=== PATIENT | female | born 1975 | race Caucasian/White ===

== ENCOUNTER 2023-04-03 12:51 | Outpatient (OUT) | payer MEDICAID, SELFPAY ==
--- NOTE | 2023-04-03 | XR_ITS ---
The [address] [address] Patient Name: KAREN SAAVEDRA MRN: [id number] date: 1975 Sex: F Assigned Patient Location: [facility] Current Patient Location: Accession/Order Number: [id number] Exam Date: 04/03/2023 13:08 Report Date: 04/04/2023 15:51 At the request of: BEBO ENRIQUEZ Procedure: XR ankle RT min 3V EXAM: XR ankle RT min 3V HISTORY: RIGHT ANKLE PAIN COMPARISON: 11/18/2019 TECHNIQUE: 3 views of the right ankle were obtained FINDINGS: There is no evidence of an acute fracture or dislocation. There is evidence of prior fractures involving the distal tibia and fibula, fixated with hardware, which remain unchanged. The mortise is intact. No osteochondral injury is identified. The subtalar joints are intact. A small osteophyte arises from the insertion site of the Achilles tendon. Mild diffuse soft tissue swelling is seen at the ankle. XR/XR ankle RT min 3V IMPRESSION: No acute fracture or dislocation. There is evidence of prior trauma and surgical repair without a complicating process. The joint spaces are intact. Mild diffuse soft tissue swelling is present. Electronically authenticated by: BEBO FRANCIS Date: 04/04/2023 15:51
== END 2023-04-03 12:52 | disposition home or self-care (01) ==
LOC: RAD 12:51
PROVIDERS: Visit Provider Podiatrist Foot & Ankle Surgery
DX: M25.571 Pain in right ankle and joints of right foot (principal); M25.471 Effusion, right ankle
CPT/HCPCS: 73610

== ENCOUNTER 2023-04-19 10:05 | Emergency (ER) | payer MEDICAID, SELFPAY ==
[2023-04-19 10:10] VITALS: BP 133/81; PULSE 69; RESP 16; TEMP 36.5; O2SAT 100; BMI 31.1
--- NOTE | 2023-04-19 10:37 | ED.GENADUL1 ---
HPI - General Adult General Chief complaint: Extremity Problem, Nontraumatic Stated complaint: LOWER EXTREMITY PAIN/WEAKNESS Time Seen by Provider: 04/19/23 10:16 Source: patient and family Mode of arrival: Wheelchair Limitations: no limitations History of Present Illness HPI narrative: Patient is a 48-year-old female who is presenting to the Emergency Room with chief complaint of chronic right ankle pain. Patient's been having ankle pain for the last 2 or [address] Gallagher in the office. Patient had x-ray on April 03. Patient does have screws in her right ankle. Patient was given a have a CT of the right ankle done before Dr. Gallagher may possibly do surgery to remove the screws. Insurance has not approved outpatient CT of the right ankle. Patient came to the Emergency Room for reevaluation. Patient's had no new injury, no new pain, no knee swelling. Patient is wearing a Aircast. No other acute concerns or complaints at this time. Patient's brother and is supportive daughter at bedside. 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 . All systems are negative except as noted/marked. All systems reviewed and otherwise negative. . Nurses note and vital signs reviewed and patient is not hypoxic. General: The patient appears well and in no apparent distress. Patient is resting comfortably on cart. Patient is not toxic, lethargic, or listless Skin: Warm, dry, no pallor noted. There is no rash noted. No petechiae, purpura. Head: Normocephalic, atraumatic Eye: Normal conjunctiva, no drainage, EOMI. PERRL Ears, Nose, Mouth, and Throat: oral mucosa is moist. Cardiovascular: Regular Rate and Rhythm, no murmur, gallop, rub Respiratory: Patient is in no distress, no accessory muscle use, lungs are clear to auscultation, no wheezing, rales or rhonchi GI: soft, no tenderness Musculoskeletal: Patient has full range of motion of all of the extremities Besides right ankle. Patient has mild to moderate tenderness to palpation to the right inferior posterior malleolus, no tenderness to palpation to the right Achilles, no pain to right medial malleolus. No pain to the dorsal or plantar aspect of right foot. No pain to proximal fibular head., no motor, sensory, or focal neurological deficits Neurological: A&O x3, normal speech Psychiatric: Cooperative Related Data Previous Rx's Medication Instructions Recorded meloxicam 7.5 mg tablet 7.5 mg PO DAILY #14 tabs 04/19/23 Allergies Allergy/AdvReac Type Severity Reaction Status Date / Time meclizine [From Antivert] AdvReac Mild lethargic Verified 04/19/23 10:13 PFSH PFS Social History Smoking status: Current every day smoker Exam Constitutional Vital Signs, click to edit/add: Last Vital Signs Temp 97.7 F 04/19/23 10:10 Pulse 69 04/19/23 10:10 Resp 16 04/19/23 10:10 BP 133/81 04/19/23 10:10 Pulse Ox 100 04/19/23 10:10 O2 Del Method Room Air 04/19/23 10:10 Course Vital Signs Vital signs: Vital Signs Temperature 97.7 F 04/19/23 10:10 Pulse Rate 69 04/19/23 10:10 Respiratory Rate 16 04/19/23 10:10 Blood Pressure 133/81 04/19/23 10:10 Pulse Oximetry 100 04/19/23 10:10 Oxygen Delivery Method Room Air 04/19/23 10:10 Temperature 97.7 F 04/19/23 10:10 Pulse Rate 69 04/19/23 10:10 Respiratory Rate 16 04/19/23 10:10 Blood Pressure 133/81 04/19/23 10:10 Pulse Oximetry 100 04/19/23 10:10 Oxygen Delivery Method Room Air 04/19/23 10:10 Medical Decision Making MDM Narrative Medical decision making narrative: [address] Gallagher on the phone. He stated that he most likely will be taken patient back to surgery to remove her screws, a CT of the ankle would be beneficial if she continues to have pain to help assess where the pain may be coming from prior to surgery if indicated. Patient is aware of this as well, and agrees to the CT ankle. 1100 CT of the ankle was done. Dr. Gallagher will follow-up with the results of the CT of the ankle and patient was scheduled another office visit prior to potential surgery. Patient will continue wearing her air splint. Patient will follow-up with Dr. Gallagher. No questions at discharge. Discharge Plan Discharge Chief Complaint: Extremity Problem, Nontraumatic Clinical Impression: Ankle pain, right Patient Disposition: Home, Self-Care Time of Disposition Decision: 10:59 Condition: Fair Prescriptions / Home Meds: New meloxicam 7.5 mg tablet 7.5 mg PO DAILY Qty: 14 0RF Instructions: Ankle Sprain (ED), Splint Care (ED), Arthralgia (ED), P.R.I.C.E. Treatment (ED) Stand Alone Forms: Portal Instructions Referrals: Physician,Non-Staff, MD [Primary Care Provider] - 1 week
--- NOTE | 2023-04-19 10:51 | CT_ITS ---
The [address] [address] Patient Name: KAREN SAAVEDRA MRN: [id number] date: 1975 Sex: F Assigned Patient Location: Current Patient Location: Accession/Order Number: [id number] Exam Date: 04/19/2023 10:47 Report Date: 04/19/2023 11:32 At the request of: BRANT MILLAN Procedure: CT ankle RT wo con CT ankle RT wo con: 04/19/2023 10:47 AM EST HISTORY: Chronic right ankle pain. Feelings of instability. Prior open reduction internal fixation of fractures of the right ankle. COMPARISON: Radiographs right ankle 11/18/2019 and 04/03/2023. TECHNIQUE: Multiple contiguous axial CT images of the right ankle were obtained without contrast. Sagittal and coronal reformatted images were made. Dose reduction techniques were achieved by using automated exposure control and/or adjustment of mA and/or kV according to patient size and/or use of iterative reconstruction technique. 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 There are atherosclerotic vascular calcifications seen. There is a stable appearance of remote postsurgical changes from prior open reduction internal fixation of trimalleolar fractures of the ankle. No hardware complication is seen and no lucency is identified adjacent to this hardware. The trimalleolar fractures are completely healed. The tip of one of the screws in the distal fibular metadiaphysis extends into the anterior aspect of the tibiofibular syndesmosis approximately 1 mm. There are moderate degenerative changes of the anterior aspect of the tibiotalar joint. No acute fracture or dislocation is seen. There is mild irregularity of the posterior articular surface of the tibial plafond in the region of the prior fracture of the posterior malleolus. There are mild degenerative changes of the tibiotalar joint with mild joint space narrowing medially and osteophyte formation of the anterior aspect of the tibial plafond. There is a moderate-sized os trigonum, but no significant degenerative change is seen at its synchondrosis. There is a moderate-sized enthesophyte at the insertion of the Achilles tendon on the calcaneus. No significant soft tissue swelling is seen. CT/CT ankle RT wo con IMPRESSION: 1. Remote, healed trimalleolar fractures of the ankle status post prior open reduction internal fixation as described above. 2. There are moderate degenerative changes of the anterior aspect of the tibiofibular joint and mild degenerative changes of the tibiotalar joint. 3. No acute fracture or dislocation is seen. 4. Atherosclerotic vascular disease. Electronically authenticated by: ZOLTAN VAUGHAN Date: 04/19/2023 11:32
== END 2023-04-19 11:12 | disposition home or self-care (01) ==
PROVIDERS: Emergency Provider Emergency Medicine
DX: M25.571 Pain in right ankle and joints of right foot (principal); F17.210 Nicotine dependence, cigarettes, uncomplicated
CPT/HCPCS: 73700; 99284

== ENCOUNTER 2023-05-01 09:24 | Outpatient (OUT) | payer MEDICAID, SELFPAY ==
--- NOTE | 2023-05-01 09:39 | ECG_ITS ---
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
--- NOTE | 2023-05-01 10:43 | PM.PRESUREVA ---
History of Present Illness History of Present Illness Chief complaint: joint disorders right ankle and foot, pain Narrative: Patient presents for preadmission testing. Please see HPI from Dr. Gallagher dated 04/23/2023. Review of Systems ROS Narrative Please see ROS from Dr. Gallagher dated 04/23/2023. [facility] Medical History (Updated 05/01/23 @ 10:25 by Gaby Conley NP) Strain of right peroneal muscle or tendon ?S86.311A - Strain of muscle(s) and tendon(s) of peroneal muscle group at lower leg level, right leg, initial encounter (ICD-10) Ankle instability ?M25.373 - Other instability, unspecified ankle (ICD-10) Displaced trimalleolar fracture ?S82.853A - Displaced trimalleolar fracture of unspecified lower leg, initial encounter for closed fracture (ICD-10) Painful orthopaedic hardware ?T84.84XA - Pain due to internal orthopedic prosthetic devices, implants and grafts, initial encounter (ICD-10) Other specified joint disorders, right ankle and foot ?M25.871 - Other specified joint disorders, right ankle and foot (ICD-10) Pseudotumor cerebri ?G93.2 - Benign intracranial hypertension (ICD-10) Presence of lumboperitoneal shunt ?Z98.2 - Presence of cerebrospinal fluid drainage device (ICD-10) Deep vein thrombosis ?I82.409 - Acute embolism and thrombosis of unspecified deep veins of unspecified lower extremity (ICD-10) Depression ?F32.A - Depression, unspecified (ICD-10) Anxiety ?F41.9 - Anxiety disorder, unspecified (ICD-10) COVID-19 ?U07.1 - COVID-19 (ICD-10) Seasonal allergies ?J30.2 - Other seasonal allergic rhinitis (ICD-10) Reactive airway disease ?J45.909 - Unspecified asthma, uncomplicated (ICD-10) Migraine ?G43.909 - Migraine, unspecified, not intractable, without status migrainosus (ICD-10) Vertigo ?R42 - Dizziness and giddiness (ICD-10) Seizures ?R56.9 - Unspecified convulsions (ICD-10) Kidney stones ?N20.0 - Calculus of kidney (ICD-10) IBS (irritable bowel syndrome) ?K58.9 - Irritable bowel syndrome without diarrhea (ICD-10) Surgical History (Updated 05/01/23 @ 10:25 by Gaby Conley NP) Status post lumboperitoneal shunt placement ?Z98.2 - Presence of cerebrospinal fluid drainage device (ICD-10) History of appendectomy (01/2023) ?Z90.49 - Acquired absence of other specified parts of digestive tract (ICD-10) History of tonsillectomy ?Z90.89 - Acquired absence of other organs (ICD-10) History of ankle surgery ?Z98.890 - Other specified postprocedural states (ICD-10) Family History (Updated 05/01/23 @ 10:10 by Gaby Conley NP) Other Family history of cervical cancer Family history of hypertension Family history of leukemia Social History (Updated 05/01/23 @ 10:02 by Gaby Conley NP) Within the past year, how often did you have a drink containing alcohol: never Score interpretation: A score less than 3 is consistent with normal alcohol consumption. 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 Highest level of school completed/degree received: high school graduate Meds Home Medications and Allergies Home Medications Medication Instructions Recorded Confirmed Type albuterol sulfate 2.5 mg/3 mL 2.5 mg inhalation Q6H PRN 05/01/23 05/01/23 History (0.083 %) solution for nebulization shortness of breath or wheezing albuterol sulfate 90 mcg/actuation 2 puff inhalation Q6H PRN 05/01/23 05/01/23 History aerosol inhaler shortness of breath or wheezing atogepant 60 mg tablet (Qulipta) 60 mg PO DAILY 05/01/23 05/01/23 History biotin 10,000 mcg capsule 10,000 mcg PO DAILY 05/01/23 05/01/23 History budesonide-formoterol HFA 160 2 inh inhalation Q12H 05/01/23 05/01/23 History mcg-4.5 mcg/actuation aerosol inhaler (Symbicort) calcium carbonate 500 mg-vitamin 1 tab PO BID 05/01/23 05/01/23 History D3 5 mcg (200 unit) tablet (Oyster Shell Calcium-Vitamin D3) cholecalciferol (vitamin D3) 50 50 mcg PO BID 05/01/23 05/01/23 History mcg (2,000 unit) capsule famotidine 20 mg tablet 20 mg PO QPM 05/01/23 05/01/23 History ibuprofen 600 mg tablet 600 mg PO TID 05/01/23 05/01/23 History lactulose 10 gram/15 mL oral 10 g PO DAILY 05/01/23 05/01/23 History solution linaclotide 290 mcg capsule 290 mcg PO DAILY 05/01/23 05/01/23 History (Linzess) multivitamin-ferrous 1 tab PO BID 05/01/23 05/01/23 History fumarate-folic acid 18 mg-400 mcg tablet (Tab-A-Tracey Multivitamin w-iron) omeprazole 40 mg capsule,delayed 40 mg PO QAM 05/01/23 05/01/23 History release ondansetron HCl 4 mg tablet 4 mg PO TID PRN nausea and vomiting 05/01/23 05/01/23 History plecanatide 3 mg tablet (Trulance) 3 mg PO DAILY 05/01/23 05/01/23 History rimegepant 75 mg disintegrating 75 mg PO .QOD 05/01/23 05/01/23 History tablet (Nurtec ODT) Allergies Allergy/AdvReac Type Severity Reaction Status Date / Time meclizine [From Antivert] AdvReac Mild lethargic Verified 05/01/23 10:01 Exam Narrative Exam Narrative: Constitutional: Awake, alert, comfortable, well-appearing, nontoxic, interactive, vital signs as charted Head: Normocephalic, atraumatic Neck: Supple, normal appearance, normal range of motion, no meningeal signs, no lymphadenopathy Respiratory: No respiratory distress, breath sounds clear Cardiovascular: Regular rate and rhythm, strong and regular heart tones Psychiatric: Oriented ?3, Bizarre affect, Cooperative Assessment and Plan Assessment and Plan (1) Painful orthopaedic hardware: (2) Other specified joint disorders, right ankle and foot: (3) Ankle instability: (4) Strain of right peroneal muscle or tendon: Plan Right ankle arthroscopy, removal of hardware, stress exam with possible lateral ankle stabilization and peroneal tendon exploration with repairs as needed scheduled with Dr. Gallagher 05/13/2023.
[2023-05-01 10:50] LABS: Anion Gap 13.7; BUN Creatinine Ratio 21.3; Carbon Dioxide 27.3 mmol/L (21.0-32.0); Chloride 107 mmol/L (98-107); Estimated GFR (African America >60 (>=60); Estimated GFR (Non-African Ame >60 (>=60); Glucose 89 mg/dL (74-106); Sodium 144 mmol/L (136-145)
== END 2023-05-01 09:25 | disposition home or self-care (01) ==
LOC: PST 09:24
PROVIDERS: PCP Family Medicine; Visit Provider Podiatrist Foot & Ankle Surgery
DX: Z01.810 Encounter for preprocedural cardiovascular examination (principal); Z01.812 Encounter for preprocedural laboratory examination; M25.871 Other specified joint disorders, right ankle and foot; T84.84XA Pain due to internal orthopedic prosthetic devices, implants and grafts, initial encounter
CPT/HCPCS: 36415; 80048; 93005; G0463

== ENCOUNTER 2023-05-13 06:22 | Day surgery (SDC) | payer MEDICAID, SELFPAY ==
[2023-05-01 10:20] VITALS: BP 130/85; PULSE 70; RESP 14; TEMP 36.3; O2SAT 96; BMI 33.6
[2023-05-13] VITALS (13 sets, daily range): BP systolic 107–146; BP diastolic 72–83; PULSE 78–85; RESP 12–18; TEMP 35.9–37.3; O2SAT 90–98
--- NOTE | 2023-05-13 | FL_ITS ---
[address] [address] Patient Name: KAREN SAAVEDRA MRN: [id number] date: 1975 Sex: F Assigned Patient Location: [facility] Current Patient Location: [facility] Accession/Order Number: [id number] Exam Date: 05/13/2023 08:00 Report Date: 05/13/2023 11:05 At the request of: BEBO ENRIQUEZ Procedure: FL fluoroscopy <1hr NON-READ EXAM: FL fluoroscopy <1hr NON-READ HISTORY: RIGHT ANKLE ARTHROSCOPY. TECHNIQUE: FINDINGS: Please see Operative Report. Electronically authenticated by: RADIOLOGIST NO Date: 05/13/2023 11:05
--- OUTSIDE RECORDS SUMMARY | 2023-05-13 06:27 | XMS_ITS | CCD ---
Author Name Unknown Address [address] [place] [address] Organization [facility] Care Team Providers Care Office Services Specialist Name Role Phone DELFINAJUAN DIEGOBEVERLY Martinez Unavailable Unavailable JOHN LEE Unavailable SONNY Clayton Unavailable Unavailab EDMOND Ferrari Admitting Unavailable EDMOND EDWARDS Attending Unavailable [facility] Referring Unavailable [facility] Primary Care Unavailable HI Procedure Practitioner Unavailab EDMOND Ferrari Surgeon Unavailable HI Procedure Practitioner Unavailab DOUG Whitt Surgeon Unavailable BEBO ENRIQUEZ Admitting Unavailable BEBO ENRIQUEZ Attending Unavailable ALAYNA GOEL Consulting Unavailable BEBO ENRIQUEZ Consulting Unavailable [facility] Primary Care Unavailable DAKSHA MCKEON Admitting Unavailable DAKSHA MCKEON Attending Unavailable DAKSHA MCKEON Consulting Unavailable ALAYNA GOEL Consulting Unavailable SAM ROSS Consulting Unavailable BEBO ENRIQUEZ Procedure Practitioner Unavail able BEBO ENRIQUEZ Consulting Unavailable REBA PALACIOS Consulting Unavailable FOZIA CH Consulting Unavailable KAT CAMERON Admitting Unavailable KAT CAMERON Attending Unavailable ALAYNA GOEL Consulting Unavailable KAT CAMERON Consulting Unavailable BEBO ENRIQUEZ Admitting Unavailable ZOE, BEBO Attending Unavailable ALAYNA GOEL Consulting Unavailable BEBO ENRIQUEZ Consulting Unavailable BEBO ENRIQUEZ Admitting Unavailable ZOE, BEBO Attending Unavailable LISSETT LEYVA V Consulting Unavailable BEBO ENRIQUEZ Consulting Unavailable BEBO ENRIQUEZ Admitting Unavailable ZOE, BEBO Attending Unavailable ALAYNA GOEL Consulting Unavailable BEBO ENRIQUEZ Consulting Unavailable BEBO ENRIQUEZ Admitting Unavailable ZOE, BEBO Attending Unavailable LISSETT LEYVA V Consulting Unavailable BEBO ENRIQUEZ Consulting Unavailable BEBO ENRIQUEZ Admitting Unavailable BEBO ENRIQUEZ Attending Unavailable HIGHLANDER, PETER Consulting Unavailable Linden Rojas Consulting Unavailable BEBO ENRIQUEZ Admitting Unavailable BEBO ENRIQUEZ Attending Unavailable LISSETT LEYVA V Consulting Unavailable BEBO ENRIQUEZ Consulting Unavailable Unknown, Referring Provider Unavailable Unav ailable None, No PCP Unavailable Unavailable Davi Martinez Unavailable SURESH THAO Referring Unavaila Skylar Daugherty Attending Unavailable SURESH THAO Attending Unavailab JAMES Hart Attending Unavailable SURESH THAO Referring Unavailab nina Allergies Allergy Classification Reported Allergen(s) Allergy Type Date of Onset Reaction(s) Facility (5 sources) meclizine; Translations: [MECLIZINE] Drug Allergy 09-09-2012 [facility] Repository (1 source) Meclizine; Translations: [Unknown] Drug Allergy 04-01-2019 [facility] Repository (4 sources) Meclizine; Translations: [Antivert TABS] Drug Allergy MG-Otolaryngolo Mary Work Phone: Medications Current Medications Medication Drug Class(es) Dates Sig (Normalized) Sig (Original) albuterol 0.417 mg/ml inhalation solution (8 sources) beta2-Adrenergic Agonist Start: 09-10-2019 take 3 mL by inhalation every eight hours as needed Albuterol Sulfate 1.25 MG/3ML 3 ml as needed Inhalation every 8 hrs for 30 days September, Active take 2 puff(s) by in halation every six hours as needed Albuterol Sulfate HFA 108 (90 Base) MCG/ACT 2 puffs as needed Inhalation every 6 hrs for 90 days Active take 2 puff(s) by in halation every six hours as needed Albuterol Sulfate HFA 108 (90 Base) MCG/ACT 2 puffs as needed Inhalation every 6 hrs for 90 days Active Albuterol Sulfat e (2.5 MG/3ML) 0.083% Inhalation Nebulization Solution Quantity: 0 Refills: 0 Ordered: 23-Mar-2021 DO Active 120 actuat budesonide 0.16 mg/actuat / formoterol fumarate 0.0045 mg/actuat metered dose inhaler (6 sources) Corticosteroid, beta2-Adrenergic Agonist Symbicort 160-4 .5 MCG/ACT 2 puffs Twice a day Inhalation 90 days orally bid for 90 days Active Symbicort 160-4. 5 MCG/ACT Inhalation Aerosol Quantity: 0 Refills: 0 Ordered: 23-Mar-2021 DO Active Daily Tracey - (2 sources) take 1 tablet by mouth once daily Daily Tracey - TAKE 1 TABLET BY MOUTH EVERY DAY Active ferrous sulfate 325 mg oral tablet (2 sources) take 1 tablet by mouth every twenty-four hours Ferrous Sulfate 325 (65 Fe) MG 1 tablet Orally Once a day Active fluticasone propionate 0.05 mg/actuat metered dose nasal spray (6 sources) Corticosteroid take 2 spray(s) nasal route once daily Flonase 50 MCG/DOSE 2 spray in each nostril Nasally Once a day for 90 days *please review for potential _update for e-prescription and drug interaction check* Active Fluticasone Prop ionate 50 MCG/ACT Nasal Suspension Quantity: 0 Refills: 0 Ordered: 23-Mar-2021 DO Active frovatriptan 2.5 mg oral tablet (2 sources) Serotonin-1b and Serotonin-1d Receptor Agonist Start: 10-13-2019 take 1 tablet by mouth every two hours as needed Frovatriptan Succinate 2.5 MG 1 tablet Orally prn migraine. may repeat once in 2 hrs. max 2/MARTINEZ 4/wk for 30 days Oct, Active hydrocortisone 25 mg/ml topical cream (6 sources) Corticosteroid Hydrocortisone 2 .5 % 1 application to affected area Externally Twice a day for 30 day(s) Active Hydrocortisone 1 % External Cream Quantity: 0 Refills: 0 Ordered: 23-Mar-2021 DO Active lactulose 667 mg/ml oral solution (2 sources) Osmotic Laxative Start: 05-04-2021 take 60 mL by mouth once daily Lactulose 10 GM/15ML 60 ml Orally Once a day for 30 days Apr, Active methylPREDNISolone 4 mg oral tablet (2 sources) Corticosteroid Start: 11-11-2019 methylPREDNISolone 4 MG as directed Orally for 6 days Nov, Active Nebulizer/Tubing/Mouth piece - (2 sources) Start: 09-10-2019 Nebulizer/Tubing/Mout hpiece - as directed *please review for potential _update for e-prescription and drug interaction check* September, Active Oyster Shell Calcium 500 + D 500-200 (2 sources) take 1 tablet by mouth twice daily Oyster Shell Calcium 500 + D 500-200 1 tablet orally two times daily *please review for potential _update for e-prescription and drug interaction check* Active predniSONE 20 mg oral tablet (2 sources) Start: 11-10-2019 prednisone 20 MG take 3 tabs together once daily for 3 days then 2 for 3 days then 1 for 3 days then 1/2 for 2 days Orally Once a day for 11 days Nov, Active promethazine hydrochloride 25 mg oral tablet (2 sources) Phenothiazine take 1 tablet by mouth every twelve hours Promethazine HCl 25 MG 1 tablet as needed Orally every 12 hrs for 30 Active rimegepant 75 mg disintegrating oral tablet (6 sources) Start: 11-11-2019 Nurtec 75 MG 1 tab prn migraine, no more than every 24 hours for 30 days Replacing Frova Nov, Active suvorexant 10 mg oral tablet (2 sources) Orexin Receptor Antagonist Start: 10-13-2019 take 1 tablet by mouth at bedtime Suvorexant 10 MG 1 tablet Orally at bedtime for 30 days *please review for potential _update for e-prescription and drug interaction check* Oct, Active Completed/Discontinued Medications Medication Drug Class(es) Dates Sig (Normalized) Sig (Original) biotin 10 mg oral capsule (4 sources) Biotin 10 MG Ora l Capsule Quantity: 0 Refills: 0 Ordered: 23-Mar-2021 DO Active 24 hr buPROPion hydrochloride 150 mg extended release oral tablet (4 sources) Aminoketone take 1 tablet by mouth every twenty-four hours Wellbutrin XL 150 MG Oral Tablet Extended Release 24 Hour Quantity: 0 Refills: 0 Ordered: 23-Mar-2021 DO Active calcium carbonate 1250 mg / cholecalciferol 200 unt oral tablet (4 sources) Vitamin D Oyster Shell Calcium + D 500-200 MG-UNIT Oral Tablet Quantity: 0 Refills: 0 Ordered: 23-Mar-2021 DO Active cetirizine hydrochloride 10 mg oral tablet (4 sources) Histamine-1 Receptor Antagonist Cetirizine HCl - 10 MG Oral Tablet Quantity: 0 Refills: 0 Ordered: 23-Mar-2021 DO Active clobetasol propionate 0.5 mg/ml topical cream (4 sources) Corticosteroid Clobetasol Propionate 0.05 % External Cream Quantity: 0 Refills: 0 Ordered: 23-Mar-2021 DO Active dicyclomine hydrochloride 20 mg oral capsule (4 sources) Anticholinergic Dicyclomine HCl 20 MG CAPS Quantity: 0 Refills: 0 Ordered: 23-Mar-2021 DO Active escitalopram 5 mg oral tablet (8 sources) Serotonin Reuptake Inhibitor Escitalopram Oxalate 5 MG Oral Tablet Quantity: 0 Refills: 0 Ordered: 23-Mar-2021 DO Active Lexapro 20 MG Or al Tablet Quantity: 0 Refills: 0 Ordered: 23-Mar-2021 DO Active medroxyPROGESTERone (19 sources) Progestin Start: 02-23-2019 DEPO-PROVERA 2 1 Feb, 2019 1 mL Start: 11-07-2018 DEPO-PROVERA 0 5 Nov, 2018 1 mL Start: 08-21-2018 DEPO-PROVERA 1 8 Aug, 2018 1 mL Start: 04-04-2018 DEPO-PROVERA 3 0 Mar, 2018 1.0 mL Start: 01-16-2018 DEPO-PROVERA 1 3 Jan, 2018 1.0 mL Start: 10-28-2017 DEPO-PROVERA 2 5 Oct, 2017 1 mL Start: 06-03-2017 DEPO-PROVERA 2 9 May, 2017 1 mL Start: 03-14-2017 DEPO-PROVERA 0 9 Mar, 2017 1.0 mL Start: 12-11-2016 DEPO-PROVERA 0 8 Dec, 2016 1 mL Start: 09-10-2016 DEPO-PROVERA 0 8 Sep, 2016 1 mL Start: 06-13-2016 DEPO-PROVERA 0 8 Jun, 2016 Start: 03-07-2016 DEPO-PROVERA 0 2 Mar, 2016 Start: 12-07-2015 DEPO-PROVERA 0 3 Dec, 2015 Start: 09-05-2015 DEPO-PROVERA 0 2 Sep, 2015 Start: 06-09-2015 DEPO-PROVERA 0 4 Jun, 2015 Start: 03-08-2015 DEPO-PROVERA 0 3 Mar, 2015 Start: 12-01-2014 DEPO-PROVERA 2 9 Nov, 2014 Start: 09-02-2014 DEPO-PROVERA 3 0 Aug, 2014 Start: 06-02-2014 DEPO-PROVERA 2 8 May, 2014 metroNIDAZOLE 500 mg oral tablet (4 sources) Nitroimidazole Antimicrobial met roNIDAZOLE 500 MG Oral Tablet Quantity: 0 Refills: 0 Ordered: 23-Mar-2021 DO Active naproxen 375 mg oral tablet (4 sources) Nonsteroidal Anti-inflammatory Drug Naproxen 375 MG O ral Tablet Quantity: 0 Refills: 0 Ordered: 23-Mar-2021 DO Active nystatin 100 unt/mg topical powder (4 sources) Polyene Antifungal Nystatin 1000 00 UNIT/GM External Powder Quantity: 0 Refills: 0 Ordered: 23-Mar-2021 DO Active polyethylene glycol 3350 23814 mg powder for oral solution (4 sources) Osmotic Laxative MiraLax 17 GM O ral Packet Quantity: 0 Refills: 0 Ordered: 23-Mar-2021 DO Active Vitamin D TABS (4 sources) Vitamin D TABS Q uantity: 0 Refills: 0 Ordered: 23-Mar-2021 DO Active Problems Active Problems Problem Classification Problem Date Documented Da te Episodic/Chronic Adjustment disorders (2 sources) Stress; Translations: [Reaction to severe stress, unspecified] Chronic Adverse effects of medical drugs (1 source) Adverse effect of antiasthmatics, initial encounter; Translations: [ADVERSE EFF ANTIASTHMATICS INIT ENC] Onset: 9 Allergic reactions (2 sources) Atopic dermatitis; Translations: [Atopic dermatitis, unspecified] Chronic Anxiety disorders (7 sources) Generalized anxiety disorder; Translations: [Anxiety] Onset: 9 Chronic Asthma (5 sources) Mild persistent asthma with (acute) exacerbation; Translations: [Moderate persistent asthma] Onset: 9 Chronic Chronic kidney disease (2 sources) Chronic kidney disease stage 3; Translations: [Chronic kidney disease, stage 3 (moderate)] Chronic Chronic obstructive pulmonary disease and bronchiectasis (2 sources) Chronic obstructive lung disease; Translations: [Chronic obstructive pulmonary disease, unspecified] Chronic Deficiency and other anemia (2 sources) Iron deficiency anemia due to blood loss; Translations: [Iron deficiency anemia secondary to blood loss (chronic)] Chronic Deficiency and other anemia (2 sources) Iron deficiency anemia; Translations: [Iron deficiency anemia, unspecified] Episodic Diabetes mellitus without complication (5 sources) Type 2 diabetes mellitus without complications; Translations: [Type 2 diabetes mellitus without complication] Onset: 9 Chronic Disorders of lipid metabolism (4 sources) Hyperlipidemia; Translations: [Hyperlipidemia, unspecified] Chronic Esophageal disorders (2 sources) Gastroesophageal reflux disease; Translations: [Gastro-esophageal reflux disease without esophagitis] Chronic External cause codes: Overexertion (1 source) Slipping, tripping and stumbling without falling, unspecified, initial encounter; Translations: [SLIP TRIP STUMBL NO FALL UNS INIT] Onset: 9 Fracture of lower limb (2 sources) Displaced trimalleolar fracture of right lower leg, initial encounter for closed fracture; Translations: [Displaced trimalleolar fracture of right lower leg, subsequent encounter for closed fracture with routine healing] Onset: 9 Episodic Gastritis and duodenitis (2 sources) Chronic gastritis; Translations: [Unspecified chronic gastritis without bleeding] Chronic Headache; including migraine (7 sources) Migraine, unspecified, not intractable, without status migrainosus; Translations: [Refractory migraine without aura] Onset: 9 Chronic Menstrual disorders (8 sources) Break-through bleeding; Translations: [Excessive and frequent menstruation with irregular cycle] Chronic Mood disorders (8 sources) Depressive disorder; Translations: [Major depressive disorder, single episode, unspecified] Chronic Nutritional deficiencies (3 sources) Mild protein-calorie malnutrition; Translations: [Vitamin D deficiency] Onset: 9 Chronic Other aftercare (1 source) 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; Translations: [CUSTODIAL USE ORAL HYPOGLYCEMIC DX] Onset: 9 Other connective tissue disease (1 source) Pain in right foot; Translations: [PAIN IN RIGHT FOOT] Onset: 0 Episodic Other connective tissue disease (2 sources) Spasm of cervical paraspinous muscle; Translations: [Other muscle spasm] Episodic Other ear and sense organ disorders (3 sources) Sensorineural hearing loss, bilateral; Translations: [Sensorineural hearing loss, bilateral] Chronic Other ear and sense organ disorders (2 sources) Conductive hearing loss, bilateral; Translations: [Conductive hearing loss, bilateral] Chronic Other endocrine disorders (2 sources) Polycystic ovaries; Translations: [Polycystic ovarian syndrome] Chronic Other female genital disorders (2 sources) Dysfunctional uterine bleeding; Translations: [Other specified abnormal uterine and vaginal bleeding] Chronic Other gastrointestinal disorders (4 sources) Intestinal malabsorption; Translations: [Intestinal malabsorption, unspecified] Chronic Other gastrointestinal disorders (2 sources) History of bypass of stomach; Translations: [Bariatric surgery status] Episodic Other gastrointestinal disorders (4 sources) Slow transit constipation; Translations: [Slow transit constipation] Episodic Other gastrointestinal disorders (4 sources) Constipation; Translations: [Constipation, unspecified] Episodic Other lower respiratory disease (1 source) Acute respiratory distress; Translations: [ACUTE RESPIRATORY DISTRESS] Onset: 9 Other nervous system disorders (1 source) Benign intracranial hypertension; Translations: [BENIGN INTRACRANIAL HYPERTENSION] Onset: 9 Chronic Other nervous system disorders (4 sources) Benign intracranial hypertension; Translations: [Benign intracranial hypertension] Chronic Other nervous system disorders (2 sources) Chronic pain; Translations: [Other chronic pain] Chronic Other nervous system disorders (2 sources) Paresthesia; Translations: [Paresthesia of skin] Episodic Other non-traumatic joint disorders (4 sources) Pain in right ankle and joints of right foot; Translations: [PAIN IN RIGHT ANKLE] Onset: 0 Episodic Other nutritional; endocrine; and metabolic disorders (1 source) Obesity, unspecified; Translations: [OBESITY UNSPECIFIED] Onset: 9 Chronic Other nutritional; endocrine; and metabolic disorders (1 source) Body mass index (BMI) 32.0-32.9, adult; Translations: [BODY MASS INDEX BMI 32.0-32.9 ADULT] Onset: 9 Chronic Other nutritional; endocrine; and metabolic disorders (2 sources) Obesity; Translations: [Obesity, unspecified] Chronic Other upper respiratory disease (2 sources) Allergic rhinitis; Translations: [Other allergic rhinitis] Chronic Other upper respiratory disease (2 sources) Perennial allergic rhinitis; Translations: [Other allergic rhinitis] Chronic Other upper respiratory disease (4 sources) Hoarse; Translations: [Dysphonia] Episodic Phlebitis; thrombophlebitis and thromboembolism (2 sources) H/O: Deep vein thrombosis; Translations: [Personal history of other venous thrombosis and embolism] Episodic Residual codes; unclassified (2 sources) Obstructive sleep apnea syndrome; Translations: [Obstructive sleep apnea (adult) (pediatric)] Chronic Residual codes; unclassified (4 sources) Insomnia; Translations: [Insomnia, unspecified] Episodic Septicemia (except in labor) (1 source) Sepsis, unspecified organism; Translations: [SEPSIS UNSPECIFIED ORGANISM] Onset: 9 Spondylosis; intervertebral disc disorders; other back problems (2 sources) Neck pain; Translations: [Cervicalgia] Episodic Thyroid disorders (2 sources) Hypothyroidism; Translations: [Hypothyroidism, unspecified] Chronic Viral infection (4 sources) Plantar wart of right foot; Translations: [Plantar wart] Episodic Past or Other Problems Problem Classification Problem Date Documented Da te Episodic/Chronic Abdominal pain (1 source) Unspecified abdominal pain Onset: 05-04-2021 Resolved: 05-04-2021 Episodic Mycoses (1 source) Candidal stomatitis; Translations: [CANDIDAL STOMATITIS] Onset: 01-06-2019 Episodic Other gastrointestinal disorders (1 source) Bariatric surgery status; Translations: [BARIATRIC SURGERY STATUS] Onset: 01-06-2019 Episodic Other gastrointestinal disorders (2 sources) Slow transit constipation Onset: 05-04-2021 Resolved: 09-28-2021 Episodic Other gastrointestinal disorders (1 source) Heartburn Onset: 05-04-2021 Resolved: 05-04-2021 Episodic Pneumonia (except that caused by tuberculosis or sexually transmitted disease) (1 source) Pneumonia, unspecified organism; Translations: [PNEUMONIA UNSPECIFIED ORGANISM] Onset: 01-06-2019 Episodic Residual codes; unclassified (1 source) Acquired absence of other specified parts of digestive tract; Translations: [ACQ ABSENCE OTH PART DIGESTV TRACT] Onset: 01-06-2019 Episodic Residual codes; unclassified (1 source) Acquired absence of ovaries, bilateral; Translations: [ACQUIRED ABSENCE OVARIES BILATERAL] Onset: 01-06-2019 Episodic Results Test Name Value Interpretation Reference Range Facility Physician Orderon 04-16-2023 Physician Order [id number] Normal [facility] US RENAL COMPLETEon 04-08-20 23 US RENAL COMPLETE FINDINGS: Right kidney measures 11.6 x 6.3 x 6.1 cm. Left kidney measures 10.3 x 5.7 x 4.7 cm. Kidneys are normal in size, shape, echogenicity, and color flow. Right kidney shows multiple echogenic foci, some displaying distal acoustic shadowing, measuring up to 2 mm diffusely throughout the right kidney. Mild to moderate right pelvocaliectasis identified. Left kidney also contains echogenic foci measuring up to 2 mm with no distal acoustic shadowing. No left pelvocaliectasis evident. No cystic and no solid lesions demonstrated. Urinary bladder is smoothly marginated and well-defined. Bilateral ureteral jets demonstrated on color flow. Prevoid urinary bladder volume 161 mL. Post void urinary bladder volume 30 mL. IMPRESSION: Impression: Bilateral renal calculi. Mild to moderate right hydronephrosis. 30 mL post void residual. ELECTRONICALLY SIGNED BY: Angel Bowie MD Normal Not Available XR Knee Complete Left*on XR Knee Complete Left* FINDINGS: Mild patellofemoral joint space loss. No significant osteophyte formation. No cortical or subchondral. No suprapatellar effusion. IMPRESSION: 1. Mild patellofemoral arthritis, no significant soft tissue swelling or fracture. Report reported and signed by Sammy Savage on 01/11/2022 1527 Normal [facility] SCREENING MAMMOGRAM W/GOVIND, BILATERAL*on 11-24-2021 SCREENING MAMMOGRAM W/GOVIND, BILATERAL* COMPARISON: Dating back to November 07, 2018 and March 14, 2017 TECHNIQUE: 2D and 3D Tomosynthesis of the right and left breasts was performed. FINDINGS: Breast composition demonstrates scattered fibroglandular densities. Stable. o suspicious microcalcifications, asymmetry, architectural distortion or associated features are present. IMPRESSION: BI RADS 1 : NEGATIVE MAMMOGRAM Board Certified Radiologist. Accredited by the ACR and FDA. MAMMOGRAPHY IS VERY IMPORTANT TO YOUR HEALTH. THE CURRENT [employer] GUIDELINES RECOMMENDS ANNUAL MAMMOGRAPHY BEGINNING AT AGE 40. THIS FACILITY USES A REMINDER SYSTEM TO ENSURE ALL PATIENTS RECEIVE REMINDER NOTIFICATIONS AT THE APPROPRIATE TIME BASED ON THE RECOMMENDATIONS OF THIS EXAM. Report reported and signed by Sammy Savage on 11/27/2021 1049 Normal [facility] US Pelvic, Transvaginalon US Pelvic, Transvaginal HISTORY: Pelvic pain FINDINGS: (Transvaginal imaging was performed.) Uterus 8.8 x 4.4 x 4.9cm Endometrial Stripe 4.0 mm Right OvarySurgically absent Left OvaryNot seen Normal uterine orientation. Heterogeneous areas within the deep myometrium and near the endometrium, both of which may represent intramural and/or submucosal fibroids (1.9 x 1.7 x 1.7 cm and 1.1 x 1.4 x 1.1 cm). No endocervical fluid. No adnexal mass. Left ovary is not visualized. IMPRESSION: Uterine findings, likely intramural and/or submucosal fibroid formation. If tissue sampling is not performed, this study can serve as a baseline for follow up examinations. Report reported and signed by Sammy Savage on 09/13/2021 1302 Normal [facility] [employer] Therapy Communicationon 12-0 Therapy Communication Message TERRIE SAAVEDRA no showed today . Signatures Electronically signed by : Maddy Echeverria CCC-FOREIGN STUDENT ADVISER; Apr 07 2021 12:01PM EST (Author) Normal [facility] Initial Visit (Otolaryngolog y)on 03-23-2021 Initial Visit (Otolaryngology) Diagnoses/Problems Hoarseness of voice (784.42) (R49.0) Non-smoker (V49.89) (Z78.9) Orders IO Audiogram; Status:Active - Perform Order; Requested for:23Mar2021; Speech Therapy - Voice Referral Evaluation and Treatment Evaluate AND Treat Status: Hold For - Scheduling Requested for: 23Mar2021 Patient Discussion/Summary 1. You need speech therapy as part of your treatment. We will help you to schedule your speech appointment after your visit or you can call Speech Therapy Scheduling at [phone]. Please follow up pending the outcome of speech therapy. 2. Call your primary care physician to discuss a trial of CPAP to manage your fatigue and to assure depression, and insomnia are well controlled 3. Also discuss your shortness of breath and if pulmonary evaluation is needed. If you are having breathing issues, this will impact your voice. 4. We will plan on follow up after speech is completed. 5. Hearing test today. Welcome to Dr. Bustos?s clinic. We are here to assist you through your ENT care at [facility]. Dr. Bustos is an ENT surgeon who specializes in voice, airway and swallowing issues. This means that she specializes in taking care of patients with complex voice, airway and swallowing problems. Dr. Bustos's office number is [phone]. Please use this number to contact her and her care team regardless of which office you use to access care. This number is the most direct way to communicate with all the members of the care team. Dr. Bustos?s legal administrative secretary answers the office phone from 9am-4pm Mon-Fri. Call [phone] and push 2. She can help you with scheduling of appointments, general questions and information. You may need to leave a message if she is helping another patient. In this case, someone from the team will call you back the same day if you leave your message before 3pm, or the next business morning. Dr. Bustos?s nurse and can be reached by calling [phone]. We make every effort to return phone calls the same day. If you are in need of urgent assistance after hours, please call [phone] and ask for ENT precision dyer. Dr. Bustos works closely with speech therapists as they work together to help solve your issues with speech and swallowing. You may see a speech therapist during your appointment if Dr. Bustos feels this is needed. If you need to reach speech therapy to talk with a therapist or to schedule an appointment, please call [phone]. Others who may be included in your care are dieticians, social workers, audiologists, neurologists, and physical therapists. Dr. Bustos will provide these referrals as needed. Please let her know if you would like to request a specific referral. For your convenience, Dr. Bustos sees patients at different [facility] locations including the [facility] at [facility], and [facility] at the [facility]. While we try to make your appointments as convenient as possible, occasionally a visit to another location may be necessary to provide the best care for you. Dr. Bustos makes every effort to run on time for your appointments. Therefore, if you are more than 30 minutes late unrelated to a scan or another appointment such therapy or audiology, your appointment will need to be rescheduled to another day. We appreciate your understanding. We look forward to working with you to meet your healthcare goals. Provider Impressions This is an initial visit for this patient with variable chronic hoarseness and clinical findings of muscle tension dysphonia with very poor coordination and intermittent splinting of her vocal cords. She has contributing factors related to : deconditioning, depression/anxiety, fatigue/CHICA, and hearing loss. GERD appears reasonably well controlled. We discussed the need to manage all of these issues in order to control her voice. She was open to this and we will assess after 1 -3 sessions of speech therapy performed virtually. I did ask her to follow up with her primary care to trial some CPAP as this may help with her fatigue and conditioning to some extent. She was willing to try. Chief Complaint hoarseness History of Present IllnessTERRIE SAAVEDRA is a 46 year old female referred to me today by Dr Mcgregor for hoarseness. She reports chronic variable hoarseness and globus sensation since early in 2020. She denies any antecedent events at onset. It has not worsened, but is quite bothersome to her at work. 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 She is having a hard time with hearing people who are wearing masks - feels she has a hearing loss. She did gain weight through covid, and now notes increased dyspnea with any ambulation which makes her very anxious and uncomfortable. She also has known mild sleep apnea, based on sleep study last year. Has not tried CPAP - does have significant fatigue by report. also insomnia. PMH: pseudoturmor cerebri, PCOS, ovarian cyst, ch (more content not included)... [facility]on 05-23-2020 Follow-up visit Diagnoses/Problems Sensorineural hearing loss (SNHL) of both ears (389.18) (H90.3) Patient Discussion/Summary Today's evaluation revealed bilateral intact and mobile tympanic membranes and mild sensorineural hearing loss bilaterally. Patient will need to contact insurance for in-network hearing aid providers. Plan: -Follow up with Dr. Bustos as directed. -Follow up with hearing aid professional regarding retention issues. -Use of hearing aids during all waking hours. -Use of hearing protection when in/around loud noise. Time: 0667-9139 Chief Complaint hearing test hearing loss, has hearing aids Adult Risk ScreeningThere are no spiritual/cultural practices/values/needs that are important to know Initial Fall Risk Screening: TERRIE has not fallen in the last 6 months. TERRIE does not have a fear of falling. She does not need assistance with sitting, standing or walking. Does not need assistance walking in her home. She does not need assistance in an unfamiliar setting. The patient is not using an assistive device. Domestic Violence Screen: Does not feel threatened or abused physically, emotionally or sexually. Do you feel UNSAFE? The patient feels safe in the home. Depression/Suicide Screening: During the past 2 weeks, the patient has not felt down, depressed or hopeless. During the past 2 weeks, the patient has not felt little interest or pleasure in doing things. Reference Documentation See scanned note Procedure Note: audiogram. History of Present Illness TERRIE SAAVEDRA, age 46 years, was seen today for an audiologic evaluation in conjunction with seeing Ekta Bustos MD. Ms. SAAVEDRA reports bilateral hearing loss with the use of hearing aids. She notices the greatest difficulty hearing when in the presence of background noise. She reports she has difficulty keeping the hearing aids in place. She did not have the hearing aids with her today. 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 She denies otalgia, otorrhea, tinnitus, dizziness, history of otologic surgery. Patient's preferred language: Mauritanian Preferred language of the parent, legal guardian or surrogate decision-maker of this minor or incapacitated patient: Not Applicable No overt signs of domestic violence/neglect/abuse. Pain not interfering with optimal level of function or ability to assess and/or treat. Pain Scale rank: 0/10 Pain Scale used: Numeric No referral made to primary care provider (PCP). Factors/Barriers influencing patient's ability to complete assessment or learn: none. Person taught: patient. Readiness to learn: no barriers. Results of Teaching/Counseling: verbalize recall / understanding and teaching complete. Procedure Otoscopy showed clear ear canals bilaterally. RIGHT EAR: -Tympanometry: Type A tympanogram, normal ear canal volume and compliance -Acoustic reflexes: Ipsilateral acoustic reflexes absent at 500-4000 Hz -Distortion product otoacoustic emissions (DPOAEs): Present at 4000 Hz only. This is consistent with abnormal outer hair cell function at the frequencies tested 5564-0567 Hz. Audiometric evaluation revealed essentially flat mild sensorineural hearing loss with word recognition ability estimated to be excellent (92%) based on an NU-6 recorded 25-word list. LEFT EAR: -Tympanometry: Type A tympanogram, normal ear canal volume and compliance -Acoustic reflexes: Ipsilateral acoustic reflexes absent at 500-4000 Hz -Distortion product otoacoustic emissions (DPOAEs): Present at 2137-2474 Hz and absent at 7435-1357 Hz. This is consistent with largely normal to near normal outer hair cell function at the frequencies tested 3389-3253 Hz. Audiometric evaluation revealed essentially flat mild sensorineural hearing loss with word recognition ability estimated to be excellent (92%) based on an NU-6 recorded 25-word list. The test results were discussed with the patient. Signatures Electronically signed by : Ayesha Claire,OLI-Romi; Mar 23 2021 12:48PM EST (Author) Reviewed by : Ekta Bustos MD; Mar 23 2021 1:14PM EST Normal [employer] FOREIGN STUDENT ADVISER (Voice Evaluation)on FOREIGN STUDENT ADVISER (Voice Evaluation) Therapy Diagnosis Assessed Hoarseness of voice (784.42) (R49.0) Plan of Care Frequency: 1 time/s per week Duration: 4 weeks alf goals: Improve overall vocal health to foster increased participation levels at home, work and in the community environment. Short term goals: Patient will increase vocal wellness and decrease phono trauma in adherence with clinician prescribed vocal hygiene and wellness program per patient report 80% of his/her day. Patient will demonstrate independent use of voice techniques x 80% accuracy. Patient will increase the balance/coordination of the respiratory/laryngeal musculature x 80% accuracy. Recommendations For Therapeutic Interventions: speech/voice exercises and vocal hygiene program Patient/family understands and agrees with goals/plan. Potential for improvement: good Factors affecting prognosis: none Discussed plan of care with: patient and physician Discussed risks/benefits with patient/caregiver. Patient/caregiver agreeable with plan of care. Plan of care was developed with input and agreement by the patient. Assessment Voice assessment: Patient presents with dysphonia 2/2 a diagnosis of muscle tension dysphonia with poor coordination and intermittent splinting of her vocal cords. She has contributing factors related to deconditioning, depression/anxiety, fatigue/CHICA, and hearing loss. GERD appears reasonably well controlled. Patient appears to be a candidate for therapy which will target voice rebalancing. Voice quality based on the GRBAS scale: 0=absent; 1=mild; 2=moderate; 3=severe Grade: 2 Roughness: 2 Breathiness: 2 Asthenia: 0 Strain: 2 Contributing Factors: supraglottic compression , inadequate breath support and habitual behaviors that misuse/abuse the voice NOMS Score: moderate: level 4 Treatment recommendations: treatment indicated (see goals below) Insurance Insurance reviewed Visit number: 1 Onset Date: 2020 Subjective Living Environment: home Patient arrival: independent Voice evaluation: Reason for Referral: TERRIE SAAVEDRA is a 46 year old female referred to Dr. Bustos [facility] by Dr Mcgregor for hoarseness. She reports chronic variable hoarseness and globus sensation since early in 2020. She denies any antecedent events at onset. It has not worsened, but is quite bothersome to her at work. 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 She is having a hard time with hearing people who are wearing masks - feels she has a hearing loss. She did gain weight through COVID, and now notes increased dyspnea with any ambulation which makes her very anxious and uncomfortable. She also has known mild sleep apnea, based on sleep study last year. Has not tried CPAP - does have significant fatigue by report and insomnia. PMH: pseudotumor cerebri, PCOS, ovarian cyst, cholecystitis, DM, HTN, Depression, gastric bypass 4 years ago, GERD, EGD 2010, seizures, asthma Social: Tobacco - none; ETOH - none; Lives alone Referred by: Dr. Bustos Voice Use Inventory: Voice misuse/abuse: yes throat clear Exposure to noise: no Exposure to respiratory irritants: no Consistent use of singing voice: no Occupation relies on speaking voice: yes Patient self assessment: Daily water intake: yes Alcohol intake: no Smoking history: no Reflux history: no Objective PERCEPTUAL VOICE FEATURES Intonation: WFL Loudness: reduced Nasal resonance: WFL Additional vocal characteristics noted included: Pitch breaks Throat clears Globus complaints FLEXIBLE LARYNGOSCOPY WITH STROBOSCOPY Glottic closure: complete with a small posterior gap (possibly related to splinting/MTD) Vocal fold mobility: normal Vibratory amplitude: decreased bilaterally Mucosal wave: symmetric Periodicity: periodic Secretions: unremarkable Mucosal edge: smooth bilaterally Supraglottic compression: FVC; sphincteric at times Vascularity: unremarkable Pharyngeal contraction: normal ADDITIONAL OBSERVATIONS Overall poor coordination despite multimodality cueing Treatment Total time in clinic is 45 minutes. Treatment/Instructions/Inf ormation Provided: Initiated voice retraining to improve diaphragmatic breath support and unload supraglottic compression associated with speech. Suspected most favorable technique will be RVT bubble blowing and lip trilling and thus verbally instructed patient this date. Will schedule a virtual follow up to provide further instruction and monitor patient performance. Encouraged home practice several times a day for limited duration. Handout provided to facilitate optimal home carryover. Education: Individual(s) Educated: patient Verbal education provided: risks/benefits of therapy, results of testing and exercises Written education provided: exercises Response to education: verbalized understanding and needs review Preferred learning method: demonstration, printed material (more content not included)... Normal [employer] FOREIGN STUDENT ADVISER (Voice Evaluation) No report was sent Normal [employer] Tobacco Screening.on 021 Fall risk assessment a) No falls within the last year [employer] [employer] Work Phone: Tobacco use status CPHS b) No [employer]tol[facility] [employer] Work Phone: Basic Metabolic Panelon 06-07 Calcium [Mass/Vol] 8.9 mg/dL Normal 8.2-10.2 [facility] Comment on above: Performed By: #### L IPID, HEPATIC, BMP, TSH3 wRFLX, [id number] #### [facility] [address] [place] [address] [place] Chloride [Moles/Vol] 106 mmol/L Normal 95-114 [facility] Comment on above: Performed By: #### L IPID, HEPATIC, BMP, TSH3 wRFLX, [id number] #### [facility] [address] [place] [address] [place] CO2 [Moles/Vol] 22.0 mmol/L Normal 22.0-30.0 [facility] Comment on above: Performed By: #### L IPID, HEPATIC, BMP, TSH3 wRFLX, [id number] #### [facility] [address] [place] [id number] [place] Creatinine [Mass/Vol] 0.67 mg/dL Normal 0.44-1.03 [facility] Comment on above: Performed By: #### L IPID, HEPATIC, BMP, TSH3 wRFLX, [id number] #### [facility] [address] [place] [id number] [place] Creatinine [Mass/Vol] 104.81 mg/dL Normal [facility] Comment on above: Performed By: #### L IPID, HEPATIC, BMP, TSH3 wRFLX, [id number] #### [facility] [address] Estimated GFR ( [place] > 60 Normal [facility] Comment on above: Result Comment: GFR estimated reference range: According to KDOQI guidelines, <60 ml/min/1.73m2 is sufficient to diagnose a patient with chronic kidney disease. Performed By: #### L IPID, HEPATIC, BMP, TSH3 wRFLX, [id number] #### [facility] [address] Estimated GFR (Non- Am > 60 Normal [facility] Comment on above: Performed By: #### L IPID, HEPATIC, BMP, TSH3 wRFLX, [id number] #### [facility] [address] [place] [address] [place] Glucose [Mass/Vol] 94 mg/dL Normal 70-100 [facility] Comment on above: Result Comment: [place] Glucose Reference Range is dependent on time and content of last meal. Glucose of more than 200 mg/dL in a nonstressed, ambulatory subject supports the diagnosis of Diabetes Mellitus. ADA recommended reference range Performed By: #### L IPID, HEPATIC, BMP, TSH3 wRFLX, [id number] #### [address] Potassium [Moles/Vol] 3.8 mmol/L Normal 3.5-5.1 [facility] Comment on above: Performed By: #### L IPID, HEPATIC, BMP, TSH3 wRFLX, [id number] #### [facility] [address] [place] [address] [place] Sodium [Moles/Vol] 139 mmol/L Normal 136-146 [facility] Comment on above: Performed By: #### L IPID, HEPATIC, BMP, TSH3 wRFLX, [id number] #### [facility] [address] [place] [address] [place] Urea nitrogen [Mass/Vol] 12 mg/dL Normal 9-23 [facility] Comment on above: Performed By: #### L IPID, HEPATIC, BMP, TSH3 wRFLX, [id number] #### [facility] [address] Hepatic Panelon 07-03-2020 Albumin [Mass/Vol] 3.8 g/dL Normal 3.2-5.5 [facility] Comment on above: Performed By: #### L IPID, HEPATIC, BMP, TSH3 wRFLX, [id number] #### [facility] [address] Albumin/Globulin [Mass ratio] 1.6 {ratio} Normal [facility] Comment on above: Performed By: #### L IPID, HEPATIC, BMP, TSH3 wRFLX, [id number] #### [facility] [address] [place], [place] [id number] [facility] ALP [Catalytic activity/Vol] 92 U/L Normal 32-92 [facility] Comment on above: Performed By: #### L IPID, HEPATIC, BMP, TSH3 wRFLX, [id number] #### [facility] [address] [place] [address] [place] ALT [Catalytic activity/Vol] 18 U/L Normal 10-60 [facility] Comment on above: Performed By: #### L IPID, HEPATIC, BMP, TSH3 wRFLX, [id number] #### [facility] [address] [place] [address] [place] AST [Catalytic activity/Vol] 14 U/L Normal 10-42 [facility] Comment on above: Performed By: #### L IPID, HEPATIC, BMP, TSH3 wRFLX, [id number] #### [facility] [address] [place], [place] [id number] [place] Bilirubin [Mass/Vol] 0.8 mg/dL Normal 0.3-1.2 [facility] Comment on above: Performed By: #### L IPID, HEPATIC, BMP, TSH3 wRFLX, [id number] #### [facility] [address] [place] [address] [place] Bilirubin,Indirect Test not performed Normal [facility] Comment on above: Performed By: #### L IPID, HEPATIC, BMP, TSH3 wRFLX, [id number] #### [facility] [address] Bilirubin.direct [Mass/Vol] mg/dL Normal 0.0-0.4 [facility] Comment on above: Performed By: #### L IPID, HEPATIC, BMP, TSH3 wRFLX, [id number] #### [address] Globulin (S) [Mass/Vol] 2.4 g/dL Normal [facility] Comment on above: Performed By: #### L IPID, HEPATIC, BMP, TSH3 wRFLX, [id number] #### [address] Protein [Mass/Vol] 6.2 g/dL Normal 6.1-7.9 [facility] Comment on above: Performed By: #### L IPID, HEPATIC, BMP, TSH3 wRFLX, [id number] #### [facility] [address] [place] [address] Lipid Panelon 07-03-2020 Cholesterol [Mass/Vol] 174 mg/dL Normal 140-200 [facility] Comment on above: Result Comment: Chol less than 200 mg/dl low risk Chol 201-239 mg/dl borderline risk Chol 240 mg/dl and greater high risk Performed By: #### L IPID, HEPATIC, BMP, TSH3 wRFLX, [id number] #### [facility] [address] [place] [address] Cholesterol in HDL [Mass/Vol] 46 mg/dL Normal 35-85 [facility] Comment on above: Result Comment: HDL CHOL ATP-III CLASSIFICATION Cardiovascular Risk HDL > or equal to 60 mg/dL LOW HDL < 40 mg/dL HIGH Performed By: #### L IPID, HEPATIC, BMP, TSH3 wRFLX, [id number] #### [facility] [address] [place] [address] Cholesterol.total/ Cholesterol in HDL [Mass ratio] 3.8 {ratio} Normal <5.0 [facility] Comment on above: Performed By: #### L IPID, HEPATIC, BMP, TSH3 wRFLX, [id number] #### [facility] [address] LDL Cholesterol,Calcul ated 113 mg/dL High 0-100 [facility] Comment on above: Result Comment: LDL ATP III CLASSIFICATION LDL less than 100 mg/dL Optimal LDL 100-129 mg/dL Near or above optimal LDL 130-159 mg/dL Borderline high LDL 160-189 mg/dL High LDL greater than 189 mg/dL Very high Performed By: #### L IPID, HEPATIC, BMP, TSH3 wRFLX, [id number] #### [facility] [address] Triglyceride w/Reflex 74 mg/dL Normal 35-149 [facility] Comment on above: Result Comment: TRIG ATP III CLASSIFICATION TRIG less than 150 mg/dL Normal TRIG 150-199 mg/dL Borderline high TRIG 200-500 mg/dL High TRIG greater than 500 mg/dL Very high Standard traceable to the Center for Disease Conrtrol and Prevention (CDC) test method. Performed By: #### L IPID, HEPATIC, BMP, TSH3 wRFLX, [id number] #### [facility] [address] VLDL CHOLESTEROL 14 mg/dL Normal [facility] Comment on above: Performed By: #### L IPID, HEPATIC, BMP, TSH3 wRFLX, [id number] #### [facility] [address] Thyroid Stim Hormone w/Rflxo n 07-03-2020 Thyroid Stim Hormone w/Rflx 3.41 u[iU]/mL Normal 0.45-5.33 [facility] Comment on above: Performed By: #### L IPID, HEPATIC, BMP, TSH3 wRFLX, [id number] #### [facility] [address] [place] [id number] [facility] Vitamin D 25 Hydroxy Totalon 07-03-2020 Vitamin D 25 Hydroxy Total 67.4 ng/mL Normal 30-100 [facility] Comment on above: Result Comment: M[place]DIS[place] MIN D STATUS 25(OH)VITAMIN D RANGE (ng/mL) Deficient <20 Insufficient 20 to <30 Sufficient 30 to 100 Reference: Arely MF,Brenton NC, Rashel MARTINEZ, et al. Evaluation,treatment, and prevention of vitamin D deficiency; an Endocrine Society clinical practice guideline. JCEM. 2010; 96(7):1911-30. PERFORMED BY: [place] [address] PATHOLOGIST HUMANITIES TEACHER HORTENSIA VIRAMONTES M.D. Performed By: #### L IPID, HEPATIC, BMP, TSH3 wRFLX, [id number] #### [place] [id number] [facility] XR FOOT RT MIN 3 VIEWSon XR FOOT RT MIN 3 VIEWS PROCEDURE: XR ANKLE RT MIN 3 VIEWS, XR FOOT RT MIN 3 VIEWS COMPARISON: 10/20/2019 HISTORY: Pain of right ankle joint FINDINGS: BONES:Stable remote trimalleolar fracture with internal fixation . Single screw through the medial malleolus. 2 screws through the posterior malleolus. Fixation of the lateral fibula with a plate and multiple screws. No acute fracture, dislocation or mechanical failure. Mild enthesopathic spurring of the calcaneus at the insertion of the Achilles tendon. SOFT TISSUES:Negative. No visible soft tissue swelling. EFFUSION:None visible. OTHER: Negative. IMPRESSION: Remote trimalleolar fracture with internal fixation No acute abnormality Electronically authenticated by: LISSETT LEYVA Date: 2019-11-18 12:08 Normal [facility] XR ANKLE RT MIN 3 VIEWSon XR ANKLE RT MIN 3 VIEWS RIGHT ANKLE X-RAYS, 10/20/2019. HISTORY: Status post internal fixation of right ankle fractures. Follow-up. COMPARISON: Right ankle x-rays, 04/22/2019. FINDINGS: Three views of the right ankle were obtained. Postoperative changes are again seen from internal fixation of distal fibula fracture. The hardware along the fibula is stable and intact. Fracture is healed. Surgical hardware in the distal tibia is stable. Fractures have healed. No acute fracture. Alignment is unchanged. No significant degenerative changes in the tibiotalar joint. IMPRESSION: Internal fixation hardware along the distal fibula and distal tibia stable. Fractures have healed. Alignment is normal. Tibiotalar joint appears normal. No change from the prior. Electronically authenticated by: LINDEN ROJAS Date: 2019-10-20 22:05 Normal [facility] XR ANKLE RT MIN 3 VIEWSon XR ANKLE RT MIN 3 VIEWS Patient: TERRIE SAAVEDRA Exam Date: 04/22/2019 : 1975 Gender:F Ordering : DR. BEBO MonacoPNabila Admission #: [id number] Family : Order #: [id number] CLICK HERE TO VIEW EXAM RADIOLOGY REPORT PROCEDURE: RADIOGRAPH ANKLE RIGHT MIN 3 VIEWS COMPARISON: XR ANKLE RT MIN 3 VIEWS, 03/04/2019. INDICATIONS: Post operative right ankle, subsequent imaging FINDINGS: BONES: No acute fracture, dislocation or mechanical failure. Stable trimalleolar internal fixation with a lateral fibular plate and screws, single screw through the medial malleolus and 2 screws through the posterior malleolus. SOFT TISSUES: No visible soft tissue swelling or radiopaque foreign body. EFFUSION: None visible. OTHER: Negative. CONCLUSION: 1. Stable internal fixation Dictated by: Lissett Leyva M.D. on 04/22/2019 at 15:35 Approved by: Lissett Leyva M.D. on 04/22/2019 at 15:35 Normal [facility] Operative Reporton 9 Operative Report MR#: [id number] S [facility] Pt. Name: Terrie Saavedra Room #: 0C Discharge 04/09/2019 Date: Birthdate: 1975 OPERATIVE REPORT DATE OF SURGERY: 04/09/2019 SURGEON: Edmond Edwards MD PREOPERATIVE DIAGNOSES: Excessive abdominal pannus, isolated obesity, status post massive weight loss. POSTOPERATIVE DIAGNOSES: Excessive abdominal pannus, isolated obesity, status post massive weight loss. PROCEDURE: Panniculectomy with muscle plication and umbilical transposition. WIC SITE COORDINATOR: VIRIDIANA Luna and CC-3. INDICATIONS: This patient is a pleasant white lady who underwent bariatric surgery. She went excessive amount of weight loss and had laxity of the anterior abdominal wall and usual stigmata of massive weight loss. She was evaluated on a few occasions in the outpatient surgery and initially was denied by the insurance. However, her approval was gained and the patient wanted to have panniculectomy. Her pannus is grade 2-3, affects her daily living and prevents her from additional exercising. The patient is recommended to proceed with surgery. Plan is for typical panniculectomy, muscle plication, and umbilical transpositioning. Technical aspects of surgery including associated risks of bleeding, infection, need for additional procedures, loss of tissue, loss of skin, umbilical loss, collection of hematoma, seroma formation, extensively discussed with the patient, change in sensation, and postoperative period discussed as well. The patient indicates sufficient understanding, wants to proceed with surgery. The patient was seen preoperatively, consent signed, markings performed. PROCEDURE IN DETAIL: The patient was taken to the operating room, positioned supine on the table. General endotracheal anesthesia introduced. Arms in abducted position. The area of the chest and abdomen prepped and draped in usual sterile fashion and preoperative markings reinforced. At this point, time-out was called, the patient, surgery, and sites of surgery were properly identified. No concerns expressed by the surgical team. Procedure was started with #10 blade, incising the skin in the suprapubic crease. This extended laterally for approximately 20 cm to each direction. Incision carried through the skin, subcutaneous tissue, down to the prefascial plane and in preaponeurotic plane, elevation of the tissue proceeded superiorly. Of importance, laser blade was used for convenience in completion of cauterization. The dissection proceeded to the level of the umbilicus. Umbilicus incised, preserved on the stalk, and fasciocutaneous flap split into that assisted in further dissection. Dissection proceeded within the narrower limits of the rectus muscle superiorly to the xiphoid area. Upon completion of the dissection, meticulous hemostasis confirmed. Copious irrigation of the wound performed. At this point, the wound was evaluated and muscle relaxation was given to the patient and laxity of the anterior abdominal wall evaluated laxity significant with lateral displacement of the rectus muscles and decision was made to proceed with plication of planned. [id number] plication performed from the xiphoid to the suprapubic area with a width of plication exceeding 8 to 8.5 cm at the level of the umbilicus. Following completion, additional running of 0 Vicryl oversewing the Prolene sutures performed from again from the xiphoid to the suprapubic area. At this point, flap was positioned and excess of the tissue excised. This coincided to approximately 1.5 cm above the umbilical opening. Following meticulous hemostasis, On-Q pump double lumen catheters placed on both rectus areas and secured at the left epigastric skin. #15 Salvador round drain was positioned through the left flank incision and advanced through the opening of the wound. Following copious irrigation, a Valsalva maneuver was made 3 times up to 40 cm of water pressure to confirm completion of the hemostasis. At this point, flap was positioned and inset in the medial and paramedial incision position with PDS #0 and laterally closure of the wound performed with 0 Vicryl. Flap prior to insetting of suprapubic fat and defatting of the small portion of the pubic area performed as previously discussed preoperatively with the patient and suprapubic flap was secured down to the aponeurosis to prevent upward migration of the pubic area. Incision at the pubic line was at the approximately 1.5 to 2 cm above the upper edge of the pubic bone. Procedure completed running laterally with 0 Vicryl sutures for deep dermal position, running 3-0 Monocryl, and Dermabond completed the closure. U-shaped incision was made umbilical position. Defatting of the central portion performed. The umbilicus was readily identified, positioned through the new opening and inset with 2-0 Vicryl and running 5-0 Prolene. This completed the procedure. Drain secured to the skin. The patient was positioned on the stretcher with abdominal binder application and large bulky dressings, Xeroform positioned into the umbilicus. On-Q pump connected. THONY drain connected. The patient tolerated the procedure well. COMPLICATIONS: None. ESTIMATED BLOOD LOSS: Less than 200 mL in good and stable condition. The patient returned to the recovery room. Electronically Signed by: Edmond Edwarsd MD 04/17/2019 03:23 P Edmond Edwards MD Date Dict: 04/13/2019/01:28 P/Edmond Edwards MD Date Trans: 04/13/2019 02:16 P/mmo [id number] cc: Josette Vega M.D. [address] [place] [address] Normal [facility] POC GLUCOSE LABon 04-09-2019 Glucose [Mass/Vol] 92 mg/dL Normal 70-100 [facility] Comment on above: Performed By: #### [id number] #### [facility] [address] [facility] [place] [address], [facility] Glucose [Mass/Vol] 86 mg/dL Normal 70-100 [facility] Comment on above: Performed By: #### [id number] #### [facility] [address] [facility] [place] [address], [facility] Glucose [Mass/Vol] 71 mg/dL Normal 70-100 [facility] Comment on above: Performed By: #### [id number] #### [facility] [address] [facility]. [address] POC URINE PREGNANCYon 2018 Beta HCG ( test) Ql (U) Negative Normal NEGATIVE [facility] Comment on above: Result Comment: Perf ormed in PACU Performed By: #### [id number] #### [facility] [address] XR ANKLE RT MIN 3 VIEWSon XR ANKLE RT MIN 3 VIEWS Patient: TERRIE SAAVEDRA Exam Date: 03/04/2019 : 1975 Gender:F Ordering : DR. BEBO MonacoPNabila Admission #: [id number] Family : Order #: [id number] CLICK HERE TO VIEW EXAM RADIOLOGY REPORT PROCEDURE: RADIOGRAPH ANKLE RIGHT MIN 3 VIEWS COMPARISON: XR ANKLE RT MIN 3 VIEWS, 01/28/2019. INDICATIONS: Post operative right ankle, subsequent imaging FINDINGS: BONES: Prior trimalleolar repair without evidence of hardware fracture or loosening. No bone fracture or dislocation. Stable, normal appearing ankle joint spacing. SOFT TISSUES: Mild circumferential soft tissue swelling, but decreased compared to the prior study. EFFUSION: None visible. OTHER: Negative. CONCLUSION: 1. Stable postsurgical changes without evidence of hardware failure or change in alignment. Dictated by: Alayna Goel M.D. on 03/04/2019 at 10:01 Approved by: Alayna Goel M.D. on 03/04/2019 at 10:03 Normal [facility] XR ANKLE RT MIN 3 VIEWSon XR ANKLE RT MIN 3 VIEWS Patient: TERRIE SAAVEDRA Exam Date: 01/28/2019 : 1975 Gender:F Ordering : DR. EBBO ENRIQUEZ D.P.M. Admission #: [id number] Family : Order #: [id number] CLICK HERE TO VIEW EXAM RADIOLOGY REPORT PROCEDURE: RADIOGRAPH ANKLE RIGHT MIN 3 VIEWS COMPARISON: XR ANKLE RT MIN 3 VIEWS, 01/07/2019. INDICATIONS: Post operative right ankle, subsequent imaging FINDINGS: BONES: No acute fracture or dislocation. Stable internal fixation of the distal lateral fibula with a plate and multiple screws. Stable fixation of the medial posterior malleolus with cannulated lag screws. SOFT TISSUES: No visible soft tissue swelling or radiopaque foreign body. EFFUSION: None visible. OTHER: Negative. CONCLUSION: 1. No acute abnormality Dictated by: Lissett Leyva M.D. on 01/28/2019 at 11:24 Approved by: Lissett Leyva M.D. on 01/28/2019 at 11:25 Normal [facility] XR ANKLE RT MIN 3 VIEWSon XR ANKLE RT MIN 3 VIEWS Patient: TERRIE SAAVEDRA Exam Date: 01/07/2019 : 1975 Gender:F Ordering : DR. BEBO ENRIQUEZ D.P.M. Admission #: [id number] Family : Order #: [id number] CLICK HERE TO VIEW EXAM RADIOLOGY REPORT PROCEDURE: RADIOGRAPH ANKLE RIGHT MIN 3 VIEWS COMPARISON: XR ANKLE RT MIN 3 VIEWS, 12/23/2018. INDICATIONS: Post operative right ankle, subsequent imaging FINDINGS: BONES: Prior trimalleolar fracture repair without evidence of hardware fracture or loosening. Stable alignment. Normal, symmetric appearance of the ankle mortise. SOFT TISSUES: No visible soft tissue swelling or radiopaque foreign body. EFFUSION: None visible. OTHER: Negative. CONCLUSION: 1. Stable postsurgical changes without evidence of hardware failure. Dictated by: Alayna Goel M.D. on 01/07/2019 at 11:56 Approved by: Alayna Goel M.D. on 01/07/2019 at 11:58 Normal [facility] XR ANKLE RT MIN 3 VIEWSon XR ANKLE RT MIN 3 VIEWS Patient: TERRIE SAAVEDRA Exam Date: 12/23/2018 : 1975 Gender:F Ordering : KAT HERNÁNDEZ Admission #: [id number] Family : Order #: [id number] CLICK HERE TO VIEW EXAM RADIOLOGY REPORT PROCEDURE: RADIOGRAPH ANKLE RIGHT MIN 3 VIEWS COMPARISON: XR ANKLE RT MIN 3 VIEWS, 12/04/2018. INDICATIONS: Post operative right ankle, subsequent imaging FINDINGS: BONES: Prior mechanical repair of trimalleolar fractures without evidence of hardware fracture or loosening. No new bone fracture or dislocation. Increasing density of the fracture lines suggesting early bone healing. Mild callus formation along some of the margins. SOFT TISSUES: Skin dre posterior and medial to the ankle. Moderate soft tissue swelling. Cast material has been removed. EFFUSION: None visible. OTHER: Negative. CONCLUSION: 1. Stable postsurgical changes. Dictated by: Alayna Goel M.D. on 12/23/2018 at 15:54 Approved by: Alayna Goel M.D. on 12/23/2018 at 16:13 Normal [facility] CBC AUTO DIFFon 12-11-2018 Basophils (Bld) [#/Vol] 0.0 103/ul Normal 0.0-0.1 [facility] Comment on above: Performed By: #### P REG #### [facility] [address] [place], [place] [address] Bee Nikki Basophils/100 WBC (Bld) 0.2 % Normal 0.2-2.0 [facility] Comment on above: Performed By: #### P REG #### [facility] [address] [place], [place] [address] Bee Nikki Eosinophils (Bld) [#/Vol] 0.0 103/ul Normal 0.0-0.7 [facility] Comment on above: Performed By: #### P REG #### [facility] [address] [place] [id number] Bee Nikki Eosinophils/100 WBC (Bld) 0.4 % Critically low 0.9-7.0 [facility] Comment on above: Performed By: #### P REG #### [facility] [address] [place] [id number] Bee Nikki Erythrocyte distribution width (RBC) [Ratio] 14.2 % Normal 11.0-15.0 [facility] Comment on above: Performed By: #### P REG #### [facility] [address] [place] [address] Bee Nikki Hematocrit (Bld) [Volume fraction] 33.6 % Critically low 36.0-48.0 [facility] Comment on above: Performed By: #### P REG #### [facility] [address] [place] [address] Bee Nikki Hemoglobin (Bld) [Mass/Vol] 10.9 g/dL Critically low 12.0-16.0 [facility] Comment on above: Performed By: #### P REG #### [facility] [address] [place], [place] [address] Bee Nikki IG # 0.12 10e3/ul Critically high 0.00-0.03 [facility] Comment on above: Performed By: #### P REG #### [facility] [address] [place], [place] [address] Bee Nikki IG % 1.5 % Critically high 0.0-0.5 [facility] Comment on above: Performed By: #### P REG #### [facility] [address] [place], [place] [address] Bee Nikki Lymphocytes (Bld) [#/Vol] 2.4 103/ul Normal 1.2-3.8 [facility] Comment on above: Performed By: #### P REG #### [facility] [address] [place], [place] [address] Bee Nikki Lymphocytes/100 WBC (Bld) 29.2 % Normal 20.5-60.0 [facility] Comment on above: Performed By: #### P REG #### [facility] [address] [place], [place] [address] Bee Nikki MANUAL DIFF REQ NO Normal [facility] Comment on above: Performed By: #### P REG #### [facility] [address] [place], [place] [address] Bee Nikki MCH (RBC) [Entitic mass] 31.4 pg Normal 26.7-34.0 [facility] Comment on above: Performed By: #### P REG #### [facility] [address] [place], [place] [address] Bee Nikki MCHC (RBC) [Mass/Vol] 32.4 g/dL Normal 29.9-35.2 [facility] Comment on above: Performed By: #### P REG #### [facility] [address] [place] [address] Bee Nikki MCV (RBC) [Entitic vol] 96.8 fL Normal 81.0-99.0 [facility] Comment on above: Performed By: #### P REG #### [facility] [address] [place], [place] [address] Bee Nikki Monocytes (Bld) [#/Vol] 0.6 103/ul Normal 0.3-0.8 [facility] Comment on above: Performed By: #### P REG #### [facility] [address] [place], [place] [address] Bee Nikki Monocytes/100 WBC (Bld) 7.2 % Normal 1.7-12.0 [facility] Comment on above: Performed By: #### P REG #### [facility] [address] [place], [place] [address] Bee Nikki Neutrophils (Bld) [#/Vol] 5.1 103/ul Normal 1.4-6.5 [facility] Comment on above: Performed By: #### P REG #### [facility] [address] [place], [place] [address] Bee Nikki Neutrophils/100 WBC (Bld) 61.5 % Normal 43.0-75.0 [facility] Comment on above: Performed By: #### P REG #### [facility] [address] [place] [address] Bee Nikki Platelet mean volume (Bld) [Entitic vol] 10.3 fL Normal 9.5-13.5 [facility] Comment on above: Performed By: #### P REG #### [facility] [address] [place] [address] Bee Nikki Platelets (Bld) [#/Vol] 223 103/ul Normal 150-450 [facility] Comment on above: Performed By: #### P REG #### [facility] [address] [place], [place] [address] Bee Nikki RBC (Bld) [#/Vol] 3.47 106/ul Critically low 4.20-5.40 [facility] Comment on above: Performed By: #### P REG #### [facility] [address] [place], [place] [address] Bee Nikki WBC (Bld) [#/Vol] 8.2 103/ul Normal 4.0-11.0 [facility] Comment on above: Performed By: #### P REG #### [facility] [address] [place], [place] [address] Bee Nikki CBC AUTO DIFFon 12-10-2018 Basophils (Bld) [#/Vol] 0.0 103/ul Normal 0.0-0.1 [facility] Comment on above: Performed By: #### P REG #### [facility] [address] [place], [place] [address] Bee Nikki Basophils/100 WBC (Bld) 0.2 % Normal 0.2-2.0 [facility] Comment on above: Performed By: #### P REG #### [facility] [address] [place] [address] Bee Nikki Eosinophils (Bld) [#/Vol] 0.0 103/ul Normal 0.0-0.7 [facility] Comment on above: Performed By: #### P REG #### [facility] [address] [place], [place] [address] Bee Nikki Eosinophils/100 WBC (Bld) 0.0 % Critically low 0.9-7.0 [facility] Comment on above: Performed By: #### P REG #### [facility] [address] [place] [address] Bee Jordan Erythrocyte distribution width (RBC) [Ratio] 14.2 % Normal 11.0-15.0 [facility] Comment on above: Performed By: #### P REG #### [facility] [address] [place] [address] Bee Jordan Hematocrit (Bld) [Volume fraction] 33.4 % Critically low 36.0-48.0 [facility] Comment on above: Performed By: #### P REG #### [facility] [address] [place] [address] Bee Jordan Hemoglobin (Bld) [Mass/Vol] 10.6 g/dL Critically low 12.0-16.0 [facility] Comment on above: Performed By: #### P REG #### [facility] [address] [place] [address] Bee Nikki IG # 0.05 10e3/ul Critically high 0.00-0.03 [facility] Comment on above: Performed By: #### P REG #### [facility] [address] [place] [address] Bee Jordan IG % 0.8 % Critically high 0.0-0.5 [facility] Comment on above: Performed By: #### P REG #### [facility] [address] [place] [address] Beeronen Jordan Lymphocytes (Bld) [#/Vol] 1.0 103/ul Critically low 1.2-3.8 [facility] Comment on above: Performed By: #### P REG #### [facility] [address] [place] [address] Bee Jordan Lymphocytes/100 WBC (Bld) 15.4 % Critically low 20.5-60.0 [facility] Comment on above: Performed By: #### P REG #### [facility] [address] [place] [address] Beeronen Jordan MANUAL DIFF REQ NO Normal [facility] Comment on above: Performed By: #### P REG #### [facility] [address] [place] [address] Bee Jordan MCH (RBC) [Entitic mass] 31.0 pg Normal 26.7-34.0 [facility] Comment on above: Performed By: #### P REG #### [facility] [address] [place] [address] Bee Jordan MCHC (RBC) [Mass/Vol] 31.7 g/dL Normal 29.9-35.2 [facility] Comment on above: Performed By: #### P REG #### [facility] [address] [place] [address] Bee Jordan MCV (RBC) [Entitic vol] 97.7 fL Normal 81.0-99.0 [facility] Comment on above: Performed By: #### P REG #### [facility] [address] [place] [address] Bee Jordna Monocytes (Bld) [#/Vol] 0.3 103/ul Normal 0.3-0.8 [facility] Comment on above: Performed By: #### P REG #### [facility] [address] [place] [address] Bee Jordan Monocytes/100 WBC (Bld) 4.9 % Normal 1.7-12.0 [facility] Comment on above: Performed By: #### P REG #### [facility] [address] [place] [address] Bee Nikki Neutrophils (Bld) [#/Vol] 5.2 103/ul Normal 1.4-6.5 [facility] Comment on above: Performed By: #### P REG #### [facility] [address] [place] [address] Bee Nikki Neutrophils/100 WBC (Bld) 78.7 % Critically high 43.0-75.0 [facility] Comment on above: Performed By: #### P REG #### [facility] [address] [place] [address] Bee Nikki Platelet mean volume (Bld) [Entitic vol] 10.8 fL Normal 9.5-13.5 [facility] Comment on above: Performed By: #### P REG #### [facility] [address] [place] [address] Bee Jordan Platelets (Bld) [#/Vol] 240 103/ul Normal 150-450 [facility] Comment on above: Performed By: #### P REG #### [facility] [address] [place] [address] Bee Jordan RBC (Bld) [#/Vol] 3.42 106/ul Critically low 4.20-5.40 [facility] Comment on above: Performed By: #### P REG #### [facility] [address] [place] [address] Bee Jordan WBC (Bld) [#/Vol] 6.6 103/ul Normal 4.0-11.0 [facility] Comment on above: Performed By: #### P REG #### [facility] [address] [place] [address] Bee Jordan CBC W MANUAL DIFFon 12-10-19 19 ATYPICAL LYMPH # Normal [facility] Comment on above: Performed By: #### C BC #### [facility] [address] [place] [address] Beeronen Jordan ATYPICAL LYMPH % Normal [facility] Comment on above: Performed By: #### C BC #### [facility] [address] [place] [address] Bee Nikki BAND # 0.1 103/ul Normal 0.0-0.3 [facility] Comment on above: Performed By: #### C BC #### [facility] [address] [place] [address] Bee Nikki BAND % 1 % Normal 0-5 [facility] Comment on above: Performed By: #### C BC #### [facility] [address] [place] [address] Bee Nikki BASOM # 0.00 103/ul Normal 0.00-0.10 [facility] Comment on above: Performed By: #### C BC #### [facility] [address] [place] [address] Bee Nikki BASOM % 0.0 % Critically low 0.2-2.0 [facility] Comment on above: Performed By: #### C BC #### [facility] [address] [place] [address] Bee Nikki BLAST # Normal [facility] Comment on above: Performed By: #### C BC #### [facility] [address] [place] [address] Bee Nikki BLAST % Normal [facility] Comment on above: Performed By: #### C BC #### [facility] [address] [place] [address] Bee Nikki CORRECTED WBC Normal 4.0-11.0 [facility] Comment on above: Performed By: #### C BC #### [facility] [address] [place] [address] Bee Nikki Eosinophils (Bld) [#/Vol] 0.00 103/ul Normal 0.00-0.70 [facility] Comment on above: Performed By: #### C BC #### [facility] [address] [place], [place] [address] Bee Nikki Eosinophils/100 WBC (Bld) 0.0 % Critically low 0.9-7.0 [facility] Comment on above: Performed By: #### C BC #### [facility] [address] [place] [address] Bee Nikki Erythrocyte distribution width (RBC) [Ratio] 13.8 % Normal 11.0-15.0 [facility] Comment on above: Performed By: #### C BC #### [facility] [address] [place] [address] Bee Nikki Hematocrit (Bld) [Volume fraction] 34.9 % Critically low 36.0-48.0 [facility] Comment on above: Performed By: #### C BC #### [facility] [address] [place], [place] [address] Bee Nikki Hemoglobin (Bld) [Mass/Vol] 11.6 g/dl Critically low 12.0-16.0 [facility] Comment on above: Performed By: #### C BC #### [facility] [address] [place] [address] Bee Nikki LYMPHM # 0.42 103/ul Critically low 1.20-3.80 [facility] Comment on above: Performed By: #### C BC #### [facility] [address] [place] [address] Bee Nikki LYMPHM% 6.0 % Critically low 20.5-60.0 [facility] Comment on above: Performed By: #### C BC #### [facility] [address] [place] [address] Bee Jordan MCH (RBC) [Entitic mass] 32.0 pg Normal 26.7-34.0 [facility] Comment on above: Performed By: #### C BC #### [facility] [address] [place] [address] Bee Jordan MCHC (RBC) [Mass/Vol] 33.2 g/dl Normal 29.9-35.2 [facility] Comment on above: Performed By: #### C BC #### [facility] [address] [place] [address] Bee Jordan MCV (RBC) [Entitic vol] 96.4 fL Normal 81.0-99.0 [facility] Comment on above: Performed By: #### C BC #### [facility] [address] [place] [address] Bee Nikki METAMYELOCYTE # Normal [facility] Comment on above: Performed By: #### C BC #### [facility] [address] [place] [address] Bee Nikki METAMYELOCYTE % Normal [facility] Comment on above: Performed By: #### C BC #### [facility] [address] [place] [address] Bee Nikki MONOM# 0.14 103/ul Critically low 0.30-0.80 [facility] Comment on above: Performed By: #### C BC #### [facility] [address] [place], [place] [address] Bee Nikki MONOM% 2.0 % Normal 1.7-12.0 [facility] Comment on above: Performed By: #### C BC #### [facility] [address] [place], [place] [address] Bee Nikki MYELOCYTE # Normal [facility] Comment on above: Performed By: #### C BC #### [facility] [address] [place], [place] [address] Bee Nikki MYELOCYTE % Normal [facility] Comment on above: Performed By: #### C BC #### [facility] [address] [place], [place] [address] Bee Nikki NRBC Normal [facility] Comment on above: Performed By: #### C BC #### [facility] [address] [place], [place] [address] Bee Nikik Platelet mean volume (Bld) [Entitic vol] 10.5 fL Normal 9.5-13.5 [facility] Comment on above: Performed By: #### C BC #### [facility] [address] [place], [place] [address] Bee Nikki Platelets (Bld) [#/Vol] 209 103/ul Normal 150-450 [facility] Comment on above: Performed By: #### C BC #### [facility] [address] [place], [place] [address] Bee Nikki RBC (Bld) [#/Vol] 3.62 106/ul Critically low 4.20-5.40 [facility] Comment on above: Performed By: #### C BC #### [facility] [address] [place], [place] [address] Bee Nikki SEG # 6.37 103/ul Normal 1.40-6.50 [facility] Comment on above: Performed By: #### C BC #### [facility] [address] [place], [place] [address] Bee Nikki Segmented neutrophils/100 WBC (Bld) 91.0 % Critically high 43.0-75.0 [facility] Comment on above: Performed By: #### C BC #### [facility] [address] [place], [place] [address] Bee Nikki WBC (Bld) [#/Vol] 7.0 103/ul Normal 4.0-11.0 [facility] Comment on above: Performed By: #### C BC #### [facility] [address] [place] [address] Beeronen Marinoen AMMONIAon 12-08-2018 Ammonia (P) [Mass/Vol] 12 umol/L Normal 10-30 [facility] Comment on above: Performed By: #### C BC #### [facility] [address] [place], [place] [address] Bee Nikki BNPon 12-08-2018 Natriuretic peptide B (Bld) [Mass/Vol] 305.0 pg/mL Normal <=450.0 [facility] Comment on above: Performed By: #### C BC #### [facility] [address] [place] [address] Bee Nikki CBC AUTO DIFFon 12-08-2018 Basophils (Bld) [#/Vol] 0.0 103/ul Normal 0.0-0.1 [facility] Comment on above: Performed By: #### C BC #### [facility] [address] [place], [place] [address] Bee Nikki Basophils/100 WBC (Bld) 0.4 % Normal 0.2-2.0 [facility] Comment on above: Performed By: #### C BC #### [facility] [address] [place], [place] [address] Bee Nikki Eosinophils (Bld) [#/Vol] 0.0 103/ul Normal 0.0-0.7 [facility] Comment on above: Performed By: #### C BC #### [facility] [address] [place], [place] [address] Bee Nikki Eosinophils/100 WBC (Bld) 0.1 % Critically low 0.9-7.0 [facility] Comment on above: Performed By: #### C BC #### [facility] [address] [place], [place] [address] Bee Nikki Erythrocyte distribution width (RBC) [Ratio] 13.9 % Normal 11.0-15.0 [facility] Comment on above: Performed By: #### C BC #### [facility] [address] [place] [address] Bee Jordan Hematocrit (Bld) [Volume fraction] 36.9 % Normal 36.0-48.0 [facility] Comment on above: Performed By: #### C BC #### [facility] [address] [place] [address] Bee Jordan Hemoglobin (Bld) [Mass/Vol] 12.0 g/dL Normal 12.0-16.0 [facility] Comment on above: Performed By: #### C BC #### [facility] [address] [place] [address] Beeronen Jordan IG # 0.02 10e3/ul Normal 0.00-0.03 [facility] Comment on above: Performed By: #### C BC #### [facility] [address] [place] [address] Bee Jordan IG % 0.2 % Normal 0.0-0.5 [facility] Comment on above: Performed By: #### C BC #### [facility] [address] [place] [address] Bee Jordan Lymphocytes (Bld) [#/Vol] 0.9 103/ul Critically low 1.2-3.8 [facility] Comment on above: Performed By: #### C BC #### [facility] [address] [place] [address] Bee Jordan Lymphocytes/100 WBC (Bld) 9.9 % Critically low 20.5-60.0 [facility] Comment on above: Performed By: #### C BC #### [facility] [address] [place], [place] [address] Bee Jordan MANUAL DIFF REQ NO Normal [facility] Comment on above: Performed By: #### C BC #### [facility] [address] [place] [address] Bee Jordan MCH (RBC) [Entitic mass] 31.9 pg Normal 26.7-34.0 [facility] Comment on above: Performed By: #### C BC #### [facility] [address] [place], [place] [address] Beeronen Marinoen MCHC (RBC) [Mass/Vol] 32.5 g/dL Normal 29.9-35.2 [facility] Comment on above: Performed By: #### C BC #### [facility] [address] [place], [place] [address] Bee Nikki MCV (RBC) [Entitic vol] 98.1 fL Normal 81.0-99.0 [facility] Comment on above: Performed By: #### C BC #### [facility] [address] [place], [place] [address] Bee Nikki Monocytes (Bld) [#/Vol] 0.4 103/ul Normal 0.3-0.8 [facility] Comment on above: Performed By: #### C BC #### [facility] [address] [place], [place] [address] Bee Nikki Monocytes/100 WBC (Bld) 3.9 % Normal 1.7-12.0 [facility] Comment on above: Performed By: #### C BC #### [facility] [address] [place], [place] [address] Bee Nikki Neutrophils (Bld) [#/Vol] 7.6 103/ul Critically high 1.4-6.5 [facility] Comment on above: Performed By: #### C BC #### [facility] [address] [place], [place] [address] Bee Nikki Neutrophils/100 WBC (Bld) 85.5 % Critically high 43.0-75.0 [facility] Comment on above: Performed By: #### C BC #### [facility] [address] [place], [place] [address] Bee Nikki Platelet mean volume (Bld) [Entitic vol] 10.1 fL Normal 9.5-13.5 [facility] Comment on above: Performed By: #### C BC #### [facility] [address] [place], [place] [address] Bee Nikki Platelets (Bld) [#/Vol] 218 103/ul Normal 150-450 [facility] Comment on above: Performed By: #### C BC #### [facility] [address] [place] [address] Beeronen Jordan RBC (Bld) [#/Vol] 3.76 106/ul Critically low 4.20-5.40 [facility] Comment on above: Performed By: #### C BC #### [facility] [address] [place], [place] [address] Beeronen Marinoen WBC (Bld) [#/Vol] 8.9 103/ul Normal 4.0-11.0 [facility] Comment on above: Performed By: #### C BC #### [facility] [address] [place], [place] [address] Bee Nikki LACTATE/LACTIC ACIDon 2018 Lactate [Moles/Vol] 1.8 mmol/L Normal 0.7-2.1 [facility] Comment on above: Performed By: #### C BC #### [facility] [address] [place], [place] [address] Bee Nikki LIVER PROFILEon 12-08-2018 Albumin [Mass/Vol] 2.9 g/dL Critically low 3.5-5.0 [facility] Comment on above: Performed By: #### C BC #### [facility] [address] [place], [place] [address] Bee Nikki Albumin/Globulin [Mass ratio] 0.6 {ratio} Normal [facility] Comment on above: Performed By: #### C BC #### [facility] [address] [place], [place] [address] Bee Nikki ALP [Catalytic activity/Vol] 88 U/L Normal 38-126 [facility] Comment on above: Performed By: #### C BC #### [facility] [address] [place], [place] [address] Bee Nikki ALT [Catalytic activity/Vol] 18 U/L Normal 9-52 [facility] Comment on above: Performed By: #### C BC #### [facility] [address] [address] Bee Nikki AST [Catalytic activity/Vol] 21 U/L Normal 14-36 [facility] Comment on above: Performed By: #### C BC #### [facility] [address] [place], [place] [address] Bee Nikki BILI, CONJUGATED 0.1 mg/dL Normal 0.0-0.3 [facility] Comment on above: Performed By: #### C BC #### [facility] [address] [address] Bee Nikki Bilirubin Ql (U) 0.6 mg/dL Normal 0.2-1.3 [facility] Comment on above: Performed By: #### C BC #### [facility] [address] [place], [place] [address] Bee Nikki Globulin (S) [Mass/Vol] 4.5 g/dL Normal [facility] Comment on above: Performed By: #### C BC #### [facility] [address] [place] [address] Bee Nikki Protein [Mass/Vol] 7.4 g/dL Normal 6.1-8.2 [facility] Comment on above: Performed By: #### C BC #### [facility] [address] [place], [place] [address] Bee Nikki PROF CHEM 8 (BAS METB)on Anion gap [Moles/Vol] 18.4 mmol/L Normal [facility] Comment on above: Performed By: #### C BC #### [facility] [address] [place], [place] [address] Bee Nikki Calcium [Mass/Vol] 9.6 mg/dL Normal 8.4-10.2 [facility] Comment on above: Performed By: #### C BC #### [facility] [address] [place], [place] [address] Bee Nikki Chloride [Moles/Vol] 103 mmol/L Normal 98-107 [facility] Comment on above: Performed By: #### C BC #### [facility] [address] [place], [place] [address] Bee Nikki CO2 [Moles/Vol] 19.9 mmol/L Critically low 22.0-30.0 [facility] Comment on above: Performed By: #### C BC #### [facility] [address] [id number] Bee Nikki Creatinine [Mass/Vol] 0.92 mg/dL Normal 0.52-1.04 [facility] Comment on above: Performed By: #### C BC #### [facility] [address] [id number] Bee Nikki EGFR-AF BRITISH >60 Normal >=60 [facility] Comment on above: Performed By: #### C BC #### [facility] [address] [place] [address] Bee Nikki EGFR-NON AF BRITISH >60 Normal >=60 [facility] Comment on above: Performed By: #### C BC #### [facility] [address] [place] [address] Bee Nikki Glucose [Mass/Vol] 115 mg/dL Critically high 74-106 [facility] Comment on above: Performed By: #### C BC #### [facility] [address] [place], [place] [address] Bee Nikki Potassium [Moles/Vol] 3.3 mmol/L Critically low 3.4-5.0 [facility] Comment on above: Performed By: #### C BC #### [facility] [address] [place] [address] Bee Nikki Sodium [Moles/Vol] 138 mmol/L Normal 137-145 [facility] Comment on above: Performed By: #### C BC #### [facility] [address] [place], [place] [address] Bee Nikki Urea nitrogen [Mass/Vol] 19.0 mg/dL Critically high 7.0-17.0 [facility] Comment on above: Performed By: #### C BC #### [facility] [address] [place], [place] [address] Bee Nikki Urea nitrogen/Creatinin e [Mass ratio] 20.7 mg/mg Normal [facility] Comment on above: Performed By: #### C BC #### [facility] [address] [place], [place] [address] Bee Nikki BLOOD GASES BTYon 12-07-2018 02 MODE NASAL CANNULA Normal [facility] Comment on above: Performed By: #### C BC #### [facility] [address] [address] Bee Nikki ALLENS TEST Positive Normal [facility] Comment on above: Performed By: #### C BC #### [facility] [address] [address] Bee Nikki Base excess Calc (Bld) [Moles/Vol] -5.0 mmol/L Critically low -2.0-2.0 [facility] Comment on above: Performed By: #### C BC #### [facility] [address] [address] Bee Nikki BIPAP PRESSURE Normal [facility] Comment on above: Performed By: #### C BC #### [facility] [address] [address] Bee Nikki CO2 [Moles/Vol] 19.7 mmol/L Critically low 23.0-28.0 [facility] Comment on above: Performed By: #### C BC #### [facility] [address] [address] Bee Nikki CPAP Normal [facility] Comment on above: Performed By: #### C BC #### [facility] [address] [address] Bee Nikki FIO2 Normal [facility] Comment on above: Performed By: #### C BC #### [facility] [address] [address] Bee Nikki HCO3 (Bld) [Moles/Vol] 18.7 mmol/L Critically low 22.0-26.0 [facility] Comment on above: Performed By: #### C BC #### [facility] [address] [address] Bee Nikki LPM 4 Normal [facility] Comment on above: Performed By: #### C BC #### [facility] [address] [address] Bee Nikki MINUTE VOLUME Normal [facility] Comment on above: Performed By: #### C BC #### [facility] [address] [address] Bee Nikki Oxygen (Bld) [Partial pressure] 92.4 mm[Hg] Normal 80.0-100.0 [facility] Comment on above: Performed By: #### C BC #### [facility] [address] [place] [address] Bee Nikki Oxygen saturation in Blood 90.8 % Critically low 95.0-100.0 [facility] Comment on above: Performed By: #### C BC #### [facility] [address] [place] [address] Bee Nikki PCO2 30.8 mmHg Critically low 35.0-45.0 [facility] Comment on above: Performed By: #### C BC #### [facility] [address] [place] [address] Bee Nikki PEEP Normal [facility] Comment on above: Performed By: #### C BC #### [facility] [address] [place] [address] Bee Nikki pH (Bld) 7.402 [pH] Normal 7.350-7.450 [facility] Comment on above: Performed By: #### C BC #### [facility] [address] [place] [address] Bee Nikki PIP Normal [facility] Comment on above: Performed By: #### C BC #### [facility] [address] [place] [address] Bee Nikki PS Normal [facility] Comment on above: Performed By: #### C BC #### [facility] [address] [place] [address] Bee Nikki PUNCTURE SITE RR Normal [facility] Comment on above: Performed By: #### C BC #### [facility] [address] [place] [address] Bee Nikki RATE Normal [facility] Comment on above: Performed By: #### C BC #### [facility] [address] [address] Bee Nikki VENT MODE Normal [facility] Comment on above: Performed By: #### C BC #### [facility] [address] [place] [address] Bee Nikki VT Normal [facility] Comment on above: Performed By: #### C BC #### [facility] [address] [place] [address] Bee Nikki CBC W MANUAL DIFFon 12-08-19 19 ATYPICAL LYMPH # Normal [facility] Comment on above: Performed By: #### C CELSA #### [facility] [address] [place] [address] Bee Nikki ATYPICAL LYMPH % Normal [facility] Comment on above: Performed By: #### C CELSA #### [facility] [address] [place] [address] Bee Nikki BAND # Normal 0.0-0.3 [facility] Comment on above: Performed By: #### C CELSA #### [facility] [address] [place] [address] Bee Nikki BAND % Normal 0-5 [facility] Comment on above: Performed By: #### C CELSA #### [facility] [address] [place] [address] Bee Nikki BASOM # 0.00 103/ul Normal 0.00-0.10 [facility] Comment on above: Performed By: #### C CELSA #### [facility] [address] [place] [address] Bee Nikki BASOM % 0.0 % Critically low 0.2-2.0 [facility] Comment on above: Performed By: #### C CELSA #### [facility] [address] [place] [address] Bee Nikki BLAST # Normal [facility] Comment on above: Performed By: #### C CELSA #### [facility] [address] [place] [address] Bee Nikki BLAST % Normal [facility] Comment on above: Performed By: #### C CELSA #### [facility] [address] [place], [place] [address] Bee Nikki CORRECTED WBC Normal 4.0-11.0 [facility] Comment on above: Performed By: #### C CELSA #### [facility] [address] [place], [place] [address] Bee Nikki Eosinophils (Bld) [#/Vol] 0.09 103/ul Normal 0.00-0.70 [facility] Comment on above: Performed By: #### C CELSA #### [facility] [address] [id number] Bee Nikki Eosinophils/100 WBC (Bld) 1.0 % Normal 0.9-7.0 [facility] Comment on above: Performed By: #### C CELSA #### [facility] [address] [place], [place] [address] Bee Nikki Erythrocyte distribution width (RBC) [Ratio] 14.2 % Normal 11.0-15.0 [facility] Comment on above: Performed By: #### C CELSA #### [facility] [address] [place], [place] [address] Bee Nikki Hematocrit (Bld) [Volume fraction] 34.3 % Critically low 36.0-48.0 [facility] Comment on above: Performed By: #### C CELSA #### [facility] [address] [place], [place] [address] Bee Nikki Hemoglobin (Bld) [Mass/Vol] 11.0 g/dl Critically low 12.0-16.0 [facility] Comment on above: Performed By: #### C CELSA #### [facility] [address] [place], [place] [address] Bee Nikki LYMPHM # 0.69 103/ul Critically low 1.20-3.80 [facility] Comment on above: Performed By: #### C CELSA #### [facility] [address] [id number] Bee Nikki LYMPHM% 8.0 % Critically low 20.5-60.0 [facility] Comment on above: Performed By: #### C CELSA #### [facility] [address] [place] [address] Bee Jordan MCH (RBC) [Entitic mass] 32.2 pg Normal 26.7-34.0 [facility] Comment on above: Performed By: #### C CELSA #### [facility] [address] [place] [address] Beeronen Jordan MCHC (RBC) [Mass/Vol] 32.1 g/dl Normal 29.9-35.2 [facility] Comment on above: Performed By: #### C CELSA #### [facility] [address] [place] [address] Beeronen Jordan MCV (RBC) [Entitic vol] 100.3 fL Critically high 81.0-99.0 [facility] Comment on above: Performed By: #### Robb STEEN #### [facility] [address] [place] [address] Bee Nikki METAMYELOCYTE # Normal [facility] Comment on above: Performed By: #### Robb STEEN #### [facility] [address] [place] [address] Bee Nikki METAMYELOCYTE % Normal [facility] Comment on above: Performed By: #### Robb STEEN #### [facility] [address] [place] [address] Bee Nikki MONOM# 0.34 103/ul Normal 0.30-0.80 [facility] Comment on above: Performed By: #### Robb STEEN #### [facility] [address] [place] [address] Bee Nikki MONOM% 4.0 % Normal 1.7-12.0 [facility] Comment on above: Performed By: #### C CELSA #### [facility] [address] [place] [address] Bee Nikki MYELOCYTE # Normal [facility] Comment on above: Performed By: #### Robb STEEN #### [facility] [address] [place] [address] Bee Jordan MYELOCYTE % Normal [facility] Comment on above: Performed By: #### Robb STEEN #### [facility] [address] [place], [place] [address] Bee Jordan NRBC Normal [facility] Comment on above: Performed By: #### Robb STEEN #### [facility] [address] [place], [place] [address] Beeronen Jordan Platelet mean volume (Bld) [Entitic vol] 10.3 fL Normal 9.5-13.5 [facility] Comment on above: Performed By: #### C CELSA #### [facility] [address] [id number] Bee Nikki Platelets (Bld) [#/Vol] 192 103/ul Normal 150-450 [facility] Comment on above: Performed By: #### C CELSA #### [facility] [address] [place], [place] [address] Bee Nikki RBC (Bld) [#/Vol] 3.42 106/ul Critically low 4.20-5.40 [facility] Comment on above: Performed By: #### Robb STEEN #### [facility] [address] [place], [place] [address] Beeronen Jordan SEG # 7.48 103/ul Critically high 1.40-6.50 [facility] Comment on above: Performed By: #### Robb STEEN #### [facility] [address] [place], [place] [address] Bee Nikki Segmented neutrophils/100 WBC (Bld) 87.0 % Critically high 43.0-75.0 [facility] Comment on above: Performed By: #### Robb STEEN #### [facility] [address] [place], [place] [address] Bee Nikki WBC (Bld) [#/Vol] 8.6 103/ul Normal 4.0-11.0 [facility] Comment on above: Performed By: #### Robb STEEN #### [facility] [address] [place], [place] [address] Bee Nikki CT HEAD WO CONon 12-07-2018 CT HEAD WO CON Patient: CAIN SAAVEDRA. Exam Date: 12/07/2018 : 1975 Gender:F Ordering : DR SAM ROSS . Admission #: [id number] Family : DR JOSETTE VEGA M.D. Order #: [id number] CLICK HERE TO VIEW EXAM RADIOLOGY REPORT PROCEDURE: CT HEAD WITHOUT CONTRAST COMPARISON: CT HEAD WO CON, 09/13/2017. INDICATIONS: Acute disorientation, neuro deficits TECHNIQUE: Axial CT images were obtained without IV contrast. DOSE: 1130 mGycm FINDINGS: BRAIN: No edema, hemorrhage, mass, acute infarction, or inappropriate atrophy. CSF SPACES: No hydrocephalus, subarachnoid hemorrhage, or mass. Appropriate for age. SKULL: No fracture, mass, or other significant visible lesion. SINUSES: No significant mucosal thickening or fluid on the limited views. ORBITS: No appreciable abnormality on the limited views. OTHER: Negative CONCLUSION: 1. No appreciable acute abnormality. Stable appearance of the brain. Dictated by: Alayna Goel M.D. on 12/07/2018 at 22:02 Approved by: Alayna Goel M.D. on 12/07/2018 at 22:09 Normal [facility] CTA CHEST W CONon 12-07-2018 CTA CHEST W CON Patient: CAIN SAAVEDRA. Exam Date: 12/07/2018 : 1975 Gender:F Ordering : DR SAM ROSS . Admission #: [id number] Family : DR JOSETTE VEGA M.D. Order #: [id number] CLICK HERE TO VIEW EXAM RADIOLOGY REPORT PROCEDURE: CTA CHEST WITHOUT AND WITH CONTRAST COMPARISON: XR CHEST 1 V, 07/30/2013. INDICATIONS: Acute shortness of breath, placed on oxygen; recent right ankle surgery TECHNIQUE: Multi-planar CT images were created with IV contrast. Axial, Coronal, and Sagittal images. DOSE: 61cc Omnipaque 350; 428 mGycm FINDINGS: VASCULATURE: No pulmonary embolism or abnormal opacity. LUNGS: Extensive patchy infiltrates throughout both lungs with areas of greater density involving the lower lobes, and prominent area of consolidation within the left lower lobe. PLEURA: No mass, effusion, or pneumothorax. AMIE: No mass or adenopathy. MEDIASTINUM: No mass or adenopathy. CARDIAC: No enlargement, pericardial effusion, or pericardial thickening. AORTA: No aneurysm or dissection. CHEST WALL: No mass or axillary adenopathy. BONES: No bone lesion or fracture. LIMITED ABDOMEN: No suspicious findings. Limited images of the upper abdomen. OTHER: Negative. CONCLUSION: 1. No pulmonary embolism. 2. Marked bilateral pulmonary infiltrates suggestive of pneumonia. Combination of pulmonary edema and areas of passive atelectasis/consolidation is felt less likely. Dictated by: Alayna Goel M.D. on 12/07/2018 at 20:18 Approved by: Alayna Goel M.D. on 12/07/2018 at 20:22 Normal [facility] CBC AUTO DIFFon 12-06-2018 Basophils (Bld) [#/Vol] 0.0 103/ul Normal 0.0-0.1 [facility] Comment on above: Performed By: #### C BC #### [facility] [address], [place] [address] Bee Nikki Basophils/100 WBC (Bld) 0.4 % Normal 0.2-2.0 [facility] Comment on above: Performed By: #### C BC #### [facility] [address], [place] [address] Bee Nikki Eosinophils (Bld) [#/Vol] 0.1 103/ul Normal 0.0-0.7 [facility] Comment on above: Performed By: #### C BC #### [facility] [address], [place] [address] Bee Nikki Eosinophils/100 WBC (Bld) 1.2 % Normal 0.9-7.0 [facility] Comment on above: Performed By: #### C BC #### [facility] [address], [place] [address] Bee Nikki Erythrocyte distribution width (RBC) [Ratio] 14.6 % Normal 11.0-15.0 [facility] Comment on above: Performed By: #### C BC #### [facility] [address], [place] [address] Bee Nikki Hematocrit (Bld) [Volume fraction] 33.2 % Critically low 36.0-48.0 [facility] Comment on above: Performed By: #### C BC #### [facility] [address], [place] [address] Bee Nikki Hemoglobin (Bld) [Mass/Vol] 10.5 g/dL Critically low 12.0-16.0 [facility] Comment on above: Performed By: #### C BC #### [facility] [address], [place] [address] Bee Nikki IG # 0.02 10e3/ul Normal 0.00-0.03 [facility] Comment on above: Performed By: #### C BC #### [facility] [address] [place] [id number] Bee Nikki IG % 0.3 % Normal 0.0-0.5 [facility] Comment on above: Performed By: #### C BC #### [facility] [address] [id number] Bee Nikki Lymphocytes (Bld) [#/Vol] 2.6 103/ul Normal 1.2-3.8 [facility] Comment on above: Performed By: #### C BC #### [facility] [address] [phone] Bee Nikki Lymphocytes/100 WBC (Bld) 37.9 % Normal 20.5-60.0 [facility] Comment on above: Performed By: #### C BC #### [facility] [address], [place] [address] Bee Nikki MANUAL DIFF REQ NO Normal [facility] Comment on above: Performed By: #### C BC #### [facility] [address], [place] [address] Bee Nikki MCH (RBC) [Entitic mass] 32.1 pg Normal 26.7-34.0 [facility] Comment on above: Performed By: #### C BC #### [facility] [address], [place] [address] Bee Nikki MCHC (RBC) [Mass/Vol] 31.6 g/dL Normal 29.9-35.2 [facility] Comment on above: Performed By: #### C BC #### [facility] [address], [place] [address] Bee Nikki MCV (RBC) [Entitic vol] 101.5 fL Critically high 81.0-99.0 [facility] Comment on above: Performed By: #### C BC #### [facility] [address], [place] [address] Bee Nikki Monocytes (Bld) [#/Vol] 0.4 103/ul Normal 0.3-0.8 [facility] Comment on above: Performed By: #### C BC #### [facility] [address], [place] [address] Bee Nikki Monocytes/100 WBC (Bld) 6.3 % Normal 1.7-12.0 [facility] Comment on above: Performed By: #### C BC #### [facility] [address] [place] [address] Bee Nikki Neutrophils (Bld) [#/Vol] 3.7 103/ul Normal 1.4-6.5 [facility] Comment on above: Performed By: #### C BC #### [facility] [address] [place] [address] Bee Nikki Neutrophils/100 WBC (Bld) 53.9 % Normal 43.0-75.0 [facility] Comment on above: Performed By: #### C BC #### [facility] [address] [place] [address] Bee Nikki Platelet mean volume (Bld) [Entitic vol] 9.7 fL Normal 9.5-13.5 [facility] Comment on above: Performed By: #### C BC #### [facility] [address] [place] [address] Bee Nikki Platelets (Bld) [#/Vol] 201 103/ul Normal 150-450 [facility] Comment on above: Performed By: #### C BC #### [facility] [address] [place] [address] Bee Nikki RBC (Bld) [#/Vol] 3.27 106/ul Critically low 4.20-5.40 [facility] Comment on above: Performed By: #### C BC #### [facility] [address] [place], [place] [address] Bee Nikki WBC (Bld) [#/Vol] 6.9 103/ul Normal 4.0-11.0 [facility] Comment on above: Performed By: #### C BC #### [facility] [address] [place], [place] [address] Bee Nikki CBC AUTO DIFFon 12-04-2018 Basophils (Bld) [#/Vol] 0.0 103/ul Normal 0.0-0.1 [facility] Comment on above: Performed By: #### C BC #### [facility] [address] [place] [address] Bee Nikki Basophils/100 WBC (Bld) 0.4 % Normal 0.2-2.0 [facility] Comment on above: Performed By: #### C BC #### [facility] [address] [place] [address] Bee Nikki Eosinophils (Bld) [#/Vol] 0.1 103/ul Normal 0.0-0.7 [facility] Comment on above: Performed By: #### C BC #### [facility] [address] [place], [place] [address] Bee Nikki Eosinophils/100 WBC (Bld) 1.6 % Normal 0.9-7.0 [facility] Comment on above: Performed By: #### C BC #### [facility] [address] [place], [place] [address] Bee Nikki Erythrocyte distribution width (RBC) [Ratio] 13.8 % Normal 11.0-15.0 [facility] Comment on above: Performed By: #### C BC #### [facility] [address] [place], [place] [address] Bee Nikki Hematocrit (Bld) [Volume fraction] 36.6 % Normal 36.0-48.0 [facility] Comment on above: Performed By: #### C BC #### [facility] [address] [place], [place] [address] Bee Nikki Hemoglobin (Bld) [Mass/Vol] 12.0 g/dL Normal 12.0-16.0 [facility] Comment on above: Performed By: #### C BC #### [facility] [address] [place], [place] [address] Beeronen Jordan IG # 0.01 10e3/ul Normal 0.00-0.03 [facility] Comment on above: Performed By: #### C BC #### [facility] [address] [place] [address] Bee Nikki IG % 0.2 % Normal 0.0-0.5 [facility] Comment on above: Performed By: #### C BC #### [facility] [address] [place] [address] Bee Nikki Lymphocytes (Bld) [#/Vol] 2.2 103/ul Normal 1.2-3.8 [facility] Comment on above: Performed By: #### C BC #### [facility] [address] [place] [address] Bee Jordan Lymphocytes/100 WBC (Bld) 42.8 % Normal 20.5-60.0 [facility] Comment on above: Performed By: #### C BC #### [facility] [address] [place], [place] [address] Bee Jordan MANUAL DIFF REQ NO Normal [facility] Comment on above: Performed By: #### C BC #### [facility] [address] [place] [address] Beeronen Jordan MCH (RBC) [Entitic mass] 31.9 pg Normal 26.7-34.0 [facility] Comment on above: Performed By: #### C BC #### [facility] [address] [place], [place] [address] Beeronen Jordan MCHC (RBC) [Mass/Vol] 32.8 g/dL Normal 29.9-35.2 [facility] Comment on above: Performed By: #### C BC #### [facility] [address] [place], [place] [address] Beeronen Jordan MCV (RBC) [Entitic vol] 97.3 fL Normal 81.0-99.0 [facility] Comment on above: Performed By: #### C BC #### [facility] [address] [place], [place] [address] Bee Nikki Monocytes (Bld) [#/Vol] 0.3 103/ul Normal 0.3-0.8 [facility] Comment on above: Performed By: #### C BC #### [facility] [address] [place], [place] [address] Bee Nikki Monocytes/100 WBC (Bld) 5.9 % Normal 1.7-12.0 [facility] Comment on above: Performed By: #### C BC #### [facility] [address] [place], [place] [address] Bee Nikki Neutrophils (Bld) [#/Vol] 2.5 103/ul Normal 1.4-6.5 [facility] Comment on above: Performed By: #### C BC #### [facility] [address] [place] [address] Bee Nikki Neutrophils/100 WBC (Bld) 49.1 % Normal 43.0-75.0 [facility] Comment on above: Performed By: #### C BC #### [facility] [address] [place], [place] [address] Bee Nikki Platelet mean volume (Bld) [Entitic vol] 9.5 fL Normal 9.5-13.5 [facility] Comment on above: Performed By: #### C BC #### [facility] [address] [place], [place] [address] Bee Nikki Platelets (Bld) [#/Vol] 226 103/ul Normal 150-450 [facility] Comment on above: Performed By: #### C BC #### [facility] [address] [place], [place] [address] Bee Nikki RBC (Bld) [#/Vol] 3.76 106/ul Critically low 4.20-5.40 [facility] Comment on above: Performed By: #### C BC #### [facility] [address] [place], [place] [address] Bee Nikki WBC (Bld) [#/Vol] 5.1 103/ul Normal 4.0-11.0 [facility] Comment on above: Performed By: #### C BC #### [facility] [address] [place], [place] [address] Bee Jordan PREG HCG QUALon 12-04-2018 , QUAL Negative Normal NEGATIVE [facility] [place] [facility] Comment on above: Performed By: #### P REG #### [facility] [address] [id number] Bee Jordan PROF CHEM 8 (BAS METB)on Anion gap [Moles/Vol] 14.7 mmol/L Normal [facility] Comment on above: Performed By: #### B MP #### [facility] [address] [place] [address] Bee Nikki Calcium [Mass/Vol] 8.8 mg/dL Normal 8.4-10.2 [facility] Comment on above: Performed By: #### B MP #### [facility] [address] [place] [address] Bee Nikki Chloride [Moles/Vol] 109 mmol/L Critically high 98-107 [facility] Comment on above: Performed By: #### B MP #### [facility] [address] [place] [address] Beeronen Jordan CO2 [Moles/Vol] 22.5 mmol/L Normal 22.0-30.0 [facility] Comment on above: Performed By: #### B MP #### [facility] [address] [place] [address] Bee Nikki Creatinine [Mass/Vol] 0.87 mg/dL Normal 0.52-1.04 [facility] Comment on above: Performed By: #### B MP #### [facility] [address] [place] [address] Bee Nikki EGFR-AF BRITISH >60 Normal >=60 [facility] Comment on above: Performed By: #### B MP #### [facility] [address] [place] [address] Bee Nikki EGFR-NON AF BRITISH >60 Normal >=60 [facility] Comment on above: Performed By: #### B MP #### [facility] [address], [place] [address] Bee Nikki Glucose [Mass/Vol] 94 mg/dL Normal 74-106 [facility] Comment on above: Performed By: #### B MP #### [facility] [address], [place] [address] Bee Nikki Potassium [Moles/Vol] 3.2 mmol/L Critically low 3.4-5.0 [facility] Comment on above: Performed By: #### B MP #### [facility] [address] [phone] Bee Nikki Sodium [Moles/Vol] 143 mmol/L Normal 137-145 [facility] Comment on above: Performed By: #### B MP #### [facility] [address], [place] [address] Bee Nikki Urea nitrogen [Mass/Vol] 20.0 mg/dL Critically high 7.0-17.0 [facility] Comment on above: Performed By: #### B MP #### [facility] [address], [place] [address] Bee Nikki Urea nitrogen/Creatinin e [Mass ratio] 23.0 mg/mg Normal [facility] Comment on above: Performed By: #### B MP #### [facility] [address], [place] [address] Bee Nikki PROTIMEon 12-04-2018 INR Coag (PPP) [Relative time] 1.03 {INR} Normal [facility] Comment on above: Performed By: #### P T, PTT #### [facility] [address], [place] [address] Bee Nikki PT Coag (PPP) [Time] PLEASE NOTE: NORMAL RANGE CHANGE 2014 DUE TO REAGENT LOT CHANGE Normal [facility] Comment on above: Performed By: #### P T, PTT #### [facility] [address], [place] [address] Bee Nikki PT Coag (PPP) [Time] SEE BELOW Normal [facility] Comment on above: Result Comment: NALINI RED INR: 2.0 - 3.0 CONDITIONS NOT LISTED BELOW 2.5 - 3.5 FOR PROSTHETIC HEART VALVE REPLACEMENT 2.5 - 3.5 RECURRENT THROMBOSIS Performed By: #### P T, PTT #### [facility] [address], [place] [address] Bee Jordan PT Coag (PPP) [Time] 10.7 s Normal 9.0-11.6 [facility] Comment on above: Performed By: #### P T, PTT #### [facility] [address], [place] [address] Bee Jordan PTTon 12-04-2018 aPTT Coag (Bld) [Time] PLEASE NOTE: NORMAL RANGE CHANGE 03-30-2015 DUE TO REAGENT LOT CHANGE Normal [facility] Comment on above: Performed By: #### P T, PTT #### [facility] [address], [place] [address] Bee Jordan aPTT Coag (Bld) [Time] 23.0 s Normal 22.3-36.2 [facility] Comment on above: Performed By: #### P T, PTT #### [facility] [address], [place] [address] Bee Jordan XR ANKLE RT 2Von 12-04-2018 XR ANKLE RT 2V Patient: CAIN SAAVEDRA Exam Date: 12/04/2018 : 1975 Gender:F Ordering : DR. BEBO ENRIQUEZ DKaylahP.MKaylah Admission #: [id number] Family : Order #: [id number] CLICK HERE TO VIEW EXAM RADIOLOGY REPORT PROCEDURE: RADIOGRAPH ANKLE RIGHT 2 VIEWS COMPARISON: XR ANKLE RT MIN 3 VIEWS, 12/03/2018. INDICATIONS: Intraoperative imaging right ankle open reduction internal fixation of trimalleolar fracture FINDINGS: BONES: Intraoperative spot fluoroscopic images demonstrate mechanical repair of the trimalleolar fractures via plate and screws, appearing in normal alignment. CONCLUSION: 1. Intraoperative repair/fixation of the right ankle trimalleolar fractures. Dictated by: Alayna Goel M.D. on 12/04/2018 at 11:50 Approved by: Alayna Goel M.D. on 12/04/2018 at 11:54 Normal [facility] XR ANKLE RT MIN 3 VIEWSon XR ANKLE RT MIN 3 VIEWS Patient: TERRIE SAAVEDRA Exam Date: 12/04/2018 : 1975 Gender:F Ordering : DR. BEBO ENRIQUEZ D.P.M. Admission #: [id number] Family : Order #: [id number] CLICK HERE TO VIEW EXAM RADIOLOGY REPORT PROCEDURE: RADIOGRAPH ANKLE RIGHT MIN 3 VIEWS COMPARISON: XR ANKLE RT 2V, 12/04/2018. INDICATIONS: Closed trimalleolar fracture of right ankle, post operative FINDINGS: BONES: Mechanical repair of right ankle trimalleolar fractures with stable hardware and normal alignment compared to intraoperative images. SOFT TISSUES: Soft tissue swelling. Skin dre medial and lateral to the ankle. Images were obtained through cast material which limits evaluation. CONCLUSION: 1. Mechanical repair of the trimalleolar fractures appearing in good alignment. Dictated by: Alayna Goel M.D. on 12/04/2018 at 15:01 Approved by: Alayna Goel M.D. on 12/04/2018 at 15:02 Normal [facility] XR ANKLE RT MIN 3 VIEWSon XR ANKLE RT MIN 3 VIEWS Patient: TERRIE SAAVEDRA Exam Date: 12/03/2018 : 1975 Gender:F Ordering : DR. BEBO MonacoPNabila Admission #: [id number] Family : Order #: [id number] CLICK HERE TO VIEW EXAM RADIOLOGY REPORT PROCEDURE: RADIOGRAPH ANKLE RIGHT MIN 3 VIEWS COMPARISON: None. INDICATIONS: Acute right ankle pain, known fracture FINDINGS: BONES: Minimally displaced fractures of the medial malleolus. Oblique fracture of the lateral malleolus with 4 mm widening of the fracture line on the lateral view. Mild lateral subluxation of the talus in relation to the tibial plafond and; the medial joint space is 5 mm in width. SOFT TISSUES: No visible soft tissue swelling or radiopaque foreign body. EFFUSION: None visible. OTHER: Negative. CONCLUSION: 1. Unstable ankle with acute medial and lateral malleolar fractures. Dictated by: Alayna Goel M.D. on 12/03/2018 at 13:10 Approved by: Alayna Goel M.D. on 12/03/2018 at 13:13 [facility] Office Visit (CALI) QUENTINTERRIE Dane ([id number]) 1975 FDate Time Provider Department07/30/17 9:40 AM JOHN LEE During your visit today, we recorded the following information about you: Pulse Blood pressure Weight Height 84/minute 113/62 86.6 kg 1.549 Ricardo Lee MD, MD 08/01/2017 10:22 AM [facility], [address] [id number] [address]NAR: Josette Vega MDThis is a 42 year old year old year old, Right handed woman from [facility] whois referred in consultation by Dr. Vega for an opinion regarding headaches andmy final recommendations will be communicated back to the requesting physicianby way of shared Medical record or letter via US mail.CC: MigraineHPI:Past medical history significant for: Pseudotumor cerebri s/p LP shunt (2008),chronic daily migraines, Chiari malformation (per outside CT scans), PCOS,morbid obseity s/p gastric bypass in 2015, anxiety, and depression.Age of onset of headaches: In her early 20sHow often are you having headaches/how many days of headaches in a week: Dailyheadaches- always when waking up (from sleep or even a nap).Are your headaches continuous/24 hours: Intermittent- only come after sleeping.Lying down without sleep can also bring on a headache. Not sure how long ittakes for the headache to come on as she falls asleep quickly, but headachewill awaken her from sleep. Usually lasts an hour or two. Dull ache typically8/10. No N/V or photophobia or phonophobia with these daily headaches. Noassociated vision changes including blurring of vision or loss of peripheralvision.Has there been an increase in headache frequency: No increase in frequencyrecently- headaches with lying down ANDquot;for a long time.ANDquot;Do you have more severe episodes on top of regular headaches: Twice a week-middle of the head sharp pain with photophobia and phonophobia and sometimesnausea and vomiting. Has to lie in a dark room. No aura. No blurring of vision,seeing spots, or loss of vision.Headache location: Daily headache is diffuse. The intermittent worsenedheadache tends to be in the center of her head.Are your headaches always on one side: NoQuality: Daily headache- dull and achyIntermittent worsening- sharpDuration of more severe headaches: 2-3 hoursWhat makes headaches worse: Lying down. No other triggers including food andactivity.What makes headaches better: Attempts PRN sumatriptan injections withoutimprovement typically, but sometimes mild improvement. Only used for the severeheadaches and attempts it every other week.Any positional aspect to the headaches: Worse when lying down for the dailyheadaches.Associated symptoms: photophobia, phonophobia, nausea, vomiting, neck pain(back center)Aura: noWhat medication do you use for headaches/ pain:Topamax 100 mg TID- on it for years, unsure if helpingNaproxen 500 mg BID- takes every day for years, unsure if helpingFioricet- takes daily and ANDquot;helps to get through the day.ANDquot;Sumatriptan 6 mg subQ PRN- takes every other week for severe headaches withminimal reliefAdvil for migraine (OTC)- takes two times daily every dayZofran PRN for nausea with headaches- helpsHow often do you use these medications in any given week: Fiorcet, topamax,naproxen daily. Sumatriptan PRN (every other week).Do you have any other pain symptoms anywhere else in your body: NoneLP shunt placed by Dr. Swenson [facility] in 2008 for pseudotumor cerebri without anyimprovement per the patient. She no longer follows with Dr. Swenson.Last saw her eye doctor last year.Previous testing:No MRIs per patientPer review of care everywhere:CT Brain 05/04/2017:Impression:1.?? Evidence of a Chiari malformation, similar to the previous examinationdated 12/16/2014.2.??There is no evidence for an acute intracranial process.CT Brain 01/20/2015:IMPRESSION:1. No acute intracranial abnormality.2. Low-lying cerebellar tonsils may relate to a Chiari 1 type malformation,unchanged.Yanely or Treatments:Triptans: attempted prior triptans, but cannot remember the namesErgots: NoneNSAIDS/Combination Analgesics: Previously tried ibuprofen without improvementOpiates/Barbitu rates: Percocet in the past for surgery- never taken forheadacheAED's: Currently on topamax. None prior.Antidepressants: Zoloft and latuda for depression, but nothing for headache.Anti-HTN: NoneCurrent Medications:Current Outpatient Prescriptions:pantoprazole DR (PROTONIX) 40 mg tablet Take 40 mg by mouth twice daily. Disp:Rfl:nystatin (MYCOSTATIN) powder Apply to affected area twice daily. Disp: Rfl:cyanocobalamin (VITAMIN B-12) 1,000 mcg tab Take 1,000 mcg by mouth once daily.Disp: Rfl:ferrous sulfate 325 mg (65 mg iron) tablet Take 325 mg by mouth daily withbreakfast. Disp: Rfl:Simethicone (GAS RELIEF EXTRA STRENGTH) 125 mg cap Take by mouth four timesdaily. Disp: Rfl:topiramate (TOPAMAX) 100 mg tablet Take 100 mg by mouth three times daily.Disp: Rfl:naproxen (NAPROSYN) 500 mg tablet Take 500 mg by mouth twice daily with meals.Disp: Rfl:SUMAtriptan (IMITREX) 6 mg/0.5 mL kit Inject 6 mg subcutaneously as needed.Disp: Rfl:multivitamin tablet Take 1 tablet by mouth once daily. Disp: Rfl:budesonide-formoterol (SYMBICORT) 160-4.5 mcg/actuation inhaler Inhale 2 Puffsas instructed twice daily. Disp: Rfl:medroxyPROGESTERone (DEPO-PROVERA) 150 mg/mL injection Inject 150 mgintramuscularly every 12 weeks. Disp: Rfl:docusate sodium (COLACE) 100 mg capsule Take 100 mg by mouth once daily. Disp:Rfl:lactulose (DUPHALAC, CONSTULOSE) 10 g/15 mL soln Take 20 g by mouth twicedaily. Disp: Rfl:sertraline (ZOLOFT) 50 mg tablet Take 50 mg by mouth once daily. Disp: Rfl:fluticasone (FLONASE ALLERGY RELIEF) 50 mcg/actuation nasal spray Use 1 Sprayin each nostril once daily. Disp: Rfl:lurasidone (LATUDA) 40 mg tablet Take by mouth once daily. Disp: Rfl:PEG 400/HYPROMELLOSE/GLYCERIN (VISINE DRY EYE RELIEF OPHTHALMIC) Use in eyesfour times daily. Disp: Rfl:CALCIUM CARBONATE/VITAMIN D2 (OYSTER SHELL CALCIUM WITH D ORAL) Take by mouthtwice daily. Disp: Rfl:lidocaine (XYLOCAINE) 5 % ointment Apply to affected area as needed. Disp:Rfl:Cholecalciferol, Vitamin D3, (VITAMIN D-3) 2,000 unit cap Take by mouth. Disp:Rfl:ondansetron orally disintegrating (ZOFRAN ODT) 4 mg disintegrating tablet Take4 mg by mouth every 8 hours as needed. Disp: Rfl:rbrnqxo-phfbqeru-bcbpn bital (FIORINAL) capsule Disp: Rfl: 1No current facility-administered medications for this visit..Allergies:ALLERGIES Allergen Reactions- Antivert [Meclizine] Other: See Comments Patient stated that she was in a coma state for daysFamily History:Migraine or other headaches in the family: Yes Twin sister with migrainesMom of ovarian cancer at 66 yo.Dad of leukemia at 67 yo.5 siblings all healthy other than migraines in twin sister.Past Medical History:PAST MEDICAL HISTORYDiagnosis Date- Allergic rhinitis- Anxiety- Arnold-Chiari malformation (HCC)- Constipation- Depression- Gastric bypass status for obesity- GERD (gastroesophageal reflux disease)- History of DVT (deep vein thrombosis) 2016 in the [place]- Hyperlipidemia- Insomnia- Migraine headache- Obesity- PCOS (polycystic ovarian syndrome)- Pseudotumor cerebri- Situational stress- Type 2 diabetes mellitus (HCC) Diet controlled- Vitamin B 12 deficiency- Vitamin D deficiencyPast Surgical HistoryPAST SURGICAL HISTORYProcedure Laterality Date- CARPAL TUNNEL 2016 Bilateral- CHOLECYSTECTOMY- COLONOSCOPY 2010 IBS- EGD 2010- GASTRIC BYPASS HX 2014- weight loss ~100 lbs as of 07/2017- OOPHORECTOMY, PART/TOTAL UNILAT/BILAT Left 2008 cyst without torsion- OTHER 2008 LP shunt- still present- does not follow with a physician for management- REVISE ULNAR NERVE AT ELBOW Left 2016 transposition of L ulnar nerveSocial History:Social HistorySubstance Use Topics- Smoking status: Never Smoker- Smokeless tobacco: Never Used- Alcohol use Not on fileLives at home with cousins (their household) and 2 dogs. 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 [place]REVIEW OF SYSTEMSGENERAL: Planned weight loss (gastric bypass). Daily fatigue. No fevers ornight sweats.HEENT: No changes in hearing or vision, no nose bleeds or other nasal problems.Headaches as above.NECK: Negative for lumps, goiter, pain and significant neck swellingRESPIRATORY: Negative for cough, hemoptysis, wheezing, COPD, dyspnea orshortness of breathCARDIOVASCULAR: Negative for chest pain, hypertension, CHF or palpitations.Sometimes has leg swelling.GI: Constipation. N/V with headaches at times.: No history of dysuria, frequency or incontinenceMUSCULOSKELETA L: Negative for joint pain or swelling, back pain or muscle painPSYCH: Depression and anxiety on latuda and zoloft without improvement. Nosuicidal or homicidal ideation. Poor sleep for years. Sleeps 5-6 hours a night,but often interrupted by headache.ENDOCRINE: ANDquot;Cold all the time.ANDquot; No polyuria or polydipsia. Dietcontrolled DM2.NEURO: States that after her surgeries ANDquot;I go into a seizureANDquot; but doesnot take medications for that and never has, but is on topamax for headache. Nonumbness, weakness, or tingling. Headaches as above.Physical Exam:Vital Signs: BP 113/62 Pulse 84 Ht 154.9 cm (5' 1ANDquot;) Wt 86.6 kg (191lb) BMI 36.09 kg/g2Slivlgx: well appearing, in no acute distress, alert Pain Behaviors: AppearssubduedSkin: Color, texture, turgor normal. No rashes or lesionsHEENT: Normocephalic/atraumatic.C ardiovascular: regular rhythmS1, S2 normalno murmurLungs: normal breath sounds bilaterallyVascular:No cyanosis, clubbing or edema.Musculoskeletal:No gross joint deformities. Some tenderness to palpation of the neck and theshoulders bilaterally.Neurological:M ental Status: Alert and oriented to person, place and time. Affect isrestricted. Speech is soft, but otherwise appropriate. Short and long termmemory, cognition and general fund of knowledge are good. Attention span andconcentration are good.Cranial Nerves: II-Visual can are full. Funduscopic examination reveals nopapilledema. III, IV, -EOMI, PERRL, nystagmus absent, V-normal facialsensation to light touch. VII-face is symmetric without evidence of weakness.VIII-hearing intact. IX, X-palate elevates symmetrically. XI-SCM 5/5.XII-tongue protrudes midline with normal movements. No atrophy orfasciculations of the tongue.Motor: Normal muscle tone and bulk. No evidence of atrophy or fasciculations. Strength is normal, 5/5, but limited by intermittent poor effort.Sensation: normal light touch in the upper and lower extremities.Cerebellar: No ataxia. Tremor: absent. Normal finger to nose, heel to granados andrapid alternating movements.Muscle stretch reflexes are 2+/4 in the biceps, triceps, brachioradialis,patella, and ankle. No evidence of ankle clonus. Plantar responses areflexor. Pathologic reflexes: absent.Gait examination is normal. Mild imbalance with tandem gait. Romberg testingis normal.Impression: 42 yo R handed female with pseudotumor cerebri s/p LP shunt(2008), chronic daily migraines, Chiari malformation (per outside CT scans),PCOS, morbid obseity s/p gastric bypass in 2014, anxiety, and depressionpresenting now with daily headache for years. Her daily headaches are likelymedication overuse headaches secondary to the daily use of naproxen, advil, andfioricet. She also has more severe headaches consistent with migraine withoutaura twice a week. Her headache management is complicated by reported Chiari Ias well as pseudotumor cerebri s/p LP shunt with maximal medical management anddaily headache for years.Plan:- consideration of IMATCH program. The patient was given a hand out discussingIMATCH program and will call to schedule if she feels it will be helpful.- Discussed medication over use headache with recommendations to taper offFioricet in conjunction with her home neurologist.Total time in minutes spent with patient including headacheeducation/counsell ing/coordinating care with the patient and /or family 60.More than 50 % of time spent in counselingSCOTTIE Curran personally have reviewed the history and physical obtained and documented bythe resident/fellow and I have examined the patient.The pertinent lab,radiology and/or other diagnostic test(s) were reviewed. I have discussed themanagement options and their respective risks and benefits with the patient.The necessary revisions in the above documentation were made in italics and thenote reflects my input. I discussed the case and the plans with the residentand I fully agree with the recommendations as outlined above.??Cyndy CurranffReferring Provider: SONNY HI [[id number]]Allergies As of Date: 07/30/2017 Noted Allergy ReactionANTIVERT (MECLIZINE) 02/18/2017 14 - Other: See Comments Comments: Patient stated that she was in a coma state for daysDate Reviewed: 07/30/2017Reviewed by: Sabrina Contreras - Fully AssessedReason for Visit: New Patient [172]Primary Visit Diagnosis:Chronic migraine without aura, with intractable migraine, so stated, with status migrainosus [G43.711]Prescriptions as of 07/30/2017 Sig: PANTOPRAZOLE 40 MG TABLET,DEL* Take 40 mg by mouth twice kemi* NYSTATIN 100,000 UNIT/GRAM TO* Apply to affected area twice * CYANOCOBALAMIN (VIT B-12) 1,0* Take 1,000 mcg by mouth once * FERROUS SULFATE 325 MG (65 MG* Take 325 mg by mouth daily wi* SIMETHICONE 125 MG CAPSULE Take by mouth four times jeyson* TOPIRAMATE 100 MG TABLET Take 100 mg by mouth three ti* NAPROXEN 500 MG TABLET Take 500 mg by mouth twice da* SUMATRIPTAN 6 MG/0.5 ML SUBCU* Inject 6 mg subcutaneously as* MULTIVITAMIN TABLET Take 1 tablet by mouth once d* BUDESONIDE-FORMOTEROL HFA 160* Inhale 2 Puffs as instructed * MEDROXYPROGESTERONE 150 MG/ML* Inject 150 mg intramuscularly* DOCUSATE SODIUM 100 MG CAPSULE Take 100 mg by mouth once kemi* LACTULOSE 10 G/15 ML ORAL YOU* Take 20 g by mouth twice jeyson* SERTRALINE 50 MG TABLET Take 50 mg by mouth once jeyson* FLUTICASONE 50 MCG/ACTUATION * Use 1 [place] in each nostril o* LURASIDONE 40 MG TABLET Take by mouth once daily. VISINE DRY EYE RELIEF OPHTHAL* Use in eyes four times daily. OYSTER SHELL CALCIUM WITH D O* Take by mouth twice daily. LIDOCAINE 5 % TOPICAL OINTMENT Apply to affected area as nee* CHOLECALCIFEROL (VITAMIN D3) * Take by mouth. ONDANSETRON 4 MG DISINTEGRATI* Take 4 mg by mouth every 8 ho* YLAQSOBTPS-[id number]-LPPTBPF E 5*Medication notes this encounter [id number] E 50 MG-325 MG-40 MG CAPSULE >> Sabrina Contreras 07/30/2017 9:57 AM >> STURGHIDane SABRINA Darrel Jul 30, 2017 9:57 AM Received from: External PharmacyProblem List As Of Date 07/30/2017 Noted Resolved Abdominal pannus [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 Tubular breast [N64.89] INVALID FOR* More... Status:Closed by JOHN LEE MD on 08/01/17 Normal [facility] PROGRESSon 07-30-2017 PROGRESS HNO ID: [id number] thor: TONI Blanchardervice: (none)Author Type: PhysicianType: Progress NotesFiled: 08/01/2017 10:22 AMNote Text:Headache CenterNyurological Estell[facility] for [id number] Khari Levine, [address] [address]Dofqarur[address]zk [place], [id number] [id number]: Josette Vega MDThis is a 42 year old year old year old, Right handed woman from [facility] is referred in consultation by Dr. Vega for an opinion regardingheadaches and my final recommendations will be communicated back to therequesting physician by way of shared Medical record or letter via USmail.CC: MigraineHPI:Past medical history significant for: Pseudotumor cerebri s/p LP shunt(2009), chronic daily migraines, Chiari malformation (per outside CTscans), PCOS, morbid obseity s/p gastric bypass in 2015, anxiety, anddepression.Age of onset of headaches: In her early 20sHow often are you having headaches/how many days of headaches in a week:Daily headaches- always when waking up (from sleep or even a nap).Are your headaches continuous/24 hours: Intermittent- only come aftersleeping. Lying down without sleep can also bring on a headache. Not surehow long it takes for the headache to come on as she falls asleep quickly,but headache will awaken her from sleep. Usually lasts an hour or two.Dull ache typically 8/10. No N/V or photophobia or phonophobia with thesedaily headaches. No associated vision changes including blurring of visionor loss of peripheral vision.Has there been an increase in headache frequency: No increase in frequencyrecently- headaches with lying down for a long time. Do you have more severe episodes on top of regular headaches: Twice aweek- middle of the head sharp pain with photophobia and phonophobia andsometimes nausea and vomiting. Has to lie in a dark room. No aura. Noblurring of vision, seeing spots, or loss of vision.Headache location: Daily headache is diffuse. The intermittent worsenedheadache tends to be in the center of her head.Are your headaches always on one side: NoQuality: Daily headache- dull and achyIntermittent worsening- sharpDuration of more severe headaches: 2-3 hoursWhat makes headaches worse: Lying down. No other triggers including foodand activity.What makes headaches better: Attempts PRN sumatriptan injections withoutimprovement typically, but sometimes mild improvement. Only used for thesevere headaches and attempts it every other week.Any positional aspect to the headaches: Worse when lying down for thedaily headaches.Associated symptoms: photophobia, phonophobia, nausea, vomiting, neck pain(back center)Aura: noWhat medication do you use for headaches/ pain:Topamax 100 mg TID- on it for years, unsure if helpingNaproxen 500 mg BID- takes every day for years, unsure if helpingFioricet- takes daily and helps to get through the day. Sumatriptan 6 mg subQ PRN- takes every other week for severe headacheswith minimal reliefAdvil for migraine (OTC)- takes two times daily every dayZofran PRN for nausea with headaches- helpsHow often do you use these medications in any given week: Fiorcet,topamax, naproxen daily. Sumatriptan PRN (every other week).Do you have any other pain symptoms anywhere else in your body: NoneLP shunt placed by CANDIDO Burns in 2008 for pseudotumor cerebri withoutany improvement per the patient. She no longer follows with Dr. Swenson.Last saw her eye doctor last year.Previous testing:No MRIs per patientPer review of care everywhere:CT Brain 05/04/2017:Impression:1.?? Evidence of a Chiari malformation, similar to the previous examinationdated 12/16/2014.2.??There is no evidence for an acute intracranial process.CT Brain 01/20/2015:IMPRESSION:1. No acute intracranial abnormality.2. Low-lying cerebellar tonsils may relate to a Chiari 1 typemalformation,unchanged .Prior Treatments:Triptans: attempted prior triptans, but cannot remember the namesErgots: NoneNSAIDS/Combination Analgesics: Previously tried ibuprofen withoutimprovementOpiates/ Barbiturates: Percocet in the past for surgery- never taken forheadacheAED's: Currently on topamax. None prior.Antidepressants: Zoloft and latuda for depression, but nothing forheadache.Anti-HTN: NoneCurrent Medications:Current Outpatient Prescriptions:pantoprazole DR (PROTONIX) 40 mg tablet Take 40 mg by mouth twice daily.Disp: Rfl:nystatin (MYCOSTATIN) powder Apply to affected area twice daily. Disp:Rfl:cyanocobalamin (VITAMIN B-12) 1,000 mcg tab Take 1,000 mcg by mouth oncedaily. Disp: Rfl:ferrous sulfate 325 mg (65 mg iron) tablet Take 325 mg by mouth daily withbreakfast. Disp: Rfl:Simethicone (GAS RELIEF EXTRA STRENGTH) 125 mg cap Take by mouth fourtimes daily. Disp: Rfl:topiramate (TOPAMAX) 100 mg tablet Take 100 mg by mouth three times daily.Disp: Rfl:naproxen (NAPROSYN) 500 mg tablet Take 500 mg by mouth twice daily withmeals. Disp: Rfl:SUMAtriptan (IMITREX) 6 mg/0.5 mL kit Inject 6 mg subcutaneously asneeded. Disp: Rfl:multivitamin tablet Take 1 tablet by mouth once daily. Disp: Rfl:budesonide-formoterol (SYMBICORT) 160-4.5 mcg/actuation inhaler Inhale 2Puffs as instructed twice daily. Disp: Rfl:medroxyPROGESTERone (DEPO-PROVERA) 150 mg/mL injection Inject 150 mgintramuscularly every 12 weeks. Disp: Rfl:docusate sodium (COLACE) 100 mg capsule Take 100 mg by mouth once daily.Disp: Rfl:lactulose (DUPHALAC, CONSTULOSE) 10 g/15 mL soln Take 20 g by mouth twicedaily. Disp: Rfl:sertraline (ZOLOFT) 50 mg tablet Take 50 mg by mouth once daily. Disp:Rfl:fluticasone (FLONASE ALLERGY RELIEF) 50 mcg/actuation nasal spray Use 1Spray in each nostril once daily. Disp: Rfl:lurasidone (LATUDA) 40 mg tablet Take by mouth once daily. Disp: Rfl:PEG 400/HYPROMELLOSE/GLYCERIN (VISINE DRY EYE RELIEF OPHTHALMIC) Use ineyes four times daily. Disp: Rfl:CALCIUM CARBONATE/VITAMIN D2 (OYSTER SHELL CALCIUM WITH D ORAL) Take bymouth twice daily. Disp: Rfl:lidocaine (XYLOCAINE) 5 % ointment Apply to affected area as needed. Disp: Rfl:Cholecalciferol, Vitamin D3, (VITAMIN D-3) 2,000 unit cap Take by mouth.Disp: Rfl:ondansetron orally disintegrating (ZOFRAN ODT) 4 mg disintegrating tabletTake 4 mg by mouth every 8 hours as needed. Disp: Rfl:xgfqxqn-thfpnvmd-fgejd bital (FIORINAL) capsule Disp: Rfl: 1No current facility-administered medications for this visit..Allergies:ALLERGIES Allergen Reactions- Antivert [Meclizine] Other: See Comments Patient stated that she was in a coma state for daysFamily History:Migraine or other headaches in the family: Yes Twin sister withmigrainesMom of ovarian cancer at 66 yo.Dad of leukemia at 67 yo.5 siblings all healthy other than migraines in twin sister.Past Medical History:PAST MEDICAL HISTORYDiagnosis Date- Allergic rhinitis- Anxiety- Arnold-Chiari malformation (HCC)- Constipation- Depression- Gastric bypass status for obesity- GERD (gastroesophageal reflux disease)- History of DVT (deep vein thrombosis) 2016 in the R[place]- Hyperlipidemia- Insomnia- Migraine headache- Obesity- PCOS (polycystic ovarian syndrome)- Pseudotumor cerebri- Situational stress- Type 2 diabetes mellitus (HCC) Diet controlled- Vitamin B 12 deficiency- Vitamin D deficiencyPast Surgical HistoryPAST SURGICAL HISTORYProcedure Laterality Date- CARPAL TUNNEL 2015 Bilateral- CHOLECYSTECTOMY- COLONOSCOPY 2010 IBS- EGD 2010- GASTRIC BYPASS HX 2014- weight loss ~100 lbs as of 07/2017- OOPHORECTOMY, PART/TOTAL UNILAT/BILAT Left 2008 cyst without torsion- OTHER 2008 LP shunt- still present- does not follow with a physician for management- REVISE ULNAR NERVE AT ELBOW Left 2015 transposition of L ulnar nerveSocial History:Social HistorySubstance Use Topics- Smoking status: Never Smoker- Smokeless tobacco: Never Used- Alcohol use Not on fileLives at home with cousins (their household) and 2 dogs. 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 Trying to get disability. [facility]ROS:REVIEW OF SYSTEMSGENERAL: Planned weight loss (gastric bypass). Daily fatigue. No fevers ornight sweats.HEENT: No changes in hearing or vision, no nose bleeds or other nasalproblems. Headaches as above.NECK: Negative for lumps, goiter, pain and significant neck swellingRESPIRATORY: Negative for cough, hemoptysis, wheezing, COPD, dyspnea orshortness of breathCARDIOVASCULAR: Negative for chest pain, hypertension, CHF orpalpitations. Sometimes has leg swelling.GI: Constipation. N/V with headaches at times.: No history of dysuria, frequency or incontinenceMUSCULOSKELETA L: Negative for joint pain or swelling, back pain or musclepainPSYCH: Depression and anxiety on latuda and zoloft without improvement. Nosuicidal or homicidal ideation. Poor sleep for years. Sleeps 5-6 hours anight, but often interrupted by headache.ENDOCRINE: Cold all the time. No polyuria or polydipsia. Diet controlledDM2.NEURO: States that after her surgeries I go into a seizure but does nottake medications for that and never has, but is on topamax for headache.No numbness, weakness, or tingling. Headaches as above.Physical Exam:Vital Signs: BP 113/62 Pulse 84 Ht 154.9 cm (5' 1 ) Wt 86.6 kg (191lb) BMI 36.09 kg/b7Vizykhb: well appearing, in no acute distress, alert Pain Behaviors:Appears subduedSkin: Color, texture, turgor normal. No rashes or lesionsHEENT: Normocephalic/atraumatic.C ardiovascular: regular rhythmS1, S2 normalno murmurLungs: normal breath sounds bilaterallyVascular:No cyanosis, clubbing or edema.Musculoskeletal:No gross joint deformities. Some tenderness to palpation of the neck andthe shoulders bilaterally.Neurological:M ental Status: Alert and oriented to person, place and time. Affect isrestricted. Speech is soft, but otherwise appropriate. Short and long termmemory, cognition and general fund of knowledge are good. Attention spanand concentration are good.Cranial Nerves: II-Visual can are full. Funduscopic examinationreveals no papilledema. III, IV, -EOMI, PERRL, nystagmus absent,V-normal facial sensation to light touch. VII-face is symmetric withoutevidence of weakness. VIII-hearing intact. IX, X-palate elevatessymmetrically. XI-SCM 5/5. XII-tongue protrudes midline with normalmovements. No atrophy or fasciculations of the tongue.Motor: Normal muscle tone and bulk. No evidence of atrophy orfasciculations. Strength is normal, 5/5, but limited by intermittent pooreffort.Sensation: normal light touch in the upper and lower extremities.Cerebellar: No ataxia. Tremor: absent. Normal finger to nose, heel toshin and rapid alternating movements.Muscle stretch reflexes are 2+/4 in the biceps, triceps, brachioradialis,patella, and ankle. No evidence of ankle clonus. Plantar responses areflexor. Pathologic reflexes: absent.Gait examination is normal. Mild imbalance with tandem gait. Rombergtesting is normal.Impression: 42 yo R handed female with pseudotumor cerebri s/p LP shunt(2008), chronic daily migraines, Chiari malformation (per outside CTscans), PCOS, morbid obseity s/p gastric bypass in 2014, anxiety, anddepression presenting now with daily headache for years. Her dailyheadaches are likely medication overuse headaches secondary to the dailyuse of naproxen, advil, and fioricet. She also has more severe headachesconsistent with migraine without aura twice a week. Her headachemanagement is complicated by reported Chiari I as well as pseudotumorcerebri s/p LP shunt with maximal medical management and daily headachefor years.Plan:- consideration of IMATCH program. The patient was given a hand outdiscussing IMATCH program and will call to schedule if she feels it willbe helpful.- Discussed medication over use headache with recommendations to taper offFioricet in conjunction with her home neurologist.Total time in minutes spent with patient including headacheeducation/counsell ing/coordinating care with the patient and /or [id number]. More than 50 % of time spent in counselingSCOTTIE Curran personally have reviewed the history and physical obtained anddocumented by the resident/fellow and I have examined the patient.Thepertinent lab, radiology and/or other diagnostic test(s) were reviewed. Ihave discussed the management options and their respective risks andbenefits with the patient. The necessary revisions in the abovedocumentation were made in italics and the note reflects my input. Idiscussed the case and the plans with the resident and I fully agree withthe recommendations as outlined above.??Alfonso Curran Normal [facility] PROGRESSon 02-20-2017 PROGRESS HNO ID: [id number] thor: Cat Montalvo LPNService: (none)Author Type: (none)Type: Progress NotesFiled: 02/20/2017 8:02 AMNote Text:[id number] OF PHOTOS: February 18, 2017TAKEN WITH LENS: 7ft / 70mm x5 [id number] / 70mm H x5 ABDOMEN, FROM BELOW BRA LINE TO BELOW PUBIC AREAPOSES:AP/OP/LPDIAGNOSI S: NECK / TRUNK: PANNICULECTOMY and BREAST: BREAST AUGMENTATIONRELEASE: PATIENT SIGNED PHOTO RELEASE FOR CLINICAL USE AND SURGERYCat Selvin HALE Normal [facility] CNOVon 02-18-2017 CNOV Office Visit (PLASST) QUENTINTERRIE Vela ([id number]) 1975 FDate Time Provider Npngmrbzmk11/16/17 2:00 PM BEVERLY LEWIS PLASST During your visit today, we recorded the following information about you: Temperature Pulse Respiration Blood pressure 98.4 degrees 81/minute 18/minute 109/62 Weight Height 86.2 kg 1.549 Ha Selvin HALE 02/18/2017 2:21 PM SignedWAKEMED NORTH HOSPITALLAB [id number] HOURS: Lab is open 7:30am to 6:00pm , 7:30am to 5:00pm Fridays and open8:00am-12:00pm on Saturdays.PHARMACY HOURS: Saturday through Saturday 8:00am - 6:00pm.Lab Orders 365 days after they are entered. If your lab orders ,you may be required to wait in the lab while they are reinstatedSTANDING ORDERS are recurring orders with an expiration date. The intervalwill indicate how often the test should be completed.FASTING LAB means nothing to eat or drink (except water) 10-12 hours beforeyour blood is drawn.CT MRI IVP If you have one of these radiology exams ordered along with bloodwork, please complete the blood work at least one day prior to the scheduledexam.[facility] HOURSHOURS OF OPERATIONS Saturday and Saturday 8:00am to 4:00pm, Saturday through Saturday6:00am to 9:00pm. Express care is for patients 2 years and older.[facility]-WALK IN CLINICHOURS OF OPERATIONS Saturday and Saturday 8:00am to 4:00pm, Saturday through Saturday6:00am to 9:00pm. The walk in clinic is for patients 6 months and older.[facility] WALK-IN HOURSHOURS OF OPERATIONS Saturday and Saturday 9:00am to 4:00pm, Saturday through Saturday6:00am to 9:00pm. The walk in clinic is for patients 2 years and older.For Express Care LOCATIONS, HOURS OF OPERATION and CURRENT WAIT TIMES, visitthe following [email or web address][type s][0]=Express%20Care%20Cli nicsAND-amp; for detailsWe are glad that we were able to get you in for an urgent appointment todaywhen you needed it. Is there anything else I can do for you?For Express Care LOCATIONS, HOURS OF OPERATION and CURRENT WAIT TIMES, visitthe following [email or web address][type s][0]=Express%20Care%20Cli nicsAND-amp; for detailsBeverly Lewis MD 02/18/2017 3:35 PM Carley is a 42 year old female who presents today for a consult appointment forevaluation for panniculectomy and bilateral breast augmentation for tubularbreasts. S/P gastric bypass 2 years ago. Has lost 100 lbs. Has skin rashesand irritations in abdominal skin folds.Previously denied through [place].BP 109/62 (BP Site: Left Arm, BP Position: Sitting, BP Cuff Size: Large Adult) Pulse 81 Temp 36.9 ?C (98.4 ?F) (Oral) Resp 18 Ht 154.9 cm (5' 1ANDquot;) Wt 86.2 kg (190 lb) BMI 35.9 kg/n7NSQLUEBMKDuvqwxfl Reactions- Antivert [Meclizine] Other: See Comments Patient stated that she was in a coma state for daysNo current outpatient prescriptions on file prior to visit.No current facility-administered medications on file prior to visit.Long listPMH: Depression, anxiety Pseudotumor cerebri ObesityPSH: gastric bypass Cholecystectomy Rt and LT CTR Oophorectomy Left ulnar nerve transposition IP shuntTOVA Fonseca agree with above assessment and have examined the patient.ASSESSMENT:Patient for consult appointment.Patient is presenting for 2 main problems today. First one is excess skin andsubcutaneous tissue status post massive weight loss which is associated withsome skin problems.MASSIVE WEIGHT LOSS: +STABLE WEIGHT OVER THE PAST 6 MONTHS: YES AROUND 190LBSINTERFERENCE WITH DAILY ACTIVITIES : +SKIN RASH/SORES UNDER THE PANNUS: +NOT RESPONSIVE TO CONSERVATIVE TREATMENTDIFFICULTY IN CARRYING OUT PERSONAL HYGIENE DOWN IN THE PANNUS AREA: YESABDOMINAL PANNUS HANGING OVER THE PUBIS AND BILATERAL GROINS: YESGiven the above findings I think panniculectomy in this patient is a medicalnecessity.The second complaint the patient does have today is breast hypoplasia. 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 Both breasts are constricted especially inthe inferior poles. For this congenital breast deformity I would recommendaugmentation mammoplasty along with expansion of the lower pole of both breasts.Given these findings I believe the procedure is necessary in this patient aswell. I explained the procedures, risks, and benefits. Patient consented for theprocedure.Photos taken today to support the documentation.PLAN:1.) Patient to return to clinic for the procedures pending approval.2.) Patient instructed to call with any questions or concerns regarding thisprocedure.? I spent 30 minutes total visit spent face to face with patient. Greater than50% of the time was spent counseling and coordination of care, discussingtreatment options and recommendations.?Beverly Lewis MDOctober 2016 3:34 PMReferring Provider: SELF [200]Allergies As of Date: 02/18/2017 Noted Allergy ReactionANTIVERT (MECLIZINE) 02/18/2017 14 - Other: See Comments Comments: Patient stated that she was in a coma state for daysDate Reviewed: 02/18/2017Reviewed by: Cat Montalvo LPN - Fully AssessedReason for Visit: Consult [173]Primary Visit Diagnosis:Abdominal pannus [E65] Other Visit Diagnosis:Tubular breast [N64.89]Order(s):SURGICAL REQUEST - ELECTIVE [7535012] Order #: [id number]: 1 CBC + DIFF [SQCBCDIF] Order #: [id number] FUTURE COMP METABOLIC PANEL [SQCMP] Order #: [id number] FUTURE ECG COMPLETE W INTERPRETATION [ECG01] Order #: [id number] FUTURE CONSULT TO ANESTHESIOLOGY [9002] Order #: [id number]: 1 CONSULT TO INT MED-IMPACT [[id number]] Order #: [id number]: 1 [facility]ALTH[facility] [[id number]] Order #: [id number] REFER FOR ADMIT INTERVIEW [[id number]] Order #: [id number] List As Of Date 02/18/2017 Noted Resolved Abdominal pannus [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 Tubular breast [N64.89] INVALID FOR* More... Other instructions from your clinician: [facility] FACTS [phone] LAB HOURS: Lab is open 7:30am to 6:00pm , 7:30am to 5:00pm Fridays and open 8:00am-12:00pm on Saturdays. PHARMACY HOURS: Saturday through Saturday 8:00am - 6:00pm. Lab Orders 365 days after they are entered. If your lab orders , you may be required to wait in the lab while they are reinstated STANDING ORDERS are recurring orders with an expiration date. The interval will indicate how often the test should be completed. FASTING LAB means nothing to eat or drink (except water) 10-12 hours before your blood is drawn. CT MRI IVP If you have one of these radiology exams ordered along with blood work, please complete the blood work at least one day prior to the scheduled exam. [facility] HOURS HOURS OF OPERATIONS Saturday and Saturday 8:00am to 4:00pm, Saturday through Saturday 6:00am to 9:00pm. Express care is for patients 2 years and older. [facility]-WALK IN CLINIC HOURS OF OPERATIONS Saturday and Saturday 8:00am to 4:00pm, Saturday through Saturday 6:00am to 9:00pm. The walk in clinic is for patients 6 months and older. [facility] WALK-IN HOURS HOURS OF OPERATIONS Saturday and Saturday 9:00am to 4:00pm, Saturday through Saturday 6:00am to 9:00pm. The walk in clinic is for patients 2 years and older. For Express Care LOCATIONS, HOURS OF OPERATION and CURRENT WAIT TIMES, visit the following link [email or web address] centerFreshfetch [facility] [place]/locations?dFR[types][0 ]=Express%20Care%20Clin icsAND for details We are glad that we were able to get you in for an urgent appointment today when you needed it. Is there anything else I can do for you? For Express Care LOCATIONS, HOURS OF OPERATION and CURRENT WAIT TIMES, visit the following link [email or web address] centerFreshfetch [facility] [place]/locations?dFR[types][0 ]=Express%20Care%20Clin icsAND for detailsEncounter Number: [id number] Status:Closed by BEVERLY LEWIS MD on 02/18/[address] [facility] PROGRESSon 02-18-2017 PROGRESS HNO ID: [id number] thor: Beverly Mcgrawrvice: (none)Author Type: PhysicianType: Progress NotesFiled: 02/18/2017 3:35 PMNote Text:Terrie is a 42 year old female who presents today for a consult appointmentfor evaluation for panniculectomy and bilateral breast augmentation fortubular breasts. S/P gastric bypass 2 years ago. Has lost 100 lbs. Hasskin rashes and irritations in abdominal skin folds.Previously denied through [employer].BP 109/62 (BP Site: Left Arm, BP Position: Sitting, BP Cuff Size: LargeAdult) Pulse 81 Temp 36.9 ?C (98.4 ?F) (Oral) Resp 18 Ht 154.9 cm(5' 1 ) Wt 86.2 kg (190 lb) BMI 35.9 kg/i1RPVTHXOQTMaykuvro Reactions- Antivert [Meclizine] Other: See Comments Patient stated that she was in a coma state for daysNo current outpatient prescriptions on file prior to visit.No current facility-administered medications on file prior to visit.Long listPMH: Depression, anxiety Pseudotumor cerebri ObesityPSH: gastric bypass Cholecystectomy Rt and LT CTR Oophorectomy Left ulnar nerve transposition IP shuntNonTOVA Lainez agree with above assessment and have examined the patient.ASSESSMENT:Patient for consult appointment.Patient is presenting for 2 main problems today. First one is excess skinand subcutaneous tissue status post massive weight loss which isassociated with some skin problems.MASSIVE WEIGHT LOSS: +STABLE WEIGHT OVER THE PAST 6 MONTHS: YES AROUND 190LBSINTERFERENCE WITH DAILY ACTIVITIES : +SKIN RASH/SORES UNDER THE PANNUS: +NOT RESPONSIVE TO CONSERVATIVE TREATMENTDIFFICULTY IN CARRYING OUT PERSONAL HYGIENE DOWN IN THE PANNUS AREA: YESABDOMINAL PANNUS HANGING OVER THE PUBIS AND BILATERAL GROINS: YESGiven the above findings I think panniculectomy in this patient is amedical necessity.The second complaint the patient does have today is breast hypoplasia. Itappears that the patient does have congenital developmental breasthypoplasia on both sides which is also associated with tubular breastdeformity more on the right side than the left side. Both breasts areconstricted especially in the inferior poles. For this congenital breastdeformity I would recommend augmentation mammoplasty along with expansionof the lower pole of both breasts.Given these findings I believe the procedure is necessary in this patientas well. I explained the procedures, risks, and benefits. Patient consented forthe procedure.Photos taken today to support the documentation.PLAN:1.) Patient to return to clinic for the procedures pending approval.2.) Patient instructed to call with any questions or concerns regardingthis procedure.? I spent 30 minutes total visit spent face to face with patient. Greaterthan 50% of the time was spent counseling and coordination of care,discussing treatment options and recommendations.?Beverly Lewis MDOctober 2016 3:34 PM Normal [facility] Vital Signs Date Time Vital Sign Value Performing Clinician Faci litrodolfo 05-04-2021 14:45-0500 Body height 154.94 cm Davi Martinez Other [facility] Other 05-04-2021 14:45-0500 Body mass index (BMI) [Ratio] 38.73 kg/m2 Davi Martinez Other [facility] Other 05-04-2021 14:45-0500 Body weight 92.99 kg Davi Martinez Other [facility] Other 03-23-2021 10:38-0500 Body height 154.94 cm Referring Provider Unknown MV-Wzqbtgpgisrjzi-Glmk man Work Phone: 03-23-2021 10:38-0500 Body mass index (BMI) [Ratio] 40.06 kg/m2 Referring Provider Unknown IT-Rmzaxydrhwxctk-Hqmd man Work Phone: 03-23-2021 10:38-0500 Body surface area Derived from formula 1.94 m2 Referring Provider Unknown NE-Fllnyxcehawpsf-Jdun man Work Phone: 03-23-2021 10:38-0500 Body weight 96.16 kg Referring Provider Unknown XF-Vdoewjrrubekbz-Jysd man Work Phone: Encounters Encounter Date Encounter Type Care Provider Facility Start: 05-22-2023 ambulatory SURESH THAO Facility:[facility] Start: 04-25-2023 End: 04-25-2023 ambulatory SURESH THAO Not Available Start: 04-12-2023 ambulatory SURESH THAO Fac ility:[facility] Start: 04-08-2023 End: 04-09-2023 ambulatory SURESH THAO Not Available Start: 04-08-2023 End: 04-08-2023 ambulatory JAMES PAPPAS Not Available Start: 04-03-2023 End: 04-03-2023 ambulatory SURESH THAO Not Available Start: 09-28-2021 End: 09-28-2021 ambulatory Davi Martienz Other [facility] Other Start: 09-28-2021 Telephone encounter Davi LOWERY [facility] Start: 05-04-2021 End: 05-04-2021 ambulatory Davi Martinez Other [facility] Other Start: 05-04-2021 Office outpatient ne w 45 minutes Davi Martinez [facility] Start: 04-06-2021 Patient encounter procedure No PCP None [facility] [address] Work Phone: Start: 03-23-2021 [facility] visit new patient No PCP None DF-Uhyrkxzcy-Icakced [id number] Work Phone: Start: 03-23-2021 Patient encounter procedure No PCP None SY-Jwunamptzmwgez-Leaiaup Voice Work Phone: Start: 03-23-2021 Office consultation new/estab patient 60 min Referring Provider Unknown LP-Vozkiupjduwbbd-Umzxqtq Work Phone: Start: 11-18-2019 End: 11-19-2019 Patient encounter procedure BEBO ENRIQUEZ Facility:[facility] Start: 10-20-2019 End: 10-21-2019 Patient encounter procedure BEBO ENRIQUEZ Facility:[facility] Start: 04-22-2019 End: 04-23-2019 Patient encounter procedure BEBO ENRIQUEZ Facility:[facility] Start: 04-09-2019 End: 04-10-2019 Patient encounter procedure EDMOND EDWARDS Facility:[facility] Start: 03-04-2019 End: 03-05-2019 Patient encounter procedure BEBO ENRIQUEZ Facility:[facility] Start: 01-28-2019 End: 01-29-2019 Patient encounter procedure BEBO ENRIQUEZ Facility:[facility] Start: 01-07-2019 End: 01-08-2019 Patient encounter procedure BEBO ENRIQUEZ Facility:[facility] Start: 01-06-2019 Encounter for other preprocedural examination BEBO ENRIQUEZ [facility] Start: 12-23-2018 End: 12-24-2018 Patient encounter procedure KAT CAMERON Facility:[facility] Start: 12-07-2018 End: 12-11-2018 Evaluation and management of inpatient JOSETTE VEGA Facility:[facility] Start: 12-03-2018 End: 12-04-2018 Patient encounter procedure BEBO ENRIQUEZ Facility:[facility] Start: 07-30-2017 End: 08-01-2017 Ambulatory FILIPPOD Crescencio LEE [facility] Start: 02-18-2017 Ambulatory BEVERLY LEWIS [facility] Procedures Date Procedure Procedure Detail Performing Clinician Start: 04-09-2019 ANESTH ABDOMINAL WALL SURG DOUG BLOCK Start: 04-09-2019 EXC SKIN ABD EDMOND STARK Start: 04-09-2019 EXC SKIN ABD ADD-ON AND REW GRACE Start: 12-08-2018 End: 12-08-2018 Microscopic examination of blood, culture BEBO ENRIQUEZ Comment on above: Performed By: #### P REG #### [facility] [address] [address] [address] [place] Start: 12-04-2018 Reposition Right Fib lázaro with Internal Fixation Device, Open Approach BEBO ENRIQUEZ H/O: surgery Davi elizabeth Other Plan of Treatment Date Care Activity Detail Author Start: 04-06-2021 JAMES, Provider : Maddy Echeverria, Status: Pen, Time: 4:00 PM JAMES, Provider: Maddy Echeverria, Status: Pen, Time: 4:00 PM QS-Rwgrhxghh-Utshjwp [id number] Work Phone: Immunizations Immunization Date Immunization Notes Care Provider Fa cility 09-05-2020 Moderna COVID-19 Vaccine 100 MCG/0.5ML Intramuscular Suspension Referring Provider Unknown AU-Evgangzcdypdlu-Lg idman Work Phone: 08-10-2020 Moderna COVID-19 Vaccine 100 MCG/0.5ML Intramuscular Suspension Referring Provider Unknown BN-Dffgbqmsgvyxog-Cf idman Work Phone: 03-11-2019 influenza, injectable, quadrivalent, contains preservative Referring Provider Unknown VE-Gbmhxfgtqjdgqh-Bm idman Work Phone: 03-11-2019 influenza, injectable,quadrivale nt, preservative free, pediatric Davi Martinez Other [facility] Other 02-14-2018 influenza, injectable, quadrivalent, preservative free Referring Provider Unknown ID-Znefonlmssuljb-Dd idman Work Phone: 03-01-2017 influenza, injectable,quadrivale nt, preservative free, pediatric Davi Martinez Other [facility] Other 03-01-2017 influenza, injectable, quadrivalent, preservative free Referring Provider Unknown VM-Boxdvkiahcflgk-Fa idman Work Phone: 02-08-2016 influenza, injectable, quadrivalent, preservative free Referring Provider Unknown EA-Hhkfgdrgqyduqe-Eu [employer] Work Phone: 02-04-2015 influenza, high dose seasonal, preservative-free Davi Martinez Other [facility] Other 02-04-2015 influenza virus vaccine, whole virus Referring Provider Unknown ZY-Zrrmjnjmebufvs-Nf [employer] Work Phone: 10-23-2014 measles, mumps and rubella virus vaccine Davi Hamlinack Other [facility] Other 10-22-2014 measles, mumps and rubella virus vaccine Referring Provider Unknown FG-Pwpbknmfrjppzd-Mg [employer] Work Phone: 10-05-2014 tetanus toxoid, reduced diphtheria toxoid, and acellular pertussis vaccine, adsorbed Referring Provider Unknown TN-Smlgniuvaipmmg-Ft [employer] Work Phone: 02-24-2014 tetanus toxoid, reduced diphtheria toxoid, and acellular pertussis vaccine, adsorbed Referring Provider Unknown CV-Ifgptzohcevuar-Fx [employer] Work Phone: 02-21-2014 influenza, seasonal, injectable Referring Provider Unknown XE-Iwccltqdqhgkma-Ei [employer] Work Phone: 1977 measles, mumps and rubella virus vaccine Davi Juan Other [facility] Other NEGATED: Highlighted row has not occurred!02-18-2012 [employer] Davi Juan Other [facility] Other Payers Date Payer Category Payer Unknown [id number] 1977 Unknown [id number] 1977 Unknown [id number] [id number] 1977 Unknown [id number] 2.16.840.1.302895.3.579.2.593 1977 Unknown [id number] 2.16.840.1.454346.3.579.2.593 1977 Unknown [id number] 2.16.840.1.888886.3.579.2.593 1977 Unknown [id number] 2.16.840.1.459853.3.579.2.593 1977 Unknown [id number] 2.16.840.1.890357.3.579.2.593 1977 Unknown [id number] 2.16.840.1.489044.3.579.2.593 1977 Unknown [id number] [id number] 1977 Unknown [id number] [id number] 1977 Unknown [id number] 2.16.840.1.102070.3.579.2.1259 1977 Unknown [id number] 2.16.840.1.754617.3.579.2.1259 1977 Unknown [id number] 2.16.840.1.484364.3.579.2.1259 1977 Unknown [id number] 2.16.840.1.590315.3.579.2.1259 1959 Unknown [id number] Unknown [facility] Social History Date Type Detail Facility Non-smoker Non-smoker MG-Otolaryngolo lexi-[employer] Work Phone: Sex Assigned At Sex Assigned At Bir th [facility] Other Evaluation note 09-28-2021 Note Date & Type Note Facility 09-28-2021 Evaluation note Encounter Date Diagnosis Assessment Notes September, Slow transit constipation (ICD-10 - K59.01) [facility] Other Clinical Note 09-04-2021 Note Date & Type Note Facility 09-04-2021 Note HISTORY: Seizures, p rior history of shunt PROCEDURE: [employer] HDXT 1.5. Sagittal coronal and axial T1 and T2 images through the brain were performed without contrast. FINDINGS: No intracranial hemorrhage, intra axial edema or acute/subacute major vessel ischemia. Normal ventricular size, commensurate with the cerebral sulci. Several millimeter hyperintensities within the right frontal subcortical and periventricular white matter. No surrounding edema. Undulating body of the corpus callosum, intact. Normal nikki, midbrain and medulla. Low lying cerebellar tonsils, grossly normal visualized spinal cord. Left maxillary sinus fluid (30% opacification). Unremarkable mastoid air cells, tympanic cavities and orbital contents. (Subcentimeter fluid collection within the right inferior mastoid air cells, questionable significance.) IMPRESSION: 1. No intracranial hemorrhage, acute/subacute major vessel ischemia or evidence of ventricular outflow obstruction. 2. Low lying cerebellar tonsils. 3. Left maxillary sinus fluid, new from the prior CT of March 29, 2021. This can be consistent with sinusitis. Report reported and signed by Sammy Savage on 09/04/2021 [address] [facility] [employer] Evaluation note 05-04-2021 Note Date & Type Note Facility 05-04-2021 Evaluation note Encounter Date Diagnosis Assessment Notes Apr, Slow transit constipation (ICD-10 - K59.01) PATIENT DOES NOT TAKE ANY MEDICATIONS WILL START THE ABOVE MEDICATION. Apr, Abdominal pain (ICD-10 - R10.9) WILL HAVE THIS WHEN BOWELS DO NO MOVE Apr, Heartburn (ICD-10 - R12) DOES NOT TAKE ANY MEDICATION [facility] Other History general Narrative - Reported Note Date & Type Note Facility History general Narrative - Reported Type Medical History pseudotumor cerebral Medical History pcos Medical History Ovarian cyst w/o torsion Medical History Cholecystitis Medical History ibs Medical History DM Medical History HTN Medical History Venous embolism and thrombosis of unspecified deep vessels of lower extremity Medical History Depression Medical History Obesity Medical History Insomnia Medical History Vitamin D Deficiency Medical History Seizures. Medical History Gastric bypass 4 years ago Surgical History lp shunt 2008 Surgical History egd 2010 Surgical History cholecystectomy Surgical History oophorectomy 2008 Surgical History colonoscopy 2010 Surgical History gastric bypass 12/2014 Surgical History carpel tunnel rt wrist 10/2015 Surgical History carpel tunnel left wrist 11/2015 Surgical History left ulnar nerve transposition 12/2015 Surgical History Colonoscopy 03/2017 Surgical History Hernia repair/exploritory surge ry 10/2018 Surgical History right ankle ORIF 12/04/18 Surgical History [place] pannus surgery 04/09/2019 Surgical History GASTRIC BYPASS Hospitalization History Fluid on Brain 08/2016 Hospitalization History Overdosed on she thinks xanax she was not wanting to kill self .[facility]ospitalized in [facility] Hospitalization History In [facility] unit on two occasions. Hospitalization History [facility]- Stomach Problems 1 06/10/18 [facility] Other History of Present illness Narrative Note Date & Type Note Facility History of Present illness Narrative TERRIE SAAVEDRA, age 46 years, was seen today for an audiologic evaluation in conjunction with seeing Ekta Bustos MD. Ms. SAAVEDRA reports bilateral hearing loss with the use of hearing aids. She notices the greatest difficulty hearing when in the presence of background noise. She reports she has difficulty keeping the hearing aids in place. She did not have the hearing aids with her today. 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 She denies otalgia, otorrhea, tinnitus, dizziness, history of otologic surgery.Patient's preferred language: EnglishPreferred language of the parent, legal guardian or surrogate decision-maker of this minor or incapacitated patient: Not ApplicableNo overt signs of domestic violence/neglect/abuse.Pain not interfering with optimal level of function or ability to assess and/or treat.Pain Scale rank: 0/10Pain Scale used: NumericNo referral made to primary care provider (PCP).Factors/Barriers influencing patient's ability to complete assessment or learn: none.Person taught: patient.Readiness to learn: no barriers.Results of Teaching/Counseling: verbalize recall / understanding and teaching complete. VV-Pzyenzxpn-Onbenkh [address] Work Phone: History of Present illness Narrative Note Date & Type Note Facility History of Present illness Narrative Voice assessment:Patient presents with dysphonia 2/2 a diagnosis of muscle tension dysphonia with poor coordination and intermittent splinting of her vocal cords. She has contributing factors related to deconditioning, depression/anxiety, fatigue/CHICA, and hearing loss. GERD appears reasonably well controlled. Patient appears to be a candidate for therapy which will target voice rebalancing.Voice quality based on the GRBAS scale: 0=absent; 1=mild; 2=moderate; 3=severeGrade: 2Roughness: 2Breathiness: 2Asthenia: 0Strain: 2Contributing Factors: supraglottic compression , inadequate breath support and habitual behaviors that misuse/abuse the voiceNOMS Score: moderate: level 4Treatment recommendations: treatment indicated (see goals below) JY-Nrmrbdalkdmhwh-Jjryvkz Voice Work Phone: Summary Purpose Family History No Family History Records FoundNo Family History Records FoundNo Family History Records FoundNo Family History Records FoundNo Family History Records FoundNo Family History Records FoundNo Family History Records FoundNo Family History Records Found Advance Directives No Advanced Directives Records FoundNo Advanced Directives Records FoundNo Advanced Directives Records FoundNo Advanced Directives Records FoundNo Advanced Directives Records FoundNo Advanced Directives Records FoundNo Advanced Directives Records FoundNo Advanced Directives Records Found Hospital Course Note DISCHARGE SUMMARY Discharge Date: 12-10-18 HISTORY OF PRESENT ILLNESS: The patient was admitted with trimalleolar fracture of the ankle. PAST MEDICAL HISTORY / SIGNIFICANT PHYSICAL EXAM FINDINGS ON ADMISSION: See admitting H AND P. LABS ON ADMISSION: See labs. HOSPITAL COURSE: The patient was admitted, taken to surgery and tolerated the procedure well. Postop through the 4th did well. On the 5th became very short of breath, CT scan showed bilateral pulmonary infiltrates, consistent with pneumonia. The patient was started on aggressive pulmonary toilet, IV antibiotics and IV steroids. Over the next 24 hours, she improved. Still some rattling. At this point though the lungs are back to normal and it is felt safe to discharge to skilled bed. DISCHARGE DIAGNOSIS: 1. Nondisplaced trimalleolar fracture. 2. Pneumonia. 3. Mild protein malnutrition. 4. Sinus tachycardia. 5. Respiratory distress. 6. Tachypnea. 7. Pseudotumor cerebri. 8. Migraines. OPERATIONS: Repair of the trimalleolar fracture. (more content not included)... Chief Complaint * hearing test * hearing loss, has hearing aids Additional Source Comments INFORMATION SOURCE (unrecogn ized section and content) DATE CREATED AUTHOR 10/24/2017 [facility] DATE CREATED AUTHOR AUTHOR'S ORGANIZ ATION 04/17/2019 [facility] DATE CREATED AUTHOR AUTHOR'S ORGANIZ ATION 11/28/2019 [facility] DATE CREATED AUTHOR AUTHOR'S ORGANIZ ATION 07/12/2020 [facility] DATE CREATED AUTHOR AUTHOR'S ORGANIZ ATION 04/08/2021 [employer] DATE CREATED AUTHOR AUTHOR'S ORGANIZ ATION 01/12/2022 [facility] d[facility] Specialist DATE CREATED AUTHOR AUTHOR'S ORGANIZ ATION 04/18/2023 [facility] DATE CREATED AUTHOR AUTHOR'S ORGANIZ ATION 04/26/2023 [facility] dical Specialists EPIC REASON FOR VISIT (unrecogniz ed section and content) REFERRED BY DR. VEGA FOR SL OW TRANSIT CONSTIPATION, ABD PAIN. PATIENT WAS TO START DICYCLOMINE, CONTINUE MIRALAX AND FLEETS ENEMA PER PCP., PATIENT STATES NOT ON ANY MEDICATIONS AT THIS TIME. PATIENT STATES CAN GO BETWEEN 3-4 DAYS OF BOWEL MOVEMENTS.medication FOR RECORDS PERTAINING TO PATIENTS WHO ARE OR HAVE BEEN ENROLLED IN A CHEMICAL DEPENDENCY/SUBSTANCEABUSE PROGRAM, SOME INFORMATION MAY BE OMITTED. This clinical summary was aggregated from multiple sources. Caution should be exercised in using it in the provision of clinical care. This summary normalizes information from multiple sources, and as a consequence, information in this document may materially change the coding, format and clinical context of patient data. In addition, data may be omitted in some cases. CLINICAL DECISIONS SHOULD BE BASED ON THE PRIMARY CLINICAL RECORDS. [facility] [employer] [facility]. provides no warranty or guarantee of the accuracy or completeness of information in this document.
[2023-05-13 06:58] LABS: Glucometer 90 mg/dL (74-106)
[2023-05-13 07:02] LABS: HCG Qualitative NEGATIVE (NEGATIVE)
--- NOTE | 2023-05-13 07:36 | PC.NURSE ---
previous attempts by 2 nurses and 1 anesthsia
[2023-05-13] MEDS: LACTATED RINGER'S SOLUTION 1,000 ML 50 ML IV (07:37)
[2023-05-13] MEDS: CEFAZOLIN SODIUM/DEXTROSE,ISO 2 GM/50 ML PIGGYBACK IV ×2 (07:37→17:05)
[2023-05-13] MEDS: BUPIVACAINE HCL 0.5% PF 50 MG/10 ML VIAL 20 ML INJ (09:53)
--- NOTE | 2023-05-13 10:27 | PM.ORONB ---
Brief Operative Note Date of procedure: 05/13/23 Pre-op diagnosis: R ankle impingement, painful hardware, peroneal tear possible instability Post-op diagnosis: other (right ankle impingement, painful orthopedic hardware, peroneal tendon tear) Procedure: PROCEDURES PERFORMED: 1. Ankle arthroscopy 2. removal of deep implanted orthopedic hardware, medial malleolus 3. Peroneal tendon repair 4. intraoperative stress examination under fluoroscopy with all procedures performed on the right ankle INDICATION FOR PROCEDURE: patient is a 48-year-old female who underwent ORIF of right trimalleolar ankle fracture in December 2018. At recent follow-up she had been having persistent pain over the medial malleolus and over the peroneal tendons just distal to the tip of the fibula. she had no pain over the fibular hardware but did admit to feelings of instability and difficulty with uneven surfaces. Imaging showed healed fractures of the malleoli with stable hardware. due to her failure to respond to nonsurgical care she wished to proceed with surgical intervention and she was educated all potential risks and benefits. INTRAOPERATIVE FINDINGS: ankle arthroscopy revealed a significant amount of chronic impinngement tissue with mild to moderate chondromalacia of the talar dome. No osteochondral defect was noted. Intraoperative stress examination revealed stable collateral ankle ligaments and stable syndesmosis. Medial malleolus was screw was stable and fracture was healed. Peroneal tendons had significant tenosynovitis with flattening and evidence of chronic brevis tear. PROCEDURE IN DETAIL: Patient was identified in pre op and consent was reviewed. Correct side and site were identified and marked. Pre-op antibiotics were started. Patient was brought to OR suite and place on table in a supine position. General anesthesia was administered. Tourniquet applied. Operative extremity was prepped and draped in usual sterile fashion. Formal time-out was performed and the foot/ankle were exsanguinated and tourniquet inflated. Ankle Scope: A 15 blade was used to create anterior medial ankle portal followed by use of hemostat and trochar then the arthroscopic camera was inserted. Anterior lateral portal was similarly created in standard safe location after identifying intermediate dorsal cutaneous nerve. All impingement and synovitic tissue was removed using a 3.5 mm aggressive shaver. No cartilage defect was noted. Arthroscopic instrumention was then removed. The portals were then closed with nylon suture. Peroneal tendons: Lateral hindfoot incision was made over the posterior aspect of the fibular malleolus and was placed from the fibular groove to the level of the sinus tarsi over the peroneal tendons. a combination of sharp and blunt dissection gained access to the peroneal tendon retinaculum and tendon sheath and all bleeders were coagulated. Peroneal retinaculum and tendon sheath were incised to expose the peroneal tendons. The peroneal tendons were dislocated from the fibular groove for close inspection. There was synovitis surrounding the tendon sheath and tendons which was excised. at the level of the fibular groove the tendons appeared normal without synovitis however there was significant flattening and evidence of chronic tear distal to the fibular groove. The brevis was debrided excising all nonviable tissue. The brevis was then repaired and re-tubularized with absorbable suture.The tendons were then relocated in the fibular groove which was of adequate depth. Range of motion of the ankle demonstrated no subluxation and smooth gliding of the peroneal tendons. incision was placed over the medial malleolus and comminution sharp and blunt dissection gained access to the screw head and the anterior calyculus. The screw was removed with the appropriate screwdriver and screw hole was curetted noting healthy bleeding bone and healed fracture. Surgical site was irrigated with copious saline. Then under live fluoroscopy the collateral ligaments were stressed in all planes and the syndesmosis was also stressed. All ligaments were stable and anterior drawer was negative and ankle had good ROM. The surgical site was irrigated with copious amounts sterile saline. The tendon sheath was reapproximated and the superior peroneal retinaculum repaired with a pants over vest absorbable suture. Skin was closed in layers and the tourniquet was deflated with a prompt hyperemic response. A dry sterile dressing consisting of Xeroform on the incisions followed by 4 x 4 gauze, ABDs, and Kerlix were applied. a CAM boot will be applied in recovery. Patient tolerated the procedure and anesthesia well and was transferred to the recovery room with vital signs stable and brisk capillary refill to right toes. POSTOPERATIVE PLAN: Transfer to med/surg under hospitalist's care weightbearing as tolerated in cam boot Ice and elevation Ledy-op antibiotics, multimodal pain medication and DVT prophylaxis ordered Consults: physical therapy & criminal justice social worker Estimated LOS 1 night Will follow Follow-up in 1 week Implants: none Anesthesia: General-LMA Surgeon: Davion Gallagher Offshore Diver: Monty Aguirre Estimated blood loss (mL): 10 Condition: stable Disposition: observation
[2023-05-13 10:32] LABS: Glucometer 111 mg/dL (74-106)
--- NOTE | 2023-05-13 10:57 | XR_ITS ---
The [address] [address] Patient Name: KAREN SAAVEDRA MRN: [id number] date: 1975 Sex: F Assigned Patient Location: [place] Current Patient Location: [place] Accession/Order Number: [id number] Exam Date: 05/13/2023 11:50 Report Date: 05/13/2023 12:56 At the request of: REBA GENTILE Procedure: XR ankle RT min 3V PROCEDURE: XR ankle RT min 3V COMPARISON: 04/03/2023 HISTORY: Postop x-ray FINDINGS: BONES:Interval removal of the cannulated screw across the medial malleolus. 2. Stable screws transfix the posterior malleolus. Stable plate and screws across the lateral fibula SOFT TISSUES:Soft tissue swelling. Subcutaneous emphysema EFFUSION:None visible. OTHER: Negative. XR/XR ankle RT min 3V IMPRESSION: Postsurgical changes from removal of a screw Electronically authenticated by: LISSETT LEYVA Date: 05/13/2023 12:56
[2023-05-13] MEDS: OXYCODONE HCL 15 MG TABLET PO ×2 (11:48→20:35)
--- NOTE | 2023-05-13 15:09 | SWNOTE1 ---
ARIS met with patient and family in room. Pt is back from surgery and has a CAM boot on. She voiced she has jessie up on it and is doing well and has minor pain. Pt voices no needs at this time. SW to check back on pt tomorrow.
[2023-05-13] MEDS: ONDANSETRON 4 MG RAPDIS TABLET SL (23:31)
[2023-05-14] MEDS: CEFAZOLIN SODIUM/DEXTROSE,ISO 2 GM/50 ML PIGGYBACK IV ×2 (00:36→08:28)
[2023-05-14] MEDS: ACETAMINOPHEN 500 MG TABLET 1000 MG PO (01:50)
[2023-05-14 05:12] VITALS: BP 132/83; PULSE 92; RESP 18; TEMP 36.9; O2SAT 95
[2023-05-14 06:43] LABS: Basophils Percent Auto 0.1 % (0.2-2.0); Eosinophils Percent Auto 0.4 % (0.9-7.0); Hematocrit 38.3 % (36.0-48.0); Hemoglobin 12.4 g/dL (12.0-16.0); Immature Granulocytes Abs Auto 0.01 10^3/uL (0.00-0.03); Immature Granulocytes Pct Auto 0.1 % (0.0-0.5); Lymphocytes Absolute Auto 1.3 10^3/uL (1.2-3.8); Lymphocytes Percent Auto 18.8 % (20.5-60.0); Mean Corpuscular HGB Conc 32.4 g/dL (29.9-35.2); Mean Corpuscular Hemoglobin 30.3 pg (26.7-34.0); Mean Corpuscular Volume 93.6 fL (81.0-99.0); Mean Platelet Volume 9.8 fL (9.5-13.5); Monocytes Absolute Auto 0.3 10^3/uL (0.3-0.8); Monocytes Percent Auto 4.4 % (1.7-12.0); Neutrophils Absolute Auto 5.1 10^3/uL (1.4-6.5); Neutrophils Percent Auto 76.2 % (43.0-75.0); Platelet Count 175 10^3/uL (150-450); Red Blood Count 4.09 10^6/uL (4.20-5.40); Red Cell Distribution Width 12.3 % (11.0-15.0); White Blood Count 6.8 10^3/uL (4.0-11.0)
[2023-05-14 06:55] LABS: Alanine Aminotransferase 26 U/L (14-59); Albumin Level 3.2 g/dL (3.4-5.0); Alkaline Phosphatase 68 U/L (46-116); Anion Gap 10.1; Aspartate Amino Transferase 15 U/L (15-37); BUN Creatinine Ratio 19.8; Bilirubin Total 0.2 mg/dL (0.2-1.0); Calcium 8.8 mg/dL (8.5-10.1); Carbon Dioxide 27.5 mmol/L (21.0-32.0); Chloride 104 mmol/L (98-107); Estimated GFR (African America >60 (>=60); Estimated GFR (Non-African Ame >60 (>=60); Globulin 3.3 g/dL; Glucose 125 mg/dL (74-106); Potassium 3.6 mmol/L (3.5-5.1); Sodium 138 mmol/L (136-145); Total Protein 6.5 g/dL (6.4-8.2)
[2023-05-14 08:00] VITALS: RESP 18
[2023-05-14] MEDS: ONDANSETRON 4 MG RAPDIS TABLET SL (08:26)
[2023-05-14] MEDS: OXYCODONE HCL 5 MG TABLET PO (08:26)
--- NOTE | 2023-05-14 08:53 | PM.PN ---
Progress Note: Subjective Subjective Interval history: Patient examined evaluated bedside resting comfortably this a.m. POD #1 s/p right arthroscopic ankle joint debridement,Hardware removal, stress exam and peroneal tendon repair DOS 05/13/2023. Patient states that the local anesthetic wore off overnight and had some increased pain but is well-controlled with oral medications. She denies any acute events overnight. Denies any other acute lower extremity complaints and denies any constitutional symptoms at time of visit Exam Narrative Exam Narrative: Surgical dressing RLE left CDI. Vascular: CFT intact to digits. Skin temperature warm and symmetric proximal and distal to dressing. No erythema edema or ecchymosis proximal or distal. Neuro: Light touch sensation intact to digits. Derm: No open lesions proximal or distal to the dressing. MSK: RLE dressing left CDI. Compartments are soft compressible, no pain with calf or thigh compression. Constitutional Vital Signs, click to edit/add: Last Vital Signs Temp 98.5 F 05/14/23 05:12 Pulse 92 H 05/14/23 05:12 Resp 18 05/14/23 08:00 BP 132/83 05/14/23 05:12 Pulse Ox 95 05/14/23 05:12 O2 Del Method Room Air 05/14/23 05:12 Progress Note: Objective Labs Labs: Short CBC 05/14/23 Range/Units 06:29 WBC 6.8 (4.0-11.0) 10^3/uL Hgb 12.4 (12.0-16.0) g/dL Hct 38.3 (36.0-48.0) % Plt Count 175 (150-450) 10^3/uL BMP 05/14/23 06:29 Sodium 138 Potassium 3.6 Chloride 104 Carbon Dioxide 27.5 BUN 18.0 Creatinine 0.91 Glucose 125 H Calcium 8.8 Liver Function 05/14/23 Range/Units 06:29 Total Bilirubin 0.2 (0.2-1.0) mg/dL AST 15 (15-37) U/L ALT 26 (14-59) U/L Alkaline Phosphatase 68 (46-116) U/L Albumin 3.2 L (3.4-5.0) g/dL Progress Note: A&P Assessment and Plan (1) Ankle pain, right: (2) Strain of right peroneal muscle or tendon: (3) Ankle instability: (4) Painful orthopaedic hardware: (5) Other specified joint disorders, right ankle and foot: Plan Patient examined and evaluated. All findings discussed with patient all questions answered to patient's satisfaction. Labs and imaging reviewed. Patient is recovering well following procedure yesterday. She was kept for observation due to not having a ride home and fall risk as well as pain control. She was able to secure a ride home today and her pain is well-controlled with oral medications. RLE dressing to be left CDI until follow-up. Weightbearing as tolerated to the right lower extremity with Cam boot at all times when walking. Does not need to sleep in the boot. Stable to DC from podiatry perspective with 1 week follow-up in Dr. Gallagher's office. Postop prescription sent to pharmacy on file. Rest per primary, please call with any questions or concerns.
--- NOTE | 2023-05-14 08:59 | CM.NOTE ---
Rounds made with Dr. Davies, discussed with pt discharge to home. Pt denies any discharge needs. Pt does have walking boot.
--- NOTE | 2023-05-14 09:01 | P.PN_ITS ---
Progress Note: Subjective Subjective Interval history: She was sober for pain issues. Her pain is somewhat better this morning. Did check labs which were all essentially within normal limits Exam Constitutional Vital Signs, click to edit/add: Last Vital Signs Temp 98.5 F 05/14/23 05:12 Pulse 92 H 05/14/23 05:12 Resp 18 05/14/23 08:00 BP 132/83 05/14/23 05:12 Pulse Ox 95 05/14/23 05:12 O2 Del Method Room Air 05/14/23 05:12 Documenting provider has reviewed patient's vital signs: yes Common normals: no apparent distress Respiratory Common normals: normal respiratory effort and no retractions Cardio Common normals: regular rate and regular rhythm GI Common normals: Normal to inspection, nondistended, normoactive bowel sounds present Progress Note: Objective Labs Labs: Short CBC 05/14/23 Range/Units 06:29 WBC 6.8 (4.0-11.0) 10^3/uL Hgb 12.4 (12.0-16.0) g/dL Hct 38.3 (36.0-48.0) % Plt Count 175 (150-450) 10^3/uL BMP 05/14/23 06:29 Sodium 138 Potassium 3.6 Chloride 104 Carbon Dioxide 27.5 BUN 18.0 Creatinine 0.91 Glucose 125 H Calcium 8.8 Liver Function 05/14/23 Range/Units 06:29 Total Bilirubin 0.2 (0.2-1.0) mg/dL AST 15 (15-37) U/L ALT 26 (14-59) U/L Alkaline Phosphatase 68 (46-116) U/L Albumin 3.2 L (3.4-5.0) g/dL Progress Note: A&P Assessment and Plan (1) Ankle pain, right: (2) Pseudotumor cerebri: (3) Migraine: Plan Patient with improved pain control status post podiatric procedure. Patient without any other complaint. Vital signs are stable. Lab results were normal. No headaches. At this point she is medically stable for discharge. Follow-up with PCP within the next week. Follow-up with podiatry per their protocol
== END 2023-05-14 10:28 | disposition home or self-care (01) ==
LOC: SURGOUT 10:29 → MS 11:11
PROVIDERS: Admitting Provider Family Medicine; PCP Family Medicine; Visit Provider Podiatrist Foot & Ankle Surgery
PROC: (CPT 01464; principal; 2023-05-13 07:30)
DX: M25.871 Other specified joint disorders, right ankle and foot (principal); T84.84XA Pain due to internal orthopedic prosthetic devices, implants and grafts, initial encounter; M25.371 Other instability, right ankle; G43.909 Migraine, unspecified, not intractable, without status migrainosus; G93.2 Benign intracranial hypertension; S86.311A Strain of muscle(s) and tendon(s) of peroneal muscle group at lower leg level, right leg, initial encounter; Z86.718 Personal history of other venous thrombosis and embolism; F32.A Depression, unspecified; F41.9 Anxiety disorder, unspecified; Z86.16 Personal history of COVID-19; J45.909 Unspecified asthma, uncomplicated; Z87.442 Personal history of urinary calculi; K58.9 Irritable bowel syndrome, unspecified; Z98.2 Presence of cerebrospinal fluid drainage device; S82.851S Displaced trimalleolar fracture of right lower leg, sequela; X58.XXXA Exposure to other specified factors, initial encounter
CPT/HCPCS: 01464; 01470; 01480; 20680; 27675; 29898; 36415; 73610; 76000; 80053; 82948; 84703; 85025; 88304; 96365; 96366; 97161; 97530; J0665; J0690; J1100; J1885; J2250; J2405; J2704; J3010; Q0162

== ENCOUNTER 2023-05-28 10:18 | Outpatient (OUT) | payer MEDICAID, SELFPAY ==
--- NOTE | 2023-05-28 | XR_ITS ---
The [address] [address] Patient Name: KAREN SAAVEDRA MRN: [id number] date: 1975 Sex: F Assigned Patient Location: [facility] Current Patient Location: [facility] Accession/Order Number: [id number] Exam Date: 05/28/2023 10:35 Report Date: 05/28/2023 11:22 At the request of: BEBO ENRIQUEZ Procedure: XR ankle RT min 3V PROCEDURE: XR ankle RT min 3V COMPARISON: 05/13/2023 HISTORY: RIGHT ANKLE PAIN FINDINGS: BONES:Stable remote healed trimalleolar fracture. Evidence of prior removal of the screw across the medial malleolus. Stable plate and screws across the lateral malleolus and screws across the posterior malleolus. No acute fracture, dislocation or mechanical failure. Mild degenerative changes. SOFT TISSUES:Negative. No visible soft tissue swelling. EFFUSION:None visible. OTHER: Negative. XR/XR ankle RT min 3V IMPRESSION: Stable exam. No acute abnormality Electronically authenticated by: LISSETT LEYVA Date: 05/28/2023 11:22
--- NOTE | 2023-05-28 | XR_ITS ---
[address] [address] Patient Name: KAREN SAAVEDRA MRN: [id number] date: 1975 Sex: F Assigned Patient Location: [facility] Current Patient Location: [facility] Accession/Order Number: [id number] Exam Date: 05/28/2023 11:16 Report Date: 05/28/2023 12:18 At the request of: BEBO ENRIQUEZ Procedure: XR foot RT min 3V PROCEDURE: XR foot RT min 3V COMPARISON: 05/28/23, 05/13/23 HISTORY: RIGHT FOOT PAIN FINDINGS: BONES:No fracture, acute abnormality, or significant arthropathy. Ankle fusion hardware partially visualized SOFT TISSUES:Negative. No visible soft tissue swelling. EFFUSION:None visible. OTHER: Negative. XR/XR foot RT min 3V IMPRESSION: No acute abnormality Electronically authenticated by: LISSETT LEYVA Date: 05/28/2023 12:18
--- OUTSIDE RECORDS SUMMARY | 2023-05-28 10:26 | XMS_ITS | CCD ---
Author Name Unknown Address [address] [place] [address] Organization [facility] Care Team Providers Care Section Beamer Name Role Phone DELFINAJUAN DIEGOBEVERLY Martinez Unavailable Unavailable JOHN LEE Unavailable SONNY Clayton Unavailable Unavailab EDMOND Ferrari Admitting Unavailable EDMOND EDWARDS Attending Unavailable [facility] Referring Unavailable [facility] Primary Care Unavailable DC Procedure Practitioner Unavailab EDMOND Ferrari Surgeon Unavailable DC Procedure Practitioner Unavailab DOUG Whitt Surgeon Unavailable BEBO ENRIQUEZ Admitting Unavailable BEBO ENRIQUEZ Attending Unavailable ALAYNA GOEL Consulting Unavailable BEBO ENRIQUEZ Consulting Unavailable [facility] Primary Care Unavailable DAKSHA MCKEON [...] Admitting Unavailable ZOE, BEBO Attending Unavailable LISSETT LYEVA V Consulting Unavailable BEBO ENRIQUEZ Consulting Unavailable [...] meclizine; Translations: [MECLIZINE] Drug Allergy 09-09-2012 [facility] Repository (1 source) Meclizine; Translations: [Unknown] Drug Allergy 04-01-2019 [facility] Repository (4 sources) Meclizine; Translations: [Antivert [...] Ordered: 23-Mar-2021 DO Active polyethylene glycol 3350 11158 mg powder for oral solution (4 sources) [...] Onset: 9 Chronic Other aftercare (1 source) half-way (current) use of oral hypoglycemic drugs; Translations: [NURSING HOME USE ORAL HYPOGLYCEMIC DX] Onset: 9 Other [...] Range Facility Physician Orderon 04-16-2023 Physician Order [id number] Normal [place] US RENAL COMPLETEon 04-08-20 23 US RENAL [...] by Sammy Savage on 01/11/2022 1527 Normal [facility] SCREENING MAMMOGRAM W/GOVIND, BILATERAL*on 11-24-2021 SCREENING [...] VERY IMPORTANT TO YOUR HEALTH. THE CURRENT [employer] GUIDELINES RECOMMENDS ANNUAL MAMMOGRAPHY BEGINNING AT AGE 40. THIS FACILITY USES A REMINDER SYSTEM TO ENSURE ALL PATIENTS RECEIVE REMINDER NOTIFICATIONS AT THE APPROPRIATE TIME BASED ON THE RECOMMENDATIONS OF THIS EXAM. Report reported and signed by Sammy Savage on 11/27/2021 1049 Normal [facility] US Pelvic, Transvaginalon US Pelvic, Transvaginal [...] by Sammy Savage on 09/13/2021 1302 Normal [facility] Fly Tier Therapy Communicationon 12-0 Therapy Communication Message TERRIE SAAVEDRA no showed today . Signatures Electronically signed by : Maddy Echeverria CCC-MEDICAL INFORMATION OFFICER; Apr 07 2021 12:01PM EST (Author) Normal [...] you can call Speech Therapy Scheduling at [phone]. Please follow up pending the outcome of [...] assist you through your ENT care at [facility]. Dr. Bustos is an ENT surgeon who specializes in voice, airway and swallowing issues. This means that she specializes in taking care of patients with complex voice, airway and swallowing problems. Dr. Bustos's office number is [phone]. Please use this number to contact her and her care team regardless of which office you use to access care. This number is the most direct way to communicate with all the members of the care team. Dr. Bustos?s ward secretary answers the office phone from 9am-4pm Mon-Fri. Call [phone] and push 2. She can help you with scheduling of appointments, general questions and information. You may need to leave a message if she is helping another patient. In this case, someone from the team will call you back the same day if you leave your message before 3pm, or the next business morning. Dr. Bustos?s nurse and can be reached by calling [phone]. We make every effort to return phone calls the same day. If you are in need of urgent assistance after hours, please call [phone] and ask for ENT senior applications developer. Dr. Bustos works closely with speech therapists as they work together to help solve your issues with speech and swallowing. You may see a speech therapist during your appointment if Dr. Bustos feels this is needed. If you need to reach speech therapy to talk with a therapist or to schedule an appointment, please call [phone]. Others who may be included in your care are dieticians, social workers, audiologists, neurologists, and physical therapists. Dr. Bustos will provide these referrals as needed. Please let her know if you would like to request a specific referral. For your convenience, Dr. Bustos sees patients at different [facility] locations including the [facility], and [facility] at the [facility]. 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 She is having [...] cyst, ch (more content not included)... Normal [facility] (Audiology)on 05-23-2020 Follow-up visit Diagnoses/Problems [...] hearing protection when in/around loud noise. Time: 9863-6212 Chief Complaint hearing test hearing loss, has [...] an audiologic evaluation in conjunction with seeing Ekat Bustos MD. Ms. SAAVEDRA reports bilateral hearing [...] inserted. 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 She denies otalgia, otorrhea, tinnitus, dizziness, history of otologic surgery. Patient's preferred language: [place] Preferred language of the parent, legal guardian [...] hair cell function at the frequencies tested 0098-3776 Hz. Audiometric evaluation revealed essentially flat mild sensorineural hearing loss with word recognition ability estimated to be excellent (92%) based on an NU-6 recorded 25-word list. LEFT EAR: -Tympanometry: Type A tympanogram, normal ear canal volume and compliance -Acoustic reflexes: Ipsilateral acoustic reflexes absent at 500-4000 Hz -Distortion product otoacoustic emissions (DPOAEs): Present at 3754-8303 Hz and absent at 7484-9049 Hz. This is consistent with largely normal to near normal outer hair cell function at the frequencies tested 5369-3251 Hz. Audiometric evaluation revealed essentially flat mild sensorineural hearing loss with word recognition ability estimated to be excellent (92%) based on an NU-6 recorded 25-word list. The test results were discussed with the patient. Signatures Electronically signed by : Ayesha Claire,OLI-Romi; Mar 23 2021 12:48PM EST (Author) Reviewed by : Ekta Bustos MD; Mar 23 2021 1:14PM EST Normal [employer] MEDICAL INFORMATION OFFICER (Voice Evaluation)on MEDICAL INFORMATION OFFICER (Voice Evaluation) Therapy Diagnosis Assessed Hoarseness of voice (784.42) (R49.0) Plan of Care Frequency: 1 time/s per week Duration: 4 weeks half-way goals: Improve overall vocal health to foster [...] has contributing factors related to deconditioning, depression/anxiety, fatigue/CHCIA, and hearing loss. 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 She is having [...] printed material (more content not included)... Normal [employer] MEDICAL INFORMATION OFFICER (Voice Evaluation) No report was sent Normal [employer] Tobacco Screening.on 021 Fall risk assessment a) No falls within the last year [facility] [employer] Work Phone: Tobacco use status [facility] b) No [employer]-[facility] Work Phone: Basic Metabolic Panelon 06-07 Calcium [Mass/Vol] 8.9 mg/dL Normal 8.2-10.2 [facility] Comment on above: Performed By: #### L IPID, HEPATIC, BMP, TSH3 wRFLX, [id number] #### [facility] [address] [place] [address] [place] Chloride [Moles/Vol] 106 mmol/L Normal 95-114 [facility] Comment on above: Performed By: #### L IPID, HEPATIC, BMP, TSH3 wRFLX, [id number] #### [facility] [address] [place] [address] [place] CO2 [Moles/Vol] 22.0 mmol/L Normal 22.0-30.0 [facility] Comment on above: Performed By: #### L IPID, HEPATIC, BMP, TSH3 wRFLX, [id number] #### [facility] [address] [place] [id number] [place] Creatinine [Mass/Vol] 0.67 mg/dL Normal 0.44-1.03 [facility] Comment on above: Performed By: #### L IPID, HEPATIC, BMP, TSH3 wRFLX, [id number] #### [facility] [address] [place] [id number] [place] Creatinine [Mass/Vol] 104.81 mg/dL Normal [facility] Comment on above: Performed By: #### L IPID, HEPATIC, BMP, TSH3 wRFLX, [id number] #### [facility] [address] Estimated GFR ( Racquel > 60 Normal [facility] Comment on above: Result Comment: GFR estimated reference range: According to KDOQI guidelines, <60 ml/min/1.73m2 is sufficient to diagnose a patient with chronic kidney disease. Performed By: #### L IPID, HEPATIC, BMP, TSH3 wRFLX, [id number] #### [facility] [address] Estimated GFR (Non- Am > 60 Normal [facility] Comment on above: Performed By: #### L IPID, HEPATIC, BMP, TSH3 wRFLX, [id number] #### [facility] [address] [place] [address] [place] Glucose [Mass/Vol] 94 mg/dL Normal 70-100 [facility] Comment on above: Result Comment: [place] Glucose Reference Range is dependent on time and content of last meal. Glucose of more than 200 mg/dL in a nonstressed, ambulatory subject supports the diagnosis of Diabetes Mellitus. ADA recommended reference range Performed By: #### L IPID, HEPATIC, BMP, TSH3 wRFLX, [id number] #### [address] Potassium [Moles/Vol] 3.8 mmol/L Normal 3.5-5.1 [facility] Comment on above: Performed By: #### L IPID, HEPATIC, BMP, TSH3 wRFLX, [id number] #### [facility] [address] [place] [address] [place] Sodium [Moles/Vol] 139 mmol/L Normal 136-146 [facility] Comment on above: Performed By: #### L IPID, HEPATIC, BMP, TSH3 wRFLX, [id number] #### [facility] [address] [place] [address] [place] Urea nitrogen [Mass/Vol] 12 mg/dL Normal 9-23 [facility] Comment on above: Performed By: #### L IPID, HEPATIC, BMP, TSH3 wRFLX, [id number] #### [facility] [address] Hepatic Panelon 07-03-2020 Albumin [Mass/Vol] 3.8 g/dL Normal 3.2-5.5 [facility] Comment on above: Performed By: #### L IPID, HEPATIC, BMP, TSH3 wRFLX, [id number] #### [facility] [address] Albumin/Globulin [Mass ratio] 1.6 {ratio} Normal [facility] Comment on above: Performed By: #### L IPID, HEPATIC, BMP, TSH3 wRFLX, [id number] #### [facility] [address] [place], [place] [id number] [facility] ALP [Catalytic activity/Vol] 92 U/L Normal 32-92 [facility] Comment on above: Performed By: #### L IPID, HEPATIC, BMP, TSH3 wRFLX, [id number] #### [facility] [address] [place] [address] [place] ALT [Catalytic activity/Vol] 18 U/L Normal 10-60 [facility] Comment on above: Performed By: #### L IPID, HEPATIC, BMP, TSH3 wRFLX, [id number] #### [facility] [address] [place] [address] [place] AST [Catalytic activity/Vol] 14 U/L Normal 10-42 [facility] Comment on above: Performed By: #### L IPID, HEPATIC, BMP, TSH3 wRFLX, [id number] #### [facility] [address] [place], [place] [address] [place] Bilirubin [Mass/Vol] 0.8 mg/dL Normal 0.3-1.2 [facility] Comment on above: Performed By: #### L IPID, HEPATIC, BMP, TSH3 wRFLX, [id number] #### [facility] [address] [place] [address] [place] Bilirubin,Indirect Test not performed Normal [facility] Comment on above: Performed By: #### L IPID, HEPATIC, BMP, TSH3 wRFLX, [id number] #### [facility] [address] Bilirubin.direct [Mass/Vol] mg/dL Normal 0.0-0.4 [facility] Comment on above: Performed By: #### L IPID, HEPATIC, BMP, TSH3 wRFLX, [id number] #### [address] Globulin (S) [Mass/Vol] 2.4 g/dL Normal [facility] Comment on above: Performed By: #### L IPID, HEPATIC, BMP, TSH3 wRFLX, [id number] #### [address] Protein [Mass/Vol] 6.2 g/dL Normal 6.1-7.9 [facility] Comment on above: Performed By: #### L IPID, HEPATIC, BMP, TSH3 wRFLX, [id number] #### [facility] [address] [place] [address] Lipid Panelon 07-03-2020 Cholesterol [Mass/Vol] 174 mg/dL Normal 140-200 [facility] Comment on above: Result Comment: Chol less than 200 mg/dl low risk Chol 201-239 mg/dl borderline risk Chol 240 mg/dl and greater high risk Performed By: #### L IPID, HEPATIC, BMP, TSH3 wRFLX, [id number] #### [facility] [address] [place] [address] Cholesterol in HDL [Mass/Vol] 46 mg/dL Normal 35-85 [facility] Comment on above: Result Comment: HDL CHOL ATP-III CLASSIFICATION Cardiovascular Risk HDL > or equal to 60 mg/dL LOW HDL < 40 mg/dL HIGH Performed By: #### L IPID, HEPATIC, BMP, TSH3 wRFLX, [id number] #### [facility] [address] [place] [address] Cholesterol.total/ Cholesterol in HDL [Mass ratio] 3.8 {ratio} Normal <5.0 [facility] Comment on above: Performed By: #### L IPID, HEPATIC, BMP, TSH3 wRFLX, [id number] #### [facility] [address] LDL Cholesterol,Calcul ated 113 mg/dL High 0-100 [facility] Comment on above: Result Comment: LDL ATP III CLASSIFICATION LDL less than 100 mg/dL Optimal LDL 100-129 mg/dL Near or above optimal LDL 130-159 mg/dL Borderline high LDL 160-189 mg/dL High LDL greater than 189 mg/dL Very high Performed By: #### L IPID, HEPATIC, BMP, TSH3 wRFLX, [id number] #### [facility] [address] Triglyceride w/Reflex 74 mg/dL Normal 35-149 [facility] Comment on above: Result Comment: TRIG ATP III CLASSIFICATION TRIG less than 150 mg/dL Normal TRIG 150-199 mg/dL Borderline high TRIG 200-500 mg/dL High TRIG greater than 500 mg/dL Very high Standard traceable to the Center for Disease Conrtrol and Prevention (CDC) test method. Performed By: #### L IPID, HEPATIC, BMP, TSH3 wRFLX, [id number] #### [facility] [address] VLDL CHOLESTEROL 14 mg/dL Normal [facility] Comment on above: Performed By: #### L IPID, HEPATIC, BMP, TSH3 wRFLX, [id number] #### [facility] [address] Thyroid Stim Hormone w/Rflxo n 07-03-2020 Thyroid Stim Hormone w/Rflx 3.41 u[iU]/mL Normal 0.45-5.33 [facility] Comment on above: Performed By: #### L IPID, HEPATIC, BMP, TSH3 wRFLX, [id number] #### [facility] [address] [place] [id number] [facility] Vitamin D 25 Hydroxy Totalon 07-03-2020 Vitamin D 25 Hydroxy Total 67.4 ng/mL Normal 30-100 [facility] Comment on above: Result Comment: [place] MIN D STATUS 25(OH)VITAMIN D RANGE (ng/mL) Deficient <20 Insufficient 20 to <30 Sufficient 30 to 100 Reference: Arely MF,Brenton NC, Rashel MARTINEZ, et al. Evaluation,treatment, and prevention of vitamin D deficiency; an Endocrine Society clinical practice guideline. JCEM. 2010; 96(7):1911-30. PERFORMED BY: [place] [address] PATHOLOGIST PROCESSOR INSPECTOR HORTENSIA VIRAMONTES M.D. Performed By: #### L IPID, HEPATIC, BMP, TSH3 wRFLX, [id number] #### [place] [id number] [facility] XR FOOT RT MIN 3 VIEWSon [...] by: LISSETT LEYVA Date: 2019-11-18 12:08 Normal [facility] XR ANKLE RT MIN 3 VIEWSon XR [...] by: LINDEN ROJAS Date: 2019-10-20 22:05 Normal [facility] XR ANKLE RT MIN 3 VIEWSon XR ANKLE RT MIN 3 VIEWS Patient: TERRIE SAAVEDRA Exam Date: 04/22/2019 : 1975 Gender:F Ordering : DR. BEBO MonacoPNabila Admission #: [id number] Family : Order #: [id number] CLICK HERE TO VIEW EXAM RADIOLOGY REPORT [...] Leyva M.D. on 04/22/2019 at 15:35 Normal [facility] Operative Reporton 9 Operative Report MR#: [id number] S [facility] Pt. Name: Terrie Saavedra Room #: 0C Discharge 04/09/2019 Date: Birthdate: 1975 OPERATIVE REPORT DATE OF SURGERY: 04/09/2019 SURGEON: Edmond Edwards MD PREOPERATIVE DIAGNOSES: Excessive abdominal pannus, isolated obesity, status post massive weight loss. POSTOPERATIVE DIAGNOSES: Excessive abdominal pannus, isolated obesity, status post massive weight loss. PROCEDURE: Panniculectomy with muscle plication and umbilical transposition. WAIST PRESSER: VIRIDIANA Luna and CC-3. INDICATIONS: This patient [...] made to proceed with plication of planned. Gtuuak-pr-enpxr plication performed from the xiphoid to the [...] the recovery room. Electronically Signed by: Edmond Edwards MD 04/17/2019 03:23 P Edmond Edwards MD Date Dict: 04/13/2019/01:28 P/Edmond Edwards MD Date Trans: 04/13/2019 02:16 P/mmo [id number] cc: Josette Vega M.D. [address] [place] [address] Normal [facility] POC GLUCOSE LABon 04-09-2019 Glucose [Mass/Vol] 92 mg/dL Normal 70-100 [facility] Comment on above: Performed By: #### 8 5499 #### [facility] [address] [facility] [place] [address], [facility] Glucose [Mass/Vol] 86 mg/dL Normal 70-100 [facility] Comment on above: Performed By: #### 8 5499 #### [facility] [address] [facility] [place] [address], [facility] Glucose [Mass/Vol] 71 mg/dL Normal 70-100 [facility] Comment on above: Performed By: #### 8 5499 #### [facility] [address] [facility] POC URINE PREGNANCYon 2018 Beta HCG ( test) Ql (U) Negative Normal NEGATIVE [facility] Comment on above: Result Comment: Perf ormed in PACU Performed By: #### 8 4140 #### [facility] [address] XR ANKLE RT MIN 3 VIEWSon XR ANKLE RT MIN 3 VIEWS Patient: TERRIE SAAVEDRA Exam Date: 03/04/2019 : 1975 Gender:F Ordering : DR. BEBO MonacoPNabila Admission #: [id number] Family : Order #: [id number] CLICK HERE TO VIEW EXAM RADIOLOGY REPORT [...] Goel M.D. on 03/04/2019 at 10:03 Normal [facility] XR ANKLE RT MIN 3 VIEWSon XR ANKLE RT MIN 3 VIEWS Patient: TERRIE SAAVEDRA Exam Date: 01/28/2019 : 1975 Gender:F Ordering : DR. BEBO ENRIQUEZ D.P.M. Admission #: [id number] Family : Order #: [id number] CLICK HERE TO VIEW EXAM RADIOLOGY REPORT [...] Leyva M.D. on 01/28/2019 at 11:25 Normal [facility] XR ANKLE RT MIN 3 VIEWSon XR ANKLE RT MIN 3 VIEWS Patient: TERRIE SAAVEDRA Exam Date: 01/07/2019 : 1975 Gender:F Ordering : DR. BEBO ENRIQUEZ D.P.M. Admission #: [id number] Family : Order #: [id number] CLICK HERE TO VIEW EXAM RADIOLOGY REPORT [...] Goel M.D. on 01/07/2019 at 11:58 Normal [facility] XR ANKLE RT MIN 3 VIEWSon XR ANKLE RT MIN 3 VIEWS Patient: TERRIE SAAVEDRA Exam Date: 12/23/2018 : 1975 Gender:F Ordering : KAT HERNÁNDEZ Admission #: [id number] Family : Order #: [id number] CLICK HERE TO VIEW EXAM RADIOLOGY REPORT [...] Goel M.D. on 12/23/2018 at 16:13 Normal [facility] CBC AUTO DIFFon 12-11-2018 Basophils (Bld) [#/Vol] 0.0 103/ul Normal 0.0-0.1 [facility] Comment on above: Performed By: #### P REG #### [facility] [address] [place], [place] [address] Bee Nikki Basophils/100 WBC (Bld) 0.2 % Normal 0.2-2.0 [facility] Comment on above: Performed By: #### P REG #### [facility] [address] [place], [place] [address] Bee Nikki Eosinophils (Bld) [#/Vol] 0.0 103/ul Normal 0.0-0.7 [facility] Comment on above: Performed By: #### P REG #### [facility] [address] [place] [id number] Bee Nikki Eosinophils/100 WBC (Bld) 0.4 % Critically low 0.9-7.0 [facility] Comment on above: Performed By: #### P REG #### [facility] [address] [place] [id number] Bee Nikki Erythrocyte distribution width (RBC) [Ratio] 14.2 % Normal 11.0-15.0 [facility] Comment on above: Performed By: #### P REG #### [facility] [address] [place] [address] Bee Nikki Hematocrit (Bld) [Volume fraction] 33.6 % Critically low 36.0-48.0 [facility] Comment on above: Performed By: #### P REG #### [facility] [address] [place] [address] Bee Nikki Hemoglobin (Bld) [Mass/Vol] 10.9 g/dL Critically low 12.0-16.0 [facility] Comment on above: Performed By: #### P REG #### [facility] [address] [place], [place] [address] Bee Nikki IG # 0.12 10e3/ul Critically high 0.00-0.03 [facility] Comment on above: Performed By: #### P REG #### [facility] [address] [place], [place] [address] Bee Nikki IG % 1.5 % Critically high 0.0-0.5 [facility] Comment on above: Performed By: #### P REG #### [facility] [address] [place], [place] [address] Bee Nikki Lymphocytes (Bld) [#/Vol] 2.4 103/ul Normal 1.2-3.8 [facility] Comment on above: Performed By: #### P REG #### [facility] [address] [place], [place] [address] Bee Nikki Lymphocytes/100 WBC (Bld) 29.2 % Normal 20.5-60.0 [facility] Comment on above: Performed By: #### P REG #### [facility] [address] [place], [place] [address] Bee Nikki MANUAL DIFF REQ NO Normal [facility] Comment on above: Performed By: #### P REG #### [facility] [address] [place], [place] [address] Bee Nikki MCH (RBC) [Entitic mass] 31.4 pg Normal 26.7-34.0 [facility] Comment on above: Performed By: #### P REG #### [facility] [address] [place], [place] [address] Bee Nikki MCHC (RBC) [Mass/Vol] 32.4 g/dL Normal 29.9-35.2 [facility] Comment on above: Performed By: #### P REG #### [facility] [address] [place] [address] Bee Nikki MCV (RBC) [Entitic vol] 96.8 fL Normal 81.0-99.0 [facility] Comment on above: Performed By: #### P REG #### [facility] [address] [place], [place] [address] Bee Nikki Monocytes (Bld) [#/Vol] 0.6 103/ul Normal 0.3-0.8 [facility] Comment on above: Performed By: #### P REG #### [facility] [address] [place], [place] [address] Bee Nikki Monocytes/100 WBC (Bld) 7.2 % Normal 1.7-12.0 [facility] Comment on above: Performed By: #### P REG #### [facility] [address] [place], [place] [address] Bee Nikki Neutrophils (Bld) [#/Vol] 5.1 103/ul Normal 1.4-6.5 [facility] Comment on above: Performed By: #### P REG #### [facility] [address] [place], [place] [address] Bee Nikki Neutrophils/100 WBC (Bld) 61.5 % Normal 43.0-75.0 [facility] Comment on above: Performed By: #### P REG #### [facility] [address] [place] [address] Bee Nikki Platelet mean volume (Bld) [Entitic vol] 10.3 fL Normal 9.5-13.5 [facility] Comment on above: Performed By: #### P REG #### [facility] [address] [place] [address] Bee Nikki Platelets (Bld) [#/Vol] 223 103/ul Normal 150-450 [facility] Comment on above: Performed By: #### P REG #### [facility] [address] [place], [place] [address] Bee Nikki RBC (Bld) [#/Vol] 3.47 106/ul Critically low 4.20-5.40 [facility] Comment on above: Performed By: #### P REG #### [facility] [address] [place], [place] [address] Bee Nikki WBC (Bld) [#/Vol] 8.2 103/ul Normal 4.0-11.0 [facility] Comment on above: Performed By: #### P REG #### [facility] Laboratory [address] [place], [place] [id number] Bee Nikki CBC AUTO DIFFon 12-10-2018 Basophils (Bld) [#/Vol] 0.0 103/ul Normal 0.0-0.1 [facility] Comment on above: Performed By: #### P REG #### [facility] [address] [place], [place] [address] Bee Nikki Basophils/100 WBC (Bld) 0.2 % Normal 0.2-2.0 [facility] Comment on above: Performed By: #### P REG #### [facility] [address] [place] [id number] Bee Nikki Eosinophils (Bld) [#/Vol] 0.0 103/ul Normal 0.0-0.7 [facility] Comment on above: Performed By: #### P REG #### [facility] [address] [place], [place] [address] Bee Nikki Eosinophils/100 WBC (Bld) 0.0 % Critically low 0.9-7.0 [facility] Comment on above: Performed By: #### P REG #### [facility] [address] [place] [address] Bee Jordan Erythrocyte distribution width (RBC) [Ratio] 14.2 % Normal 11.0-15.0 [facility] Comment on above: Performed By: #### P REG #### [facility] [address] [place] [address] Bee Jordan Hematocrit (Bld) [Volume fraction] 33.4 % Critically low 36.0-48.0 [facility] Comment on above: Performed By: #### P REG #### [facility] [address] [place] [address] Bee Jordan Hemoglobin (Bld) [Mass/Vol] 10.6 g/dL Critically low 12.0-16.0 [facility] Comment on above: Performed By: #### P REG #### [facility] [address] [place] [address] Bee Nikki IG # 0.05 10e3/ul Critically high 0.00-0.03 [facility] Comment on above: Performed By: #### P REG #### [facility] [address] [place] [address] Bee Jordan IG % 0.8 % Critically high 0.0-0.5 [facility] Comment on above: Performed By: #### P REG #### [facility] [address] [place] [address] Beeronen Jordan Lymphocytes (Bld) [#/Vol] 1.0 103/ul Critically low 1.2-3.8 [facility] Comment on above: Performed By: #### P REG #### [facility] [address] [place] [address] Bee Jordan Lymphocytes/100 WBC (Bld) 15.4 % Critically low 20.5-60.0 [facility] Comment on above: Performed By: #### P REG #### [facility] [address] [place] [address] Beeronen Jordan MANUAL DIFF REQ NO Normal [facility] Comment on above: Performed By: #### P REG #### [facility] [address] [address] Bee Jordan MCH (RBC) [Entitic mass] 31.0 pg Normal 26.7-34.0 [facility] Comment on above: Performed By: #### P REG #### [facility] [address] [place] [address] Bee Jordan MCHC (RBC) [Mass/Vol] 31.7 g/dL Normal 29.9-35.2 [facility] Comment on above: Performed By: #### P REG #### [facility] [address] [place] [address] Bee Jordan MCV (RBC) [Entitic vol] 97.7 fL Normal 81.0-99.0 [facility] Comment on above: Performed By: #### P REG #### [facility] [address] [place] [address] Bee Jordan Monocytes (Bld) [#/Vol] 0.3 103/ul Normal 0.3-0.8 [facility] Comment on above: Performed By: #### P REG #### [facility] [address] [place] [address] Bee Jordan Monocytes/100 WBC (Bld) 4.9 % Normal 1.7-12.0 [facility] Comment on above: Performed By: #### P REG #### [facility] [address] [place] [address] Bee Nikki Neutrophils (Bld) [#/Vol] 5.2 103/ul Normal 1.4-6.5 [facility] Comment on above: Performed By: #### P REG #### [facility] [address] [place] [address] Bee Nikki Neutrophils/100 WBC (Bld) 78.7 % Critically high 43.0-75.0 [facility] Comment on above: Performed By: #### P REG #### [facility] [address] [place] [address] Bee Nikki Platelet mean volume (Bld) [Entitic vol] 10.8 fL Normal 9.5-13.5 [facility] Comment on above: Performed By: #### P REG #### [facility] [address] [place] [address] Bee Jordan Platelets (Bld) [#/Vol] 240 103/ul Normal 150-450 [facility] Comment on above: Performed By: #### P REG #### [facility] [address] [place] [address] Bee Jordan RBC (Bld) [#/Vol] 3.42 106/ul Critically low 4.20-5.40 [facility] Comment on above: Performed By: #### P REG #### [facility] [address] [place] [address] Bee Jordan WBC (Bld) [#/Vol] 6.6 103/ul Normal 4.0-11.0 [facility] Comment on above: Performed By: #### P REG #### [facility] [address] [place] [address] Bee Jordan CBC W MANUAL DIFFon 12-10-19 19 ATYPICAL LYMPH # Normal [facility] Comment on above: Performed By: #### C BC #### [facility] [address] [place] [address] Beeronen Jordan ATYPICAL LYMPH % Normal [facility] Comment on above: Performed By: #### C BC #### [facility] [address] [place] [address] Bee Nikki BAND # 0.1 103/ul Normal 0.0-0.3 [facility] Comment on above: Performed By: #### C BC #### [facility] [address] [place] [address] Bee Nikki BAND % 1 % Normal 0-5 [facility] Comment on above: Performed By: #### C BC #### [facility] [address] [place] [address] Bee Nikki BASOM # 0.00 103/ul Normal 0.00-0.10 [facility] Comment on above: Performed By: #### C BC #### [facility] [address] [address] Bee Nikki BASOM % 0.0 % Critically low 0.2-2.0 [facility] Comment on above: Performed By: #### C BC #### [facility] [address] [address] Bee Nikki BLAST # Normal [facility] Comment on above: Performed By: #### C BC #### [facility] [address] [address] Bee Nikki BLAST % Normal [facility] Comment on above: Performed By: #### C BC #### [facility] [address] [place] [address] Bee Nikki CORRECTED WBC Normal 4.0-11.0 [facility] Comment on above: Performed By: #### C BC #### [facility] [address] [place] [address] Bee Nikki Eosinophils (Bld) [#/Vol] 0.00 103/ul Normal 0.00-0.70 [facility] Comment on above: Performed By: #### C BC #### [facility] [address] [place], [place] [address] Bee Nikki Eosinophils/100 WBC (Bld) 0.0 % Critically low 0.9-7.0 [facility] Comment on above: Performed By: #### C BC #### [facility] [address] [place] [address] Bee Nikki Erythrocyte distribution width (RBC) [Ratio] 13.8 % Normal 11.0-15.0 [facility] Comment on above: Performed By: #### C BC #### [facility] [address] [place] [address] Bee Nikki Hematocrit (Bld) [Volume fraction] 34.9 % Critically low 36.0-48.0 [facility] Comment on above: Performed By: #### C BC #### [facility] [address] [place], [place] [address] Bee Nikki Hemoglobin (Bld) [Mass/Vol] 11.6 g/dl Critically low 12.0-16.0 [facility] Comment on above: Performed By: #### C BC #### [facility] [address] [place] [address] Bee Nikki LYMPHM # 0.42 103/ul Critically low 1.20-3.80 [facility] Comment on above: Performed By: #### C BC #### [facility] [address] [place] [address] Bee Nikki LYMPHM% 6.0 % Critically low 20.5-60.0 [facility] Comment on above: Performed By: #### C BC #### [facility] [address] [place] [address] Bee Jordan MCH (RBC) [Entitic mass] 32.0 pg Normal 26.7-34.0 [facility] Comment on above: Performed By: #### C BC #### [facility] [address] [place] [address] Bee Jordan MCHC (RBC) [Mass/Vol] 33.2 g/dl Normal 29.9-35.2 [facility] Comment on above: Performed By: #### C BC #### [facility] [address] [place] [address] Bee Jordan MCV (RBC) [Entitic vol] 96.4 fL Normal 81.0-99.0 [facility] Comment on above: Performed By: #### C BC #### [facility] [address] [place] [address] Bee Nikki METAMYELOCYTE # Normal [facility] Comment on above: Performed By: #### C BC #### [facility] [address] [place] [address] Bee Nikki METAMYELOCYTE % Normal [facility] Comment on above: Performed By: #### C BC #### [facility] [address] [place] [address] Bee Nikki MONOM# 0.14 103/ul Critically low 0.30-0.80 [facility] Comment on above: Performed By: #### C BC #### [facility] [address] [place], [place] [address] Bee Nikki MONOM% 2.0 % Normal 1.7-12.0 [facility] Comment on above: Performed By: #### C BC #### [facility] [address] [place], [place] [address] Bee Nikki MYELOCYTE # Normal [facility] Comment on above: Performed By: #### C BC #### [facility] [address] [place], [place] [address] Bee Nikki MYELOCYTE % Normal [facility] Comment on above: Performed By: #### C BC #### [facility] [address] [place], [place] [address] Bee Nikki NRBC Normal [facility] Comment on above: Performed By: #### C BC #### [facility] [address] [place], [place] [address] Bee Nikki Platelet mean volume (Bld) [Entitic vol] 10.5 fL Normal 9.5-13.5 [facility] Comment on above: Performed By: #### C BC #### [facility] [address] [place], [place] [address] Bee Nikki Platelets (Bld) [#/Vol] 209 103/ul Normal 150-450 [facility] Comment on above: Performed By: #### C BC #### [facility] [address] [place], [place] [address] Bee Nikki RBC (Bld) [#/Vol] 3.62 106/ul Critically low 4.20-5.40 [facility] Comment on above: Performed By: #### C BC #### [facility] [address] [place], [place] [address] Bee Nikki SEG # 6.37 103/ul Normal 1.40-6.50 [facility] Comment on above: Performed By: #### C BC #### [facility] [address] [place], [place] [address] Bee Nikki Segmented neutrophils/100 WBC (Bld) 91.0 % Critically high 43.0-75.0 [facility] Comment on above: Performed By: #### C BC #### [facility] [address] [place], [place] [address] Bee Nikki WBC (Bld) [#/Vol] 7.0 103/ul Normal 4.0-11.0 [facility] Comment on above: Performed By: #### C BC #### [facility] [address] [place] [address] Beeronen Marinoen AMMONIAon 12-08-2018 Ammonia (P) [Mass/Vol] 12 umol/L Normal 10-30 [facility] Comment on above: Performed By: #### C BC #### [facility] [address] [place], [place] [address] Bee Nikki BNPon 12-08-2018 Natriuretic peptide B (Bld) [Mass/Vol] 305.0 pg/mL Normal <=450.0 [facility] Comment on above: Performed By: #### C BC #### [facility] [address] [place] [address] Bee Nikki CBC AUTO DIFFon 12-08-2018 Basophils (Bld) [#/Vol] 0.0 103/ul Normal 0.0-0.1 [facility] Comment on above: Performed By: #### C BC #### [facility] [address] [place], [place] [address] Bee Nikki Basophils/100 WBC (Bld) 0.4 % Normal 0.2-2.0 [facility] Comment on above: Performed By: #### C BC #### [facility] [address] [place], [place] [address] Bee Nikki Eosinophils (Bld) [#/Vol] 0.0 103/ul Normal 0.0-0.7 [facility] Comment on above: Performed By: #### C BC #### [facility] [address] [place], [place] [address] Bee Nikki Eosinophils/100 WBC (Bld) 0.1 % Critically low 0.9-7.0 [facility] Comment on above: Performed By: #### C BC #### [facility] [address] [place], [place] [address] Bee Nikki Erythrocyte distribution width (RBC) [Ratio] 13.9 % Normal 11.0-15.0 [facility] Comment on above: Performed By: #### C BC #### [facility] [address] [place] [address] Bee Jordan Hematocrit (Bld) [Volume fraction] 36.9 % Normal 36.0-48.0 [facility] Comment on above: Performed By: #### C BC #### [facility] [address] [place] [address] Bee Jordan Hemoglobin (Bld) [Mass/Vol] 12.0 g/dL Normal 12.0-16.0 [facility] Comment on above: Performed By: #### C BC #### [facility] [address] [place] [address] Beeronen Jordan IG # 0.02 10e3/ul Normal 0.00-0.03 [facility] Comment on above: Performed By: #### C BC #### [facility] [address] [place] [address] Bee Jordan IG % 0.2 % Normal 0.0-0.5 [facility] Comment on above: Performed By: #### C BC #### [facility] [address] [place] [address] Bee Jordan Lymphocytes (Bld) [#/Vol] 0.9 103/ul Critically low 1.2-3.8 [facility] Comment on above: Performed By: #### C BC #### [facility] [address] [place] [address] Bee Jordan Lymphocytes/100 WBC (Bld) 9.9 % Critically low 20.5-60.0 [facility] Comment on above: Performed By: #### C BC #### [facility] [address] [place], [place] [address] Bee Jordan MANUAL DIFF REQ NO Normal [facility] Comment on above: Performed By: #### C BC #### [facility] [address] [place] [address] Bee Jordan MCH (RBC) [Entitic mass] 31.9 pg Normal 26.7-34.0 [facility] Comment on above: Performed By: #### C BC #### [facility] [address] [place], [place] [address] Beeronen Marinoen MCHC (RBC) [Mass/Vol] 32.5 g/dL Normal 29.9-35.2 [facility] Comment on above: Performed By: #### C BC #### [facility] [address] [place], [place] [address] Bee Nikki MCV (RBC) [Entitic vol] 98.1 fL Normal 81.0-99.0 [facility] Comment on above: Performed By: #### C BC #### [facility] [address] [place], [place] [address] Bee Nikki Monocytes (Bld) [#/Vol] 0.4 103/ul Normal 0.3-0.8 [facility] Comment on above: Performed By: #### C BC #### [facility] [address] [place], [place] [address] Bee Nikki Monocytes/100 WBC (Bld) 3.9 % Normal 1.7-12.0 [facility] Comment on above: Performed By: #### C BC #### [facility] [address] [place], [place] [address] Bee Nikki Neutrophils (Bld) [#/Vol] 7.6 103/ul Critically high 1.4-6.5 [facility] Comment on above: Performed By: #### C BC #### [facility] [address] [place], [place] [address] Bee Nikki Neutrophils/100 WBC (Bld) 85.5 % Critically high 43.0-75.0 [facility] Comment on above: Performed By: #### C BC #### [facility] [address] [place], [place] [address] Bee Nikki Platelet mean volume (Bld) [Entitic vol] 10.1 fL Normal 9.5-13.5 [facility] Comment on above: Performed By: #### C BC #### [facility] [address] [place], [place] [address] Bee Nikki Platelets (Bld) [#/Vol] 218 103/ul Normal 150-450 [facility] Comment on above: Performed By: #### C BC #### [facility] [address] [place] [address] Beeronen Jordan RBC (Bld) [#/Vol] 3.76 106/ul Critically low 4.20-5.40 [facility] Comment on above: Performed By: #### C BC #### [facility] [address] [place], [place] [address] Beeronen Marinoen WBC (Bld) [#/Vol] 8.9 103/ul Normal 4.0-11.0 [facility] Comment on above: Performed By: #### C BC #### [facility] [address] [place], [place] [address] Bee Nikki LACTATE/LACTIC ACIDon 2018 Lactate [Moles/Vol] 1.8 mmol/L Normal 0.7-2.1 [facility] Comment on above: Performed By: #### C BC #### [facility] [address] [place], [place] [address] Bee Nikki LIVER PROFILEon 12-08-2018 Albumin [Mass/Vol] 2.9 g/dL Critically low 3.5-5.0 [facility] Comment on above: Performed By: #### C BC #### [facility] [address] [place], [place] [address] Bee Nikki Albumin/Globulin [Mass ratio] 0.6 {ratio} Normal [facility] Comment on above: Performed By: #### C BC #### [facility] [address] [place], [place] [address] Bee Nikki ALP [Catalytic activity/Vol] 88 U/L Normal 38-126 [facility] Comment on above: Performed By: #### C BC #### [facility] [address] [place], [place] [address] Bee Nikki ALT [Catalytic activity/Vol] 18 U/L Normal 9-52 [facility] Comment on above: Performed By: #### C BC #### [facility] [address] [address] Bee Nikki AST [Catalytic activity/Vol] 21 U/L Normal 14-36 [facility] Comment on above: Performed By: #### C BC #### [facility] [address] [place], [place] [address] Bee Nikki BILI, CONJUGATED 0.1 mg/dL Normal 0.0-0.[address] [facility] Comment on above: Performed By: #### C BC #### [facility] [address] [address] Bee Nikki Bilirubin Ql (U) 0.6 mg/dL Normal 0.2-1.[address] [facility] Comment on above: Performed By: #### C BC #### [facility] [address] [place], [place] [address] Bee Nikki Globulin (S) [Mass/Vol] 4.5 g/dL Normal [facility] Comment on above: Performed By: #### C BC #### [facility] [address] [place] [address] Bee Nikki Protein [Mass/Vol] 7.4 g/dL Normal 6.1-8.2 [facility] Comment on above: Performed By: #### C BC #### [facility] [address] [place], [place] [address] Bee Nikki PROF CHEM 8 (BAS METB)on Anion gap [Moles/Vol] 18.4 mmol/L Normal [facility] Comment on above: Performed By: #### C BC #### [facility] [address] [place], [place] [address] Bee Nikki Calcium [Mass/Vol] 9.6 mg/dL Normal 8.4-10.2 [facility] Comment on above: Performed By: #### C BC #### [facility] [address] [place], [place] [address] Bee Nikki Chloride [Moles/Vol] 103 mmol/L Normal 98-107 [facility] Comment on above: Performed By: #### C BC #### [facility] [address] [place], [place] [address] Bee Nikki CO2 [Moles/Vol] 19.9 mmol/L Critically low 22.0-30.0 [facility] Comment on above: Performed By: #### C BC #### [facility] [address] [id number] Bee Nikki Creatinine [Mass/Vol] 0.92 mg/dL Normal 0.52-1.04 [facility] Comment on above: Performed By: #### C BC #### [facility] [address] [id number] Bee Nikki EGFR-AF SLOVENIAN >60 Normal >=60 [facility] Comment on above: Performed By: #### C BC #### [facility] [address] [place] [address] Bee Nikki EGFR-NON AF SLOVENIAN >60 Normal >=60 [facility] Comment on above: Performed By: #### C BC #### [facility] [address] [place] [address] Bee Nikki Glucose [Mass/Vol] 115 mg/dL Critically high 74-106 [facility] Comment on above: Performed By: #### C BC #### [facility] [address] [place], [place] [address] Bee Nikki Potassium [Moles/Vol] 3.3 mmol/L Critically low 3.4-5.0 [facility] Comment on above: Performed By: #### C BC #### [facility] [address] [place] [address] Bee Nikki Sodium [Moles/Vol] 138 mmol/L Normal 137-145 [facility] Comment on above: Performed By: #### C BC #### [facility] [address] [place], [place] [address] Bee Nikki Urea nitrogen [Mass/Vol] 19.0 mg/dL Critically high 7.0-17.0 [facility] Comment on above: Performed By: #### C BC #### [facility] [address] [place], [place] [address] Bee Nikki Urea nitrogen/Creatinin e [Mass ratio] 20.7 mg/mg Normal [facility] Comment on above: Performed By: #### C BC #### [facility] [address] [place], [place] [address] Bee Nikki BLOOD GASES BTYon 12-07-2018 02 MODE NASAL CANNULA Normal [facility] Comment on above: Performed By: #### C BC #### [facility] [address] [address] Bee Nikki ALLENS TEST Positive Normal [facility] Comment on above: Performed By: #### C BC #### [facility] [address] [address] Bee Nikki Base excess Calc (Bld) [Moles/Vol] -5.0 mmol/L Critically low -2.0-2.0 [facility] Comment on above: Performed By: #### C BC #### [facility] [address] [address] Bee Nikki BIPAP PRESSURE Normal [facility] Comment on above: Performed By: #### C BC #### [facility] [address] [address] Bee Nikki CO2 [Moles/Vol] 19.7 mmol/L Critically low 23.0-28.0 [facility] Comment on above: Performed By: #### C BC #### [facility] [address] [address] Bee Nikki CPAP Normal [facility] Comment on above: Performed By: #### C BC #### [facility] [address] [address] Bee Nikki FIO2 Normal [facility] Comment on above: Performed By: #### C BC #### [facility] [address] [address] Bee Nikki HCO3 (Bld) [Moles/Vol] 18.7 mmol/L Critically low 22.0-26.0 [facility] Comment on above: Performed By: #### C BC #### [facility] [facility] [address] [address] Bee Nikki LPM 4 Normal [facility] Comment on above: Performed By: #### C BC #### [facility] [address] [address] Bee Nikki MINUTE VOLUME Normal The [facility] [place] Comment on above: Performed By: #### C BC #### [facility] [address] [address] Bee Nikki Oxygen (Bld) [Partial pressure] 92.4 mm[Hg] Normal 80.0-100.0 [facility] Comment on above: Performed By: #### C BC #### [facility] [address] [place] [address] Bee Nikki Oxygen saturation in Blood 90.8 % Critically low 95.0-100.0 [facility] Comment on above: Performed By: #### C BC #### [facility] [address] [place] [address] Bee Nikki PCO2 30.8 mmHg Critically low 35.0-45.0 The [facility] Comment on above: Performed By: #### C BC #### [facility] [address] [place] [address] Bee Nikki PEEP Normal [facility] Comment on above: Performed By: #### C BC #### [facility] [address] [place] [address] Bee Nikki pH (Bld) 7.402 [pH] Normal 7.350-7.450 [facility] Comment on above: Performed By: #### C BC #### [facility] [address] [place] [address] Bee Nikki PIP Normal [facility] Comment on above: Performed By: #### C BC #### [facility] [address] [place] [address] Bee Nikki PS Normal [facility] Comment on above: Performed By: #### C BC #### [facility] [address] [place] [address] Bee Nikki PUNCTURE SITE RR Normal The [facility] [place] Comment on above: Performed By: #### C BC #### [facility] [address] [place] [address] Bee Nikki RATE Normal [facility] Comment on above: Performed By: #### C BC #### [facility] [address] [address] Bee Nikki VENT MODE Normal [facility] Comment on above: Performed By: #### C BC #### [facility] [address] [place] [address] Bee Nikki [place] Normal [facility] Comment on above: Performed By: #### C BC #### [facility] [address] [place] [address] Bee Nikki CBC W MANUAL DIFFon 12-08-19 19 ATYPICAL LYMPH # Normal The [facility] Comment on above: Performed By: #### C CELSA #### [facility] [address] [place] [address] Bee Nikki ATYPICAL LYMPH % Normal The [facility] Comment on above: Performed By: #### C CELSA #### [facility] [address] [place] [address] Bee Nikki BAND # Normal 0.0-0.3 [facility] Comment on above: Performed By: #### C CELSA #### [facility] [address] [place] [address] Bee Nikki BAND % Normal 0-5 [facility] Comment on above: Performed By: #### C CELSA #### [facility] [address] [place] [address] Bee Nikki BASOM # 0.00 103/ul Normal 0.00-0.10 [facility] Comment on above: Performed By: #### C CELSA #### [facility] [address] [place] [address] Bee Nikki BASOM % 0.0 % Critically low 0.2-2.0 The [facility] Comment on above: Performed By: #### C CELSA #### [facility] [address] [place] [address] Bee Nikki BLAST # Normal [facility] Comment on above: Performed By: #### C CELSA #### [facility] [address] [place] [address] Bee Nikki BLAST % Normal The [facility] Comment on above: Performed By: #### C CELSA #### [facility] [address], [place] [address] Bee Nikki CORRECTED WBC Normal 4.0-11.0 [facility] Comment on above: Performed By: #### C CELSA #### [facility] [address], [place] [address] Bee Nikki Eosinophils (Bld) [#/Vol] 0.09 103/ul Normal 0.00-0.70 [facility] Comment on above: Performed By: #### C CELSA #### [facility] [address] [id number] Bee Nikki Eosinophils/100 WBC (Bld) 1.0 % Normal 0.9-7.0 [facility] Comment on above: Performed By: #### C CELSA #### [facility] [address] [place], [place] [address] Bee Nikki Erythrocyte distribution width (RBC) [Ratio] 14.2 % Normal 11.0-15.0 [facility] Comment on above: Performed By: #### C CELSA #### [facility] [address] [place], [place] [address] Bee Nikki Hematocrit (Bld) [Volume fraction] 34.3 % Critically low 36.0-48.0 [facility] Comment on above: Performed By: #### C CELSA #### [facility] [address] [place], [place] [address] Bee Nikki Hemoglobin (Bld) [Mass/Vol] 11.0 g/dl Critically low 12.0-16.0 [facility] Comment on above: Performed By: #### C CELSA #### [facility] [address] [place], [place] [address] Bee Nikki LYMPHM # 0.69 103/ul Critically low 1.20-3.80 The [facility] Comment on above: Performed By: #### C CELSA #### [facility] [address] [id number] Bee Nikki LYMPHM% 8.0 % Critically low 20.5-60.0 [facility] Comment on above: Performed By: #### C CELSA #### [facility] [address] [place] [address] Bee Jordan MCH (RBC) [Entitic mass] 32.2 pg Normal 26.7-34.0 [facility] Comment on above: Performed By: #### C CELSA #### [facility] [address] [place] [address] Beeronen Jordan MCHC (RBC) [Mass/Vol] 32.1 g/dl Normal 29.9-35.2 [facility] Comment on above: Performed By: #### C CELSA #### [facility] [address] [place] [address] Beeronen Jordan MCV (RBC) [Entitic vol] 100.3 fL Critically high 81.0-99.0 [facility] Comment on above: Performed By: #### Robb STEEN #### [facility] [address] [place] [address] Bee Nikki METAMYELOCYTE # Normal [facility] Comment on above: Performed By: #### Robb STEEN #### [facility] [address] [place] [address] Bee Nikki METAMYELOCYTE % Normal [facility] Comment on above: Performed By: #### Robb STEEN #### [facility] [address] [place] [address] Bee Nikki MONOM# 0.34 103/ul Normal 0.30-0.80 [facility] Comment on above: Performed By: #### Robb STEEN #### [facility] [address] [place] [address] Bee Nikki MONOM% 4.0 % Normal 1.7-12.0 [facility] Comment on above: Performed By: #### C CELSA #### [facility] [address] [place] [address] Bee Nikki MYELOCYTE # Normal [facility] Comment on above: Performed By: #### Robb STEEN #### [facility] [address] [place] [address] Bee Jordan MYELOCYTE % Normal [facility] Comment on above: Performed By: #### Robb STEEN #### [facility] [address] [place], [place] [address] Bee Jordan NRBC Normal [facility] Comment on above: Performed By: #### Robb STEEN #### [facility] [address] [place], [place] [address] Beeronen Jordan Platelet mean volume (Bld) [Entitic vol] 10.3 fL Normal 9.5-13.5 [facility] Comment on above: Performed By: #### C CELSA #### [facility] [address] [id number] Bee Nikki Platelets (Bld) [#/Vol] 192 103/ul Normal 150-450 [facility] Comment on above: Performed By: #### C CELSA #### [facility] [address] [place], [place] [address] Bee Nikki RBC (Bld) [#/Vol] 3.42 106/ul Critically low 4.20-5.40 [facility] Comment on above: Performed By: #### Robb STEEN #### [facility] [address] [place], [place] [address] Beeronen Jordan SEG # 7.48 103/ul Critically high 1.40-6.50 [facility] Comment on above: Performed By: #### Robb STEEN #### [facility] [address] [place], [place] [address] Bee Nikki Segmented neutrophils/100 WBC (Bld) 87.0 % Critically high 43.0-75.0 [facility] Comment on above: Performed By: #### Robb STEEN #### [facility] [address] [place], [place] [address] Bee Nikki WBC (Bld) [#/Vol] 8.6 103/ul Normal 4.0-11.0 [facility] Comment on above: Performed By: #### Robb STEEN #### [facility] [address] [place], [place] [address] Bee Nikki CT HEAD WO CONon 12-07-2018 CT HEAD WO CON Patient: CAIN SAAVEDRA. Exam Date: 12/07/2018 : 1975 Gender:F Ordering : DR SAM ROSS . Admission #: [id number] Family : DR JOSETTE VEGA M.D. Order #: [id number] CLICK HERE TO VIEW EXAM RADIOLOGY REPORT [...] Goel M.D. on 12/07/2018 at 22:09 Normal [facility] CTA CHEST W CONon 12-07-2018 CTA CHEST W CON Patient: CAIN SAAEVDRA. Exam Date: 12/07/2018 : 1975 Gender:F Ordering : DR SAM ROSS . Admission #: [id number] Family : DR JOSETTE VEGA M.D. Order #: [id number] CLICK HERE TO VIEW EXAM RADIOLOGY REPORT [...] M.D. on 12/07/2018 at 20:22 Normal [facility] CBC AUTO DIFFon 12-06-2018 Basophils (Bld) [#/Vol] 0.0 103/ul Normal 0.0-0.1 [facility] Comment on above: Performed By: #### C BC #### [facility] [address], [place] [address] Bee Nikki Basophils/100 WBC (Bld) 0.4 % Normal 0.2-2.0 [facility] Comment on above: Performed By: #### C BC #### [facility] [address], [place] [address] Bee Nikki Eosinophils (Bld) [#/Vol] 0.1 103/ul Normal 0.0-0.7 [facility] Comment on above: Performed By: #### C BC #### [facility] [address], [place] [address] Bee Nikki Eosinophils/100 WBC (Bld) 1.2 % Normal 0.9-7.0 [facility] Comment on above: Performed By: #### C BC #### [facility] [address], [place] [address] Bee Nikki Erythrocyte distribution width (RBC) [Ratio] 14.6 % Normal 11.0-15.0 [facility] Comment on above: Performed By: #### C BC #### [facility] [address], [place] [address] Bee Nikki Hematocrit (Bld) [Volume fraction] 33.2 % Critically low 36.0-48.0 [facility] Comment on above: Performed By: #### C BC #### [facility] [address], [place] [address] Bee Nikki Hemoglobin (Bld) [Mass/Vol] 10.5 g/dL Critically low 12.0-16.0 [facility] Comment on above: Performed By: #### C BC #### [facility] [address], [place] [address] Bee Nikki IG # 0.02 10e3/ul Normal 0.00-0.03 [facility] Comment on above: Performed By: #### C BC #### [facility] [address] [id number] Bee Nikki IG % 0.3 % Normal 0.0-0.5 [facility] Comment on above: Performed By: #### C BC #### [facility] [address] [id number] Bee Nikki Lymphocytes (Bld) [#/Vol] 2.6 103/ul Normal 1.2-3.8 [facility] Comment on above: Performed By: #### C BC #### [facility] [address] [id number] Bee Nikki Lymphocytes/100 WBC (Bld) 37.9 % Normal 20.5-60.0 [facility] Comment on above: Performed By: #### C BC #### [facility] [address], [place] [address] Bee Nikki MANUAL DIFF REQ NO Normal [facility] Comment on above: Performed By: #### C BC #### [facility] [address], [place] [address] Bee Nikki MCH (RBC) [Entitic mass] 32.1 pg Normal 26.7-34.0 [facility] Comment on above: Performed By: #### C BC #### [facility] [address], [place] [address] Bee Nikki MCHC (RBC) [Mass/Vol] 31.6 g/dL Normal 29.9-35.2 [facility] Comment on above: Performed By: #### C BC #### [facility] [address], [place] [address] Bee Nikki MCV (RBC) [Entitic vol] 101.5 fL Critically high 81.0-99.0 [facility] Comment on above: Performed By: #### C BC #### [facility] [address], [place] [address] Bee Nikki Monocytes (Bld) [#/Vol] 0.4 103/ul Normal 0.3-0.8 [facility] Comment on above: Performed By: #### C BC #### [facility] [address], [place] [address] Bee Nikki Monocytes/100 WBC (Bld) 6.3 % Normal 1.7-12.0 [facility] Comment on above: Performed By: #### C BC #### [facility] [address] [place] [address] Bee Nikki Neutrophils (Bld) [#/Vol] 3.7 103/ul Normal 1.4-6.5 [facility] Comment on above: Performed By: #### C BC #### [facility] [address] [place] [address] Bee Nikki Neutrophils/100 WBC (Bld) 53.9 % Normal 43.0-75.0 [facility] Comment on above: Performed By: #### C BC #### [facility] [address] [place] [address] Bee Nikki Platelet mean volume (Bld) [Entitic vol] 9.7 fL Normal 9.5-13.5 [facility] Comment on above: Performed By: #### C BC #### [facility] [address] [place] [address] Bee Nikki Platelets (Bld) [#/Vol] 201 103/ul Normal 150-450 [facility] Comment on above: Performed By: #### C BC #### [facility] [address] [place] [address] Bee Nikki RBC (Bld) [#/Vol] 3.27 106/ul Critically low 4.20-5.40 [facility] Comment on above: Performed By: #### C BC #### [facility] [address] [place], [place] [address] Bee Nikki WBC (Bld) [#/Vol] 6.9 103/ul Normal 4.0-11.0 The [facility] Comment on above: Performed By: #### C BC #### [facility] [address] [place], [place] [address] Bee Nikki CBC AUTO DIFFon 12-04-2018 Basophils (Bld) [#/Vol] 0.0 103/ul Normal 0.0-0.1 [facility] Comment on above: Performed By: #### C BC #### [facility] [address] [place] [address] Bee Nikki Basophils/100 WBC (Bld) 0.4 % Normal 0.2-2.0 [facility] Comment on above: Performed By: #### C BC #### [facility] [address] [place] [address] Bee Nikki Eosinophils (Bld) [#/Vol] 0.1 103/ul Normal 0.0-0.7 [facility] Comment on above: Performed By: #### C BC #### [facility] [address] [place], [place] [address] Bee Nikki Eosinophils/100 WBC (Bld) 1.6 % Normal 0.9-7.0 [facility] Comment on above: Performed By: #### C BC #### [facility] [address] [place], [place] [address] Bee Nikki Erythrocyte distribution width (RBC) [Ratio] 13.8 % Normal 11.0-15.0 [facility] Comment on above: Performed By: #### C BC #### [facility] [address] [place], [place] [address] Bee Nikki Hematocrit (Bld) [Volume fraction] 36.6 % Normal 36.0-48.0 [facility] Comment on above: Performed By: #### C BC #### [facility] [address] [place], [place] [address] Bee Nikki Hemoglobin (Bld) [Mass/Vol] 12.0 g/dL Normal 12.0-16.0 [facility] Comment on above: Performed By: #### C BC #### [facility] [address] [place], [place] [address] Beeronen Jordan IG # 0.01 10e3/ul Normal 0.00-0.03 [facility] Comment on above: Performed By: #### C BC #### [facility] [address] [place] [address] Bee Nikki IG % 0.2 % Normal 0.0-0.5 [facility] Comment on above: Performed By: #### C BC #### [facility] [address] [place] [address] Bee Nikki Lymphocytes (Bld) [#/Vol] 2.2 103/ul Normal 1.2-3.8 [facility] Comment on above: Performed By: #### C BC #### [facility] [address] [place] [address] Bee Jordan Lymphocytes/100 WBC (Bld) 42.8 % Normal 20.5-60.0 [facility] Comment on above: Performed By: #### C BC #### [facility] [address] [place], [place] [address] Bee Jordan MANUAL DIFF REQ NO Normal [facility] Comment on above: Performed By: #### C BC #### [facility] [address] [place] [address] Beeronen Jordan MCH (RBC) [Entitic mass] 31.9 pg Normal 26.7-34.0 [facility] Comment on above: Performed By: #### C BC #### [facility] [address] [place], [place] [address] Beeronen Jordan MCHC (RBC) [Mass/Vol] 32.8 g/dL Normal 29.9-35.2 [facility] Comment on above: Performed By: #### C BC #### [facility] [address] [place], [place] [address] Beeronen Jordan MCV (RBC) [Entitic vol] 97.3 fL Normal 81.0-99.0 [facility] Comment on above: Performed By: #### C BC #### [facility] [address] [place], [place] [address] Bee Nikki Monocytes (Bld) [#/Vol] 0.3 103/ul Normal 0.3-0.8 [facility] Comment on above: Performed By: #### C BC #### [facility] [address] [place], [place] [address] Bee Nikki Monocytes/100 WBC (Bld) 5.9 % Normal 1.7-12.0 [facility] Comment on above: Performed By: #### C BC #### [facility] [address] [place], [place] [address] Bee Nikki Neutrophils (Bld) [#/Vol] 2.5 103/ul Normal 1.4-6.5 [facility] Comment on above: Performed By: #### C BC #### [facility] [address] [place] [address] Bee Nikki Neutrophils/100 WBC (Bld) 49.1 % Normal 43.0-75.0 [facility] Comment on above: Performed By: #### C BC #### [facility] [address] [place], [place] [address] Bee Nikki Platelet mean volume (Bld) [Entitic vol] 9.5 fL Normal 9.5-13.5 [facility] Comment on above: Performed By: #### C BC #### [facility] [address] [place], [place] [address] Bee Nikki Platelets (Bld) [#/Vol] 226 103/ul Normal 150-450 [facility] Comment on above: Performed By: #### C BC #### [facility] [address] [place], [place] [address] Bee Nikki RBC (Bld) [#/Vol] 3.76 106/ul Critically low 4.20-5.40 [facility] Comment on above: Performed By: #### C BC #### [facility] [address] [place], [place] [address] Ebe Nikki WBC (Bld) [#/Vol] 5.1 103/ul Normal 4.0-11.0 The [facility] Comment on above: Performed By: #### C BC #### [facility] [address] [place], [place] [address] Bee Jordan PREG HCG QUALon 12-04-2018 , QUAL Negative Normal NEGATIVE [facility] Comment on above: Performed By: #### P REG #### [facility] [address] [id number] Bee Jordan PROF CHEM 8 (BAS METB)on Anion gap [Moles/Vol] 14.7 mmol/L Normal [facility] Comment on above: Performed By: #### B MP #### [facility] [address] [place] [address] Bee Nikki Calcium [Mass/Vol] 8.8 mg/dL Normal 8.4-10.2 [facility] Comment on above: Performed By: #### B MP #### [facility] [address] [place] [address] Bee Nikki Chloride [Moles/Vol] 109 mmol/L Critically high 98-107 [facility] Comment on above: Performed By: #### B MP #### [facility] [address] [place] [address] Beeronen Jordan CO2 [Moles/Vol] 22.5 mmol/L Normal 22.0-30.[address] [facility] Comment on above: Performed By: #### B MP #### [facility] [address] [place] [address] Bee Nikki Creatinine [Mass/Vol] 0.87 mg/dL Normal 0.52-1.04 [facility] Comment on above: Performed By: #### B MP #### [facility] [address] [place] [address] Bee Nikki EGFR-AF SLOVENIAN >60 Normal >=[address] [facility] Comment on above: Performed By: #### B MP #### [facility] [address] [place] [address] Bee Nikki EGFR-NON AF SLOVENIAN >60 Normal >=60 [facility] Comment on above: Performed By: #### B MP #### [facility] [address], [place] [address] Bee Nikki Glucose [Mass/Vol] 94 mg/dL Normal 74-106 The [facility] Comment on above: Performed By: #### B MP #### [facility] [address], [place] [address] Bee Nikki Potassium [Moles/Vol] 3.2 mmol/L Critically low 3.4-5.0 [facility] Comment on above: Performed By: #### B MP #### [facility] [address] [id number] Bee Nikki Sodium [Moles/Vol] 143 mmol/L Normal 137-145 The [facility] Comment on above: Performed By: #### B MP #### [facility] [address], [place] [address] Bee Nikki Urea nitrogen [Mass/Vol] 20.0 mg/dL Critically high 7.0-17.0 [facility] Comment on above: Performed By: #### B MP #### [facility] [address], [place] [address] Bee Nikki Urea nitrogen/Creatinin e [Mass ratio] 23.0 mg/mg Normal [facility] Comment on above: Performed By: #### B MP #### [facility] [address], [place] [address] Bee Nikki PROTIMEon 12-04-2018 INR Coag (PPP) [Relative time] 1.03 {INR} Normal [facility] Comment on above: Performed By: #### P T, PTT #### [facility] [address], [place] [address] Bee Nikki PT Coag (PPP) [Time] PLEASE NOTE: NORMAL RANGE CHANGE 2014 DUE TO REAGENT LOT CHANGE Normal [facility] Comment on above: Performed By: #### P T, PTT #### [facility] [address], [place] [address] Bee Nikki PT Coag (PPP) [Time] SEE BELOW Normal [facility] Comment on above: Result Comment: NALINI RED INR: 2.0 - 3.0 CONDITIONS NOT LISTED BELOW 2.5 - 3.5 FOR PROSTHETIC HEART VALVE REPLACEMENT 2.5 - 3.5 RECURRENT THROMBOSIS Performed By: #### P T, PTT #### [facility] [address], [place] [address] Bee Jordan PT Coag (PPP) [Time] 10.7 s Normal 9.0-11.6 The [facility] [facility] Comment on above: Performed By: #### P T, PTT #### [facility] [address], [place] [address] Bee Jordan PTTon 12-04-2018 aPTT Coag (Bld) [Time] PLEASE NOTE: NORMAL RANGE CHANGE 03-30-2015 DUE TO REAGENT LOT CHANGE Normal [facility] Comment on above: Performed By: #### P T, PTT #### [facility] [address], [place] [address] Bee Jordan aPTT Coag (Bld) [Time] 23.0 s Normal 22.3-36.2 [facility] Comment on above: Performed By: #### P T, PTT #### [facility] [address], [place] [address] Bee Jordan XR ANKLE RT 2Von 12-04-2018 XR ANKLE RT 2V Patient: CAIN SAAVEDRA Exam Date: 12/04/2018 : 1975 Gender:F Ordering : DR. BEBO ENRIQUEZ DKaylahP.MKaylah Admission #: [id number] Family : Order #: [id number] CLICK HERE TO VIEW EXAM RADIOLOGY REPORT [...] Goel M.D. on 12/04/2018 at 11:54 Normal [facility] XR ANKLE RT MIN 3 VIEWSon XR ANKLE RT MIN 3 VIEWS Patient: TERRIE SAAVEDRA Exam Date: 12/04/2018 : 1975 Gender:F Ordering : DR. BEBO ENRIQUEZ D.P.M. Admission #: [id number] Family : Order #: [id number] CLICK HERE TO VIEW EXAM RADIOLOGY REPORT [...] Goel M.D. on 12/04/2018 at 15:02 Normal [facility] XR ANKLE RT MIN 3 VIEWSon XR ANKLE RT MIN 3 VIEWS Patient: TERRIE SAAVEDRA Exam Date: 12/03/2018 : 1975 Gender:F Ordering : DR. BEBO MonacoPNabila Admission #: [id number] Family : Order #: [id number] CLICK HERE TO VIEW EXAM RADIOLOGY REPORT [...] Goel M.D. on 12/03/2018 at 13:13 [facility] Office Visit (CALI) QUENTINTERRIE Dane ([id number]) 1975 FDate Time Provider Department07/30/17 9:40 AM JOHN LEE During your visit today, we recorded the following information about you: Pulse Blood pressure Weight Height 84/minute 113/62 86.6 kg 1.549 Ricardo Lee MD, MD 08/01/2017 10:22 AM [facility] Wrsk5240 Nadarukhsana Levine, [address] [address]Ljelkzwahpq [place], [address] [address]PBW: Josette Vega MDThis is a 42 year old year old year old, Right handed woman from [facility] whois referred in consultation by Dr. Vega [...] body: NoneLP shunt placed by Dr. Swenson [facility] in 2008 for pseudotumor cerebri without anyimprovement [...] mouth every 8 hours as needed. Disp: Rfl:jhuhxxu-cejyxblv-idqlf bital (FIORINAL) capsule Disp: Rfl: 1No current [...] 1ANDquot;) Wt 86.6 kg (191lb) BMI 36.09 kg/i8Qcnoxpy: well appearing, in no acute distress, alert [...] as outlined above.??Cyndy CurranffReferring Provider: SONNY HI [[id number]]Allergies As of Date: 07/30/2017 Noted Allergy ReactionANTIVERT [...] jeyson* FLUTICASONE 50 MCG/ACTUATION * Use 1 [place] in each nostril o* LURASIDONE 40 MG [...] 4 mg by mouth every 8 ho* IZPVNOBTJR-GXLCKRC-AGCVJFN E 5*Medication notes this encounter FEQZARUOKC-JVBXWYG-CFDVOVI E 50 MG-325 MG-40 MG CAPSULE >> Sabrina Contreras 07/30/2017 9:57 AM >> STURGHIDane SABRINA Darrel Jul 30, 2017 9:57 AM Received from: External PharmacyProblem List As Of Date 07/30/2017 Noted Resolved Abdominal pannus [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 Tubular breast [N64.89] INVALID FOR* More... Status:Closed by JOHN LEE MD on 08/01/17 Normal [facility] PROGRESSon 07-30-2017 PROGRESS HNO ID: [id number] thor: TONI Blanchardervice: (none)Author Type: PhysicianType: Progress NotesFiled: 08/01/2017 10:22 AMNote Text:Headache CenterOhurological [facility] for Ucup8283 Khari Levine, [address] [address], [place] [address]JYL: Josette Vega MDThis is a 42 year old year old year old, Right handed woman from [facility] is referred in consultation by Dr. Vega [...] mouth every 8 hours as needed. Disp: Rfl:vqymwhi-hmikqitf-odkcg bital (FIORINAL) capsule Disp: Rfl: 1No current [...] a living. Trying to get disability. [facility].ROS:REVIEW OF SYSTEMSGENERAL: Planned weight loss (gastric bypass). [...] ) Wt 86.6 kg (191lb) BMI 36.09 kg/a5Aksgklb: well appearing, in no acute distress, alert [...] ing/coordinating care with the patient and /or kunyrt92. More than 50 % of time spent [...] withthe recommendations as outlined above.??Alfonso Curran Normal [facility] PROGRESSon 02-20-2017 PROGRESS HNO ID: [id number] thor: Cat Montalvo LPNService: (none)Author Type: (none)Type: Progress NotesFiled: 02/20/2017 8:02 AMNote Text:[id number] OF PHOTOS: February 18, 2017TAKEN WITH LENS: 7ft / 70mm x5 DRKLBP1zy / 70mm H x5 ABDOMEN, FROM BELOW BRA LINE TO BELOW PUBIC AREAPOSES:AP/OP/LPDIAGNOSI S: NECK / TRUNK: PANNICULECTOMY and BREAST: BREAST AUGMENTATIONRELEASE: PATIENT SIGNED PHOTO RELEASE FOR CLINICAL USE AND SURGERYCat Selvin HALE Normal [facility] CNOVon 02-18-2017 CNOV Office Visit (PLASST) QUENTINTERRIE Vela ([id number]) 1975 FDate Time Provider Sqjolvfucv81/16/17 2:00 PM BEVERLY LEWIS PLASST During your visit today, we recorded the following information about you: Temperature Pulse Respiration Blood pressure 98.4 degrees 81/minute 18/minute 109/62 Weight Height 86.2 kg 1.549 Ha Selvin HALE 02/18/2017 2:21 PM SignedATRIUM [facility] LINCOLNL[facility] [phone] HOURS: Lab is open 7:30am to 6:00pm [...] at least one day prior to the scheduledexam.[facility] HOURSHOURS OF OPERATIONS Saturday and Saturday 8:00am to 4:00pm, Saturday through Saturday6:00am to 9:00pm. Express care is for patients 2 years and older.[facility]-WALK IN CLINICHOURS OF OPERATIONS Saturday and Saturday 8:00am to 4:00pm, Saturday through Saturday6:00am to 9:00pm. The walk in clinic is for patients 6 months and older.[facility] WALK-IN HOURSHOURS OF OPERATIONS Saturday and Saturday 9:00am to 4:00pm, Saturday through Saturday6:00am to 9:00pm. The walk in clinic is for patients 2 years and older.For Express Care LOCATIONS, HOURS OF OPERATION and CURRENT WAIT TIMES, visitthe following [email or web address]?dFR[type s][0]=Express%20Care%20Cli nicsAND-amp; for detailsWe are glad that we were able to get you in for an urgent appointment todaywhen you needed it. Is there anything else I can do for you?For Express Care LOCATIONS, HOURS OF OPERATION and CURRENT WAIT TIMES, visitthe following [email or web address]?dFR[type s][0]=Express%20Care%20Cli nicsAND-amp; for detailsBeverly Lewis MD [...] Wt 86.2 kg (190 lb) BMI 35.9 kg/w4YJDXABALLYpraambf Reactions- Antivert [Meclizine] Other: See Comments Patient [...] Visit Diagnosis:Tubular breast [N64.89]Order(s):SURGICAL REQUEST - ELECTIVE [7164516] Order #: [id number]: 1 CBC + DIFF [SQCBCDIF] Order #: [id number] FUTURE COMP METABOLIC PANEL [SQCMP] Order #: [id number] FUTURE ECG COMPLETE W INTERPRETATION [ECG01] Order #: [id number] FUTURE CONSULT TO ANESTHESIOLOGY [9002] Order #: [id number]: 1 CONSULT TO INT MED-IMPACT [7966389] Order #: [id number]: 1 [facility] [[id number]] Order #: [id number] REFER FOR ADMIT INTERVIEW [[id number]] Order #: [id number] List As Of Date 02/18/2017 Noted Resolved Abdominal pannus [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 Tubular breast [N64.89] INVALID FOR* More... Other instructions from your clinician: [facility] FACTS [phone] LAB HOURS: Lab is open 7:30am to [...] one day prior to the scheduled exam. [facility] HOURS HOURS OF OPERATIONS Saturday and Saturday 8:00am to 4:00pm, Saturday through Saturday 6:00am to 9:00pm. Express care is for patients 2 years and older. [facility] HOURS OF OPERATIONS Saturday and Saturday 8:00am to 4:00pm, Saturday through Saturday 6:00am to 9:00pm. The walk in clinic is for patients 6 months and older. [facility] WALK-IN HOURS HOURS OF OPERATIONS Saturday and Saturday 9:00am to 4:00pm, Saturday through Saturday 6:00am to 9:00pm. The walk in clinic is for patients 2 years and older. For Express Care LOCATIONS, HOURS OF OPERATION and CURRENT WAIT TIMES, visit the following link [email or web address].[email or web address] hospitalSel[email or web address]/locations?dFR[types][0 ]=Express%20Care%20Clin icsAND for details We are glad that we were able to get you in for an urgent appointment today when you needed it. Is there anything else I can do for you? For Express Care LOCATIONS, HOURS OF OPERATION and CURRENT WAIT TIMES, visit the following link [email or web address] [email or web address] hospitalSelftrade [email or web address]/locations?dFR[types][0 ]=Express%20Care%20Clin icsAND for detailsEncounter Number: [id number] Status:Closed by BEVERLY LEWIS MD on 02/18/17 [facility] PROGRESSon 02-18-2017 PROGRESS HNO ID: [id number] thor: Beverly Mcgrawrvice: (none)Author Type: PhysicianType: Progress [...] Wt 86.2 kg (190 lb) BMI 35.9 kg/c9BZCRACDKEWicjxwia Reactions- Antivert [Meclizine] Other: See Comments Patient [...] recommendations.?Beverly Lewis MDOctober 2016 3:34 PM Normal [facility] Vital Signs Date Time Vital Sign Value Performing Clinician Faci litrodolfo 05-04-2021 14:45-0500 Body height 154.94 cm Davi Martinez Other [facility] Other 05-04-2021 14:45-0500 Body mass index (BMI) [Ratio] 38.73 kg/m2 Davi Martinez Other [facility] Other 05-04-2021 14:45-0500 Body weight 92.99 kg Davi Martinez Other [facility] Other 03-23-2021 10:38-0500 Body height 154.94 cm Referring Provider Unknown UF-Uvspkhbhlqktiz-Tkpi man Work Phone: 03-23-2021 10:38-0500 Body mass index (BMI) [Ratio] 40.06 kg/m2 Referring Provider Unknown PH-Bevoxoubxijwzb-Ajtk man Work Phone: 03-23-2021 10:38-0500 Body surface area Derived from formula 1.94 m2 Referring Provider Unknown LN-Hoafrilpwenoxu-Pzgt man Work Phone: 03-23-2021 10:38-0500 Body weight 96.16 kg Referring Provider Unknown YG-Ichxdwxvdnnntd-Vtst man Work Phone: Encounters Encounter Date Encounter [...] Available Start: 09-28-2021 End: 09-28-2021 ambulatory Davi Martinez Other [facility] Other Start: 09-28-2021 Telephone encounter Davi LOWERY [facility] Start: 05-04-2021 End: 05-04-2021 ambulatory Davi Martinez Other [facility] Other Start: 05-04-2021 Office outpatient ne w 45 minutes Davi Martinez [facility] G[facility] Start: 04-06-2021 Patient encounter procedure No PCP None [facility] [address] [place] Work Phone: Start: 03-23-2021 FQ[facility] visit new patient No PCP None KW-Tvzqmfcip-Ggyjavp 3300A Work Phone: Start: 03-23-2021 Patient encounter procedure No PCP None JN-Ouuwrtruntnswj-Ctwsftk Voice Work Phone: Start: 03-23-2021 Office consultation new/estab patient 60 min Referring Provider Unknown AW-Pehplbplkwzsab-Xprzspa Work Phone: Start: 11-18-2019 End: 11-19-2019 Patient encounter procedure BEBO ENRIQUEZ Facility:[facility] Start: 10-20-2019 End: 10-21-2019 Patient encounter procedure BEBO ENRIQUEZ Facility:[facility] Start: 04-22-2019 End: 04-23-2019 Patient encounter procedure BEBO ENRIQUEZ Facility:[facility] Start: 04-09-2019 End: 04-10-2019 Patient encounter procedure EDMOND EDWARDS Facility:[facility] Start: 03-04-2019 End: 03-05-2019 Patient encounter procedure BEBO ENRIQUEZ Facility:[facility] Start: 01-28-2019 End: 01-29-2019 Patient encounter procedure BEBO ENRIQUEZ Facility:[facility] Start: 01-07-2019 End: 01-08-2019 Patient encounter procedure BEBO ENRIQUEZ Facility:[facility] Start: 01-06-2019 Encounter for other preprocedural examination BEBO ENRIQUEZ [facility] Start: 12-23-2018 End: 12-24-2018 Patient encounter procedure KAT CAMERON Facility:[facility] Start: 12-07-2018 End: 12-11-2018 Evaluation and management of inpatient JOSETTE VEGA Facility:[facility] Start: 12-03-2018 End: 12-04-2018 Patient encounter procedure BEBO ENRIQUEZ Facility:[facility] Start: 07-30-2017 End: 08-01-2017 Ambulatory FILIPPOD Crescencio LEE [facility] Start: 02-18-2017 Ambulatory BEVERLY LEWIS [facility] Procedures Date Procedure Procedure Detail Performing Clinician Start: 04-09-2019 ANESTH ABDOMINAL WALL SURG DOUG BLOCK Start: 04-09-2019 EXC SKIN ABD EDMOND STARK Start: 04-09-2019 EXC SKIN ABD ADD-ON AND REW GRACE Start: 12-08-2018 End: 12-08-2018 Microscopic examination of blood, culture BEBO ENRIQUEZ Comment on above: Performed By: #### P REG #### [facility] [address] [address] Bee Jordan Start: 12-04-2018 Reposition Right Fib lázaro with Internal Fixation Device, Open Approach BEBO ENRIQUEZ H/O: surgery Davi elizabeth Other Plan of Treatment Date Care Activity Detail Author Start: 04-06-2021 JAMES, Provider : Maddy Echeverria, Status: Pen, Time: 4:00 PM JAMES, Provider: Maddy Echeverria, Status: Pen, Time: 4:[address]-Pnymejbol-Jncihmj 3300[address] Work Phone: Immunizations Immunization Date Immunization Notes Care Provider Fa cility 09-05-2020 Moderna COVID-19 Vaccine 100 MCG/0.5ML Intramuscular Suspension Referring Provider Unknown UM-Usrvvyqnohozko-Fe idman Work Phone: 08-10-2020 Moderna COVID-19 Vaccine 100 MCG/0.5ML Intramuscular Suspension Referring Provider Unknown HZ-Lymonqkilefahu-Td idman Work Phone: 03-11-2019 influenza, injectable, quadrivalent, contains preservative Referring Provider Unknown NQ-Vkybutvujhnoyj-Ii idman Work Phone: 03-11-2019 influenza, injectable,quadrivale nt, preservative free, pediatric Davi Martinez Other [facility] Other 02-14-2018 influenza, injectable, quadrivalent, preservative free Referring Provider Unknown II-Shxoyosxccilve-Ri idman Work Phone: 03-01-2017 influenza, injectable,quadrivale nt, preservative free, pediatric Davi Martinez Other [facility] Other 03-01-2017 influenza, injectable, quadrivalent, preservative free Referring Provider Unknown CY-Tiumslnzgtecka-Rn idman Work Phone: 02-08-2016 influenza, injectable, quadrivalent, preservative free Referring Provider Unknown CZ-Voekaiicvspzfr-Bd Haofangtong Work Phone: 02-04-2015 influenza, high dose seasonal, preservative-free Davi Martinez Other [facility] Other 02-04-2015 influenza virus vaccine, whole virus Referring Provider Unknown IQ-Ltokpmffbbliht-Ld idPictureHealing Work Phone: 10-23-2014 measles, mumps and rubella virus vaccine Davi Hamlinack Other [facility] Other 10-22-2014 measles, mumps and rubella virus vaccine Referring Provider Unknown YA-Iqpqglmhcyombw-Ca [facility] Work Phone: 10-05-2014 tetanus toxoid, reduced diphtheria toxoid, and acellular pertussis vaccine, adsorbed Referring Provider Unknown TP-Mqyytkvscnbsrk-Tz [facility]aling Work Phone: 02-24-2014 tetanus toxoid, reduced diphtheria toxoid, and acellular pertussis vaccine, adsorbed Referring Provider Unknown GU-Uwcmadcdwcdfib-Un Haofangtong Work Phone: 02-21-2014 influenza, seasonal, injectable Referring Provider Unknown GT-Qknvbeybwghjvj-Xp Haofangtong Work Phone: 1975 measles, mumps and rubella virus vaccine Davi Juan Other [facility] Other NEGATED: Highlighted row has not occurred!02-18-2012 TDap [employer] Davi Juan Other [facility] Other Payers Date Payer Category Payer Unknown [id number] 1975 Unknown [id number] [id number] 1975 Unknown [id number] 2.16.840.1.940326.3.579.2.593 1975 Unknown [id number] 2.16.840.1.110763.3.579.2.593 1975 Unknown [id number] 2.16.840.1.488833.3.579.2.593 1975 Unknown [id number] 2.16.840.1.124858.3.579.2.593 1975 Unknown [id number] 2.16.840.1.941056.3.579.2.593 1975 Unknown [id number] 2.16.840.1.241788.3.579.2.593 1975 Unknown [id number] 2.16.840.1.309697.3.579.2.593 1975 Unknown [id number] 2.16.840.1.018330.3.579.2.593 1975 Unknown [id number] 2.16.840.1.598472.3.579.2.727 1975 Unknown [id number] 2.16.840.1.086747.3.579.2.1259 1975 Unknown [id number] 2.16.840.1.223995.3.579.2.1259 1975 Unknown [id number] 2.16.840.1.495339.3.579.2.1259 1975 Unknown [id number] 2.16.840.1.615710.3.579.2.1259 1959 Unknown [id number] Unknown [facility] Social History Date Type Detail Facility Non-smoker Non-smoker MG-Otolaryngolo lexi-Site Tour Work Phone: Sex Assigned At Sex Assigned At Bir th [facility] Other Evaluation note 09-28-2021 Note Date & Type Note Facility 09-28-2021 Evaluation note Encounter Date Diagnosis Assessment Notes September, Slow transit constipation (ICD-10 - K59.01) [facility] Other Clinical Note 09-04-2021 Note Date & Type Note Facility 09-04-2021 Note HISTORY: Seizures, p rior history of shunt PROCEDURE: Perfect Escapes HDXT 1.5. Sagittal coronal and axial T1 [...] signed by Sammy Savage on 09/04/2021 [address] [facility] Evaluation note 05-04-2021 Note Date & Type Note Facility 05-04-2021 Evaluation note Encounter Date Diagnosis Assessment Notes Apr, Slow transit constipation (ICD-10 - K59.01) PATIENT DOES NOT TAKE ANY MEDICATIONS WILL START THE ABOVE MEDICATION. Apr, Abdominal pain (ICD-10 - R10.9) WILL HAVE THIS WHEN BOWELS DO NO MOVE Apr, Heartburn (ICD-10 - R12) DOES NOT TAKE ANY MEDICATION [facility] Other History general Narrative - Reported Note [...] not wanting to kill self .Hospitalized in [facility] Hospitalization History In [facility] unit on two occasions. Hospitalization History [facility]- Stomach Problems 1 06/10/18 [facility] Other History of Present illness Narrative Note [...] inserted. 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 She denies otalgia, otorrhea, tinnitus, dizziness, [...] verbalize recall / understanding and teaching complete. SJ-Cbhssatot-Homgnmq 3300[address] Work Phone: History of Present illness [...] 4Treatment recommendations: treatment indicated (see goals below) SU-Andipvamzwpsau-Lbaxguo Voice Work Phone: Summary Purpose Family History [...] section and content) DATE CREATED AUTHOR 10/24/2017 [facility] DATE CREATED AUTHOR AUTHOR'S ORGANIZ ATION 04/17/2019 [facility] DATE CREATED AUTHOR AUTHOR'S ORGANIZ ATION 11/28/2019 [facility] DATE CREATED AUTHOR AUTHOR'S ORGANIZ ATION 07/12/2020 [facility] DATE CREATED AUTHOR AUTHOR'S ORGANIZ ATION 04/08/2021 [facility] DATE CREATED AUTHOR AUTHOR'S ORGANIZ ATION 01/12/2022 [facility] DATE CREATED AUTHOR AUTHOR'S ORGANIZ ATION 04/18/2023 [facility] DATE CREATED AUTHOR AUTHOR'S ORGANIZ ATION 04/26/2023 [facility]ists EPIC REASON FOR VISIT (unrecogniz [...] BE BASED ON THE PRIMARY CLINICAL RECORDS. [facility]. provides no warranty or guarantee of the accuracy or completeness of information in this document.
== END 2023-05-28 10:19 | disposition home or self-care (01) ==
LOC: RAD 10:19
PROVIDERS: PCP Family Medicine; Visit Provider Podiatrist Foot & Ankle Surgery
DX: M25.571 Pain in right ankle and joints of right foot (principal)
CPT/HCPCS: 73610; 73630

== ENCOUNTER 2023-11-15 08:11 | Outpatient (OUT) | payer MEDICAID, SELFPAY ==
--- NOTE | 2023-11-15 09:04 | XR_ITS ---
The [address] [address] Patient Name: KAREN SAAVEDRA MRN: [id number] date: 1975 Sex: F Assigned Patient Location: [facility] Current Patient Location: [facility] Accession/Order Number: [id number] Exam Date: 11/15/2023 10:04 Report Date: 11/15/2023 10:57 At the request of: ZOIE DANIEL Procedure: XR chest 2V EXAMINATION: XR chest 2V HISTORY: Preop exam COMPARISON: 11/15/2014 TECHNIQUE: PA and lateral FINDINGS: LUNGS: No significant pulmonary parenchymal abnormalities. VASCULATURE: No increased pulmonary vasculature. PLEURA: No pneumothorax, effusion, or pleural thickening. CARDIAC: No cardiomegaly or cardiac silhouette abnormality. MEDIASTINUM: No visible mass or adenopathy. BONES: No fracture or visible bone lesion. OTHER: Negative. XR/XR chest 2V IMPRESSION: No acute radiographic abnormality Electronically authenticated by: LISSETT LEYVA Date: 11/15/2023 10:57
--- NOTE | 2023-11-15 09:04 | ECG_ITS ---
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
--- NOTE | 2023-11-15 10:04 | PM.PRESUREVA ---
History of Present Illness History of Present Illness Chief complaint: ureteral stone with hydronephrosis Narrative: Patient presents for preadmission testing. Please see HPI from Dr. Ferrer Dated November 13, 2023. Review of Systems ROS Narrative REVIEW OF SYSTEMS: Constitutional: No fever, chills, weakness ENT: No sore throat or epistaxis Cardiovascular: Admits to chest pain intermittently at rest and with activity Respiratory: Chronic shortness of breath and wheezing Musculoskeletal: No joint pain or swelling Gastrointestinal: No abdominal pain, constipation, diarrhea, or vomiting Genitourinary: No dysuria or hematuria Neurological: No numbness, tingling, or weakness Psychiatric: No mood changes [facility]SH [facility] Medical History (Updated 11/15/23 @ 10:07 by Gaby Conley NP) Hypothyroidism (acquired) ?E03.9 - Hypothyroidism, unspecified (ICD-10) Hypoglycemia ?E16.2 - Hypoglycemia, unspecified (ICD-10) Hyperlipidemia ?E78.5 - Hyperlipidemia, unspecified (ICD-10) Sleep apnea ?G47.30 - Sleep apnea, unspecified (ICD-10) Hydronephrosis ?N13.30 - Unspecified hydronephrosis (ICD-10) Ureteral stone ?N20.1 - Calculus of ureter (ICD-10) Anemia ?D64.9 - Anemia, unspecified (ICD-10) Hypertension ?I10 - Essential (primary) hypertension (ICD-10) COPD (chronic obstructive pulmonary disease) ?J44.9 - Chronic obstructive pulmonary disease, unspecified (ICD-10) Chronic renal disease ?N18.9 - Chronic kidney disease, unspecified (ICD-10) Diabetes ?E11.9 - Type 2 diabetes mellitus without complications (ICD-10) Strain of right peroneal muscle or tendon ?S86.311A - Strain of muscle(s) and tendon(s) of peroneal muscle group at lower leg level, right leg, initial encounter (ICD-10) Ankle instability ?M25.373 - Other instability, unspecified ankle (ICD-10) Displaced trimalleolar fracture ?S82.853A - Displaced trimalleolar fracture of unspecified lower leg, initial encounter for closed fracture (ICD-10) Painful orthopaedic hardware ?T84.84XA - Pain due to internal orthopedic prosthetic devices, implants and grafts, initial encounter (ICD-10) Other specified joint disorders, right ankle and foot ?M25.871 - Other specified joint disorders, right ankle and foot (ICD-10) Pseudotumor cerebri ?G93.2 - Benign intracranial hypertension (ICD-10) Presence of lumboperitoneal shunt ?Z98.2 - Presence of cerebrospinal fluid drainage device (ICD-10) Deep vein thrombosis ?I82.409 - Acute embolism and thrombosis of unspecified deep veins of unspecified lower extremity (ICD-10) Depression ?F32.A - Depression, unspecified (ICD-10) Anxiety ?F41.9 - Anxiety disorder, unspecified (ICD-10) COVID-19 ?U07.1 - COVID-19 (ICD-10) Seasonal allergies ?J30.2 - Other seasonal allergic rhinitis (ICD-10) Reactive airway disease ?J45.909 - Unspecified asthma, uncomplicated (ICD-10) Migraine ?G43.909 - Migraine, unspecified, not intractable, without status migrainosus (ICD-10) Vertigo ?R42 - Dizziness and giddiness (ICD-10) Seizures ?R56.9 - Unspecified convulsions (ICD-10) Kidney stones ?N20.0 - Calculus of kidney (ICD-10) IBS (irritable bowel syndrome) ?K58.9 - Irritable bowel syndrome without diarrhea (ICD-10) Surgical History (Updated 11/15/23 @ 09:21 by Gaby Conley NP) History of ankle surgery (05/13/23) ?Z98.890 - Other specified postprocedural states (ICD-10) Status post lumboperitoneal shunt placement ?Z98.2 - Presence of cerebrospinal fluid drainage device (ICD-10) History of appendectomy (01/2023) ?Z90.49 - Acquired absence of other specified parts of digestive tract (ICD-10) History of tonsillectomy ?Z90.89 - Acquired absence of other organs (ICD-10) History of ankle surgery ?Z98.890 - Other specified postprocedural states (ICD-10) Family History (Updated 05/01/23 @ 10:10 by Gaby Conley NP) Other Family history of cervical cancer Family history of hypertension Family history of leukemia Social History (Updated 05/01/23 @ 10:02 by Gaby Conley NP) Within the past year, how often did you have a drink containing alcohol: never Score interpretation: A score less than 3 is consistent with normal alcohol consumption. 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 Highest level of school completed/degree received: some college, no degree Gender Identity: female Meds Home Medications and Allergies Home Medications ?Medication ?Instructions ?Recorded ?Confirmed ?Type albuterol sulfate 2.5 mg/3 mL 2.5 mg inhalation Q6H PRN 05/01/23 11/15/23 History (0.083 %) solution for nebulization shortness of breath or wheezing albuterol sulfate 90 mcg/actuation 2 puff inhalation Q6H PRN 05/01/23 11/15/23 History aerosol inhaler shortness of breath or wheezing atogepant 60 mg tablet (Qulipta) 60 mg PO DAILY 05/01/23 11/15/23 History biotin 10,000 mcg capsule 10,000 mcg PO DAILY 05/01/23 11/15/23 History budesonide-formoterol HFA 160 2 inh inhalation Q12H 05/01/23 11/15/23 History mcg-4.5 mcg/actuation aerosol inhaler (Symbicort) calcium carbonate 500 mg-vitamin 1 tab PO BID 05/01/23 11/15/23 History D3 5 mcg (200 unit) tablet (Oyster Shell Calcium-Vitamin D3) cholecalciferol (vitamin D3) 50 50 mcg PO BID 05/01/23 11/15/23 History mcg (2,000 unit) capsule famotidine 20 mg tablet 20 mg PO QPM 05/01/23 11/15/23 History ibuprofen 600 mg tablet 600 mg PO TID 05/01/23 11/15/23 History linaclotide 290 mcg capsule 290 mcg PO DAILY 05/01/23 11/15/23 History (Linzess) multivitamin-ferrous 1 tab PO BID 05/01/23 11/15/23 History fumarate-folic acid 18 mg-400 mcg tablet (Tab-A-Tracey Multivitamin w-iron) plecanatide 3 mg tablet (Trulance) 3 mg PO DAILY 05/01/23 11/15/23 History rimegepant 75 mg disintegrating 75 mg PO .QOD 05/01/23 11/15/23 History tablet (Nurtec ODT) ondansetron 4 mg disintegrating 4 mg PO Q8H PRN nausea and 05/14/23 11/15/23 Rx tablet vomiting 5 days #15 tabs cyanocobalamin (vitamin B-12) 1,000 mcg PO DAILY 11/15/23 11/15/23 History 1,000 mcg tablet mupirocin calcium 2 % topical cream applic topical DAILY 11/15/23 History omeprazole 20 mg capsule,delayed 20 mg PO DAILY 11/15/23 11/15/23 History release Allergies Allergy/AdvReac Type Severity Reaction Status Date / Time meclizine [From Antivert] AdvReac Mild lethargic Verified 11/15/23 09:26 Exam Narrative Exam Narrative: Constitutional: Awake, alert, comfortable, well-appearing, nontoxic, interactive, vital signs as charted Head: Normocephalic, atraumatic Neck: Supple, normal appearance, normal range of motion, no meningeal signs, no lymphadenopathy Respiratory: No respiratory distress, breath sounds clear Cardiovascular: Regular rate and rhythm, strong and regular heart tones Abdomen: Nontender, normal bowel sounds, soft, bilateral CVA tenderness Musculoskeletal: Normal gait, no swelling or edema Skin: No rashes or induration, no lesions, only visible skin inspected Neuro: No neurological deficits, normal sensation Psychiatric: Oriented ?3, flat affect Assessment and Plan Assessment and Plan (1) Ureteral stone: (2) Hydronephrosis: Plan Cystoscopy, right ureteroscopy, laser lithotripsy, possible right stent placement scheduled with Dr. Ferrer November 20, 2023.
[2023-11-15 10:11] LABS: Basophils Percent Auto 0.3 % (0.2-2.0); Eosinophils Absolute Auto 0.1 10^3/uL (0.0-0.7); Hematocrit 39.1 % (36.0-48.0); Hemoglobin 12.6 g/dL (12.0-16.0); Immature Granulocytes Abs Auto 0.02 10^3/uL (0.00-0.03); Immature Granulocytes Pct Auto 0.3 % (0.0-0.5); Lymphocytes Absolute Auto 2.4 10^3/uL (1.2-3.8); Mean Corpuscular HGB Conc 32.2 g/dL (29.9-35.2); Mean Corpuscular Hemoglobin 30.4 pg (26.7-34.0); Mean Corpuscular Volume 94.2 fL (81.0-99.0); Mean Platelet Volume 9.6 fL (9.5-13.5); Monocytes Absolute Auto 0.5 10^3/uL (0.3-0.8); Monocytes Percent Auto 6.6 % (1.7-12.0); Neutrophils Absolute Auto 4.9 10^3/uL (1.4-6.5); Neutrophils Percent Auto 61.8 % (43.0-75.0); Platelet Count 253 10^3/uL (150-450); Red Blood Count 4.15 10^6/uL (4.20-5.40); White Blood Count 7.9 10^3/uL (4.0-11.0)
[2023-11-15 10:50] LABS: Anion Gap 14.2; Carbon Dioxide 25.7 mmol/L (21.0-32.0); Chloride 104 mmol/L (98-107); Estimated GFR (African America >60 (>=60); Estimated GFR (Non-African Ame 60 (>=60); Glucose 74 mg/dL (74-106); Potassium 3.9 mmol/L (3.5-5.1); Sodium 140 mmol/L (136-145)
[2023-11-15 12:34] LABS: Bilirubin Urine NEGATIVE (NEGATIVE); Blood Urine NEGATIVE (NEGATIVE); Clarity Urine CLEAR (CLEAR); Color Urine LT. YELLOW (YELLOW); Glucose Urine UA NEGATIVE (NEGATIVE); Ketones Urine NEGATIVE (NEGATIVE); Leukocyte Esterase Urine SMALL (NEGATIVE); Nitrite Urine NEGATIVE (NEGATIVE); Protein Urine NEGATIVE (NEG/TRACE); Urobilinogen Urine 0.2 EU/dL (0.2-1.0)
[2023-11-15 12:36] LABS: Urine Microscopic Indicated YES
[2023-11-15 12:54] LABS: Bacteria Urine TRACE #/HPF (NONE SEEN); Cast Seen? NONE SEEN #/LPF (NONE SEEN); Crystals Seen? None Seen #/HPF (None Seen); Mucus Urine TRACE (NONE SEEN); RBC Urine 0-2 #/HPF (0-2); Squamous Epithelial Cell Urine FEW #/LPF (NONE/RARE); Urine Culture Indicated YES
== END 2023-11-15 08:12 | disposition home or self-care (01) ==
PROVIDERS: PCP Family Medicine; Visit Provider Urology
DX: Z01.810 Encounter for preprocedural cardiovascular examination (principal); Z01.812 Encounter for preprocedural laboratory examination; N13.2 Hydronephrosis with renal and ureteral calculous obstruction; E78.5 Hyperlipidemia, unspecified; E16.2 Hypoglycemia, unspecified; E03.9 Hypothyroidism, unspecified; G47.30 Sleep apnea, unspecified
CPT/HCPCS: 71046; 80048; 81001; 85025; 85610; 85730; 87086; 93005; G0463

== ENCOUNTER 2023-11-20 10:56 | Day surgery (SDC) | payer MEDICAID, SELFPAY ==
[2023-11-15 09:56] VITALS: BP 126/79; PULSE 63; TEMP 36.3; O2SAT 97; BMI 36.8
[2023-11-20] VITALS (97 sets, daily range): BP systolic 119–147; BP diastolic 74–100; PULSE 61–92; TEMP 36.2–36.9; O2SAT 92–100; BMI 36.2
--- OUTSIDE RECORDS SUMMARY | 2023-11-20 11:16 | XMS_ITS | CCD ---
Author Organization [facility] Care Team Providers Care Counter Stitcher Name Role Phone BEVERLY LEWIS Unavailable Unavailable JOHN GARCIA Unavailable Unavailable SONNY HI Unavailable Unavailab EDMOND Ferrari Admitting Unavailable EDMOND PARKER Attending Unavailable ANDREWJOSETTE Referring Unavailable ANDREW, JOSETTE Primary Care Unavailable [place] Procedure Practitioner Unavailab EDMOND Ferrari Surgeon Unavailable [place] Procedure Practitioner Unavailab DOUG Whitt Surgeon Unavailable BEBO ENRIQUEZ Admitting Unavailable ZOE, BEBO Attending Unavailable ALAYNA POSADAS Consulting Unavailable BEBO ENRIQUEZ Consulting Unavailable JOSETTE VEGA Primary Care Unavailable DAKSHA MCKEON Admitting Unavailable DAKSHA MCKEON Attending Unavailable DAKSHA MCKEON Consulting Unavailable ALAYNA POSADAS Consulting Unavailable SAM ROSS Consulting Unavailable BEBO ENRIQUEZ Procedure Practitioner Unavail able BEBO ENRIQUEZ Consulting Unavailable REBA PALACIOS Consulting Unavailable FOZIA CH Consulting Unavailable KAT CAMERON Admitting Unavailable KAT CAMERON Attending Unavailable ALAYNA POSADAS Consulting Unavailable KAT CAMERON Consulting Unavailable BEBO ENRIQUEZ Admitting Unavailable ZOE, BEBO Attending Unavailable ALAYNA POSADAS Consulting Unavailable BEBO ENRIQUEZ Consulting Unavailable BEBO ENRIQUEZ Admitting Unavailable ZOE, BEBO Attending Unavailable LISSETT ST V Consulting Unavailable BEBO ENRIQUEZ Consulting Unavailable BEBO ENRIQUEZ Admitting Unavailable ZOE, BEBO Attending Unavailable ALAYNA POSADAS Consulting Unavailable BEBO ENRIQUEZ Consulting Unavailable BEBO ENRIQUEZ Admitting Unavailable ZOE, BEBO Attending Unavailable LISSETT ST V Consulting Unavailable BEBO ENRIQUEZ Consulting Unavailable BEBO ENRIQUEZ Admitting Unavailable ZOE, BEBO Attending Unavailable BEBO ENRIQUEZ Consulting Unavailable Linden Rojas Consulting Unavailable BEBO ENRIQUEZ Admitting Unavailable ZOE, BEBO Attending Unavailable LISSETT ST V Consulting Unavailable BEBO ENRIQUEZ Consulting Unavailable Unknown, Referring Provider Unavailable Unav ailable None, No PCP Unavailable Unavailable Davi Martinez Unavailable ALEX BURRIS Attending Unavailab JOSETTE Bragg Attending Unavailable SURESH THAO Attending Unavailab JAMES Hart Attending Unavailable SURESH THAO Referring Unavailab ALEX Payne Attending Unavailab kelle VEGA JOSETTE Ya Primary Care Unavailable BRENNEN MCCRACKEN Attending Unavailable BRENNEN MCCRACKEN Attending Unavailable BRENNEN MCCRACKEN Referring Unavailable ANDREW JOSETTE Ya Primary Care Unavailable SKYLAR FERRER Referring Unavailable ANDREW JOSETTE Ya Primary Care Unavailable SKYLAR FERRER Referring Unavailable ANDREW JOSETTE Ya Primary Care Unavailable Skylar Ferrer. Attending Unavailable SURESH THAO. Referring Unavaila ble Allergies Allergy Classification Reported Allergen(s) Allergy Type Date of Onset Reaction(s) Facility (8 sources) meclizine; Translations: [MECLIZINE] Drug Allergy 3 Fatigue (finding) [facility] Repository (1 source) Meclizine; Translations: [Unknown] Drug Allergy 9 [facility] Repository (4 sources) Meclizine; Translations: [Antivert TABS] Drug Allergy MG-Otolaryngol Martha Work Phone: Medications Current Medications Medication Drug [...] 0 Refills: 0 Ordered: 23-Mar-2021 DO Active Albuterol (Eqv-Ventolin HFA) 90 mcg/inh inhalation aerosol (1 source) Start: 11-13-2023 Albuterol (Eqv-Ventolin HFA) 90 mcg/inh inhalation aerosol Refill(s) 0 Start Date: 11/13/23 Status: Ordered atogepant 60 MG Oral Tablet [Qulipta] (1 source) Start: 11-13-2023 take 1 mg by mouth once daily Qulipta 60 mg oral tablet mg tab(s), Oral, Daily, Refills(s) 0 Start Date: 11/13/23 Status: Ordered 120 actuat budesonide 0.16 mg/actuat / formoterol fumarate 0.0045 mg/actuat metered dose inhaler (6 sources) Corticosteroid, beta2-Adrenergi c Agonist Symbicort 160-4.5 MCG/ACT 2 puffs Twice a day Inhalation 90 days orally bid for 90 days Active Symbicort 160-4. 5 MCG/ACT Inhalation Aerosol Quantity: 0 Refills: 0 Ordered: 23-Mar-2021 DO Active Daily Tracey - (2 sources) take 1 tablet by mouth once daily Daily Tracey - TAKE 1 TABLET BY MOUTH EVERY DAY Active famotidine 20 mg oral tablet (1 source) Histamine-2 Receptor Antagonist Start: take 1 mg by mouth twice daily Pepcid 20 mg Tab mg tab(s), Oral, BID, Refills(s) 0 Start Date: 11/13/23 Status: Ordered ferrous sulfate 325 mg oral tablet (2 [...] 0 Refills: 0 Ordered: 23-Mar-2021 DO Active Ibuprofen (1 source) Nonsteroidal Anti-inflammatory Drug Start: 11-13-2023 ibuprofen Refills(s) 0 Start Date: 11/13/23 Status: Ordered lactulose 667 mg/ml oral solution (3 sources) Osmotic Laxative Start: 11-13-2023 take 1 g by mouth once daily lactulose 10 g/15 mL Oral Syrup gm mL, Oral, Daily, Refills(s) 0 Start Date: 11/13/23 Status: Ordered Start: 05-04-2021 take 60 mL by mouth once daily Lactulose 10 GM/15ML 60 ml Orally Once a day for 30 days Apr, Active linaclotide 0.29 mg oral capsule (1 source) Guanylate Cyclase-C Agonist Start: 11-13-2023 take 1 ug by mouth once daily Linzess 290 mcg oral capsule mcg cap(s), Oral, Daily, Refills(s) 0 Start Date: 11/13/23 Status: Ordered methylPREDNISolone 4 mg oral tablet (2 sources) Corticosteroid Start: 11-11-2019 methylPREDNISolone 4 MG as directed Orally for 6 days Nov, Active Multivitamin preparation (1 source) Start: 11-13-2023 multivitamin Refill(s) 0 Start Date: 11/13/23 Status: Ordered Nebulizer/Tubing/Mouth piece - (2 sources) Start: 09-10-2019 Nebulizer/Tubing/Mout hpiece - as directed *please review for potential _update for e-prescription and drug interaction check* September, Active omeprazole 40 mg delayed release oral capsule (1 source) Proton Pump Inhibitor Start: 11-13-2023 take 1 mg by mouth once daily omeprazole 40 mg Cap-DR mg cap(s), Oral, Daily, Refills(s) 0 Start Date: 11/13/23 Status: Ordered ondansetron 4 mg oral tablet (1 source) Serotonin-3 Receptor Antagonist Start: 11-13-2023 ondansetron 4 mg Tab Refills(s) 0 Start Date: 11/13/23 Status: Ordered Oyster Shell Calcium 500 + D 500-200 (2 sources) take 1 tablet by mouth twice daily Oyster Shell Calcium 500 + D 500-200 1 tablet orally two times daily *please review for potential _update for e-prescription and drug interaction check* Active Oyster Shell Calcium with Vitamin D 500 mg-200 intl units oral tablet (1 source) Start: 11-13-2023 take 1 tablet by mouth twice daily Oyster Shell Calcium with Vitamin D 500 mg-200 intl units oral tablet TAKE 1 TABLET BY MOUTH TWICE DAILY Start Date: 11/13/23 Status: Ordered plecanatide 3 mg oral tablet (1 source) Start: 11-13-2023 Trulance 3 mg oral tablet Refills(s) 0 Start Date: 11/13/23 Status: Ordered predniSONE 20 mg oral tablet (2 sources) [...] Active rimegepant 75 mg disintegrating oral tablet (7 sources) Start: 11-13-2023 take 1 mg by mouth once Nurtec ODT 75 mg oral tablet, disintegrating mg tab(s), Oral, Once, Refills(s) 0 Start Date: 11/13/23 Status: Ordered Start: 11-11-2019 Nurtec 75 MG 1 tab [...] e-prescription and drug interaction check* Oct, Active Symbicort 160/4.5 inhalation aerosol with adapter (1 source) Start: 11-13-2023 take 2 puff(s) by mouth at bedtime Symbicort 160/4.5 inhalation aerosol with adapter INHALE 2 PUFFS BY MOUTH IN THE MORNING AND BEFORE BEDTIME *RINSE MOUTH WITH WATER TO REDUCE AFTERTASTE AND INCIDENCE OF CANDIDIASIS DO NOT SWALLOW* Start Date: 11/13/23 Status: Ordered Completed/Discontinued Medications Medication Drug Class(es) Dates Sig [...] Ordered: 23-Mar-2021 DO Active polyethylene glycol 3350 20064 mg powder for oral solution (4 sources) Osmotic Laxative MiraLax 17 GM O ral Packet Quantity: 0 Refills: 0 Ordered: 23-Mar-2021 DO Active Vitamin D TABS (4 sources) Vitamin D TABS Q uantity: 0 Refills: 0 Ordered: 23-Mar-2021 DO Active Problems Active Problems Problem Classification Problem Date Documented Da te Episodic/Chronic Abdominal pain (5 sources) Unspecified abdominal pain; Translations: [Flank pain] Onset: 1 Resolved: 1 Episodic Adjustment disorders (3 sources) Stress; Translations: [Reaction to severe stress, unspecified] Onset: 5 11-06-2023 Chronic Adverse effects of medical drugs (1 source) Adverse effect of antiasthmatics, initial encounter; Translations: [ADVERSE EFF ANTIASTHMATICS INIT ENC] Onset: 9 Allergic reactions (4 sources) Atopic dermatitis; Translations: [Atopic dermatitis, unspecified] Onset: 0 11-06-2023 Chronic Anxiety disorders (9 sources) Generalized anxiety disorder; Translations: [Anxiety] Onset: 9 11-06-2023 Chronic Asthma (7 sources) Mild persistent asthma with (acute) exacerbation; Translations: [Moderate persistent asthma] Onset: 8 11-06-2023 Chronic Calculus of urinary tract (2 sources) Calculus of kidney; Translations: [Kidney stone] Onset: 4 11-06-2023 Episodic Chronic kidney disease (3 sources) Chronic kidney disease stage 3; Translations: [Chronic kidney disease, stage 3 (moderate)] Onset: 3 11-06-2023 Chronic Chronic obstructive pulmonary disease and bronchiectasis (3 sources) Chronic obstructive lung disease; Translations: [Chronic obstructive pulmonary disease, unspecified] Onset: 7 11-06-2023 Chronic Chronic ulcer of skin (1 source) Ulcer of thigh Onset: 2 11-06-2023 Chronic Conditions associated with dizziness or vertigo (1 source) Vertigo 11-06-2023 Episodic Deficiency and other anemia (2 sources) Iron deficiency anemia due to blood loss; Translations: [Iron deficiency anemia secondary to blood loss (chronic)] Chronic Deficiency and other anemia (3 sources) Iron deficiency anemia; Translations: [Iron deficiency anemia, unspecified] 11-06-2023 Episodic Diabetes mellitus without complication (7 sources) Type 2 diabetes mellitus without complications; Translations: [Type 2 diabetes mellitus without complication] Onset: 6 11-06-2023 Chronic Disorders of lipid metabolism (7 sources) Hyperlipidemia; Translations: [Hyperlipidemia, unspecified] Onset: 5 11-06-2023 Chronic Esophageal disorders (4 sources) Gastroesophageal reflux disease; Translations: [Gastro-esophageal reflux disease without esophagitis] Onset: 1 11-06-2023 Chronic Essential hypertension (1 source) Hypertensive disorder Onset: 3 11-06-2023 Chronic External cause codes: Overexertion (1 source) Slipping, tripping and stumbling without falling, unspecified, initial encounter; Translations: [SLIP TRIP STUMBL NO FALL UNS INIT] Onset: 9 Gastritis and duodenitis (3 sources) Chronic gastritis; Translations: [Unspecified chronic gastritis without bleeding] Onset: 3 11-06-2023 Chronic Headache; including migraine (7 sources) Migraine, unspecified, not intractable, without status migrainosus; Translations: [Refractory migraine without aura] Onset: 9 Chronic Menstrual disorders (11 sources) Break-through bleeding; Translations: [Excessive and frequent menstruation with irregular cycle] Onset: 9 11-06-2023 Chronic Mood disorders (10 sources) Depressive disorder; Translations: [Major depressive disorder, single episode, unspecified] Onset: 5 11-06-2023 Chronic Nutritional deficiencies (4 sources) Mild protein-calorie malnutrition; Translations: [Vitamin D deficiency] Onset: 5 11-06-2023 Chronic Other aftercare (1 source) 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; Translations: [[facility] USE ORAL HYPOGLYCEMIC DX] Onset: 9 Other congenital anomalies (1 source) Tubular breast Onset: 7 11-06-2023 Chronic Comment on above: Outside Source Comme nt: Overview: Added automatically from request for surgery [id number] Other connective tissue disease (1 source) Pain in right foot; Translations: [PAIN IN RIGHT FOOT] Onset: 0 Episodic Other connective tissue disease (2 sources) Spasm of cervical paraspinous muscle; Translations: [Other muscle spasm] Episodic Other diseases of kidney and ureters (1 source) Urinary tract obstruction; Translations: [Hydronephrosis with renal and ureteral calculous obstruction] Onset: 4 Episodic Other ear and sense organ disorders (4 sources) Sensorineural hearing loss, bilateral; Translations: [Sensorineural hearing loss, bilateral] Onset: 3 11-06-2023 Chronic Other ear and sense organ disorders (3 sources) Conductive hearing loss, bilateral; Translations: [Conductive hearing loss, bilateral] 11-06-2023 Chronic Other ear and sense organ disorders (1 source) Bilateral hearing loss Onset: 8 11-06-2023 Chronic Other endocrine disorders (2 sources) Polycystic ovaries; Translations: [Polycystic ovarian syndrome] Chronic Other endocrine disorders (1 source) Hypoglycemia Onset: 3 11-06-2023 Chronic Other endocrine disorders (1 source) Polycystic ovary syndrome Onset: 3 11-06-2023 Chronic Other female genital disorders (2 sources) Dysfunctional uterine bleeding; Translations: [Other specified abnormal uterine and vaginal bleeding] Chronic Other female genital disorders (1 source) Abnormal uterine bleeding Onset: 3 11-06-2023 Chronic Other female genital disorders (1 source) Abnormal vaginal bleeding Onset: 8 11-06-2023 Chronic Other gastrointestinal disorders (4 sources) Intestinal malabsorption; Translations: [Intestinal malabsorption, unspecified] Chronic Other gastrointestinal disorders (1 source) Celiac disease Onset: 0 11-06-2023 Chronic Other gastrointestinal disorders (1 source) Irritable bowel syndrome Onset: 3 11-06-2023 Chronic Other gastrointestinal disorders (2 sources) History of bypass of stomach; Translations: [Bariatric surgery status] Episodic Other gastrointestinal disorders (4 sources) Slow transit constipation; Translations: [Slow transit constipation] Episodic Other liver diseases (1 source) Steatosis of liver Onset: 6 11-06-2023 Chronic Other lower respiratory disease (1 source) Acute respiratory distress; Translations: [ACUTE RESPIRATORY DISTRESS] Onset: 9 Other nervous system disorders (1 source) Benign intracranial hypertension; Translations: [BENIGN INTRACRANIAL HYPERTENSION] Onset: 9 Chronic Other nervous system disorders (5 sources) Benign intracranial hypertension; Translations: [Benign intracranial hypertension] Onset: 3 11-06-2023 Chronic Other nervous system disorders (2 sources) Chronic pain; Translations: [Other chronic pain] Chronic Other nervous system disorders (1 source) Carpal tunnel syndrome Onset: 1 11-06-2023 Chronic Other nervous system disorders (1 source) Ventricular shunt in situ Onset: 8 11-06-2023 Chronic Other non-traumatic joint disorders (4 sources) Pain [...] sources) Obesity; Translations: [Obesity, unspecified] Chronic Other nutritional; endocrine; and metabolic disorders (1 source) Excess panniculus of abdomen Onset: 7 11-06-2023 Chronic Comment on above: Outside Source Comme nt: Overview: Added automatically from request for surgery [id number] Other upper respiratory disease (2 sources) Allergic rhinitis; Translations: [Other allergic rhinitis] Chronic Other upper respiratory disease (2 sources) Perennial allergic rhinitis; Translations: [Other allergic rhinitis] Chronic Other upper respiratory disease (4 sources) Hoarse; Translations: [Dysphonia] Episodic Regional enteritis and ulcerative colitis (1 source) Crohn's disease of small intestine Onset: 3 11-06-2023 Chronic Residual codes; unclassified (3 sources) Obstructive sleep apnea syndrome; Translations: [Obstructive sleep apnea (adult) (pediatric)] Onset: 8 11-06-2023 Chronic Septicemia (except in labor) (1 source) Sepsis, unspecified organism; Translations: [SEPSIS UNSPECIFIED ORGANISM] Onset: 9 Spondylosis; intervertebral disc disorders; other back problems (2 sources) Neck pain; Translations: [Cervicalgia] Episodic Sprains and strains (1 source) Tendon injury - lower limb 11-06-2023 Episodic Thyroid disorders (3 sources) Hypothyroidism; Translations: [Hypothyroidism, unspecified] Onset: 11-06-2023 Chronic Unclassified (1 source) History of ankle surgery 11-06-2023 Unclassified (1 source) History of bypass of stomach 11-06-2023 Unclassified (1 source) Obstructive hydronephrosis 11-13-2023 Past or Other Problems Problem Classification Problem Date Documented Da te Episodic/Chronic Fracture of lower limb (3 sources) Displaced trimalleolar fracture of right lower leg, initial encounter for closed fracture; Translations: [Displaced trimalleolar fracture of right lower leg, subsequent encounter for closed fracture with routine healing] Onset: 01-06-2019 11-06-2023 Episodic Headache; including migraine (1 source) Headache Onset: 11-16-2022 11-06-2023 Episodic Mycoses (1 source) Candidal stomatitis; Translations: [CANDIDAL STOMATITIS] Onset: 01-06-2019 Episodic Other connective tissue disease (1 source) Fibromyositis Onset: 08-18-2012 11-06-2023 Episodic Other connective tissue disease (1 source) Myofascial pain syndrome Onset: 10-21-2017 11-06-2023 Episodic Other gastrointestinal disorders (1 source) Bariatric surgery status; Translations: [BARIATRIC SURGERY STATUS] Onset: 01-06-2019 Episodic Other gastrointestinal disorders (5 sources) Constipation; Translations: [Constipation, unspecified] Onset: 04-15-2018 11-06-2023 Episodic Other gastrointestinal disorders (2 sources) Slow transit constipation Onset: 05-04-2021 Resolved: 09-28-2021 Episodic Other gastrointestinal disorders (1 source) Heartburn Onset: 05-04-2021 Resolved: 05-04-2021 Episodic Other gastrointestinal disorders (1 source) Dysphagia Onset: 11-16-2022 11-06-2023 Episodic Other gastrointestinal disorders (1 source) Heartburn Onset: 05-04-2021 Resolved: 11-06-2023 11-06-2023 Episodic Other lower respiratory disease (1 source) Dyspnea Onset: 10-30-2018 11-06-2023 Episodic Other nervous system disorders (3 sources) Paresthesia; Translations: [Paresthesia of skin] Onset: 11-16-2022 11-06-2023 Episodic Ovarian cyst (1 source) Cyst of ovary Onset: 11-16-2022 11-06-2023 Episodic Phlebitis; thrombophlebitis and thromboembolism (3 sources) H/O: Deep vein thrombosis; Translations: [Personal history of other venous thrombosis and embolism] Onset: 01-18-2016 11-06-2023 Episodic Comment on above: Outside Source Comme nt: Overview: upper ext history of Pneumonia (except that caused by tuberculosis or [...] [ACQUIRED ABSENCE OVARIES BILATERAL] Onset: 01-06-2019 Episodic Residual codes; unclassified (5 sources) Insomnia; Translations: [Insomnia, unspecified] Onset: 03-08-2015 11-06-2023 Episodic Residual codes; unclassified (1 source) Chronic back pain Onset: 11-16-2022 11-06-2023 Episodic Residual codes; unclassified (1 source) Peripheral edema Onset: 01-18-2016 11-06-2023 Episodic Skin and subcutaneous tissue infections (1 source) Cellulitis of face Onset: 08-30-2018 11-06-2023 Episodic Urinary tract infections (1 source) Urinary tract infectious disease Onset: 07-08-2018 11-06-2023 Episodic Comment on above: Outside Source Comme nt: Overview: Recurrent cystitis FebruaryMarch 2018. CT scan negative for pathology. Her symptoms have resolved for her. Currently doing well. No further workup recommended unless she develops recurrent symptoms again Viral infection (5 sources) Plantar wart of right foot; Translations: [Plantar wart] Onset: 10-09-2018 11-06-2023 Episodic Results Test Name Value Interpretation Reference Range Facility US RETROPERITONEAL COMPLETEo n 11-09-2023 US RETROPERITONEAL COMPLETE US RETROPERITONEAL COMPLETE HISTORY: A 48-year-old female with the history of the kidney stones. Increase in urinary frequency. TECHNIQUE: Multiple real-time images of both kidneys and the urinary bladder are obtained. Color Doppler study is performed. COMPARISON: Comparison is made with the CT scan of the abdomen and pelvis of 10/01/2023. FINDINGS: Both kidneys are normal in position and configuration. Right kidney measures 11.4 x 5.2 x 5.5 cm. Right renal cortical thickness was a 0.8 cm. Left kidney measures 10.7 x 4.7 x 5.6 cm. Left renal cortical thickness measures 1.1 cm. There is a 3 mm echogenic focus in the inferior pole of the right kidney consistent with calculus. There is a mild degree of right-sided hydronephrosis and right renal fullness and measures 1.3 cm. No evidence of left-sided echogenic calculi or hydronephrosis. No evidence of cystic or solid renal mass. No perinephric fluid collection is seen. Calculated prevoid urinary bladder volume is 343 mL. Bilateral ureteric jets are visualized. No intraluminal abnormality seen. There is a moderate amount of post void residual urine and measures 67 mL. IMPRESSION: * A 3 mm calculus in the inferior pole of the right kidney. Mild degree of right-sided hydronephrosis. No evidence of left-sided hydronephrosis. * No evidence of cystic or solid renal mass. * Moderate amount of post void residual urine and measures 67 mL. Finalized by Placido Espino MD on 11/09/2023 11:28 AM Normal [facility] XR ABDOMEN AP 1 VWon 024 XR ABDOMEN AP 1 VW XR ABDOMEN AP 1 VW HISTORY: A 48-year-old female with the history of the kidney stones on both sides. Follow-up examination. TECHNIQUE: Supine abdomen: One view COMPARISON: Comparison is made with supine abdomen of 09/01/[address] scan of the abdomen and pelvis of 10/01/2023. FINDINGS: Bowel gas pattern is nonobstructive. Moderate amount of feces is seen in the colon. Both kidneys are obscured by bowel gas shadows and fecal material. There is a 1 cm calculus at the right pelviureteric junction or in proximal ureter without interval change from CT scan of the abdomen and pelvis of 10/01/2023. There are multiple phleboliths in the pelvis bilaterally. There is no large soft tissue mass. Mild degenerative changes are seen in the lumbar spine. IMPRESSION: * Again noted 1 cm calcific calculus at the right pelviureteric junction or in proximal ureter. No interval change in position since CT scan of the abdomen and pelvis of 10/01/2023. * Nonobstructive bowel gas pattern with moderate amount of feces. Finalized by Placido Espino MD on 11/09/2023 11:31 AM Normal [facility] CT ABDOMEN AND PELVIS WO CON Ton 10-01-2023 CT ABDOMEN AND PELVIS WO CONT CT ABDOMEN AND PELVIS WO CONT CLINICAL INFORMATION: Abdominal/flank pain, stone suspected. Abdominal pain related to the back, renal stone, ureteral stone TECHNIQUE: CT Abdomen and Pelvis without intravenous contrast. All CT scans at this facility use dose modulation, iterative reconstruction, and/or weight based dosing when appropriate to reduce radiation dose to as low as reasonably achievable. COMPARISON: 01/04/2023 FINDINGS: No pleural or pericardial effusions lung bases. There is dependent change and atelectasis in both lungs. Postoperative changes of the stomach. The liver, adrenal glands, pancreas and spleen appear to be stable. No enlarged mesenteric or retroperitoneal lymph nodes. There is moderate right renal collecting system dilatation extending to a right ureteropelvic junction calculus measuring 4 to 5 mm. No left renal collecting system dilatation. Nonobstructing small right inferior renal pole calculi. Small bowel is nondilated. No enlarged mesenteric or retroperitoneal lymph nodes. Moderate amount stool in colon. Ventricular shunt catheter tubing. No free pelvic fluid. No enlarged pelvic lymph nodes. Uterus is present. Urinary bladder is grossly unremarkable. Degenerative change of the thoracolumbar spine. No vertebral body height loss. IMPRESSION: * Right ureteral pelvic junction calculus measuring 4 to 5 mm resulting in moderate right renal collecting system dilatation. * Right nephrolithiasis. Finalized by Joaquín Otero MD on 10/01/2023 11:26 PM Normal [facility] HCG ( test) Ql (U)o n 10-01-2023 Beta HCG ( test) Ql (U) Negative Normal NEG [facility] Comment on above: Performed By: #### 2 106-3 #### [facility] ([id number]) [address] [place] [id number] URINE CULTUREon 10-01-2023 Bacteria identified Cx Nom (U) CULTURE RESULTS 10-50,000 ORGANISMS/mL NORMAL UROGENITAL JOSSELINE Normal [facility] Comment on above: Performed By: #### 6 30-4 #### [facility] ([id number]) [address] [place] [address], [address] [place] [address] URN MACROSCOPIC NURon 2023 BILIRUBIN RUTH Negative Normal NEG [facility] Comment on above: Performed By: #### N UM #### [facility] ([id number]) [address] [place] [address] 05716 BLOOD/HGB RUTH Trace Abnormal NEG [facility] Comment on above: Performed By: #### N UM #### [facility] ([id number]) [address] [place] [address] 98227 GLUCOSE RUTH 100 mg/dL Abnormal NEG [facility] Comment on above: Performed By: #### N UM #### [facility] ([id number]) [address] [place] [address] 93331 KETONES RUTH Negative Normal NEG [facility] Comment on above: Performed By: #### N UM #### [facility] ([id number]) [address] [place] [address] 98968 LEUKOCYTE ESTERASE RUTH Small Abnormal NEG [facility] Comment on above: Performed By: #### N UM #### [facility] ([id number]) [address] [place] [address] 48901 NITRITE RUTH Negative Normal NEG [facility] Comment on above: Performed By: #### N UM #### [facility] ([id number]) [address] [place] [address] 66471 PH RUTH 5.5 Normal 5.0-8.5 [facility] Comment on above: Performed By: #### N UM #### [facility] ([id number]) [address] [place] [address] PROTEIN RUTH Negative Normal NEG [facility] Comment on above: Performed By: #### N UM #### [facility] ([id number]) [address] [place] [address] SPECIFIC GRAVITY RUTH 1.025 Normal 1.003-1.035 [facility] Comment on above: Performed By: #### N UM #### [facility] ([id number]) [address] [place] [address] 49393 UROBILINOGEN RUTH 0.2 eu/dL Normal <1.1 [facility] Comment on above: Performed By: #### N UM #### [facility] ([id number]) [address] [place] [address] 47285 Physician Orderon 04-16-2023 Physician Order [id number] [facility] US RENAL COMPLETEon 04-08-20 US RENAL COMPLETE FINDINGS: Right kidney measures [...] by Sammy Savage on 01/11/2022 1527 Normal [facility] SCREENING MAMMOGRAM W/GOVIND, BILATERAL*on 11-24-2021 SCREENING [...] VERY IMPORTANT TO YOUR HEALTH. THE CURRENT [employer] GUIDELINES RECOMMENDS ANNUAL MAMMOGRAPHY BEGINNING AT AGE 40. THIS FACILITY USES A REMINDER SYSTEM TO ENSURE ALL PATIENTS RECEIVE REMINDER NOTIFICATIONS AT THE APPROPRIATE TIME BASED ON THE RECOMMENDATIONS OF THIS EXAM. Report reported and signed by Sammy Savage on 11/27/2021 1049 Normal [facility] US Pelvic, Transvaginalon US Pelvic, Transvaginal [...] by Sammy Savage on 09/13/2021 1302 Normal [facility] Therapy Communicationon 12-0 Therapy Communication Message TERRIE TAN no showed today . Signatures Electronically signed by : Maddy Echeverria CCC-FINISH MACHINE TENDER; Apr 07 2021 12:01PM EST (Author) Normal Mae Initial Visit (Otolaryngolog y)on 03-23-2021 Initial Visit [...] you can call Speech Therapy Scheduling at [phone]. Please follow up pending the outcome of [...] 5. Hearing test today. Welcome to Dr. Bsutos?s clinic. We are here to assist you through your ENT care at [facility]. Dr. Bustos is an ENT surgeon who specializes in voice, airway and swallowing issues. This means that she specializes in taking care of patients with complex voice, airway and swallowing problems. Dr. Bustos's office number is [phone]. Please use this number to contact her and her care team regardless of which office you use to access care. This number is the most direct way to communicate with all the members of the care team. Dr. Bustos?s litigation legal secretary answers the office phone from 9am-4pm Mon-Sat. Call [phone] and push [phone]. She can help you with scheduling of appointments, general questions and information. You may need to leave a message if she is helping another patient. In this case, someone from the team will call you back the same day if you leave your message before 3pm, or the next business morning. Dr. Bustos?s nurse and can be reached by calling [phone]. We make every effort to return phone calls the same day. If you are in need of urgent assistance after hours, please call [phone] and ask for ENT reproduction technician. Dr. Bustos works closely with speech therapists as they work together to help solve your issues with speech and swallowing. You may see a speech therapist during your appointment if Dr. Bustos feels this is needed. If you need to reach speech therapy to talk with a therapist or to schedule an appointment, please call [phone]. Others who may be included in your care are dieticians, social workers, audiologists, neurologists, and physical therapists. Dr. Bustos will provide these referrals as needed. Please let her know if you would like to request a specific referral. For your convenience, Dr. Bustos sees patients at different [facility] locations including the [facility] at [facility], and [facility] at the [facility]. While we try to make your [...] Chief Complaint hoarseness History of Present IllnessTERRIE TAN is a 46 year old female referred to me today by Dr Mcgregor for hoarseness. She reports chronic variable hoarseness and globus sensation since early in 2020. She denies any antecedent events at onset. It has not worsened, but is quite bothersome to her at work. 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 She is having [...] cyst, ch (more content not included)... Normal [facility] Office Visit (Audiology)on 05-23-2020 Follow-up visit Diagnoses/Problems [...] hearing protection when in/around loud noise. Time: 2733-1016 Chief Complaint hearing test hearing loss, has [...] Note: audiogram. History of Present Illness TERRIE TAN, age 46 years, was seen today for an audiologic evaluation in conjunction with seeing Ekta Bustos MD. Ms. TAN reports bilateral hearing loss with the use [...] inserted. 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 She denies otalgia, otorrhea, tinnitus, dizziness, history of otologic surgery. Patient's preferred language: Mexican Preferred language of the parent, legal guardian [...] hair cell function at the frequencies tested 3529-1140 Hz. Audiometric evaluation revealed essentially flat mild sensorineural hearing loss with word recognition ability estimated to be excellent (92%) based on an NU-6 recorded 25-word list. LEFT EAR: -Tympanometry: Type A tympanogram, normal ear canal volume and compliance -Acoustic reflexes: Ipsilateral acoustic reflexes absent at 500-4000 Hz -Distortion product otoacoustic emissions (DPOAEs): Present at 4607-0521 Hz and absent at 7782-2339 Hz. This is consistent with largely normal to near normal outer hair cell function at the frequencies tested 2356-3225 Hz. Audiometric evaluation revealed essentially flat mild sensorineural hearing loss with word recognition ability estimated to be excellent (92%) based on an NU-6 recorded 25-word list. The test results were discussed with the patient. 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 Bustos [facility] by Dr Mcgregor for hoarseness. She reports chronic variable hoarseness and globus sensation since early in 2020. She denies any antecedent events at onset. It has not worsened, but is quite bothersome to her at work. 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 She is having [...] printed material (more content not included)... Normal [employer] FINISH MACHINE TENDER (Voice Evaluation) No report was sent Normal [facility] Tobacco Screening.on 021 Fall risk assessment a) No falls within the last year MG-Otolaryngo logy-Elizabeth Work Phone: Tobacco use status CPHS b) No MG-Otolaryngo logy-[facility] Work Phone: Basic Metabolic Panelon 06-07 Calcium [Mass/Vol] 8.9 mg/dL Normal 8.2-10.2 [facility] Comment on above: Performed By: #### L IPID, HEPATIC, BMP, TSH3 wRFLX, [id number] #### [facility] [address] Chloride [Moles/Vol] 106 mmol/L Normal 95-114 [facility] Comment on above: Performed By: #### L IPID, HEPATIC, BMP, TSH3 wRFLX, [id number] #### [facility] [address] CO2 [Moles/Vol] 22.0 mmol/L Normal 22.0-30.0 [facility] Comment on above: Performed By: #### L IPID, HEPATIC, BMP, TSH3 wRFLX, [id number] #### [facility] [address] [place] [address] Creatinine [Mass/Vol] 0.67 mg/dL Normal 0.44-1.03 [facility] Comment on above: Performed By: #### L IPID, HEPATIC, BMP, TSH3 wRFLX, [id number] #### [facility] [address] [place] [address] [place] Creatinine [Mass/Vol] 104.81 mg/dL Normal [facility] Comment on above: Performed By: #### L IPID, HEPATIC, BMP, TSH3 wRFLX, [id number] #### [facility] [address] [place] [address] [place] Estimated GFR ( Racquel > 60 Normal [facility] Comment on above: Result Comment: GFR estimated reference range: According to KDOQI guidelines, <60 ml/min/1.73m2 is sufficient to diagnose a patient with chronic kidney disease. Performed By: #### L IPID, HEPATIC, BMP, TSH3 wRFLX, [id number] #### [facility] [address] Estimated GFR (Non- Am > 60 Normal [facility] Comment on above: Performed By: #### L IPID, HEPATIC, BMP, TSH3 wRFLX, [id number] #### [facility] [address] Glucose [Mass/Vol] 94 mg/dL Normal 70-100 [facility] Comment on above: Result Comment: [facility] Glucose Reference Range is dependent on time and content of last meal. Glucose of more than 200 mg/dL in a nonstressed, ambulatory subject supports the diagnosis of Diabetes Mellitus. ADA recommended reference range Performed By: #### L IPID, HEPATIC, BMP, TSH3 wRFLX, [id number] #### [facility] [address] [place] [address] Potassium [Moles/Vol] 3.8 mmol/L Normal 3.5-5.1 [facility] Comment on above: Performed By: #### L IPID, HEPATIC, BMP, TSH3 wRFLX, [id number] #### [address] Sodium [Moles/Vol] 139 mmol/L Normal 136-146 [facility] Comment on above: Performed By: #### L IPID, HEPATIC, BMP, TSH3 wRFLX, [id number] #### [address] Urea nitrogen [Mass/Vol] 12 mg/dL Normal 9-23 [facility] Comment on above: Performed By: #### L IPID, HEPATIC, BMP, TSH3 wRFLX, [id number] #### [address] Hepatic Panelon 07-03-2020 Albumin [Mass/Vol] 3.8 g/dL Normal 3.2-5.5 [facility] Comment on above: Performed By: #### L IPID, HEPATIC, BMP, TSH3 wRFLX, [id number] #### [facility] [address] [place] [address] Albumin/Globulin [Mass ratio] 1.6 {ratio} Normal [facility] Comment on above: Performed By: #### L IPID, HEPATIC, BMP, TSH3 wRFLX, [id number] #### [facility] [address] [place] [address] ALP [Catalytic activity/Vol] 92 U/L Normal 32-92 [facility] Comment on above: Performed By: #### L IPID, HEPATIC, BMP, TSH3 wRFLX, [id number] #### [facility] [address] [place] [address] ALT [Catalytic activity/Vol] 18 U/L Normal 10-60 [facility] Comment on above: Performed By: #### L IPID, HEPATIC, BMP, TSH3 wRFLX, [id number] #### [facility] [address] [place] [address] AST [Catalytic activity/Vol] 14 U/L Normal 10-42 [facility] Comment on above: Performed By: #### L IPID, HEPATIC, BMP, TSH3 wRFLX, [id number] #### [address] Bilirubin [Mass/Vol] 0.8 mg/dL Normal 0.3-1.2 [facility] Comment on above: Performed By: #### L IPID, HEPATIC, BMP, TSH3 wRFLX, [id number] #### [place] [address] [place] Bilirubin,Indirect Test not performed Normal [facility] Comment on above: Performed By: #### L IPID, HEPATIC, BMP, TSH3 wRFLX, [id number] #### [facility] [address] [place] [address] Bilirubin.direct [Mass/Vol] mg/dL Normal 0.0-0.4 [facility] Comment on above: Performed By: #### L IPID, HEPATIC, BMP, TSH3 wRFLX, [id number] #### [facility] [address] Globulin (S) [Mass/Vol] 2.4 g/dL Normal [facility] Comment on above: Performed By: #### L IPID, HEPATIC, BMP, TSH3 wRFLX, [id number] #### [facility] [address] [place] [id number] [facility] Protein [Mass/Vol] 6.2 g/dL Normal 6.1-7.9 [facility] Comment on above: Performed By: #### L IPID, HEPATIC, BMP, TSH3 wRFLX, [id number] #### [facility] [address] Lipid Panelon 07-03-2020 Cholesterol [Mass/Vol] 174 mg/dL Normal 140-200 [facility] Comment on above: Result Comment: Chol less than 200 mg/dl low risk Chol 201-239 mg/dl borderline risk Chol 240 mg/dl and greater high risk Performed By: #### L IPID, HEPATIC, BMP, TSH3 wRFLX, [id number] #### [facility] [address] Cholesterol in HDL [Mass/Vol] 46 mg/dL Normal 35-85 [facility] Comment on above: Result Comment: HDL CHOL ATP-III CLASSIFICATION Cardiovascular Risk HDL > or equal to 60 mg/dL LOW HDL < 40 mg/dL HIGH Performed By: #### L IPID, HEPATIC, BMP, TSH3 wRFLX, [id number] #### [facility] [address] [place] [id number] [facility] Cholesterol.total/ Cholesterol in HDL [Mass ratio] 3.8 {ratio} Normal <5.0 [facility] Comment on above: Performed By: #### L IPID, HEPATIC, BMP, TSH3 wRFLX, [id number] #### [facility] [address] [place] [id number] [facility] LDL Cholesterol,Calcul ated 113 mg/dL High 0-100 [facility] Comment on above: Result Comment: LDL ATP III CLASSIFICATION LDL less than 100 mg/dL Optimal LDL 100-129 mg/dL Near or above optimal LDL 130-159 mg/dL Borderline high LDL 160-189 mg/dL High LDL greater than 189 mg/dL Very high Performed By: #### L IPID, HEPATIC, BMP, TSH3 wRFLX, [id number] #### [facility] [address] Triglyceride w/Reflex 74 mg/dL Normal 35-149 [facility] Comment on above: Result Comment: TRIG ATP III CLASSIFICATION TRIG less than 150 mg/dL Normal TRIG 150-199 mg/dL Borderline high TRIG 200-500 mg/dL High TRIG greater than 500 mg/dL Very high Standard traceable to the Center for Disease Conrtrol and Prevention (CDC) test method. Performed By: #### L IPID, HEPATIC, BMP, TSH3 wRFLX, [id number] #### [facility] [address] VLDL CHOLESTEROL 14 mg/dL Normal [facility] Comment on above: Performed By: #### L IPID, HEPATIC, BMP, TSH3 wRFLX, [id number] #### [facility] [address] Thyroid Stim Hormone w/Rflxo n 07-03-2020 Thyroid Stim Hormone w/Rflx 3.41 u[iU]/mL Normal 0.45-5.33 [facility] Comment on above: Performed By: #### L IPID, HEPATIC, BMP, TSH3 wRFLX, [id number] #### [facility] [address] Vitamin D 25 Hydroxy Totalon 07-03-2020 Vitamin D 25 Hydroxy Total 67.4 ng/mL Normal 30-100 [facility] Comment on above: Result Comment: MADDISON MIN D STATUS 25(OH)VITAMIN D RANGE (ng/mL) Deficient <20 Insufficient 20 to <30 Sufficient 30 to 100 Reference: Arely MF,Brenton GARCES, Rashel MARTINEZ, et al. Evaluation,treatment, and prevention of vitamin D deficiency; an Endocrine Society clinical practice guideline. JCEM. 2010; 96(7):1911-30. PERFORMED BY: [facility] [address] [place] [id number] PATHOLOGIST RISK ADVISOR HORTENSIA VIRAMONTES M.D. Performed By: #### L IPID, HEPATIC, BMP, TSH3 wRFLX, [id number] #### [place] [id number] [facility] XR FOOT RT MIN 3 VIEWSon XR [...] No acute abnormality Electronically authenticated by: LISSETT ST Date: 2019-11-18 12:08 Normal [facility] XR ANKLE RT MIN 3 VIEWSon XR [...] by: LINDEN ROJAS Date: 2019-10-20 22:05 Normal [facility] XR ANKLE RT MIN 3 VIEWSon XR ANKLE RT MIN 3 VIEWS Patient: TERRIE TAN Exam Date: 04/22/2019 : 1975 Gender:F Ordering : DR. BEBO ENRIQUEZ D.P.M. Admission #: [id number] Family : Order #: [id number] CLICK HERE TO VIEW EXAM RADIOLOGY REPORT [...] 1. Stable internal fixation Dictated by: Lissett St M.D. on 04/22/2019 at 15:35 Approved by: Lissett St M.D. on 04/22/2019 at 15:35 Normal [facility] Operative Reporton 201 9 Operative Report MR#: [id number] [facility] Pt. Name: Terrie Tan Room #: 0C Discharge 04/09/2019 Date: Birthdate: 1975 OPERATIVE REPORT DATE OF SURGERY: 04/09/2019 SURGEON: Edmond Parker MD PREOPERATIVE DIAGNOSES: Excessive abdominal pannus, isolated obesity, status post massive weight loss. POSTOPERATIVE DIAGNOSES: Excessive abdominal pannus, isolated obesity, status post massive weight loss. PROCEDURE: Panniculectomy with muscle plication and umbilical transposition. CVICU NURSE: VIRIDIANA Luna and CC-3. INDICATIONS: This patient [...] made to proceed with plication of planned. [id number] plication performed from the xiphoid to the [...] the recovery room. Electronically Signed by: Edmond Parker MD 04/17/2019 03:23 P Edmond Parker MD Date Dict: 04/13/2019/01:28 P/Edmond Parker MD Date Trans: 04/13/2019 02:16 P/kathleen [id number] cc: Josette Vega M.D. [address] [place] [address] Normal [facility] POC GLUCOSE LABon 04-09-2019 Glucose [Mass/Vol] 92 mg/dL Normal 70-100 [facility] Comment on above: Performed By: #### 8 5499 #### [facility] [address] [place] [address], [facility] Glucose [Mass/Vol] 86 mg/dL Normal 70-100 [facility] Comment on above: Performed By: #### 8 5499 #### [facility] [address] [place] [address], [facility] Glucose [Mass/Vol] 71 mg/dL Normal 70-100 [facility] Comment on above: Performed By: #### 8 5499 #### [facility] [address] [place] [address], [facility] POC URINE PREGNANCYon 2018 Beta HCG ( test) Ql (U) Negative Normal NEGATIVE [facility] Comment on above: Result Comment: Perf ormed in PACU Performed By: #### 8 4140 #### [facility] [address] [place] [address], [facility] XR ANKLE RT MIN 3 VIEWSon XR ANKLE RT MIN 3 VIEWS Patient: TERRIE TAN Exam Date: 03/04/2019 : 1975 Gender:F Ordering : DR. BEBO MonacoPNabila Admission #: [id number] Family : Order #: [id number] CLICK HERE TO VIEW EXAM RADIOLOGY REPORT [...] or change in alignment. Dictated by: Alayna Posadas M.D. on 03/04/2019 at 10:01 Approved by: Alayna Posadas M.D. on 03/04/2019 at 10:03 Normal [facility] XR ANKLE RT MIN 3 VIEWSon XR ANKLE RT MIN 3 VIEWS Patient: TERRIE TAN. Exam Date: 01/28/2019 : 1975 Gender:F Ordering : DR. BEBO ENRIQUEZ D.P.M. Admission #: [id number] Family : Order #: [id number] CLICK HERE TO VIEW EXAM RADIOLOGY REPORT [...] 1. No acute abnormality Dictated by: Lissett St M.D. on 01/28/2019 at 11:24 Approved by: Lissett St M.D. on 01/28/2019 at 11:25 Normal [facility] XR ANKLE RT MIN 3 VIEWSon XR ANKLE RT MIN 3 VIEWS Patient: TERRIE TAN. Exam Date: 01/07/2019 : 1975 Gender:F Ordering : DR. BEBO ENRIQUEZ D.P.M. Admission #: [id number] Family : Order #: [id number] CLICK HERE TO VIEW EXAM RADIOLOGY REPORT [...] evidence of hardware failure. Dictated by: Alayna Posadas M.D. on 01/07/2019 at 11:56 Approved by: Alayna Posadas M.D. on 01/07/2019 at 11:58 Normal [facility] XR ANKLE RT MIN 3 VIEWSon XR ANKLE RT MIN 3 VIEWS Patient: TERRIE TAN. Exam Date: 12/23/2018 : 1975 Gender:F Ordering : KAT LandyKaylah HERNÁNDEZ Admission #: [id number] Family : Order #: [id number] CLICK HERE TO VIEW EXAM RADIOLOGY REPORT [...] 1. Stable postsurgical changes. Dictated by: Alayna Posadas M.D. on 12/23/2018 at 15:54 Approved by: Alayna Posadas M.D. on 12/23/2018 at 16:13 Normal [facility] CBC AUTO DIFFon 12-11-2018 Basophils (Bld) [#/Vol] 0.0 103/ul Normal 0.0-0.1 [facility] Comment on above: Performed By: #### P REG #### [facility] [address] [place] [address] Bee Nikki Basophils/100 WBC (Bld) 0.2 % Normal 0.2-2.0 [facility] Comment on above: Performed By: #### P REG #### [facility] [address] [place], [place] [address] Bee Nikki Eosinophils (Bld) [#/Vol] 0.0 103/ul Normal 0.0-0.7 [facility] Comment on above: Performed By: #### P REG #### [facility] [address] [place], [place] [address] Bee Nikki Eosinophils/100 WBC (Bld) 0.4 % Critically low 0.9-7.0 [facility] Comment on above: Performed By: #### P REG #### [facility] [address] [place], [place] [address] Bee Nikki Erythrocyte distribution width (RBC) [Ratio] 14.2 % Normal 11.0-15.0 [facility] Comment on above: Performed By: #### P REG #### [facility] [address] [place] [address] Bee Jordan Hematocrit (Bld) [Volume fraction] 33.6 % Critically low 36.0-48.0 [facility] Comment on above: Performed By: #### P REG #### [facility] [address] [place] [address] Bee Nikki Hemoglobin (Bld) [Mass/Vol] 10.9 g/dL Critically low 12.0-16.0 [facility] Comment on above: Performed By: #### P REG #### [facility] [address] [place] [address] Beeronen Jordan IG # 0.12 10e3/ul Critically high 0.00-0.03 [facility] Comment on above: Performed By: #### P REG #### [facility] [address] [place] [address] Bee Nikki IG % 1.5 % Critically high 0.0-0.5 [facility] Comment on above: Performed By: #### P REG #### [facility] [address] [place] [address] Bee Jordan Lymphocytes (Bld) [#/Vol] 2.4 103/ul Normal 1.2-3.8 [facility] Comment on above: Performed By: #### P REG #### [facility] [address] [place] [address] Bee Jordan Lymphocytes/100 WBC (Bld) 29.2 % Normal 20.5-60.0 [facility] Comment on above: Performed By: #### P REG #### [facility] [address] [place] [address] Bee Jordan MANUAL DIFF REQ NO Normal [facility] Comment on above: Performed By: #### P REG #### [facility] [address] [place] [address] Bee Jordan MCH (RBC) [Entitic mass] 31.4 pg Normal 26.7-34.0 [facility] Comment on above: Performed By: #### P REG #### [facility] [address] [place] [id number] Beeronen Jordan MCHC (RBC) [Mass/Vol] 32.4 g/dL Normal 29.9-35.2 [facility] Comment on above: Performed By: #### P REG #### [facility] [address] [place] [id number] Beeronen Jordan MCV (RBC) [Entitic vol] 96.8 fL Normal 81.0-99.0 [facility] Comment on above: Performed By: #### P REG #### [facility] [address] [place], [place] [id number] Bee Nikki Monocytes (Bld) [#/Vol] 0.6 103/ul Normal 0.3-0.8 [facility] Comment on above: Performed By: #### P REG #### [facility] [address] [place] [address] Bee Nikki Monocytes/100 WBC (Bld) 7.2 % Normal 1.7-12.0 [facility] Comment on above: Performed By: #### P REG #### [facility] [address] [place], [place] [address] Bee Nikki Neutrophils (Bld) [#/Vol] 5.1 103/ul Normal 1.4-6.5 [facility] Comment on above: Performed By: #### P REG #### [facility] [address] [place], [place] [address] Bee Nikki Neutrophils/100 WBC (Bld) 61.5 % Normal 43.0-75.0 [facility] Comment on above: Performed By: #### P REG #### [facility] [address] [place], [place] [address] Bee Nikki Platelet mean volume (Bld) [Entitic vol] 10.3 fL Normal 9.5-13.5 [facility] Comment on above: Performed By: #### P REG #### [facility] [address] [place], [place] [address] Bee Nikki Platelets (Bld) [#/Vol] 223 103/ul Normal 150-450 [facility] Comment on above: Performed By: #### P REG #### [facility] [address] [place] [address] Bee Nikki RBC (Bld) [#/Vol] 3.47 106/ul Critically low 4.20-5.40 [facility] Comment on above: Performed By: #### P REG #### [facility] [address] [place], [place] [address] Bee Nikki WBC (Bld) [#/Vol] 8.2 103/ul Normal 4.0-11.0 [facility] Comment on above: Performed By: #### P REG #### [facility] [address] [place], [place] [address] Bee Nikki CBC AUTO DIFFon 12-10-2018 Basophils (Bld) [#/Vol] 0.0 103/ul Normal 0.0-0.1 [facility] Comment on above: Performed By: #### P REG #### [facility] [address] [place], [place] [address] Beeronen Marinoen Basophils/100 WBC (Bld) 0.2 % Normal 0.2-2.0 [facility] Comment on above: Performed By: #### P REG #### [facility] [address] [place], [place] [address] Bee Nikki Eosinophils (Bld) [#/Vol] 0.0 103/ul Normal 0.0-0.7 [facility] Comment on above: Performed By: #### P REG #### [facility] [address] [place], [place] [address] Bee Jordan Eosinophils/100 WBC (Bld) 0.0 % Critically low 0.9-7.0 [facility] Comment on above: Performed By: #### P REG #### [facility] [address] [place], [place] [address] Bee Nikki Erythrocyte distribution width (RBC) [Ratio] 14.2 % Normal 11.0-15.0 [facility] Comment on above: Performed By: #### P REG #### [facility] [address] [place] [address] Bee Nikki Hematocrit (Bld) [Volume fraction] 33.4 % Critically low 36.0-48.0 [facility] Comment on above: Performed By: #### P REG #### [facility] [address] [place] [address] Bee Nikki Hemoglobin (Bld) [Mass/Vol] 10.6 g/dL Critically low 12.0-16.0 [facility] Comment on above: Performed By: #### P REG #### [facility] [address] [place] [address] Bee Nikki IG # 0.05 10e3/ul Critically high 0.00-0.03 [facility] Comment on above: Performed By: #### P REG #### [facility] [address] [place] [address] Bee Nikki IG % 0.8 % Critically high 0.0-0.5 [facility] Comment on above: Performed By: #### P REG #### [facility] [address] [place] [address] Bee Nikki Lymphocytes (Bld) [#/Vol] 1.0 103/ul Critically low 1.2-3.8 [facility] Comment on above: Performed By: #### P REG #### [facility] [address] [place], [place] [address] Bee Nikki Lymphocytes/100 WBC (Bld) 15.4 % Critically low 20.5-60.0 [facility] Comment on above: Performed By: #### P REG #### [facility] [address] [place] [address] Bee Jordan MANUAL DIFF REQ NO Normal [facility] Comment on above: Performed By: #### P REG #### [facility] [address] [place], [place] [address] Bee Jordan MCH (RBC) [Entitic mass] 31.0 pg Normal 26.7-34.0 [facility] Comment on above: Performed By: #### P REG #### [facility] [address] [place] [address] Beeronen Marinoen MCHC (RBC) [Mass/Vol] 31.7 g/dL Normal 29.9-35.2 [facility] Comment on above: Performed By: #### P REG #### [facility] [address] [id number] Bee Nikki MCV (RBC) [Entitic vol] 97.7 fL Normal 81.0-99.0 [facility] Comment on above: Performed By: #### P REG #### [facility] [address] [id number] Bee Nikki Monocytes (Bld) [#/Vol] 0.3 103/ul Normal 0.3-0.8 [facility] Comment on above: Performed By: #### P REG #### [facility] [address] [place] [address] Bee Nikki Monocytes/100 WBC (Bld) 4.9 % Normal 1.7-12.0 [facility] Comment on above: Performed By: #### P REG #### [facility] [address] [place], [place] [address] Bee Nikki Neutrophils (Bld) [#/Vol] 5.2 103/ul Normal 1.4-6.5 [facility] Comment on above: Performed By: #### P REG #### [facility] [address] [place], [place] [address] Bee Nikki Neutrophils/100 WBC (Bld) 78.7 % Critically high 43.0-75.0 [facility] Comment on above: Performed By: #### P REG #### [facility] [address] [id number] Bee Nikki Platelet mean volume (Bld) [Entitic vol] 10.8 fL Normal 9.5-13.5 [facility] Comment on above: Performed By: #### P REG #### [facility] [address] [id number] Bee Nikki Platelets (Bld) [#/Vol] 240 103/ul Normal 150-450 [facility] Comment on above: Performed By: #### P REG #### [facility] [address] [place] [address] Bee Nikki RBC (Bld) [#/Vol] 3.42 106/ul Critically low 4.20-5.40 [facility] Comment on above: Performed By: #### P REG #### [facility] [address] [place] [address] Bee Nikki WBC (Bld) [#/Vol] 6.6 103/ul Normal 4.0-11.0 [facility] Comment on above: Performed By: #### P REG #### [facility] [address] [place] [address] Bee Nikki CBC W MANUAL DIFFon 12-10-19 19 ATYPICAL LYMPH # Normal [facility] Comment on above: Performed By: #### C BC #### [facility] [address] [place] [address] Bee Nikki ATYPICAL LYMPH % Normal [facility] Comment on above: Performed By: #### C BC #### [facility] [address] [place] [address] Bee Nikki BAND # 0.1 103/ul Normal 0.0-0.3 [facility] Comment on above: Performed By: #### C BC #### [facility] [address] [place] [address] Bee Nikki BAND % 1 % Normal 0-5 [facility] Comment on above: Performed By: #### C BC #### [facility] [address] [place] [address] Bee Nikki BASOM # 0.00 103/ul Normal 0.00-0.10 [facility] Comment on above: Performed By: #### C BC #### [facility] [address] [place] [address] Bee Nikki BASOM % 0.0 % Critically low 0.2-2.0 [facility] Comment on above: Performed By: #### C BC #### [facility] [address] [place] [address] Bee Nikki BLAST # Normal [facility] Comment on above: Performed By: #### C BC #### [facility] [address] [id number] Bee Nikki BLAST % Normal [facility] Comment on above: Performed By: #### C BC #### [facility] [address] [id number] Bee Nikki CORRECTED WBC Normal 4.0-11.0 [facility] Comment on above: Performed By: #### C BC #### [facility] [address] [id number] Bee Nikki Eosinophils (Bld) [#/Vol] 0.00 103/ul Normal 0.00-0.70 [facility] Comment on above: Performed By: #### C BC #### [facility] [address] [id number] Bee Nikki Eosinophils/100 WBC (Bld) 0.0 % Critically low 0.9-7.0 [facility] Comment on above: Performed By: #### C BC #### [facility] [address] [id number] Bee Nikki Erythrocyte distribution width (RBC) [Ratio] 13.8 % Normal 11.0-15.0 [facility] Comment on above: Performed By: #### C BC #### [facility] [address] [place] [address] Bee Nikki Hematocrit (Bld) [Volume fraction] 34.9 % Critically low 36.0-48.0 [facility] Comment on above: Performed By: #### C BC #### [facility] [address] [id number] Bee Nikki Hemoglobin (Bld) [Mass/Vol] 11.6 g/dl Critically low 12.0-16.0 [facility] Comment on above: Performed By: #### C BC #### [facility] [address] [place] [address] Bee Nikki LYMPHM # 0.42 103/ul Critically low 1.20-3.80 [facility] Comment on above: Performed By: #### C BC #### [facility] [address] [place] [address] Beeronen Marinoen LYMPHM% 6.0 % Critically low 20.5-60.0 [facility] Comment on above: Performed By: #### C BC #### [facility] [address] [place] [address] Bee Jordan MCH (RBC) [Entitic mass] 32.0 pg Normal 26.7-34.0 [facility] Comment on above: Performed By: #### C BC #### [facility] [address] [place] [address] Bee Jordan MCHC (RBC) [Mass/Vol] 33.2 g/dl Normal 29.9-35.2 [facility] Comment on above: Performed By: #### C BC #### [facility] [address] [place] [address] Bee Jordan MCV (RBC) [Entitic vol] 96.4 fL Normal 81.0-99.0 [facility] Comment on above: Performed By: #### C BC #### [facility] [address] [place] [address] Bee Inkki METAMYELOCYTE # Normal [facility] Comment on above: Performed By: #### C BC #### [facility] [address] [place] [address] Beeronen Marinoen METAMYELOCYTE % Normal [facility] Comment on above: Performed By: #### C BC #### [facility] [address] [place] [address] Bee Nikki MONOM# 0.14 103/ul Critically low 0.30-0.80 [facility] Comment on above: Performed By: #### C BC #### [facility] [address] [place] [address] Bee Nikki MONOM% 2.0 % Normal 1.7-12.0 [facility] Comment on above: Performed By: #### C BC #### [facility] [address] [place] [address] Bee Nikki MYELOCYTE # Normal [facility] Comment on above: Performed By: #### C BC #### [facility] [address] [place], [place] [address] Bee Jordan MYELOCYTE % Normal [facility] Comment on above: Performed By: #### C BC #### [facility] [address] [place], [place] [address] Bee Jordan NRBC Normal [facility] Comment on above: Performed By: #### C BC #### [facility] [address] [place], [place] [address] Beeronen Jordan Platelet mean volume (Bld) [Entitic vol] 10.5 fL Normal 9.5-13.5 [facility] Comment on above: Performed By: #### C BC #### [facility] [address] [place], [place] [address] Bee Jordan Platelets (Bld) [#/Vol] 209 103/ul Normal 150-450 [facility] Comment on above: Performed By: #### C BC #### [facility] [address] [place], [place] [address] Bee Jordan RBC (Bld) [#/Vol] 3.62 106/ul Critically low 4.20-5.40 [facility] Comment on above: Performed By: #### C BC #### [facility] [address] [place], [place] [address] Bee Jordan SEG # 6.37 103/ul Normal 1.40-6.50 [facility] Comment on above: Performed By: #### C BC #### [facility] [address] [place], [place] [address] Bee Nikki Segmented neutrophils/100 WBC (Bld) 91.0 % Critically high 43.0-75.0 [facility] Comment on above: Performed By: #### C BC #### [facility] [address] [place], [place] [address] Bee Nikki WBC (Bld) [#/Vol] 7.0 103/ul Normal 4.0-11.0 [facility] Comment on above: Performed By: #### C BC #### [facility] [address] [place], [place] [address] Beeronen Jordan AMMONIAon 12-08-2018 Ammonia (P) [Mass/Vol] 12 umol/L Normal 10-30 [facility] Comment on above: Performed By: #### C BC #### [facility] [address] [place], [place] [address] Beeronen Jordan BNPon 12-08-2018 Natriuretic peptide B (Bld) [Mass/Vol] 305.0 pg/mL Normal <=450.0 [facility] Comment on above: Performed By: #### C BC #### [facility] [address] [place], [place] [address] Bee Nikki CBC AUTO DIFFon 12-08-2018 Basophils (Bld) [#/Vol] 0.0 103/ul Normal 0.0-0.1 [facility] Comment on above: Performed By: #### C BC #### [facility] [address] [place] [address] Bee Nikki Basophils/100 WBC (Bld) 0.4 % Normal 0.2-2.0 [facility] Comment on above: Performed By: #### C BC #### [facility] [address] [place] [address] Bee Nikki Eosinophils (Bld) [#/Vol] 0.0 103/ul Normal 0.0-0.7 [facility] Comment on above: Performed By: #### C BC #### [facility] [address] [place], [place] [address] Bee Nikki Eosinophils/100 WBC (Bld) 0.1 % Critically low 0.9-7.0 [facility] Comment on above: Performed By: #### C BC #### [facility] [address] [place], [place] [address] Bee Nikki Erythrocyte distribution width (RBC) [Ratio] 13.9 % Normal 11.0-15.0 [facility] Comment on above: Performed By: #### C BC #### [facility] [address] [place], [place] [address] Bee Nikki Hematocrit (Bld) [Volume fraction] 36.9 % Normal 36.0-48.0 [facility] Comment on above: Performed By: #### C BC #### [facility] [address] [id number] Bee Nikki Hemoglobin (Bld) [Mass/Vol] 12.0 g/dL Normal 12.0-16.0 [facility] Comment on above: Performed By: #### C BC #### [facility] [address] [id number] Bee Nikki IG # 0.02 10e3/ul Normal 0.00-0.03 [facility] Comment on above: Performed By: #### C BC #### [facility] [address] [address] Bee Nikki IG % 0.2 % Normal 0.0-0.5 [facility] Comment on above: Performed By: #### C BC #### [facility] [address] [place], [place] [address] Bee Nikki Lymphocytes (Bld) [#/Vol] 0.9 103/ul Critically low 1.2-3.8 [facility] Comment on above: Performed By: #### C BC #### [facility] [address] [place], [place] [address] Bee Nikki Lymphocytes/100 WBC (Bld) 9.9 % Critically low 20.5-60.0 [facility] Comment on above: Performed By: #### C BC #### [facility] [address] [place], [place] [address] Bee Nikki MANUAL DIFF REQ NO Normal [facility] Comment on above: Performed By: #### C BC #### [facility] [address] [place], [place] [address] Bee Nikki MCH (RBC) [Entitic mass] 31.9 pg Normal 26.7-34.0 [facility] Comment on above: Performed By: #### C BC #### [facility] [address] [place], [place] [address] Bee Nikki MCHC (RBC) [Mass/Vol] 32.5 g/dL Normal 29.9-35.2 [facility] Comment on above: Performed By: #### C BC #### [facility] [address] [place], [place] [address] Bee Nikki MCV (RBC) [Entitic vol] 98.1 fL Normal 81.0-99.0 [facility] Comment on above: Performed By: #### C BC #### [facility] [address] [place] [address] Bee Nikki Monocytes (Bld) [#/Vol] 0.4 103/ul Normal 0.3-0.8 [facility] Comment on above: Performed By: #### C BC #### [facility] [address] [place] [address] Bee Nikki Monocytes/100 WBC (Bld) 3.9 % Normal 1.7-12.0 [facility] Comment on above: Performed By: #### C BC #### [facility] [address] [place], [place] [address] Bee Nikki Neutrophils (Bld) [#/Vol] 7.6 103/ul Critically high 1.4-6.5 [facility] Comment on above: Performed By: #### C BC #### [facility] [address] [place] [address] Bee Nikki Neutrophils/100 WBC (Bld) 85.5 % Critically high 43.0-75.0 [facility] Comment on above: Performed By: #### C BC #### [facility] [address] [place] [address] Bee Nikki Platelet mean volume (Bld) [Entitic vol] 10.1 fL Normal 9.5-13.5 [facility] Comment on above: Performed By: #### C BC #### [facility] [address] [place] [address] Bee Nikki Platelets (Bld) [#/Vol] 218 103/ul Normal 150-450 [facility] Comment on above: Performed By: #### C BC #### [facility] [address] [place] [address] Bee Nikki RBC (Bld) [#/Vol] 3.76 106/ul Critically low 4.20-5.40 [facility] Comment on above: Performed By: #### C BC #### [facility] [address] [place] [address] Bee Nikki WBC (Bld) [#/Vol] 8.9 103/ul Normal 4.0-11.0 [facility] Comment on above: Performed By: #### C BC #### [facility] [address] [place], [place] [address] Bee Nikki LACTATE/LACTIC ACIDon 2018 Lactate [Moles/Vol] 1.8 mmol/L Normal 0.7-2.1 [facility] Comment on above: Performed By: #### C BC #### [facility] [address] [place], [place] [address] Bee Nikki LIVER PROFILEon 12-08-2018 Albumin [Mass/Vol] 2.9 g/dL Critically low 3.5-5.0 [facility] Comment on above: Performed By: #### C BC #### [facility] [address] [place] [address] Bee Nikki Albumin/Globulin [Mass ratio] 0.6 {ratio} Normal [facility] Comment on above: Performed By: #### C BC #### [facility] [address] [place], [place] [address] Bee Nikki ALP [Catalytic activity/Vol] 88 U/L Normal 38-126 [facility] Comment on above: Performed By: #### C BC #### [facility] [address] [place], [place] [address] Bee Nikki ALT [Catalytic activity/Vol] 18 U/L Normal 9-52 [facility] Comment on above: Performed By: #### C BC #### [facility] [address] [place] [address] Bee Nikki AST [Catalytic activity/Vol] 21 U/L Normal 14-36 [facility] Comment on above: Performed By: #### C BC #### [facility] [address] [place], [place] [address] Bee Nikki BILI, CONJUGATED 0.1 mg/dL Normal 0.0-0.3 [facility] Comment on above: Performed By: #### C BC #### [facility] [address] [id number] Bee Nikki Bilirubin Ql (U) 0.6 mg/dL Normal 0.2-1.3 [facility] Comment on above: Performed By: #### C BC #### [facility] [address] [place], [place] [address] Bee Nikki Globulin (S) [Mass/Vol] 4.5 g/dL Normal [facility] Comment on above: Performed By: #### C BC #### [facility] [address] [place], [place] [address] Bee Nikki Protein [Mass/Vol] 7.4 g/dL Normal 6.1-8.2 [facility] Comment on above: Performed By: #### C BC #### [facility] [address] [place] [address] Bee Nikki PROF CHEM 8 (BAS METB)on Anion gap [Moles/Vol] 18.4 mmol/L Normal [facility] Comment on above: Performed By: #### C BC #### [facility] [address] [place] [address] Bee Nikki Calcium [Mass/Vol] 9.6 mg/dL Normal 8.4-10.2 [facility] Comment on above: Performed By: #### C BC #### [facility] [address] [place] [address] Bee Nikki Chloride [Moles/Vol] 103 mmol/L Normal 98-107 [facility] Comment on above: Performed By: #### C BC #### [facility] [address] [place] [address] Bee Nikki CO2 [Moles/Vol] 19.9 mmol/L Critically low 22.0-30.0 [facility] Comment on above: Performed By: #### C BC #### [facility] [address] [place], [place] [address] Bee Nikki Creatinine [Mass/Vol] 0.92 mg/dL Normal 0.52-1.04 [facility] Comment on above: Performed By: #### C BC #### [facility] [address] [place], [place] [address] Bee Nikki EGFR-AF GUINEAN >60 Normal >=60 [facility] Comment on above: Performed By: #### C BC #### [facility] [address] [id number] Bee Nikki EGFR-NON AF GUINEAN >60 Normal >=60 [facility] Comment on above: Performed By: #### C BC #### [facility] [address] [address] Bee Nikki Glucose [Mass/Vol] 115 mg/dL Critically high 74-106 T [facility] Comment on above: Performed By: #### C BC #### [facility] [address] [place] [address] Bee Nikki Potassium [Moles/Vol] 3.3 mmol/L Critically low 3.4-5.0 [facility] Comment on above: Performed By: #### C BC #### [facility] [address] [place] [address] Bee Nikki Sodium [Moles/Vol] 138 mmol/L Normal 137-145 [facility] Comment on above: Performed By: #### C BC #### [facility] [address] [place] [address] Bee Nikki Urea nitrogen [Mass/Vol] 19.0 mg/dL Critically high 7.0-17.0 [facility] Comment on above: Performed By: #### C BC #### [facility] [address] [place] [address] Bee Nikki Urea nitrogen/Creatinin e [Mass ratio] 20.7 mg/mg [facility] [place] Comment on above: Performed By: #### C BC #### [facility] [address] [place], [place] [id number] Bee Nikki BLOOD GASES BTYon 12-07-2018 02 MODE NASAL CANNULA Normal [facility] Comment on above: Performed By: #### C BC #### [facility] [address] [place], [place] [address] Bee Nikki ALLENS TEST Positive Normal [facility] Comment on above: Performed By: #### C BC #### [facility] [address] [address] Bee Nikki Base excess Calc (Bld) [Moles/Vol] -5.0 mmol/L Critically low -2.0-2.0 [facility] Comment on above: Performed By: #### C BC #### [facility] [address] [place], [place] [address] Bee Nikki BIPAP PRESSURE Normal [facility] Comment on above: Performed By: #### C BC #### [facility] [address] [place] [address] Bee Nikki CO2 [Moles/Vol] 19.7 mmol/L Critically low 23.0-28.0 [facility] Comment on above: Performed By: #### C BC #### [facility] [address] [place] [address] Bee Nikki CPAP Normal [facility] Comment on above: Performed By: #### C BC #### [facility] [address] [place] [address] Bee Nikki FIO2 Normal [facility] Comment on above: Performed By: #### C BC #### [facility] [address] [place] [address] Bee Nikki HCO3 (Bld) [Moles/Vol] 18.7 mmol/L Critically low 22.0-26.0 [facility] Comment on above: Performed By: #### C BC #### [facility] [address] [place] [address] Bee Nikki LPM 4 Normal [facility] Comment on above: Performed By: #### C BC #### [facility] [address] [place], [place] [address] Bee Nikki MINUTE VOLUME Normal [facility] Comment on above: Performed By: #### C BC #### [facility] [address] [place], [place] [address] Bee Nikki Oxygen (Bld) [Partial pressure] 92.4 mm[Hg] Normal 80.0-100.0 [facility] Comment on above: Performed By: #### C BC #### [facility] [address] [address] Bee Nikki Oxygen saturation in Blood 90.8 % Critically low 95.0-100.0 [facility] Comment on above: Performed By: #### C BC #### [facility] [address] [address] Bee Nikki PCO2 30.8 mmHg Critically low 35.0-45.0 [facility] Comment on above: Performed By: #### C BC #### [facility] [address] [place] [address] Bee Nikki PEEP Normal [facility] Comment on above: Performed By: #### C BC #### [facility] [address] [place] [address] Bee Nikki pH (Bld) 7.402 [pH] Normal 7.350-7.450 [facility] Comment on above: Performed By: #### C BC #### [facility] [address] [place] [address] Bee Nikki PIP Normal [facility] Comment on above: Performed By: #### C BC #### [facility] [address] [place] [address] Bee Nikki PS Normal [facility] Comment on above: Performed By: #### C BC #### [facility] [address] [place] [address] Bee Nikki PUNCTURE SITE RR Normal [facility] Comment on above: Performed By: #### C BC #### [facility] [address] [place] [address] Bee Nikki RATE Normal [facility] Comment on above: Performed By: #### C BC #### [facility] [address] [place] [address] Bee Nikki VENT MODE Normal [facility] Comment on above: Performed By: #### C BC #### [facility] [address] [place] [address] Bee Nikki VT Normal [facility] Comment on above: Performed By: #### C BC #### [facility] [address] [place] [address] Bee Nikki CBC W MANUAL DIFFon 12-08-19 19 ATYPICAL LYMPH # Normal [facility] Comment on above: Performed By: #### C CELSA #### [facility] [address] [place] [address] Bee Nikki ATYPICAL LYMPH % Normal [facility] Comment on above: Performed By: #### C CELSA #### [facility] [address] [place] [address] Bee Nikki BAND # Normal 0.0-0.3 [facility] Comment on above: Performed By: #### C CELSA #### [facility] [address] [place] [address] Bee Nikki BAND % Normal 0-5 [facility] Comment on above: Performed By: #### Robb STEEN #### [facility] [address] [place] [address] Bee Nikki BASOM # 0.00 103/ul Normal 0.00-0.10 [facility] Comment on above: Performed By: #### Robb STEEN #### [facility] [address] [place] [address] Bee Nikki BASOM % 0.0 % Critically low 0.2-2.0 [facility] Comment on above: Performed By: #### Robb STEEN #### [facility] [address] [place] [address] Bee Nikki BLAST # Normal [facility] Comment on above: Performed By: #### Robb STEEN #### [facility] [address] [place] [address] Bee Nikki BLAST % Normal [facility] Comment on above: Performed By: #### C CELSA #### [facility] [address] [place] [address] Bee Nikki CORRECTED WBC Normal 4.0-11.0 [facility] Comment on above: Performed By: #### Robb STEEN #### [facility] [address] [place] [address] Bee Nikki Eosinophils (Bld) [#/Vol] 0.09 103/ul Normal 0.00-0.70 [facility] Comment on above: Performed By: #### C CELSA #### [facility] [address] [place], [place] [address] Bee Marinoen Eosinophils/100 WBC (Bld) 1.0 % Normal 0.9-7.0 [facility] Comment on above: Performed By: #### C CELSA #### [facility] [address] [place] [address] Bee Nikki Erythrocyte distribution width (RBC) [Ratio] 14.2 % Normal 11.0-15.0 [facility] Comment on above: Performed By: #### C CELSA #### [facility] [address] [place] [address] Bee Nikki Hematocrit (Bld) [Volume fraction] 34.3 % Critically low 36.0-48.0 [facility] Comment on above: Performed By: #### Robb STEEN #### [facility] [address] [place] [address] Bee Nikki Hemoglobin (Bld) [Mass/Vol] 11.0 g/dl Critically low 12.0-16.0 [facility] Comment on above: Performed By: #### Robb STEEN #### [facility] [address] [place] [address] Bee Nikki LYMPHM # 0.69 103/ul Critically low 1.20-3.80 [facility] Comment on above: Performed By: #### Robb STEEN #### [facility] [address] [place] [address] Bee Nikki LYMPHM% 8.0 % Critically low 20.5-60.0 [facility] Comment on above: Performed By: #### Robb STEEN #### [facility] [address] [place], [place] [address] Bee Nikki MCH (RBC) [Entitic mass] 32.2 pg Normal 26.7-34.0 [facility] Comment on above: Performed By: #### Robb STEEN #### [facility] [address] [place] [address] Bee Jordan MCHC (RBC) [Mass/Vol] 32.1 g/dl Normal 29.9-35.2 [facility] Comment on above: Performed By: #### Robb STEEN #### [facility] [address] [place] [address] Bee Jordan MCV (RBC) [Entitic vol] 100.3 fL Critically high 81.0-99.0 [facility] Comment on above: Performed By: #### Robb STEEN #### [facility] [address] [place] [address] Bee Nikki METAMYELOCYTE # Normal [facility] Comment on above: Performed By: #### Robb STEEN #### [facility] [address] [place] [address] Bee Nikki METAMYELOCYTE % Normal [facility] Comment on above: Performed By: #### Robb STEEN #### [facility] [address] [place] [address] Bee Nikki MONOM# 0.34 103/ul Normal 0.30-0.80 [facility] Comment on above: Performed By: #### Robb STEEN #### [facility] [address] [place] [address] Bee Nikki MONOM% 4.0 % Normal 1.7-12.0 [facility] Comment on above: Performed By: #### Robb STEEN #### [facility] [address] [place] [address] Bee Nikki MYELOCYTE # Normal [facility] Comment on above: Performed By: #### Robb STEEN #### [facility] [address] [place] [address] Bee Nikki MYELOCYTE % Normal [facility] Comment on above: Performed By: #### Robb STEEN #### [facility] [address] [place] [address] Bee Nikki NRBC Normal [facility] Comment on above: Performed By: #### Robb STEEN #### [facility] [address] [place] [address] Beeronen Jordan Platelet mean volume (Bld) [Entitic vol] 10.3 fL Normal 9.5-13.5 [facility] Comment on above: Performed By: #### C CELSA #### [facility] [address], [place] [address] Bee Jordan Platelets (Bld) [#/Vol] 192 103/ul Normal 150-450 [facility] Comment on above: Performed By: #### C CELSA #### [facility] [address] [id number] Bee Jordan RBC (Bld) [#/Vol] 3.42 106/ul Critically low 4.20-5.40 [facility] Comment on above: Performed By: #### C CELSA #### [facility] [address] [place], [place] [address] Bee Jordan SEG # 7.48 103/ul Critically high 1.40-6.50 [facility] Comment on above: Performed By: #### C CELSA #### [facility] [address] [place], [place] [address] Bee Jordan Segmented neutrophils/100 WBC (Bld) 87.0 % Critically high 43.0-75.0 [facility] Comment on above: Performed By: #### C CELSA #### [facility] [address] [place], [place] [address] Bee Jordan WBC (Bld) [#/Vol] 8.6 103/ul Normal 4.0-11.0 [facility] Comment on above: Performed By: #### C CELSA #### [facility] [address] [place], [place] [address] Bee [place] CT HEAD WO CONon 12-07-2018 CT HEAD WO CON Patient: CAIN TAN Exam Date: 12/07/2018 : 1975 Gender:F Ordering : DR SAM ROSS . Admission #: [id number] Family : DR JOSETTE VEGA M.D. Order #: [id number] CLICK HERE TO VIEW EXAM RADIOLOGY REPORT [...] appearance of the brain. Dictated by: Alayna Posadas M.D. on 12/07/2018 at 22:02 Approved by: Alayna Posadas M.D. on 12/07/2018 at 22:09 Normal [facility] CTA CHEST W CONon 12-07-2018 CTA CHEST W CON Patient: CAIN TAN Exam Date: 12/07/2018 : 1975 Gender:F Ordering : DR SAM ROSS . Admission #: [id number] Family : DR JOSETTE VEGA M.D. Order #: [id number] CLICK HERE TO VIEW EXAM RADIOLOGY REPORT [...] is felt less likely. Dictated by: Alayna Posadas M.D. on 12/07/2018 at 20:18 Approved by: Alayna Posadas M.D. on 12/07/2018 at 20:22 Normal [facility] CBC AUTO DIFFon 12-06-2018 Basophils (Bld) [#/Vol] 0.0 103/ul Normal 0.0-0.1 [facility] Comment on above: Performed By: #### C BC #### [facility] [address] [place] [address] Bee Nikki Basophils/100 WBC (Bld) 0.4 % Normal 0.2-2.0 [facility] Comment on above: Performed By: #### C BC #### [facility] [address] [place] [address] Bee Nikki Eosinophils (Bld) [#/Vol] 0.1 103/ul Normal 0.0-0.7 [facility] Comment on above: Performed By: #### C BC #### [facility] [address] [place] [address] Bee Nikki Eosinophils/100 WBC (Bld) 1.2 % Normal 0.9-7.0 [facility] Comment on above: Performed By: #### C BC #### [facility] [address] [place] [address] Beeronen Jordan Erythrocyte distribution width (RBC) [Ratio] 14.6 % Normal 11.0-15.0 [facility] Comment on above: Performed By: #### C BC #### [facility] [address] [place], [place] [address] Bee Nikki Hematocrit (Bld) [Volume fraction] 33.2 % Critically low 36.0-48.0 [facility] Comment on above: Performed By: #### C BC #### [facility] [address] [place], [place] [address] Bee Nikki Hemoglobin (Bld) [Mass/Vol] 10.5 g/dL Critically low 12.0-16.0 [facility] Comment on above: Performed By: #### C BC #### [facility] [address] [place] [address] Beeronen Jordan IG # 0.02 10e3/ul Normal 0.00-0.03 [facility] Comment on above: Performed By: #### C BC #### [facility] [address] [place], [place] [address] Bee Nikki IG % 0.3 % Normal 0.0-0.5 [facility] Comment on above: Performed By: #### C BC #### [facility] [address] [place], [place] [address] Bee Nikki Lymphocytes (Bld) [#/Vol] 2.6 103/ul Normal 1.2-3.8 [facility] Comment on above: Performed By: #### C BC #### [facility] [address] [place], [place] [address] Bee Jordan Lymphocytes/100 WBC (Bld) 37.9 % Normal 20.5-60.0 [facility] Comment on above: Performed By: #### C BC #### [facility] [address] [place], [place] [address] Bee Jordan MANUAL DIFF REQ NO Normal [facility] Comment on above: Performed By: #### C BC #### [facility] [address] [place], [place] [address] Beeronen Jordan MCH (RBC) [Entitic mass] 32.1 pg Normal 26.7-34.0 [facility] Comment on above: Performed By: #### C BC #### [facility] [address] [place], [place] [address] Beeronen Jordan MCHC (RBC) [Mass/Vol] 31.6 g/dL Normal 29.9-35.2 [facility] Comment on above: Performed By: #### C BC #### [facility] [address] [place], [place] [address] Beeronen Jordan MCV (RBC) [Entitic vol] 101.5 fL Critically high 81.0-99.0 [facility] Comment on above: Performed By: #### C BC #### [facility] [address] [place], [place] [address] Bee Nikki Monocytes (Bld) [#/Vol] 0.4 103/ul Normal 0.3-0.8 [facility] Comment on above: Performed By: #### C BC #### [facility] [address] [place], [place] [address] Bee Nikki Monocytes/100 WBC (Bld) 6.3 % Normal 1.7-12.0 [facility] Comment on above: Performed By: #### C BC #### [facility] [address] [place], [place] [address] Bee Nikki Neutrophils (Bld) [#/Vol] 3.7 103/ul Normal 1.4-6.5 [facility] Comment on above: Performed By: #### C BC #### [facility] [address] [place], [place] [address] Bee Nikki Neutrophils/100 WBC (Bld) 53.9 % Normal 43.0-75.0 [facility] Comment on above: Performed By: #### C BC #### [facility] [address] [place], [place] [address] Bee Nikki Platelet mean volume (Bld) [Entitic vol] 9.7 fL Normal 9.5-13.5 [facility] Comment on above: Performed By: #### C BC #### [facility] [address] [place], [place] [address] Bee Nikki Platelets (Bld) [#/Vol] 201 103/ul Normal 150-450 [facility] Comment on above: Performed By: #### C BC #### [facility] [address] [place], [place] [address] Bee Nikki RBC (Bld) [#/Vol] 3.27 106/ul Critically low 4.20-5.40 [facility] Comment on above: Performed By: #### C BC #### [facility] [address] [place], [place] [address] Bee Nikki WBC (Bld) [#/Vol] 6.9 103/ul Normal 4.0-11.0 [facility] Comment on above: Performed By: #### C BC #### [facility] [address] [place], [place] [address] Bee Nikki CBC AUTO DIFFon 12-04-2018 Basophils (Bld) [#/Vol] 0.0 103/ul Normal 0.0-0.1 [facility] Comment on above: Performed By: #### C BC #### [facility] [address] [place] [address] Bee Nikki Basophils/100 WBC (Bld) 0.4 % Normal 0.2-2.0 [facility] Comment on above: Performed By: #### C BC #### [facility] [address] [place] [address] Bee Nikki Eosinophils (Bld) [#/Vol] 0.1 103/ul Normal 0.0-0.7 [facility] Comment on above: Performed By: #### C BC #### [facility] [address] [place] [address] Bee Nikki Eosinophils/100 WBC (Bld) 1.6 % Normal 0.9-7.0 [facility] Comment on above: Performed By: #### C BC #### [facility] [address] [place] [address] Bee Nikki Erythrocyte distribution width (RBC) [Ratio] 13.8 % Normal 11.0-15.0 [facility] Comment on above: Performed By: #### C BC #### [facility] [address] [place] [address] Bee Nikki Hematocrit (Bld) [Volume fraction] 36.6 % Normal 36.0-48.0 [facility] Comment on above: Performed By: #### C BC #### [facility] [address] [place] [address] Bee Nikki Hemoglobin (Bld) [Mass/Vol] 12.0 g/dL Normal 12.0-16.0 [facility] Comment on above: Performed By: #### C BC #### [facility] [address] [place] [address] Bee Nikki IG # 0.01 10e3/ul Normal 0.00-0.03 [facility] Comment on above: Performed By: #### C BC #### [facility] [address] [id number] Bee Nikki IG % 0.2 % Normal 0.0-0.5 [facility] Comment on above: Performed By: #### C BC #### [facility] [address] [place], [place] [address] Bee Nikki Lymphocytes (Bld) [#/Vol] 2.2 103/ul Normal 1.2-3.8 [facility] Comment on above: Performed By: #### C BC #### [facility] [address] [place], [place] [address] Bee Nikki Lymphocytes/100 WBC (Bld) 42.8 % Normal 20.5-60.0 [facility] Comment on above: Performed By: #### C BC #### [facility] [address] [place], [place] [address] Bee Nikki MANUAL DIFF REQ NO Normal [facility] Comment on above: Performed By: #### C BC #### [facility] [address] [place], [place] [address] Bee Nikki MCH (RBC) [Entitic mass] 31.9 pg Normal 26.7-34.0 [facility] Comment on above: Performed By: #### C BC #### [facility] [address] [place] [address] Bee Nikki MCHC (RBC) [Mass/Vol] 32.8 g/dL Normal 29.9-35.2 [facility] Comment on above: Performed By: #### C BC #### [facility] [address] [place], [place] [address] Bee Nikki MCV (RBC) [Entitic vol] 97.3 fL Normal 81.0-99.0 [facility] Comment on above: Performed By: #### C BC #### [facility] [address] [place], [place] [address] Bee Nikki Monocytes (Bld) [#/Vol] 0.3 103/ul Normal 0.3-0.8 [facility] Comment on above: Performed By: #### C BC #### [facility] [address] [place], [place] [address] Bee Nikki Monocytes/100 WBC (Bld) 5.9 % Normal 1.7-12.0 [facility] Comment on above: Performed By: #### C BC #### [facility] [address], [place] [address] Bee Nikki Neutrophils (Bld) [#/Vol] 2.5 103/ul Normal 1.4-6.5 [facility] Comment on above: Performed By: #### C BC #### [facility] [address], [place] [address] Bee Nikki Neutrophils/100 WBC (Bld) 49.1 % Normal 43.0-75.0 [facility] Comment on above: Performed By: #### C BC #### [facility] [address], [place] [address] Bee Nikki Platelet mean volume (Bld) [Entitic vol] 9.5 fL Normal 9.5-13.5 [facility] Comment on above: Performed By: #### C BC #### [facility] [address], [place] [address] Bee Nikki Platelets (Bld) [#/Vol] 226 103/ul Normal 150-450 [facility] Comment on above: Performed By: #### C BC #### [facility] [address], [place] [address] Bee Nikki RBC (Bld) [#/Vol] 3.76 106/ul Critically low 4.20-5.40 [facility] Comment on above: Performed By: #### C BC #### [facility] [address], [place] [address] Bee Nikki WBC (Bld) [#/Vol] 5.1 103/ul Normal 4.0-11.0 [facility] Comment on above: Performed By: #### C BC #### [facility] [address], [place] [address] Bee Nikki PREG HCG QUALon 12-04-2018 , QUAL Negative Normal NEGATIVE [facility] Comment on above: Performed By: #### P REG #### [facility] [address] [id number] Bee Nikki PROF CHEM 8 (BAS METB)on Anion gap [Moles/Vol] 14.7 mmol/L Normal [facility] Comment on above: Performed By: #### B MP #### [facility] [address] [address] Bee Nikki Calcium [Mass/Vol] 8.8 mg/dL Normal 8.4-10.2 [facility] Comment on above: Performed By: #### B MP #### [facility] [address] [address] Bee Nikki Chloride [Moles/Vol] 109 mmol/L Critically high 98-107 [facility] Comment on above: Performed By: #### B MP #### [facility] [address] [place] [address] Bee Nikki CO2 [Moles/Vol] 22.5 mmol/L Normal 22.0-30.0 [facility] Comment on above: Performed By: #### B MP #### [facility] [address] [place] [address] Bee Nikki Creatinine [Mass/Vol] 0.87 mg/dL Normal 0.52-1.04 [facility] Comment on above: Performed By: #### B MP #### [facility] [address] [place] [address] Bee Nikki EGFR-AF GUINEAN >60 Normal >=60 [facility] Comment on above: Performed By: #### B MP #### [facility] [address] [address] Bee Nikki EGFR-NON AF GUINEAN >60 Normal >=60 [facility] Comment on above: Performed By: #### B MP #### [facility] [address] [place] [address] Bee Nikki Glucose [Mass/Vol] 94 mg/dL Normal 74-106 [facility] Comment on above: Performed By: #### B MP #### [facility] [address] [place] [address] Bee Nikki Potassium [Moles/Vol] 3.2 mmol/L Critically low 3.4-5.0 [facility] Comment on above: Performed By: #### B MP #### [facility] [address] [place] [address] Bee Jordan Sodium [Moles/Vol] 143 mmol/L Normal 137-145 [facility] Comment on above: Performed By: #### B MP #### [facility] [address] [place] [address] Bee Nikki Urea nitrogen [Mass/Vol] 20.0 mg/dL Critically high 7.0-17.0 [facility] Comment on above: Performed By: #### B MP #### [facility] [address] [place] [address] Beeronen Jordan Urea nitrogen/Creatinin e [Mass ratio] 23.0 mg/mg Normal [facility] Comment on above: Performed By: #### B MP #### [facility] [address] [place] [address] Beeronen Jordan PROTIMEon 12-04-2018 INR Coag (PPP) [Relative time] 1.03 {INR} Normal [facility] Comment on above: Performed By: #### P T, PTT #### [facility] [address] [place] [address] Bee Nikki PT Coag (PPP) [Time] PLEASE NOTE: NORMAL RANGE CHANGE 2014 DUE TO REAGENT LOT CHANGE Normal [facility] Comment on above: Performed By: #### P T, PTT #### [facility] [address] [place] [address] Bee Nikki PT Coag (PPP) [Time] SEE BELOW Normal [facility] Comment on above: Result Comment: NALINI RED INR: 2.0 - 3.0 CONDITIONS NOT LISTED BELOW 2.5 - 3.5 FOR PROSTHETIC HEART VALVE REPLACEMENT 2.5 - 3.5 RECURRENT THROMBOSIS Performed By: #### P T, PTT #### [facility] [address] [place] [address] Bee Nikki PT Coag (PPP) [Time] 10.7 s Normal 9.0-11.6 [facility] Comment on above: Performed By: #### P T, PTT #### [facility] [address] [id number] Bee Jordan PTTon 12-04-2018 aPTT Coag (Bld) [Time] PLEASE NOTE: NORMAL RANGE CHANGE 03-30-2015 DUE TO REAGENT LOT CHANGE Normal [facility] Comment on above: Performed By: #### P T, PTT #### [facility] [address] [address] Bee Jordan aPTT Coag (Bld) [Time] 23.0 s Normal 22.3-36.2 [facility] Comment on above: Performed By: #### P T, PTT #### [facility] [address] [address] Bee Jordan XR ANKLE RT 2Von 12-04-2018 XR ANKLE RT 2V Patient: CAIN TAN Exam Date: 12/04/2018 : 1975 Gender:F Ordering : DR. BEBO ENRIQUEZ DKaylahP.MKaylah Admission #: [id number] Family : Order #: [id number] CLICK HERE TO VIEW EXAM RADIOLOGY REPORT [...] right ankle trimalleolar fractures. Dictated by: Alayna Posadas M.D. on 12/04/2018 at 11:50 Approved by: Alayna Posadas M.D. on 12/04/2018 at 11:54 Normal [facility] XR ANKLE RT MIN 3 VIEWSon XR ANKLE RT MIN 3 VIEWS Patient: TERRIE TAN Exam Date: 12/04/2018 : 1975 Gender:F Ordering : DR. BEBO MonacoPKaylahMKaylah Admission #: [id number] Family : Order #: [id number] CLICK HERE TO VIEW EXAM RADIOLOGY REPORT [...] appearing in good alignment. Dictated by: Alayna Posadas M.D. on 12/04/2018 at 15:01 Approved by: Alayna Posadas M.D. on 12/04/2018 at 15:02 Normal [facility] XR ANKLE RT MIN 3 VIEWSon XR ANKLE RT MIN 3 VIEWS Patient: TERRIE TAN Exam Date: 12/03/2018 : 1975 Gender:F Ordering : DR. BEBO ENRIQUEZ DKaylahPKaylahMKaylah Admission #: [id number] Family : Order #: [id number] CLICK HERE TO VIEW EXAM RADIOLOGY REPORT [...] and lateral malleolar fractures. Dictated by: Alayna Posadas M.D. on 12/03/2018 at 13:10 Approved by: Alayna Posadas M.D. on 12/03/2018 at 13:13 Normal [facility] CNOVon 07-30-2017 CNOV Office Visit (NEVAN) TERRIE TAN ([id number]) 1975 [facility] Time Provider Department07/30/17 9:40 AM JOHN GARCIA During your visit today, we recorded the following information about you: Pulse Blood pressure Weight Height 84/minute 113/62 86.6 kg 1.549 Ricardo Garcia MD, MD 08/01/2017 10:22 AM [facility] Pflt3466 Khari Levine, [address] [address], [id number] [address]MWF: Josette Vega MDThis is a 42 year old year old year old, Right handed woman from [facility] whois referred in consultation by Dr. Vega for an opinion regarding headaches andmy final recommendations will be communicated back to the requesting physicianby way of shared Medical record or letter via US mail.CC: MigraineHPI:Past medical history significant for: Pseudotumor cerebri s/p LP shunt (2008),chronic daily migraines, Chiari malformation (per outside CT scans), PCOS,morbid obseity s/p gastric bypass in 2014, anxiety, and depression.Age of onset of headaches: [...] in your body: NoneLP shunt placed by ABHILASH Burns in 2008 for pseudotumor cerebri without anyimprovement [...] mouth every 8 hours as needed. Disp: Rfl:quwvgad-sfloeucm-isixv bital (FIORINAL) capsule Disp: Rfl: 1No current [...] 1ANDquot;) Wt 86.6 kg (191lb) BMI 36.09 kg/d2Hyiwgic: well appearing, in no acute distress, alert [...] than 50 % of time spent in counselingEmad SCOTTIE Garcia personally have reviewed the history and physical [...] fully agree with the recommendations as outlined above.??Alfonso CurranReferring Provider: SONNY HI [[id number]]Allergies As of Date: 07/30/2017 Noted Allergy ReactionANTIVERT [...] jeyson* FLUTICASONE 50 MCG/ACTUATION * Use 1 [place] in each nostril o* LURASIDONE 40 MG [...] 4 mg by mouth every 8 ho* UMFJMZLSUU-UGBAKAI-JBQTRPJ E 5*Medication notes this encounter TDLFBFNBCY-UGAXSMS-TESYQGN E 50 MG-325 MG-40 MG CAPSULE >> Sabrina Sturghil 07/30/2017 9:57 AM >> STURGHIL, SABRINA Tue Jul 30, 2017 9:57 AM Received from: External PharmacyProblem List As Of Date 07/30/2017 Noted Resolved Abdominal pannus [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 Tubular breast [N64.89] INVALID FOR* More... Status:Closed by JOHN GARCIA MD on 08/01/17 Normal [facility] PROGRESSon 07-30-2017 PROGRESS HNO ID: [id number] thor: TONI Blanchardervice: (none)Author Type: PhysicianType: Progress NotesFiled: 08/01/2017 10:22 AMNote Text:Headache CenterUturological [facility] for Zqvp0650 [place]ana [place]ine, [address] [address] [address]GQU: Josette Vega MDThis is a 42 year old year old year old, Right handed woman from [place] [facility] is referred in consultation by Dr. Vega for an opinion regardingheadaches and my final recommendations will be communicated back to therequesting physician by way of shared Medical record or letter via USmail.CC: MigraineHPI:Past medical history significant for: Pseudotumor cerebri s/p LP shunt(2008), chronic daily migraines, Chiari malformation (per outside CTscans), PCOS, morbid obseity s/p gastric bypass in 2014, anxiety, anddepression.Age of onset of headaches: In [...] in your body: NoneLP shunt placed by ABHILASH Burns in 2008 for pseudotumor cerebri withoutany [...] mouth every 8 hours as needed. Disp: Rfl:tpqyzyv-rgtlacki-cirym bital (FIORINAL) capsule Disp: Rfl: 1No current [...] a living. Trying to get disability. [facility].ROS:REVIEW OF SYSTEMSGENERAL: Planned weight loss (gastric [...] ) Wt 86.6 kg (191lb) BMI 36.09 kg/a0Ouzfwot: well appearing, in no acute distress, alert [...] ing/coordinating care with the patient and /or nfkuhs99. More than 50 % of time spent [...] agree withthe recommendations as outlined above.??Alfonso Curran [facility] PROGRESSon 02-20-2017 PROGRESS HNO ID: [id number] thor: Cat BAILEYervice: (none)Author Type: (none)Type: Progress NotesFiled: 02/20/2017 8:02 AMNote Text:[id number] OF PHOTOS: February 18, 2017TAKEN WITH LENS: 7ft / 70mm x5 RDKLHW4fi / 70mm H x5 ABDOMEN, FROM BELOW BRA LINE TO BELOW PUBIC AREAPOSES:AP/OP/LPDIAGNOSI S: NECK / TRUNK: PANNICULECTOMY and BREAST: BREAST AUGMENTATIONRELEASE: PATIENT SIGNED PHOTO RELEASE FOR CLINICAL USE AND SURGERYCat Montalvo LPN [facility] CNOVon 02-18-2017 CNOV Office Visit (PLASST) QUENTINTERRIE Dane ([id number]) 1975 FDate Time Provider Aoisbaiobv26/16/17 2:00 PM BEVERLY LEWIS During your visit today, we recorded the following information about you: Temperature Pulse Respiration Blood pressure 98.4 degrees 81/minute 18/minute 109/62 Weight Height 86.2 kg 1.549 Ha Montalvo ALEXIA 02/18/2017 2:21 PM [facility] [id number] HOURS: Lab is open 7:30am to 6:00pm [...] at least one day prior to the scheduledexam.[facility] HOURSHOURS OF OPERATIONS Saturday and Saturday 8:00am to 4:00pm, Saturday through Saturday6:00am to 9:00pm. Express care is for patients 2 years and older.[facility] OPER[facility] Saturday and Saturday 8:00am to 4:00pm, Saturday through Saturday6:00am to 9:00pm. The walk in clinic is for patients 6 months and older.[facility] WALK-IN HOURSHOURS OF OPERATIONS Saturday and Saturday 9:00am to 4:00pm, Saturday through Saturday6:00am to 9:00pm. The walk in clinic is for patients 2 years and older.For Express Care LOCATIONS, HOURS OF OPERATION and CURRENT WAIT TIMES, visitthe following [email or web address]?dFR[type s][0]=Express%20Care%20Cli nicsAND-amp; for detailsWe are glad that we were able to get you in for an urgent appointment todaywhen you needed it. Is there anything else I can do for you?For Express Care LOCATIONS, HOURS OF OPERATION and CURRENT WAIT TIMES, visitthe following [email or web address]?dFR[type s][0]=Express%20Care%20Cli nicsAND-amp; for detailsBeverly Lewis MD 02/18/2017 3:35 PM Carley is a 42 year old female who presents today for a consult appointment forevaluation for panniculectomy and bilateral breast augmentation for tubularbreasts. S/P gastric bypass 2 years ago. Has lost 100 lbs. Has skin rashesand irritations in abdominal skin folds.Previously denied through [place] [employer].BP 109/62 (BP Site: Left Arm, BP Position: Sitting, BP Cuff Size: Large Adult) Pulse 81 Temp 36.9 ?C (98.4 ?F) (Oral) Resp 18 Ht 154.9 cm (5' 1ANDquot;) Wt 86.2 kg (190 lb) BMI 35.9 kg/w5XNFKNKHDAVufwxwrw Reactions- Antivert [Meclizine] Other: See Comments Patient [...] Visit Diagnosis:Tubular breast [N64.89]Order(s):SURGICAL REQUEST - ELECTIVE [5333399] Order #: [id number]: 1 CBC + DIFF [SQCBCDIF] Order #: [id number] FUTURE COMP METABOLIC PANEL [SQCMP] Order #: [id number] FUTURE ECG COMPLETE W INTERPRETATION [ECG01] Order #: [id number] FUTURE CONSULT TO ANESTHESIOLOGY [9002] Order #: [id number]: 1 CONSULT TO INT MED-IMPACT [6689947] Order #: [id number]: 1 [employer] [1784387] Order #: [id number] REFER FOR ADMIT INTERVIEW [6107134] Order #: [id number] List As Of Date 02/18/2017 Noted Resolved Abdominal pannus [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 Tubular breast [N64.89] INVALID FOR* More... Other instructions from your clinician: [facility] FACTS [phone] LAB HOURS: Lab is open 7:30am to [...] one day prior to the scheduled exam. [facility] HOURS HOURS OF OPERATIONS Saturday and Saturday 8:00am to 4:00pm, Saturday 6:00am to 9:00pm. Express care is for patients 2 years and older. [facility] HOURS OF OPERATIONS Saturday and Saturday 8:00am to 4:00pm, Saturday 6:00am to 9:00pm. The walk in clinic is for patients 6 months and older. [facility] WALK-IN HOURS HOURS OF OPERATIONS Saturday and Saturday 9:00am to 4:00pm, Saturday 6:00am to 9:00pm. The walk in clinic is for patients 2 years and older. For Express Care LOCATIONS, HOURS OF OPERATION and CURRENT WAIT TIMES, visit the following link [email or web address]?dFR[types][0 ]=Express%20Care%20Clin [facility] for details We are glad that we were able to get you in for an urgent appointment today when you needed it. Is there anything else I can do for you? For Express Care LOCATIONS, HOURS OF OPERATION and CURRENT WAIT TIMES, visit the following link [email or web address]?dFR[types][0 ]=Express%20Care%20Clin Becky for detailsEncounter Number: [id number] Status:Closed by BEVERLY LEWIS MD on 02/18/17 Normal [facility] PROGRESSon 02-18-2017 PROGRESS HNO ID: [id number] thor: Beverly Mcgrawrvice: (none)Author Type: PhysicianType: Progress [...] Wt 86.2 kg (190 lb) BMI 35.9 kg/t9YYOOEYVJZMoqeqach Reactions- Antivert [Meclizine] Other: See Comments Patient [...] recommendations.?Beverly Lewis MDOctober 2016 3:34 PM Normal [facility] Vital Signs Date Time Vital Sign Value Performing Clinician Facility 11-13-2023 09:49-0400 Blood Pressure Location Skylarjoseline Ferrer [facility] 11-13-2023 09:49-0400 Diastolic blood pressure 85 mm[Hg] Skylar Lue [facility] 11-13-2023 09:49-0400 Heart rate 67 /min Skylar Lue [facility] 11-13-2023 09:49-0400 Respiratory rate 16 /min Skylar Lue [facility] 11-13-2023 09:49-0400 Systolic blood pressure 131 mm[Hg] Skylar Lue [facility] 05-04-2021 14:45-0500 Body height 154.94 cm Davi Martinez Other [facility] Other 05-04-2021 14:45-0500 Body mass index (BMI) [Ratio] 38.73 kg/m2 Dvai Martinez Other [facility] Other 05-04-2021 14:45-0500 Body weight 92.99 kg Davi Martinez Other [facility] Other 03-23-2021 10:38-0500 Body height 154.94 cm Referring Provider Unknown MC-Amfnbsxfnrepsg-Xwt dman Work Phone: 03-23-2021 10:38-0500 Body mass index (BMI) [Ratio] 40.06 kg/m2 Referring Provider Unknown WC-Irvkejuyafutmw-Hdk dman Work Phone: 03-23-2021 10:38-0500 Body surface area Derived from formula 1.94 m2 Referring Provider Unknown CJ-Qdgladgylpnhcz-Zqz dman Work Phone: 03-23-2021 10:38-0500 Body weight 96.16 kg Referring Provider Unknown YR-Malzezqvrapbpq-Syb dman Work Phone: Encounters Encounter Date Encounter Type Care Provider Facility Start: 11-13-2023 ambulatory Skylar Ferrer Facility:[facility] Start: 11-13-2023 End: 11-13-2023 Patient encounter procedure Skylar Ferrer [facility] Start: 11-08-2023 End: 11-08-2023 ambulatory SKYLAR FERRER [facility] Start: 10-24-2023 End: 10-24-2023 ambulatory ALEX BURRIS Not Available Start: 10-01-2023 End: 10-02-2023 Emergency department patient visit BRENNEN Dorsey NAWAF [facility] Start: 08-09-2023 End: 08-09-2023 ambulatory JOSETTE VEGA Not Available Start: 07-18-2023 End: 07-18-2023 ambulatory ALEX BURRIS Not Available Start: 05-17-2023 ambulatory Skylar Ferrer Facility:[facility] Start: 04-25-2023 End: 04-25-2023 ambulatory ALEX BURRIS Not Available Start: 04-12-2023 ambulatory Skylar Lue Facility:[facility] Start: 04-08-2023 End: 04-08-2023 ambulatory SURESH PAK Not Available Start: 04-08-2023 End: 04-08-2023 ambulatory JAMES Romi PAPPAS Not Available Start: 04-03-2023 End: 04-03-2023 ambulatory SURESH RODRIGUEZTRICK Not Available Start: 09-28-2021 End: 09-28-2021 ambulatory Davi Martinez Other [facility] Other Start: 09-28-2021 Telephone encounter Davi Mcallister [facility] Start: 05-04-2021 End: 05-04-2021 ambulatory Davi Martinez Other [facility] Other Start: 05-04-2021 Office outpatient ne w 45 minutes Davi Martinez [facility] Start: 04-06-2021 Patient encounter procedure No PCP [facility] [address] [place] Work Phone: Start: 03-23-2021 [facility] visit new patient No PCP None SY-Xposkbjfp-Gemzugc 3300A Work Phone: Start: 03-23-2021 Patient encounter procedure No PCP None VQ-Envmmcmemcaapt-Ebeuomu Voice Work Phone: Start: 03-23-2021 Office consultation new/estab patient 60 min Referring Provider Unknown EZ-Jrxbgnxeezzghx-Znyvhvm Work Phone: Start: 11-18-2019 End: 11-19-2019 Patient encounter procedure BEBO ENRIQUEZ Facility:[facility] Start: 10-20-2019 End: 10-21-2019 Patient encounter procedure EBBO ENRIQUEZ Facility:[facility] Start: 04-22-2019 End: 04-23-2019 Patient encounter procedure BEBO ENRIQUEZ Facility:[facility] Start: 04-09-2019 End: 04-10-2019 Patient encounter procedure EDMOND PARKER Facility:[facility] Start: 03-04-2019 End: 03-05-2019 Patient encounter procedure BEBO ENRIQUEZ Facility:[facility] Start: 01-28-2019 End: 01-29-2019 Patient encounter procedure BEBO ENRIQUEZ Facility:[facility] Start: 01-07-2019 End: 01-08-2019 Patient encounter procedure BEBO ENRIQUEZ Facility:[facility] Start: 01-06-2019 Encounter for other preprocedural examination BEBO ENRIQUEZ [facility] Start: 12-23-2018 End: 12-24-2018 Patient encounter procedure KAT CAMERON Facility:[facility] Start: 12-07-2018 End: 12-11-2018 Evaluation and management of inpatient JOSETTE VEGA Facility:[facility] Start: 12-03-2018 End: 12-04-2018 Patient encounter procedure BEBO ENRIQUEZ Facility:[facility] Start: 07-30-2017 End: 08-01-2017 Ambulatory FILIPPOD Crescencio GARCIA [facility] Start: 02-18-2017 Ambulatory BEVERLY LEWIS [facility] Procedures Date Procedure Procedure Detail Performing Clinician Start: 01-09-2023 Laparoscopic appendectomy Skylar Ferrer Start: 04-09-2019 ANESTH ABDOMINAL WALL SURG DOUG BLOCK Start: 04-09-2019 EXC SKIN ABD EDMOND PARKER Start: 04-09-2019 EXC SKIN ABD ADD-ON EDMOND PARKER Start: 12-08-2018 End: 12-08-2018 Microscopic examination of blood, culture BEBO ENRIQUEZ Comment on above: Performed By: #### PREG #### [facility] [address] [place] [address] Bee Jordan Start: 12-04-2018 Reposition Right Fibula with Internal Fixation Device, Open Approach BEBO ENRIQUEZ Start: 11-17-2018 Esophagogastroduodenoscopy transoral diagnostic Skylar Ferrer Start: 10-08-2018 Unlis laps px hrnap herniorrhaphy herniotomy Skylar Ferrer Start: 04-05-2015 Tonsillectomy & adenoidectomy Skylar Lue Cholecstontrstm garcía -en-y w/gastrontrstm Skylar Tuckere H/O: surgery Davi Hamlin ack Other Laps gstr rstcv px w /byp garcía-en-y limb <150 cm Skylar Lue Neuroplasty &/transp os median nrv carpal tunne Skylar Tuckere Oophorectomy Skylar Ferrer Plan of Treatment Date Care Activity Detail Author Start: 04-06-2021 JAMES, Provider : Maddy Echeverria, Status: Pen, Time: 4:00 PM JAMES, Provider: Maddy Echeverria, Status: Pen, Time: 4:00 PM JJ-Ldyaaqszr-Lfbmnnn [address] Work Phone: Immunizations Immunization Date Immunization Notes Care Provider [facility] 03-27-2021 influenza virus vaccine, unspecified formulation Skylar Ferrer [facility] 03-27-2021 SARS-CoV-2 (COVID-19 ) mRNA-1273 vaccine Skylar Luzafar [facility] 09-05-2020 Moderna COVID-19 Vaccine 100 MCG/0.5ML Intramuscular Suspension Referring Provider Unknown [facility] 08-10-2020 Moderna COVID-19 Vaccine 100 MCG/0.5ML Intramuscular Suspension Referring Provider Unknown [facility] 03-11-2019 influenza virus vaccine, unspecified formulation Skylar Ferrer [facility] 03-11-2019 influenza, injectable, quadrivalent, contains preservative Referring Provider Unknown DT-Tdvjpslukdfejv-Dc idman Work Phone: 03-11-2019 influenza, injectable,quadrivale nt, preservative free, pediatric Davi Juan Other [facility] Other 02-14-2018 influenza, injectable, quadrivalent, preservative free Referring Provider Unknown QB-Peshijimkcxkal-Go idman Work Phone: 03-01-2017 influenza, injectable,quadrivale nt, preservative free, pediatric Davi Juan Other [facility] Other 03-01-2017 influenza virus vaccine, unspecified formulation Skylar Lue [facility] 03-01-2017 influenza, injectable, quadrivalent, preservative free Referring Provider Unknown KJ-Rclexguvxrarmg-Dq idman Work Phone: 02-08-2016 influenza virus vaccine, unspecified formulation Skylar Lue [facility] 02-08-2016 influenza, injectable, quadrivalent, preservative free Referring Provider Unknown VK-Rygpgwtrrdlpiy-Gx idman Work Phone: 02-04-2015 influenza, high dose seasonal, preservative-free Davi Castroormack Other [facility] Other 02-04-2015 influenza virus vaccine, whole virus Referring Provider Unknown BZ-Twdjpxdbhprhti-Jk idman Work Phone: 02-04-2015 influenza, whole Skylar Lue [facility] 10-23-2014 measles, mumps and rubella virus vaccine Davi Juan Other [facility] Other 10-22-2014 measles, mumps and rubella virus vaccine Referring Provider Unknown [facility] 10-05-2014 tetanus toxoid, reduced diphtheria toxoid, and acellular pertussis vaccine, adsorbed Referring Provider Unknown [facility] 02-24-2014 tetanus toxoid, reduced diphtheria toxoid, and acellular pertussis vaccine, adsorbed Referring Provider Unknown [facility] 02-21-2014 influenza virus vaccine, unspecified formulation Skylar Ferrer [facility] 02-21-2014 influenza, seasonal, injectable Referring Provider Unknown CF-Pylavizbhccudv-Me eugeniajackelyn Work Phone: 1975 measles, mumps and rubella virus vaccine Davi Martinez Other [facility] NEGATED: Highlighted row has not occurred!02-18-2012 TDap [employer] Davi Martinez Other [facility] Other Payers Date Payer Category Payer Unknown [id number] [id number] 1975 Unknown [id number] 2..840.1.255839.3.579.2.593 1975 Unknown [id number] 2.840.1.078054.3.579.2.593 1975 Unknown [id number] 2..840.1.615915.3.579.2.593 1975 Unknown [id number] 2.16.840.1.794072.3.579.2.593 1975 Unknown [id number] 2..840.1.253346.3.579.2.593 1975 Unknown [id number] 2.16.840.1.186778.3.579.2.593 1975 Unknown [id number] 2.16.840.1.241825.3.579.2.593 1975 Unknown [id number] 2.16.840.1.725326.3.579.2.593 1975 Unknown [id number] 2.16.840.1.475177.3.579.2.59 1975 Unknown [id number] 2.16.840.1.402207.3.579.2.1258 1975 Unknown [id number] 2.16.840.1.811290.3.579.2.1258 1975 Unknown [id number] 2.16.840.1.599743.3.579.2.1258 1975 Unknown [id number] 2.16.840.1.468860.3.579.2.1258 1975 Unknown [id number] 2.16.840.1.622601.3.579.2.1258 1975 Unknown [id number] 2.16.840.1.337107.3.579.2.1258 1975 Unknown [id number] 2.16.840.1.570684.3.579.2.1258 1975 Unknown [id number] 2.16.840.1.298731.3.579.2.1285 1975 Unknown [id number] 2.16.840.1.783845.3.579.2.1285 1975 Unknown [id number] 2.16.840.1.755218.3.579.2.1285 1975 Unknown [id number] 2.16.840.1.516593.3.579.2.1285 1975 Unknown [id number] 2.16.840.1.580259.3.579.2.7 1959 Unknown [id number] Unknown [employer] Social History Date Type Detail Facility Non-smoker Non-smoker MG-Otolaryngolo gy-Seidm an Work Phone: [facility] Start: 11-13-2023 Tobacco smoking status Never s moked tobacco (finding) [facility] Tobacco smoking status Never [facility] Functional Status Date Assessment Result Facility 11-13-2023 Functional Status N/A [facility] Hospital Discharge instructions 11-13-2023 Note Date & Type Note Facility 11-13-2023 Hospital Discharg e instructions Patient Education 11/13/2023 10:43:58 Laser Therapy for Kidney Stones, Care After Laser Therapy for Kidney Stones, Care After This sheet gives you information about how to care for yourself after your procedure. Your health care provider may also give you more specific instructions. If you have problems or questions, contact your health care provider. What can I expect after the procedure? After the procedure, it is common to have: Pain. A burning sensation while urinating. Small amounts of blood in your urine. A need to urinate frequently. Pieces of kidney stone in your urine. Mild discomfort when urinating that may be felt in the back. You may experience this if you have a flexible tube (stent) in your ureter. Follow these instructions at home: Medicines Take dwhx-klg-beqhhtr and prescription medicines only as told by your health care provider. If you were prescribed an antibiotic medicine, take it as told by your health care provider. Do not stop taking the antibiotic even if you start to feel better. Ask your health care provider if the medicine prescribed to you: ?Requires you to avoid driving or using heavy machinery. ?Can cause constipation. You may need to take actions to prevent or treat constipation, such as: ?Take akjw-pqt-uofmhue or prescription medicines. ?Eat foods that are high in fiber, such as beans, whole grains, and fresh fruits and vegetables. ?Limit foods that are high in fat and processed sugars, such as fried or sweet foods. Activity Return to your normal activities as told by your health care provider. Ask your health care provider what activities are safe for you. Do not drive for 24 hours if you were given a sedative during your procedure. General instructions If your health care provider approves, you may take a warm bath to ease discomfort and burning. Drink enough fluid to keep your urine pale yellow. Your health care provider may recommend drinking two 8 oz (237 mL) glasses of water per hour for a few hours after your procedure. You may be asked to strain your urine to collect any stone fragments that you pass. These fragments may be tested. Keep all follow-up visits as told by your health care provider. This is important. If you have a stent, you will need to return to your health care provider to have the stent removed. Contact a health care provider if you: Have pain or a burning feeling that lasts more than 2 days. Feel nauseous. Vomit more and more often. Have difficulty urinating. Have pain that gets worse or does not get better with medicine. Get help right away if: You are unable to urinate, even if your bladder feels full. You have: ?Bright red blood or blood clots in your urine. ?More blood in your urine. ?Severe pain or discomfort. ?A fever or shaking chills. ?Abdominal pain. ?Difficulty breathing. ?Swelling in your legs. This information is not intended to replace advice given to you by your health care provider. Make sure you discuss any questions you have with your health care provider. Document Revised: 08/29/2022 Document Reviewed: 12/25/2021 [employer] Patient Education 2022 [employer]IN. 11/13/2023 10:43:58 Laser Therapy for Kidney Stones Laser Therapy for Kidney Stones Laser therapy for kidney stones is a procedure to break up small, hard mineral deposits that form in the kidney (kidney stones). The procedure is done using a device that produces a focused beam of light (laser). The laser breaks up kidney stones into pieces that are small enough to be passed out of the body through urination or removed from the body during the procedure. You may need laser therapy if you have kidney stones that are painful or block your urinary tract. This procedure is done by inserting a tube (ureteroscope) into your kidney through the urethral opening. The urethra is the part of the body that drains urine from the bladder. In women, the urethra opens above the vaginal opening. In men, the urethra opens at the tip of the penis. The ureteroscope is inserted through the urethra, and surgical instruments are moved through the bladder and the muscular tube that connects the kidney to the bladder (ureter) until they reach the kidney. Tell a health care provider about: Any allergies you have. All medicines you are taking, including vitamins, herbs, eye drops, creams, and bygr-mtr-wolxveq medicines. Any problems you or family members have had with anesthetic medicines. Any blood disorders you have. Any surgeries you have had. Any medical conditions you have. Whether you are or may be . What are the risks? Generally, this is a safe procedure. However, problems may occur, including: Infection. Bleeding. Allergic reactions to medicines. Damage to the urethra, bladder, or ureter. Urinary tract infection (UTI). Narrowing of the urethra (urethral stricture). Difficulty passing urine. Blockage of the kidney caused by a fragment of kidney stone. What happens before the procedure? Medicines Ask your health care provider about: ?Changing or stopping your regular medicines. This is especially important if you are taking diabetes medicines or blood thinners. ?Taking medicines such as aspirin and ibuprofen. These medicines can thin your blood. Do not take these medicines unless your health care provider tells you to take them. ?Taking zrub-wpj-gpthnqk medicines, vitamins, herbs, and supplements. Eating and drinking Follow instructions from your health care provider about eating and drinking, which may include: 8 hours before the procedure stop eating heavy meals or foods, such as meat, fried foods, or fatty foods. 6 hours before the procedure stop eating light meals or foods, such as toast or cereal. 6 hours before the procedure stop drinking milk or drinks that contain milk. 2 hours before the procedure stop drinking clear liquids. Staying hydrated Follow instructions from your health care provider about hydration, which may include: Up to 2 hours before the procedure you may continue to drink clear liquids, such as water, clear fruit juice, black coffee, and plain tea. General instructions You may have a physical exam before the procedure. You may also have tests, such as imaging tests and blood or urine tests. If your ureter is too narrow, your health care provider may place a soft, flexible tube (stent) inside of it. The stent may be placed days or weeks before your laser therapy procedure. Plan to have someone take you home from the hospital or clinic. If you will be going home right after the procedure, plan to have someone stay with you for 24 hours. Do not use any products that contain nicotine or tobacco for at least 4 weeks before the procedure. These products include cigarettes, e-cigarettes, and chewing tobacco. If you need help quitting, ask your health care provider. Ask your health care provider: ?How your surgical site will be marked or identified. ?What steps will be taken to help prevent infection. These may include: ?Removing hair at the surgery site. ?Washing skin with a germ-killing soap. ?Taking antibiotic medicine. What happens during the procedure? An IV will be inserted into one of your veins. You will be given one or more of the following: ?A medicine to help you relax (sedative). ?A medicine to numb the area (local anesthetic). ?A medicine to make you fall asleep (general anesthetic). A ureteroscope will be inserted into your urethra. The ureteroscope will send images to a video screen in the operating room to guide your surgeon to the area of your kidney that will be treated. A small, flexible tube will be threaded through the ureteroscope and into your bladder and ureter, up to your kidney. The laser device will be inserted into your kidney through the tube. Your surgeon will pulse the laser on and off to break up kidney stones. A surgical instrument that has a tiny wire basket may be inserted through the tube into your kidney to remove the pieces of broken kidney stone. The procedure may vary among health care providers and hospitals. What happens after the procedure? Your blood pressure, heart rate, breathing rate, and blood oxygen level will be monitored until you leave the hospital or clinic. You will be given pain medicine as needed. You may continue to receive antibiotics. You may have a stent temporarily placed in your ureter. Do not drive for 24 hours if you were given a sedative during your procedure. You may be given a strainer to collect any stone fragments that you pass in your urine. Your health care provider may have these tested. This information is not intended to replace advice given to you by your health care provider. Make sure you discuss any questions you have with your health care provider. Document Revised: 08/29/2022 Document Reviewed: 12/25/2021 [employer] Patient Education 2022 [email or web address]. Follow Up Care 04/12/2023 13:59:05 With:Nabil FU, RASHEL Randall, URO Address: [address] [place] [address] [phone] When: Unknown Comments:miguel WILSON [facility] 09-28-2021 Note Date & Type Note Facility 09-28-2021 Evaluation note Encounter Date Diagnosis Assessment Notes September, Slow transit constipation (ICD-10 - K59.01) [facility] Other Clinical Note 09-04-2021 Note Date & Type Note Facility 09-04-2021 Note HISTORY: Seizures, p rior history of shunt PROCEDURE: [employer] HDXT 1.5. Sagittal coronal and axial T1 [...] signed by Sammy Savage on 09/04/2021 [address] [facility] Evaluation note 05-04-2021 Note Date & Type Note Facility 05-04-2021 Evaluation note Encounter Date Diagnosis Assessment Notes Apr, Slow transit constipation (ICD-10 - K59.01) PATIENT DOES NOT TAKE ANY MEDICATIONS WILL START THE ABOVE MEDICATION. Apr, Abdominal pain (ICD-10 - R10.9) WILL HAVE THIS WHEN BOWELS DO NO MOVE Apr, Heartburn (ICD-10 - R12) DOES NOT TAKE ANY MEDICATION [facility] Other Evaluation + Plan note Note Date & Type Note Facility Evaluation + Plan note No data available for this section [facility] History general Narrative - Reported Note Date [...] not wanting to kill self .Hospitalized in [facility] Hospitalization History In [facility] chiatric unit on two occasions. Hospitalization History [facility]- Stomach Problems 1 06/10/18 [facility] Other History of Present illness Narrative Note Date & Type Note Facility History of Present illness Narrative TERRIE TAN, age 46 years, was seen today for an audiologic evaluation in conjunction with seeing Ekta Bustos MD. Ms. TAN reports bilateral hearing loss with the use [...] inserted. 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 She denies otalgia, otorrhea, tinnitus, dizziness, [...] verbalize recall / understanding and teaching complete. SI-Xfsepnwou-Dkpuhry [id number] Work Phone: History of Present illness [...] 4Treatment recommendations: treatment indicated (see goals below) NC-Lvxhnmhwpjdtix-Gdnttjz Voice Work Phone: Progress note Note Date & Type Note Facility Progress note No data available for this section [facility] Summary Purpose Family History No Family History Records FoundNo Family History Records FoundNo Family History Records FoundNo Family History Records FoundNo Family History Records FoundNo Family History Records FoundNo Family History Records FoundNo Family History Records FoundNo Family History Records Found No data available for this section Advance Directives No Advanced Directives Records FoundNo [...] section and content) DATE CREATED AUTHOR 10/24/2017 [facility] DATE CREATED AUTHOR AUTHOR'S ORGANIZ ATION 04/17/2019 [facility] DATE CREATED AUTHOR AUTHOR'S ORGANIZ ATION 11/28/2019 [facility] DATE CREATED AUTHOR AUTHOR'S ORGANIZ ATION 07/12/[address] [facility] DATE CREATED AUTHOR AUTHOR'S ORGANIZ ATION 04/08/2021 [employer] DATE CREATED AUTHOR AUTHOR'S ORGANIZ ATION 01/12/2022 [facility] DATE CREATED AUTHOR AUTHOR'S ORGANIZ ATION 10/26/2023 [facility] DATE CREATED AUTHOR AUTHOR'S ORGANIZ ATION 11/09/2023 [facility] DATE CREATED AUTHOR AUTHOR'S ORGANIZ ATION 11/11/2023 [facility] REASON FOR VISIT (unrecogniz ed section and [...] BE BASED ON THE PRIMARY CLINICAL RECORDS. [facility] [employer] [facility]. provides no warranty or guarantee of the accuracy or completeness of information in this document.
[2023-11-20 11:29] LABS: Glucometer 103 mg/dL (74-106)
[2023-11-20 11:31] LABS: HCG Qualitative NEGATIVE (NEGATIVE); Internal Control Within Normal Limits
[2023-11-20] MEDS: LACTATED RINGER'S SOLUTION 1,000 ML 50 ML IV (11:41)
[2023-11-20] MEDS: CEFAZOLIN SODIUM/DEXTROSE,ISO 2 GM/50 ML PIGGYBACK IV (12:41)
--- NOTE | 2023-11-20 13:00 | PM.URSON ---
Urology Surgery Operative Note Operative Note Procedure Date: 11/20/23 Time Out Performed: yes Pre-op Diagnosis: Right ureteral stone with hydronephrosis Post-op Diagnosis: same as pre-op Procedures performed: Cystoscopy, right retrograde pyelogram, ureteroscopy laser lithotripsy/stone extraction, stent placement Anesthesia: General-LMA Primary Surgeon: Skylar Ferrer Complications: none Estimated blood loss (mL): 0 Findings: Radiopaque stone UPJ. R RPG- severe hydronephrosis with blown out calyces, faint filling defect at UPJ, no extravasation. Difficult to navigate wire past stone, required twisting and wire manipulation. Right impacted UPJ stone underwent uncomplicated laser lithotripsy and stone extraction. Significant mucosal inflammation around impacted stone, pale ureter once stone removed. Specimens: right ureteral stone Drains: 7Fr x 22-32 cm JJ right ureteral stent Incision: none Indications for Procedures: 48 year old female diagnosed with a 5 mm right UPJ stone with moderate hydronephrosis on CT AP 10/01/23 who presented to clinic last week for evaluation. After discussion of risks/benefits of management options, she elected to proceed with cystoscopy, right retrograde pyelogram, ureteroscopy with laser lithotripsy/stone extraction, ureteral stent placement under general anesthesia. Elevated risk of ureteral stricture and renal damage given prolonged ureteral stone, pt with flank pain since Jan 2023. Risks were discussed including but not limited to bleeding, pain, infection, damage to surrounding structures, inability to treat the stone/place a stent, and need for additional procedures. The patient understands the stent is not permanent and needs to be removed or exchanged within 3 months to prevent encrustation, infection, invasive procedures and/or permanent renal damage. Detailed description of Procedure: After informed consent was obtained, the patient was brought to the operating room and transferred onto the operating table in supine position. Sequential compression devices were placed on bilateral lower extremities. The patient received the appropriate dose of preoperative IV antibiotics and general anesthesia LMA was induced. They were positioned in modified dorsolithotomy with the appropriate pressure points padded, prepped, and draped in the usual sterile fashion for this procedure. An operative safety timeout was performed confirming the patient's identity, laterality and procedure, and all present agreed to proceed. I began by inserting a 22 [place] rigid cystoscope with 30 degree lens into the patient's urethra and bladder without difficulty. There were no bladder tumors, lesions, stones or foreign bodies. Bilateral ureteral orifices were orthotopic and patent. I turned my attention to the right ureteral orifice and a 6- [place] open-ended catheter was inserted into the ureteral orifice and dilute contrast was injected for retrograde pyelogram with findings as above. A Sensor wire was inserted into the ureter up to the renal pelvis confirmed on fluoroscopy, requiring twisting and manipulation to bypass stone. A 10/12 [place]an by 36 cm ureteral access sheath was inserted over the wire in a sequential fashion to gain access to the stone. Next a flexible ureteroscope was inserted through the sheath and advanced under fluoroscopic guidance until the stone was reached. A 200 ?m thulium laser fiber was used to break the stone into fragments, taking care not to damage underlying ureter from impacted stone. Fragments were then removed with a 1.8 tipless nitinol basket. After the stone was adequately treated, a full renoscopy was performed removing any significant residual fragments. Contrast was injected to assist with mapping for the renoscopy. The wire was reinserted and a pull down ureteroscopy was performed confirming no stones remained in the ureter. The wire was backloaded through the cystoscope and 7Fr x 22-32cm JJ variable length ureteral stent was advanced over the wire, noting adequate curl in the renal pelvis and bladder on fluoroscopic and direct visualization. The bladder was drained and inspected one final time to ensure adequate position of stent and no undue trauma to the bladder was done. The stones were sent for pathology and the cystoscope was removed. The patient tolerated the procedure well without complication. The patient was awakened from anesthesia and sent to PACU in stable condition. Plan: Discharge home with stent pain medications. Follow up in 2 weeks given impacted stone for in-office cystoscopy, stent removal. Other Provider present: No Post Operative care instructions: See discharge instructions Attending Doc Confirm Attending Attestation: Yes
[2023-11-20] MEDS: IOHEXOL 300 MG/ML - 50 ML BTL INJ (13:35)
--- NOTE | 2023-11-20 13:49 | XR_ITS ---
[address] [address] Patient Name: KAREN SAAVEDRA MRN: [id number] date: 1975 Sex: F Assigned Patient Location: [facility] Current Patient Location: [place] Accession/Order Number: [id number] Exam Date: 11/20/2023 12:45 Report Date: 11/21/2023 05:22 At the request of: ZOIE DANIEL Procedure: XR urethrogram retrograde EXAM: XR urethrogram retrograde HISTORY: Right renal stone COMPARISON: None. TECHNIQUE: FINDINGS: Intraprocedural spot fluoroscopic images show placement of a right ureteral stent and contrast retained within right upper collecting system. XR/XR urethrogram retrograde IMPRESSION: 1. Right ureteral stent placement. 2. Mild right hydronephrosis. Electronically authenticated by: ALAYNA POSADAS Date: 11/21/2023 05:22
--- NOTE | 2023-11-20 14:56 | PC.NURSE ---
PATIENT DIFFICULT TO AROUSE POST SURGERY. bLOOD SUGAR IS 108 SHE STATED SHE HAS HAD LOW BLOOD SUGAR IN THE PAST. pATIENT IS JUST NOW STARTING TO ANSWER QUESTIONS. DENIES PAIN.
[2023-11-20 15:03] LABS: Glucometer 108 mg/dL (74-106)
[2023-11-20] MEDS: LACTATED RINGER'S SOLUTION 1,000 ML 75 ML IV (15:15)
--- NOTE | 2023-11-20 15:28 | PC.NURSE ---
Jose ATWOOD IS AWARE THAT PATIENT IS STILL VERY SLEEP. DR ATWOOD STATES HE WILL CHECK ON HER BEFORE HE LEAVES. iT IS OK TO TAKE HER TO MED SURG FOR THE NIGHT SHE WAS STAYING UNTIL TOMORROW.
[2023-11-20] MEDS: HYDROCODONE/ACET 5-325 MG TABLET 1 TAB PO (18:00)
[2023-11-20] MEDS: IBUPROFEN 600 MG TABLET PO (19:56)
--- NOTE | 2023-11-20 20:39 | PC.NURSE ---
urine is dark red in color
[2023-11-20] MEDS: BUDESONIDE 0.5 MG/2 ML AMPULE NEB IH (22:51)
[2023-11-20] MEDS: IPRATROPIUM/ALBUTEROL SULFATE 3 ML AMPUL.NEB IH (22:51)
[2023-11-20] MEDS: PHENAZOPYRIDINE 100 MG TABLET PO (23:10)
--- NOTE | 2023-11-20 23:15 | PC.NURSE ---
Urine light pink in color
[2023-11-21] MEDS: HYDROCODONE/ACET 5-325 MG TABLET 1 TAB PO ×2 (00:23→08:16)
[2023-11-21] MEDS: OXYBUTYNIN chloride 5 MG TABLET 10 MG PO (03:33)
[2023-11-21] MEDS: IPRATROPIUM/ALBUTEROL SULFATE 3 ML AMPUL.NEB IH (04:25)
[2023-11-21 04:28] VITALS: PULSE 83; O2SAT 97
[2023-11-21 04:46] VITALS: BP 126/77; PULSE 71; TEMP 36.6; O2SAT 93
[2023-11-21] MEDS: TAMSULOSIN HCL 0.4 MG CAPSULE PO (08:16)
[2023-11-21] MEDS: OMEPRAZOLE 20 MG CAPSULE.DR PO (08:16)
== END 2023-11-21 09:26 | disposition home or self-care (01) ==
LOC: SURGOUT 12:59 → MS 15:37
PROVIDERS: Anesthesiology; PCP Family Medicine; Visit Provider Urology
PROC: (CPT 918; principal; 2023-11-20 12:30)
DX: N13.2 Hydronephrosis with renal and ureteral calculous obstruction (principal); R56.9 Unspecified convulsions; Z86.718 Personal history of other venous thrombosis and embolism
CPT/HCPCS: 52356; 36415; 74420; 82365; 82948; 84703; 94640; 99999; J0131; J0690; J1100; J1885; J2250; J2405; J2704; J3010; Q9967

== ENCOUNTER 2023-11-27 11:24 | Emergency (ER) | payer MEDICAID, SELFPAY ==
[2023-11-27 11:32] VITALS: BP 120/74; PULSE 70; TEMP 36.7; O2SAT 100; BMI 34.0
--- OUTSIDE RECORDS SUMMARY | 2023-11-27 11:47 | XMS_ITS | CCD ---
Author Organization [facility] Care Team Providers Care Seed District Sales Manager Name Role Phone BEVERLY LEWIS Unavailable Unavailable JOHN GARCIA Unavailable Unavailable SONNY HI Unavailable Unavailab EDMOND Ferrari Admitting Unavailable EDMOND PARKER Attending Unavailable ANDREWJOSETTE Referring Unavailable ANDREW, JOSETTE Primary Care Unavailable NM Procedure Practitioner Unavailab EDMOND Ferrari Surgeon Unavailable NM Procedure Practitioner Unavailab DOUG Whitt Surgeon Unavailable [...] No PCP Unavailable Unavailable Davi Martinez Unavailable [phone] ALEX BURRIS Attending Unavailab JOSETTE Bragg Felton Attending Unavailable RADHA MARIN Attending Unavailab JAMES Hart Attending Unavailable RADHA MARIN Referring Unavailab ALEX Payne Attending Unavailab kelle VEGA JOSETTE Ya Primary Care Unavailable BRENNEN MCCRACKEN Attending Unavailable BRENNEN MCCRACKEN Attending Unavailable BRENNEN MCCRACKEN Referring Unavailable ANDREW JOSETTE F Primary Care Unavailable SKYLAR FERRER Referring Unavailable ANDREW JOSETTE Ya Primary Care Unavailable SKYLAR EFRRER Referring Unavailable ANDREW JOSETTE Ya Primary Care Unavailable Skylar Ferrer. Attending Unavailable RADHA MARNI. Referring Unavaila Skylar Daugherty. Attending Unavailable Allergies Allergy Classification Reported Allergen(s) Allergy Type Date of Onset Reaction(s) Facility (8 sources) meclizine; Translations: [MECLIZINE] Drug Allergy 3 Fatigue (finding) [facility] Repository (1 source) Meclizine; Translations: [Unknown] Drug Allergy 9 [facility] Repository (4 sources) Meclizine; Translations: [Antivert TABS] Drug Allergy MG-Otolaryngol marvinrodolfoEstherElizabeth Work Phone: Medications Current Medications Medication Drug [...] Ordered: 23-Mar-2021 DO Active polyethylene glycol 3350 92657 mg powder for oral solution (4 sources) [...] 5 11-06-2023 Chronic Other aftercare (1 source) care home (current) use of oral hypoglycemic drugs; Translations: [LONG-TERM USE ORAL HYPOGLYCEMIC DX] Onset: 9 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 XR ABDOMEN AP 1 VWon 024 XR [...] Espino MD on 11/09/2023 11:31 AM Normal [facility] CT ABDOMEN AND PELVIS WO CON Ton [...] Otero MD on 10/01/2023 11:26 PM Normal [facility] HCG ( test) Ql (U)o n 10-01-2023 Beta HCG ( test) Ql (U) Negative Normal NEG [facility] Comment on above: Performed By: #### 2 106-3 #### [facility] ([id number]) [address] [place] [address] URINE CULTUREon 10-01-2023 Bacteria identified Cx Nom (U) CULTURE RESULTS 10-50,000 ORGANISMS/mL NORMAL UROGENITAL JOSSELINE Normal [facility] Comment on above: Performed By: #### 6 30-4 #### [facility] ([id number]) [address] [place] [address], [address] [place] [address] URN MACROSCOPIC NURon 2023 BILIRUBIN RUTH Negative Normal NEG [facility] Comment on above: Performed By: #### N UM #### [facility] ([id number]) [address] [place] [address] BLOOD/HGB RUTH Trace Abnormal NEG [facility] Comment on above: Performed By: #### N UM #### [facility] ([id number]) [address] [place] [address] GLUCOSE RUTH 100 mg/dL Abnormal NEG [facility] Comment on above: Performed By: #### N UM #### [facility] ([id number]) [address] [place] [address] KETONES RUTH Negative Normal NEG [facility] Comment on above: Performed By: #### N UM #### [facility] ([id number]) [address] [place] [address] LEUKOCYTE ESTERASE RUTH Small Abnormal NEG [facility] Comment on above: Performed By: #### N UM #### [facility] ([id number]) [address] [place] [address] NITRITE RUTH Negative Normal NEG [facility] Comment on above: Performed By: #### N UM #### [facility] ([id number]) [address] [place] [address] 16681 PH RUTH 5.5 Normal 5.0-8.5 [facility] Comment on above: Performed By: #### N UM #### [facility] ([id number]) [address] [place] [address] PROTEIN RUTH Negative Normal NEG [facility] Comment on above: Performed By: #### N UM #### [facility] ([id number]) [address] [place] [address] SPECIFIC GRAVITY RUTH 1.025 Normal 1.003-1.035 [facility] Comment on above: Performed By: #### N UM #### [facility] ([id number]) [address] [place] [address] UROBILINOGEN RUTH 0.2 eu/dL Normal <1.1 [facility] Comment on above: Performed By: #### N UM #### [facility] ([id number]) [address] [place] [address] Physician Orderon 04-16-2023 Physician Order [id number] Normal [facility] US RENAL COMPLETEon 04-08-20 23 US [...] by Sammy Savage on 01/11/2022 1527 Normal [facility] SCREENING MAMMOGRAM W/GOVIND, BILATERAL*on 11-24-2021 SCREENING [...] VERY IMPORTANT TO YOUR HEALTH. THE CURRENT [employer] GUIDELINES RECOMMENDS ANNUAL MAMMOGRAPHY BEGINNING AT AGE 40. THIS FACILITY USES A REMINDER SYSTEM TO ENSURE ALL PATIENTS RECEIVE REMINDER NOTIFICATIONS AT THE APPROPRIATE TIME BASED ON THE RECOMMENDATIONS OF THIS EXAM. Report reported and signed by Sammy Savage on 11/27/2021 1049 Normal [facility] US Pelvic, Transvaginalon US Pelvic, Transvaginal [...] by Sammy Savage on 09/13/2021 1302 Normal [facility] Therapy Communicationon 12-0 Therapy Communication Message TERRIE TAN no showed today . Signatures Electronically signed by : Maddy Echeverria CCC-DRIVER/REFUSE COLLECTOR; Apr 07 2021 12:01PM EST (Author) Normal [...] you can call Speech Therapy Scheduling at [phone]. Please follow up pending the outcome of [...] assist you through your ENT care at [facility]. Dr. Bustos is an ENT surgeon who specializes in voice, airway and swallowing issues. This means that she specializes in taking care of patients with complex voice, airway and swallowing problems. Dr. Bustos's office number is [phone]. Please use this number to contact her and her care team regardless of which office you use to access care. This number is the most direct way to communicate with all the members of the care team. Dr. Bustos?s patient care secretary answers the office phone from 9am-4pm Mon-Sat. Call [phone] and push [phone]. She can help you with scheduling of appointments, general questions and information. You may need to leave a message if she is helping another patient. In this case, someone from the team will call you back the same day if you leave your message before 3pm, or the next business morning. Dr. Bustos?s nurse and can be reached by calling [phone]. We make every effort to return phone calls the same day. If you are in need of urgent assistance after hours, please call [phone] and ask for ENT art sales consultant. Dr. Bustos works closely with speech therapists as they work together to help solve your issues with speech and swallowing. You may see a speech therapist during your appointment if Dr. Bustos feels this is needed. If you need to reach speech therapy to talk with a therapist or to schedule an appointment, please call [phone]. Others who may be included in your care are dieticians, social workers, audiologists, neurologists, and physical therapists. Dr. Bustos will provide these referrals as needed. Please let her know if you would like to request a specific referral. For your convenience, Dr. Bustos sees patients at different [facility] locations including the [facility] and [facility] at the [facility]. 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 She is having [...] cyst, ch (more content not included)... Normal [facility] Office Visit (Audiology)on 05-23-2020 Follow-up visit Diagnoses/Problems [...] hearing protection when in/around loud noise. Time: 5587-7969 Chief Complaint hearing test hearing loss, has [...] inserted. 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 She denies otalgia, otorrhea, tinnitus, dizziness, history of otologic surgery. Patient's preferred language: Tuvaluan Preferred language of the parent, legal guardian [...] hair cell function at the frequencies tested 0658-5820 Hz. Audiometric evaluation revealed essentially flat mild sensorineural hearing loss with word recognition ability estimated to be excellent (92%) based on an NU-6 recorded 25-word list. LEFT EAR: -Tympanometry: Type A tympanogram, normal ear canal volume and compliance -Acoustic reflexes: Ipsilateral acoustic reflexes absent at 500-4000 Hz -Distortion product otoacoustic emissions (DPOAEs): Present at 3392-0181 Hz and absent at 6673-0713 Hz. This is consistent with largely normal to near normal outer hair cell function at the frequencies tested 3830-8224 Hz. Audiometric evaluation revealed essentially flat mild sensorineural hearing loss with word recognition ability estimated to be excellent (92%) based on an NU-6 recorded 25-word list. The test results were discussed with the patient. 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 She is having [...] material (more content not included)... Normal [facility] DRIVER/REFUSE COLLECTOR (Voice Evaluation) No report was sent Normal [facility] Tobacco Screening.on 021 Fall risk assessment a) No falls within the last year MG-Otolaryngo logy-Elizabeth Work Phone: Tobacco use status CPHS b) No MG-Otolaryngo logy-Elizabeth Work Phone: Basic Metabolic Panelon 06-07 Calcium [Mass/Vol] 8.9 mg/dL Normal 8.2-10.2 [facility] Comment on above: Performed By: #### L IPID, HEPATIC, BMP, TSH3 wRFLX, [id number] #### [facility] [address] Chloride [Moles/Vol] 106 mmol/L Normal 95-114 [facility] Comment on above: Performed By: #### L IPID, HEPATIC, BMP, TSH3 wRFLX, [id number] #### [facility] [address] CO2 [Moles/Vol] 22.0 mmol/L Normal 22.0-30.0 [facility] Comment on above: Performed By: #### L IPID, HEPATIC, BMP, TSH3 wRFLX, [id number] #### [facility] [address] Creatinine [Mass/Vol] 0.67 mg/dL Normal 0.44-1.03 [facility] Comment on above: Performed By: #### L IPID, HEPATIC, BMP, TSH3 wRFLX, [id number] #### [facility] [address] [place] [address] [place] Creatinine [Mass/Vol] 104.81 mg/dL Normal [facility] Comment on above: Performed By: #### L IPID, HEPATIC, BMP, TSH3 wRFLX, [id number] #### [facility] [address] [place] [address] [place] Estimated GFR ( Racquel > 60 Normal [facility] Comment on above: Result Comment: GFR estimated reference range: According to KDOQI guidelines, <60 ml/min/1.73m2 is sufficient to diagnose a patient with chronic kidney disease. Performed By: #### L IPID, HEPATIC, BMP, TSH3 wRFLX, [id number] #### [facility] [address] Estimated GFR (Non- Am > 60 Normal [facility] Comment on above: Performed By: #### L IPID, HEPATIC, BMP, TSH3 wRFLX, [id number] #### [facility] [address] Glucose [Mass/Vol] 94 mg/dL Normal 70-100 [facility] Comment on above: Result Comment: [facility] Glucose Reference Range is dependent on time and content of last meal. Glucose of more than 200 mg/dL in a nonstressed, ambulatory subject supports the diagnosis of Diabetes Mellitus. ADA recommended reference range Performed By: #### L IPID, HEPATIC, BMP, TSH3 wRFLX, [id number] #### [address] Potassium [Moles/Vol] 3.8 mmol/L Normal 3.5-5.1 [facility] Comment on above: Performed By: #### L IPID, HEPATIC, BMP, TSH3 wRFLX, [id number] #### [address] Sodium [Moles/Vol] 139 mmol/L Normal 136-146 [facility] Comment on above: Performed By: #### L IPID, HEPATIC, BMP, TSH3 wRFLX, [id number] #### [address] Urea nitrogen [Mass/Vol] 12 mg/dL Normal 9-23 [facility] Comment on above: Performed By: #### L IPID, HEPATIC, BMP, TSH3 wRFLX, [id number] #### [facility] [address] Hepatic Panelon 07-03-2020 Albumin [Mass/Vol] 3.8 g/dL Normal 3.2-5.5 [facility] Comment on above: Performed By: #### L IPID, HEPATIC, BMP, TSH3 wRFLX, [id number] #### [facility] [address] [place] [address] [place] Albumin/Globulin [Mass ratio] 1.6 {ratio} Normal [facility] Comment on above: Performed By: #### L IPID, HEPATIC, BMP, TSH3 wRFLX, [id number] #### [facility] [address] [place] [address] ALP [Catalytic activity/Vol] 92 U/L Normal 32-92 [facility] Comment on above: Performed By: #### L IPID, HEPATIC, BMP, TSH3 wRFLX, [id number] #### [address] ALT [Catalytic activity/Vol] 18 U/L Normal 10-60 [facility] Comment on above: Performed By: #### L IPID, HEPATIC, BMP, TSH3 wRFLX, [id number] #### [facility] [address] [place] [address] AST [Catalytic activity/Vol] 14 U/L Normal 10-42 [facility] Comment on above: Performed By: #### L IPID, HEPATIC, BMP, TSH3 wRFLX, [id number] #### [facility] [address] [place] [address] Bilirubin [Mass/Vol] 0.8 mg/dL Normal 0.3-1.2 [facility] Comment on above: Performed By: #### L IPID, HEPATIC, BMP, TSH3 wRFLX, [id number] #### [facility] [address] [place] [address] [place] Bilirubin,Indirect Test not performed [facility] Comment on above: Performed By: #### L IPID, HEPATIC, BMP, TSH3 wRFLX, [id number] #### [facility] [address] [place] [address] [place] Bilirubin.direct [Mass/Vol] mg/dL Normal 0.0-0.4 [facility] Comment on above: Performed By: #### L IPID, HEPATIC, BMP, TSH3 wRFLX, [id number] #### [facility] [address] Globulin (S) [Mass/Vol] 2.4 g/dL Normal [facility] Comment on above: Performed By: #### L IPID, HEPATIC, BMP, TSH3 wRFLX, [id number] #### [facility] [address] Protein [Mass/Vol] 6.2 g/dL Normal 6.1-7.9 [facility] Comment on above: Performed By: #### L IPID, HEPATIC, BMP, TSH3 wRFLX, [id number] #### [facility] [address] Lipid Panelon 07-03-2020 Cholesterol [Mass/Vol] 174 mg/dL Normal 140-200 [facility] Comment on above: Result Comment: Chol less than 200 mg/dl low risk Chol 201-239 mg/dl borderline risk Chol 240 mg/dl and greater high risk Performed By: #### L IPID, HEPATIC, BMP, TSH3 wRFLX, [id number] #### [facility] [address] Cholesterol in HDL [Mass/Vol] 46 mg/dL Normal 35-85 [facility] Comment on above: Result Comment: HDL CHOL ATP-III CLASSIFICATION Cardiovascular Risk HDL > or equal to 60 mg/dL LOW HDL < 40 mg/dL HIGH Performed By: #### L IPID, HEPATIC, BMP, TSH3 wRFLX, [id number] #### [facility] [address] Cholesterol.total/ Cholesterol in HDL [Mass ratio] 3.8 {ratio} Normal <5.0 [facility] Comment on above: Performed By: #### L IPID, HEPATIC, BMP, TSH3 wRFLX, [id number] #### [facility] [address] [place] [id number] [facility] LDL Cholesterol,Calcul ated 113 mg/dL High 0-100 [facility] Comment on above: Result Comment: LDL ATP III CLASSIFICATION LDL less than 100 mg/dL Optimal LDL 100-129 mg/dL Near or above optimal LDL 130-159 mg/dL Borderline high LDL 160-189 mg/dL High LDL greater than 189 mg/dL Very high Performed By: #### L IPID, HEPATIC, BMP, TSH3 wRFLX, [id number] #### [facility] [address] Triglyceride w/Reflex 74 mg/dL Normal 35-149 [facility] Comment on above: Result Comment: TRIG ATP III CLASSIFICATION TRIG less than 150 mg/dL Normal TRIG 150-199 mg/dL Borderline high TRIG 200-500 mg/dL High TRIG greater than 500 mg/dL Very high Standard traceable to the Center for Disease Conrtrol and Prevention (CDC) test method. Performed By: #### L IPID, HEPATIC, BMP, TSH3 wRFLX, [id number] #### [address] VLDL CHOLESTEROL 14 mg/dL Normal [facility] Comment on above: Performed By: #### L IPID, HEPATIC, BMP, TSH3 wRFLX, [id number] #### [facility] [address] Thyroid Stim Hormone w/Rflxo n 07-03-2020 Thyroid Stim Hormone w/Rflx 3.41 u[iU]/mL Normal 0.45-5.33 [facility] Comment on above: Performed By: #### L IPID, HEPATIC, BMP, TSH3 wRFLX, [id number] #### [address] Vitamin D 25 Hydroxy Totalon 07-03-2020 Vitamin D 25 Hydroxy Total 67.4 ng/mL Normal 30-100 [facility] Comment on above: Result Comment: MADDISON MIN D STATUS 25(OH)VITAMIN D RANGE (ng/mL) Deficient <20 Insufficient 20 to <30 Sufficient 30 to 100 Reference: Arely MF,Brenton NC, Rashel MARTINEZ, et al. Evaluation,treatment, and prevention of vitamin D deficiency; an Endocrine Society clinical practice guideline. JCEM. 2010; 96(7):1911-30. PERFORMED BY: [facility] [address] [facility] [place] [address] PATHOLOGIST PLATE GLASS GRINDER HORTENSIA VIRAMONTES M.D. Performed By: #### L IPID, HEPATIC, BMP, TSH3 wRFLX, [id number] #### [address] XR FOOT RT MIN 3 VIEWSon XR [...] by: LISSETT ST Date: 2019-11-18 12:08 Normal [facility] XR ANKLE RT MIN 3 VIEWSon XR [...] by: LINDEN ROJAS Date: 2019-10-20 22:05 Normal [facility] XR ANKLE RT MIN 3 VIEWSon XR ANKLE RT MIN 3 VIEWS Patient: TERRIE TANKaylah Exam Date: 04/22/2019 : 1975 Gender:F Ordering : DR. BEBO ENRIQUEZ D.P.M. Admission #: [id number] Family : Order #: [id number] CLICK HERE TO VIEW EXAM RADIOLOGY REPORT [...] St M.D. on 04/22/2019 at 15:35 Normal [facility] Operative Reporton 9 Operative Report MR#: [id number] [facility] Pt. Name: Terrie Tan Room #: 0C Discharge 04/09/2019 Date: Birthdate: 1975 OPERATIVE REPORT DATE OF SURGERY: 04/09/2019 SURGEON: Edmond Parker MD PREOPERATIVE DIAGNOSES: Excessive abdominal pannus, isolated obesity, status post massive weight loss. POSTOPERATIVE DIAGNOSES: Excessive abdominal pannus, isolated obesity, status post massive weight loss. PROCEDURE: Panniculectomy with muscle plication and umbilical transposition. CRIBBING SETTER: VIRIDIANA Luna and CC-3. INDICATIONS: This patient [...] made to proceed with plication of planned. Hsjvnz-da-gbgar plication performed from the xiphoid to the [...] Parker MD Date Trans: 04/13/2019 02:16 P/kathleen RUVALCABA_JN:[id number] cc: Josette Vega M.D. [address] [place] [address] Normal [facility] POC GLUCOSE LABon 04-09-2019 Glucose [Mass/Vol] 92 mg/dL Normal 70-100 [facility] Comment on above: Performed By: #### 8 5499 #### [facility] [address] [place] [address], [facility] Glucose [Mass/Vol] 86 mg/dL Normal 70-100 [facility] Comment on above: Performed By: #### 8 5499 #### [facility] [address] [place] [address], [facility] Glucose [Mass/Vol] 71 mg/dL Normal 70-100 [facility] Comment on above: Performed By: #### 8 5499 #### [facility] [address] [place] [address], [facility] POC URINE PREGNANCYon 2018 Beta HCG ( test) Ql (U) Negative Normal NEGATIVE [facility] Comment on above: Result Comment: Perf ormed in PACU Performed By: #### 8 4140 #### [facility] [address] [facility] [place] [address], [facility] XR ANKLE RT MIN 3 VIEWSon XR ANKLE RT MIN 3 VIEWS Patient: TERRIE TAN Exam Date: 03/04/2019 : 1975 Gender:F Ordering : DR. BEBO ENRIQUEZ DKaylahPKaylahMKaylah Admission #: [id number] Family : Order #: [id number] CLICK HERE TO VIEW EXAM RADIOLOGY REPORT [...] Posadas M.D. on 03/04/2019 at 10:03 Normal [facility] XR ANKLE RT MIN 3 VIEWSon XR ANKLE RT MIN 3 VIEWS Patient: TERRIE TAN Exam Date: 01/28/2019 : 1975 Gender:F Ordering : DR. BEBO ENRIQUEZ D.P.M. Admission #: [id number] Family : Order #: [id number] CLICK HERE TO VIEW EXAM RADIOLOGY REPORT [...] St M.D. on 01/28/2019 at 11:25 Normal [facility] XR ANKLE RT MIN 3 VIEWSon XR ANKLE RT MIN 3 VIEWS Patient: TERRIE TAN. Exam Date: 01/07/2019 : 1975 Gender:F Ordering : DR. BEBO ENRIQUEZ D.P.M. Admission #: [id number] Family : Order #: [id number] CLICK HERE TO VIEW EXAM RADIOLOGY REPORT [...] Posadas M.D. on 01/07/2019 at 11:58 Normal [facility] XR ANKLE RT MIN 3 VIEWSon XR ANKLE RT MIN 3 VIEWS Patient: TERRIE TAN. Exam Date: 12/23/2018 : 1975 Gender:F Ordering : KAT HERNÁNDEZ Admission #: [id number] Family : Order #: [id number] CLICK HERE TO VIEW EXAM RADIOLOGY REPORT [...] M.D. on 12/23/2018 at 16:13 Normal [facility] CBC AUTO DIFFon 12-11-2018 Basophils (Bld) [#/Vol] 0.0 103/ul Normal 0.0-0.1 [facility] Comment on above: Performed By: #### P REG #### [facility] [address] [place], [place] [address] Bee Nikki Basophils/100 WBC (Bld) 0.2 % Normal 0.2-2.0 [facility] Comment on above: Performed By: #### P REG #### [facility] [address] [place] [address] Bee Nikki Eosinophils (Bld) [#/Vol] 0.0 103/ul Normal 0.0-0.7 [facility] Comment on above: Performed By: #### P REG #### [facility] [address] [place], [place] [address] Bee Nikki Eosinophils/100 WBC (Bld) 0.4 % Critically low 0.9-7.0 [facility] Comment on above: Performed By: #### P REG #### [facility] [address] [place], [place] [address] Bee Nikki Erythrocyte distribution width (RBC) [Ratio] 14.2 % Normal 11.0-15.0 [facility] Comment on above: Performed By: #### P REG #### [facility] [address] [place] [address] Bee Jordan Hematocrit (Bld) [Volume fraction] 33.6 % Critically low 36.0-48.0 [facility] Comment on above: Performed By: #### P REG #### [facility] [address] [place] [address] Bee Jordan Hemoglobin (Bld) [Mass/Vol] 10.9 g/dL Critically low 12.0-16.0 [facility] Comment on above: Performed By: #### P REG #### [facility] [address] [place] [address] Bee Jordan IG # 0.12 10e3/ul Critically high 0.00-0.03 [facility] Comment on above: Performed By: #### P REG #### [facility] [address] [place] [address] Bee Jordan IG % 1.5 % Critically high 0.0-0.5 [facility] Comment on above: Performed By: #### P REG #### [facility] [address] [place] [address] Bee Jordan Lymphocytes (Bld) [#/Vol] 2.4 103/ul Normal 1.2-3.8 [facility] Comment on above: Performed By: #### P REG #### [facility] [address] [place] [address] Bee Jordan Lymphocytes/100 WBC (Bld) 29.2 % Normal 20.5-60.0 [facility] Comment on above: Performed By: #### P REG #### [facility] [address] [place] [address] Bee Jordan MANUAL DIFF REQ NO Normal [facility] Comment on above: Performed By: #### P REG #### [facility] [address] [place] [address] Bee Jordan MCH (RBC) [Entitic mass] 31.4 pg Normal 26.7-34.0 [facility] Comment on above: Performed By: #### P REG #### [facility] [address] [place], [place] [id number] Beeronen Marinoen MCHC (RBC) [Mass/Vol] 32.4 g/dL Normal 29.9-35.2 [facility] Comment on above: Performed By: #### P REG #### [facility] [address] [place], [place] [id number] Bee Nikki MCV (RBC) [Entitic vol] 96.8 fL Normal 81.0-99.0 [facility] Comment on above: Performed By: #### P REG #### [facility] [address] [place] [address] Bee Nikki Monocytes (Bld) [#/Vol] 0.6 103/ul Normal 0.3-0.8 [facility] Comment on above: Performed By: #### P REG #### [facility] [address] [place] [address] Bee Nikki Monocytes/100 WBC (Bld) 7.2 % Normal 1.7-12.0 [facility] Comment on above: Performed By: #### P REG #### [facility] [address] [place] [address] Bee Nikki Neutrophils (Bld) [#/Vol] 5.1 103/ul Normal 1.4-6.5 [facility] Comment on above: Performed By: #### P REG #### [facility] [address] [place] [address] Bee Nikki Neutrophils/100 WBC (Bld) 61.5 % Normal 43.0-75.0 [facility] Comment on above: Performed By: #### P REG #### [facility] [address] [place], [place] [id number] Bee Nikki Platelet mean volume (Bld) [Entitic vol] 10.3 fL Normal 9.5-13.5 [facility] Comment on above: Performed By: #### P REG #### [facility] [address] [place], [place] [id number] Bee Nikki Platelets (Bld) [#/Vol] 223 103/ul Normal 150-450 [facility] Comment on above: Performed By: #### P REG #### [facility] [address] [place] [address] Bee Nikki RBC (Bld) [#/Vol] 3.47 106/ul Critically low 4.20-5.40 [facility] Comment on above: Performed By: #### P REG #### [facility] [address] [place] [address] Bee Nikki WBC (Bld) [#/Vol] 8.2 103/ul Normal 4.0-11.0 [facility] Comment on above: Performed By: #### P REG #### [facility] [address] [place] [address] Bee Nikki CBC AUTO DIFFon 12-10-2018 Basophils (Bld) [#/Vol] 0.0 103/ul Normal 0.0-0.1 [facility] Comment on above: Performed By: #### P REG #### [facility] [address] [place] [address] Bee Jordan Basophils/100 WBC (Bld) 0.2 % Normal 0.2-2.0 [facility] Comment on above: Performed By: #### P REG #### [facility] [address] [place] [address] Bee Nikki Eosinophils (Bld) [#/Vol] 0.0 103/ul Normal 0.0-0.7 [facility] Comment on above: Performed By: #### P REG #### [facility] [address] [place] [address] Beeronen Jordan Eosinophils/100 WBC (Bld) 0.0 % Critically low 0.9-7.0 [facility] Comment on above: Performed By: #### P REG #### [facility] [address] [place] [address] Bee Nikki Erythrocyte distribution width (RBC) [Ratio] 14.2 % Normal 11.0-15.0 [facility] Comment on above: Performed By: #### P REG #### [facility] [address] [address] Bee Nikki Hematocrit (Bld) [Volume fraction] 33.4 % Critically low 36.0-48.0 [facility] Comment on above: Performed By: #### P REG #### [facility] [address] [address] Bee Nikki Hemoglobin (Bld) [Mass/Vol] 10.6 g/dL Critically low 12.0-16.0 [facility] Comment on above: Performed By: #### P REG #### [facility] [address] [place] [address] Bee Nikki IG # 0.05 10e3/ul Critically high 0.00-0.03 [facility] Comment on above: Performed By: #### P REG #### [facility] [address] [place] [address] Bee Nikki IG % 0.8 % Critically high 0.0-0.5 [facility] Comment on above: Performed By: #### P REG #### [facility] [address] [place] [address] Bee Nikki Lymphocytes (Bld) [#/Vol] 1.0 103/ul Critically low 1.2-3.8 [facility] Comment on above: Performed By: #### P REG #### [facility] [address] [place] [address] Bee Nikki Lymphocytes/100 WBC (Bld) 15.4 % Critically low 20.5-60.0 [facility] Comment on above: Performed By: #### P REG #### [facility] [address] [place] [address] Bee Nikki MANUAL DIFF REQ NO Normal [facility] Comment on above: Performed By: #### P REG #### [facility] [address] [place] [address] Bee Nikki MCH (RBC) [Entitic mass] 31.0 pg Normal 26.7-34.0 [facility] Comment on above: Performed By: #### P REG #### [facility] [address], [place] [address] Bee Nikki MCHC (RBC) [Mass/Vol] 31.7 g/dL Normal 29.9-35.2 [facility] Comment on above: Performed By: #### P REG #### [facility] [address], [place] [address] Bee Nikki MCV (RBC) [Entitic vol] 97.7 fL Normal 81.0-99.0 [facility] Comment on above: Performed By: #### P REG #### [facility] [address] [place] [address] Bee Nikki Monocytes (Bld) [#/Vol] 0.3 103/ul Normal 0.3-0.8 [facility] Comment on above: Performed By: #### P REG #### [facility] [address] [place], [place] [id number] Bee Nikki Monocytes/100 WBC (Bld) 4.9 % Normal 1.7-12.0 [facility] Comment on above: Performed By: #### P REG #### [facility] [address] [place] [address] Bee Nikki Neutrophils (Bld) [#/Vol] 5.2 103/ul Normal 1.4-6.5 [facility] Comment on above: Performed By: #### P REG #### [facility] [address] [place] [address] Bee Nikki Neutrophils/100 WBC (Bld) 78.7 % Critically high 43.0-75.0 [facility] Comment on above: Performed By: #### P REG #### [facility] [address] [place] [address] Bee Nikki Platelet mean volume (Bld) [Entitic vol] 10.8 fL Normal 9.5-13.5 [facility] Comment on above: Performed By: #### P REG #### [facility] [address] [place] [address] Bee Nikki Platelets (Bld) [#/Vol] 240 103/ul Normal 150-450 [facility] Comment on above: Performed By: #### P REG #### [facility] [address] [place] [address] Bee Nikki RBC (Bld) [#/Vol] 3.42 106/ul Critically low 4.20-5.40 [facility] Comment on above: Performed By: #### P REG #### [facility] [address] [place] [address] Bee Nikki WBC (Bld) [#/Vol] 6.6 103/ul Normal 4.0-11.0 [facility] Comment on above: Performed By: #### P REG #### [facility] [address] [place] [address] Bee Nikki CBC W MANUAL DIFFon 12-10-19 19 ATYPICAL LYMPH # Normal [facility] Comment on above: Performed By: #### C BC #### [facility] [address] [place] [address] Bee Nikki ATYPICAL LYMPH % Normal [facility] Comment on above: Performed By: #### C BC #### [facility] [address] [place] [address] Bee Nikki BAND # 0.1 103/ul Normal 0.0-0.3 [facility] Comment on above: Performed By: #### C BC #### [facility] [address] [place] [address] Bee Nikki BAND % 1 % Normal 0-5 [facility] Comment on above: Performed By: #### C BC #### [facility] [address] [place] [address] Bee Nikki BASOM # 0.00 103/ul Normal 0.00-0.10 [facility] Comment on above: Performed By: #### C BC #### [facility] [address] [place] [address] Bee Nikki BASOM % 0.0 % Critically low 0.2-2.0 [facility] Comment on above: Performed By: #### C BC #### [facility] [address] [place] [address] Bee Nikki BLAST # Normal [facility] Comment on above: Performed By: #### C BC #### [facility] [address] [id number] Bee Nikki BLAST % Normal [facility] Comment on above: Performed By: #### C BC #### [facility] [address] [phone] Bee Nikki CORRECTED WBC Normal 4.0-11.0 [facility] Comment on above: Performed By: #### C BC #### [facility] [address] [phone] Bee Nikki Eosinophils (Bld) [#/Vol] 0.00 103/ul Normal 0.00-0.70 [facility] Comment on above: Performed By: #### C BC #### [facility] [address] [address] Bee Nikki Eosinophils/100 WBC (Bld) 0.0 % Critically low 0.9-7.0 [facility] Comment on above: Performed By: #### C BC #### [facility] [address] [phone] Bee Nikki Erythrocyte distribution width (RBC) [Ratio] 13.8 % Normal 11.0-15.0 [facility] Comment on above: Performed By: #### C BC #### [facility] [address] [place], [place] [id number] Bee Nikki Hematocrit (Bld) [Volume fraction] 34.9 % Critically low 36.0-48.0 [facility] Comment on above: Performed By: #### C BC #### [facility] [address] [phone] Bee Nikki Hemoglobin (Bld) [Mass/Vol] 11.6 g/dl Critically low 12.0-16.0 [facility] Comment on above: Performed By: #### C BC #### [facility] [address] [place], [place] [id number] Bee Nikki LYMPHM # 0.42 103/ul Critically low 1.20-3.80 [facility] Comment on above: Performed By: #### C BC #### [facility] [address] [place], [place] [id number] Bee Nikki LYMPHM% 6.0 % Critically low 20.5-60.0 [facility] Comment on above: Performed By: #### C BC #### [facility] [address] [place] [address] Bee Jordan MCH (RBC) [Entitic mass] 32.0 pg Normal 26.7-34.0 [facility] Comment on above: Performed By: #### C BC #### [facility] [address] [place] [address] Bee Jordan MCHC (RBC) [Mass/Vol] 33.2 g/dl Normal 29.9-35.2 [facility] Comment on above: Performed By: #### C BC #### [facility] [address] [place] [address] Beeronen Jordan MCV (RBC) [Entitic vol] 96.4 fL Normal 81.0-99.0 [facility] Comment on above: Performed By: #### C BC #### [facility] [address] [place] [address] Bee Nikki METAMYELOCYTE # Normal [facility] Comment on above: Performed By: #### C BC #### [facility] [address] [place] [address] Beeronen Marinoen METAMYELOCYTE % Normal [facility] Comment on above: Performed By: #### C BC #### [facility] [address] [place] [address] Bee Nikki MONOM# 0.14 103/ul Critically low 0.30-0.80 [facility] Comment on above: Performed By: #### C BC #### [facility] [address] [place] [address] Bee Nikki MONOM% 2.0 % Normal 1.7-12.0 [facility] Comment on above: Performed By: #### C BC #### [facility] [address] [place] [address] Bee Nikki MYELOCYTE # Normal [facility] Comment on above: Performed By: #### C BC #### [facility] [address] [place], [place] [id number] Bee Nikki MYELOCYTE % Normal [facility] Comment on above: Performed By: #### C BC #### [facility] [address] [place], [place] [id number] Bee Nikki NRBC Normal [facility] Comment on above: Performed By: #### C BC #### [facility] [address] [place], [place] [address] Bee Nikki Platelet mean volume (Bld) [Entitic vol] 10.5 fL Normal 9.5-13.5 [facility] Comment on above: Performed By: #### C BC #### [facility] [address] [place], [place] [id number] Bee Nikki Platelets (Bld) [#/Vol] 209 103/ul Normal 150-450 [facility] Comment on above: Performed By: #### C BC #### [facility] [address] [place], [place] [address] Bee Nikki RBC (Bld) [#/Vol] 3.62 106/ul Critically low 4.20-5.40 [facility] Comment on above: Performed By: #### C BC #### [facility] [address] [place], [place] [address] Bee Nikki SEG # 6.37 103/ul Normal 1.40-6.50 [facility] Comment on above: Performed By: #### C BC #### [facility] [address] [place], [place] [address] Bee Nikki Segmented neutrophils/100 WBC (Bld) 91.0 % Critically high 43.0-75.0 [facility] Comment on above: Performed By: #### C BC #### [facility] [address] [place], [place] [id number] Bee Nikki WBC (Bld) [#/Vol] 7.0 103/ul Normal 4.0-11.0 [facility] Comment on above: Performed By: #### C BC #### [facility] [address] [place], [place] [id number] Bee Nikki AMMONIAon 08-05-2019 Ammonia (P) [Mass/Vol] 12 umol/L Normal 10-30 [facility] Comment on above: Performed By: #### C BC #### [facility] [address] [place] [address] Bee Jordan BNPon 12-08-2018 Natriuretic peptide B (Bld) [Mass/Vol] 305.0 pg/mL Normal <=450.0 [facility] Comment on above: Performed By: #### C BC #### [facility] [address] [place], [place] [address] Beeronen Marinoen CBC AUTO DIFFon 12-08-2018 Basophils (Bld) [#/Vol] 0.0 103/ul Normal 0.0-0.1 [facility] Comment on above: Performed By: #### C BC #### [facility] [address] [place] [address] Beeronen Marinoen Basophils/100 WBC (Bld) 0.4 % Normal 0.2-2.0 [facility] Comment on above: Performed By: #### C BC #### [facility] [address] [place], [place] [address] Bee Nikki Eosinophils (Bld) [#/Vol] 0.0 103/ul Normal 0.0-0.7 [facility] Comment on above: Performed By: #### C BC #### [facility] [address] [place], [place] [address] Bee Jordan Eosinophils/100 WBC (Bld) 0.1 % Critically low 0.9-7.0 [facility] Comment on above: Performed By: #### C BC #### [facility] [address] [place], [place] [address] Bee Nikki Erythrocyte distribution width (RBC) [Ratio] 13.9 % Normal 11.0-15.0 [facility] Comment on above: Performed By: #### C BC #### [facility] [address] [place], [place] [address] Bee Nikki Hematocrit (Bld) [Volume fraction] 36.9 % Normal 36.0-48.0 [facility] Comment on above: Performed By: #### C BC #### [facility] [address], [place] [address] Bee Nikki Hemoglobin (Bld) [Mass/Vol] 12.0 g/dL Normal 12.0-16.0 [facility] Comment on above: Performed By: #### C BC #### [facility] [address] [phone] Bee Nikki IG # 0.02 10e3/ul Normal 0.00-0.03 [facility] Comment on above: Performed By: #### C BC #### [facility] [address] [phone] Bee Nikki IG % 0.2 % Normal 0.0-0.5 [facility] Comment on above: Performed By: #### C BC #### [facility] [address] [place], [place] [address] Bee Nikki Lymphocytes (Bld) [#/Vol] 0.9 103/ul Critically low 1.2-3.8 [facility] Comment on above: Performed By: #### C BC #### [facility] [address] [place], [place] [address] Bee Nikki Lymphocytes/100 WBC (Bld) 9.9 % Critically low 20.5-60.0 [facility] Comment on above: Performed By: #### C BC #### [facility] [address] [place], [place] [id number] Bee Nikki MANUAL DIFF REQ NO Normal [facility] Comment on above: Performed By: #### C BC #### [facility] [address] [place], [place] [address] Bee Nikki MCH (RBC) [Entitic mass] 31.9 pg Normal 26.7-34.0 [facility] Comment on above: Performed By: #### C BC #### [facility] [address] [place], [place] [address] Bee Nikki MCHC (RBC) [Mass/Vol] 32.5 g/dL Normal 29.9-35.2 [facility] Comment on above: Performed By: #### C BC #### [facility] [address], [place] [address] Ebe Nikki MCV (RBC) [Entitic vol] 98.1 fL Normal 81.0-99.0 [facility] Comment on above: Performed By: #### C BC #### [facility] [address], [place] [address] Bee Nikki Monocytes (Bld) [#/Vol] 0.4 103/ul Normal 0.3-0.8 [facility] Comment on above: Performed By: #### C BC #### [facility] [address], [place] [address] Bee Nikki Monocytes/100 WBC (Bld) 3.9 % Normal 1.7-12.0 [facility] Comment on above: Performed By: #### C BC #### [facility] [address] [place] [address] Bee Nikki Neutrophils (Bld) [#/Vol] 7.6 103/ul Critically high 1.4-6.5 [facility] Comment on above: Performed By: #### C BC #### [facility] [address] [place] [address] Bee Nikki Neutrophils/100 WBC (Bld) 85.5 % Critically high 43.0-75.0 [facility] Comment on above: Performed By: #### C BC #### [facility] [address] [place] [address] Bee Nikki Platelet mean volume (Bld) [Entitic vol] 10.1 fL Normal 9.5-13.5 [facility] Comment on above: Performed By: #### C BC #### [facility] [address] [place] [address] Bee Nikki Platelets (Bld) [#/Vol] 218 103/ul Normal 150-450 [facility] Comment on above: Performed By: #### C BC #### [facility] [address] [place] [address] Bee Nikki RBC (Bld) [#/Vol] 3.76 106/ul Critically low 4.20-5.40 [facility] Comment on above: Performed By: #### C BC #### [facility] [address] [phone] Beeronen Jordan WBC (Bld) [#/Vol] 8.9 103/ul Normal 4.0-11.0 [facility] Comment on above: Performed By: #### C BC #### [facility] [address] [place], [place] [address] Beeronen Jordan LACTATE/LACTIC ACIDon 2018 Lactate [Moles/Vol] 1.8 mmol/L Normal 0.7-2.1 [facility] Comment on above: Performed By: #### C BC #### [facility] [address] [place], [place] [address] Beeronen Jordan LIVER PROFILEon 12-08-2018 Albumin [Mass/Vol] 2.9 g/dL Critically low 3.5-5.0 [facility] Comment on above: Performed By: #### C BC #### [facility] [address] [place], [place] [address] Bee Nikki Albumin/Globulin [Mass ratio] 0.6 {ratio} Normal [facility] Comment on above: Performed By: #### C BC #### [facility] [address] [place], [place] [address] Bee Nikki ALP [Catalytic activity/Vol] 88 U/L Normal 38-126 [facility] Comment on above: Performed By: #### C BC #### [facility] [address] [place], [place] [address] Bee Nikki ALT [Catalytic activity/Vol] 18 U/L Normal 9-52 [facility] Comment on above: Performed By: #### C BC #### [facility] [address] [place], [place] [address] Bee Nikki AST [Catalytic activity/Vol] 21 U/L Normal 14-36 [facility] Comment on above: Performed By: #### C BC #### [facility] [address] [place], [place] [address] Bee Nikki BILI, CONJUGATED 0.1 mg/dL Normal 0.0-0.3 [facility] Comment on above: Performed By: #### C BC #### [facility] [address] [phone] Bee Nikki Bilirubin Ql (U) 0.6 mg/dL Normal 0.2-1.3 [facility] Comment on above: Performed By: #### C BC #### [facility] [address] [phone] Bee Nikki Globulin (S) [Mass/Vol] 4.5 g/dL Normal [facility] Comment on above: Performed By: #### C BC #### [facility] [address] [phone] Bee Nikki Protein [Mass/Vol] 7.4 g/dL Normal 6.1-8.2 [facility] Comment on above: Performed By: #### C BC #### [facility] [address] [place] [address] Bee Nikki PROF CHEM 8 (BAS METB)on Anion gap [Moles/Vol] 18.4 mmol/L Normal [facility] Comment on above: Performed By: #### C BC #### [facility] [address] [place], [place] [address] Bee Nikki Calcium [Mass/Vol] 9.6 mg/dL Normal 8.4-10.2 [facility] Comment on above: Performed By: #### C BC #### [facility] [address] [place], [place] [address] Bee Nikki Chloride [Moles/Vol] 103 mmol/L Normal 98-107 [facility] Comment on above: Performed By: #### C BC #### [facility] [address] [place], [place] [address] Bee Nikki CO2 [Moles/Vol] 19.9 mmol/L Critically low 22.0-30.0 [facility] Comment on above: Performed By: #### C BC #### [facility] [address] [place], [place] [address] Bee Nikki Creatinine [Mass/Vol] 0.92 mg/dL Normal 0.52-1.04 [facility] Comment on above: Performed By: #### C BC #### [facility] [address], [place] [address] Bee Nikki EGFR-AF NAMIBIAN >60 Normal >=60 [facility] Comment on above: Performed By: #### C BC #### [facility] [address], [place] [address] Bee Nikki EGFR-NON AF NAMIBIAN >60 Normal >=60 [facility] Comment on above: Performed By: #### C BC #### [facility] [address] [phone] Bee Nikki Glucose [Mass/Vol] 115 mg/dL Critically high 74-106 [facility] Comment on above: Performed By: #### C BC #### [facility] [address] [phone] Bee Nikki Potassium [Moles/Vol] 3.3 mmol/L Critically low 3.4-5.0 [facility] Comment on above: Performed By: #### C BC #### [facility] [address] [phone] Bee Nikki Sodium [Moles/Vol] 138 mmol/L Normal 137-145 [facility] Comment on above: Performed By: #### C BC #### [facility] [address] [address] [place], [place] [id number] Bee Nikki Urea nitrogen [Mass/Vol] 19.0 mg/dL Critically high 7.0-17.0 [facility] Comment on above: Performed By: #### C BC #### [facility] [address] [place], [place] [id number] Bee Nikki Urea nitrogen/Creatinin e [Mass ratio] 20.7 mg/mg Normal [facility] Comment on above: Performed By: #### C BC #### [facility] [address] [place], [place] [id number] Bee Nikki BLOOD GASES BTYon 12-07-2018 02 MODE NASAL CANNULA Normal [facility] Comment on above: Performed By: #### C BC #### [facility] [address] [place], [place] [id number] Bee Nkiki ALLENS TEST Positive Normal [facility] Comment on above: Performed By: #### C BC #### [facility] [address] [address] Bee Nikki Base excess Calc (Bld) [Moles/Vol] -5.0 mmol/L Critically low -2.0-2.0 [facility] Comment on above: Performed By: #### C BC #### [facility] [address] [place] [address] Bee Nikki BIPAP PRESSURE Normal [facility] Comment on above: Performed By: #### C BC #### [facility] [address] [place] [address] Bee Nikki CO2 [Moles/Vol] 19.7 mmol/L Critically low 23.0-28.0 [facility] Comment on above: Performed By: #### C BC #### [facility] [address] [place] [address] Bee Nikki CPAP [facility] Comment on above: Performed By: #### C BC #### [facility] [address] [place] [address] Bee Nikki FIO2 Normal [facility] Comment on above: Performed By: #### C BC #### [facility] [address] [place] [address] Bee Nikki HCO3 (Bld) [Moles/Vol] 18.7 mmol/L Critically low 22.0-26.0 [facility] Comment on above: Performed By: #### C BC #### [facility] [address] [place] [address] Bee Nikki LPM 4 Normal [facility] Comment on above: Performed By: #### C BC #### [facility] [address] [place] [address] Bee Nikki MINUTE VOLUME Normal [facility] Comment on above: Performed By: #### C BC #### [facility] [address] [place] [address] Bee Nikki Oxygen (Bld) [Partial pressure] 92.4 mm[Hg] Normal 80.0-100.0 [facility] Comment on above: Performed By: #### C BC #### [facility] [address] [address] Bee Nikki Oxygen saturation in Blood 90.8 % Critically low 95.0-100.0 [facility] Comment on above: Performed By: #### C BC #### [facility] [address] [address] Bee Nikki PCO2 30.8 mmHg Critically low 35.0-45.0 [facility] Comment on above: Performed By: #### C BC #### [facility] [address] [place] [address] Bee Nikki PEEP [facility] Comment on above: Performed By: #### C BC #### [facility] [address] [place] [address] Bee Nikki pH (Bld) 7.402 [pH] Normal 7.350-7.450 [facility] Comment on above: Performed By: #### C BC #### [facility] [address] [place] [address] Bee Nikki PIP [facility] Comment on above: Performed By: #### C BC #### [facility] [address] [place] [address] Bee Nikki PS [facility] Comment on above: Performed By: #### C BC #### [facility] [address] [place] [address] Bee Nikki PUNCTURE SITE RR Normal [facility] Comment on above: Performed By: #### C BC #### [facility] [address] [place] [address] Bee Nikki RATE Normal [facility] Comment on above: Performed By: #### C BC #### [facility] [address] [place] [address] Bee Nikki VENT MODE [facility] Comment on above: Performed By: #### C BC #### [facility] [address] [place] [address] Bee Nikki [place] [facility] Comment on above: Performed By: #### Robb CATALAN #### [facility] [address] [place] [address] Bee Nikki CBC W MANUAL DIFFon 12-08-19 19 ATYPICAL LYMPH # Normal [facility] Comment on above: Performed By: #### C CELSA #### [facility] [address] [place] [address] Bee Nikki ATYPICAL LYMPH % Normal [facility] Comment on above: Performed By: #### Robb STEEN #### [facility] [address] [place] [address] Bee Nikki BAND # Normal 0.0-0.3 [facility] Comment on above: Performed By: #### C CELSA #### [facility] [address] [place] [address] Bee Nikki BAND % Normal 0-5 [facility] Comment on above: Performed By: #### Robb STEEN #### [facility] [address] [place] [address] Bee Nikki BASOM # 0.00 103/ul Normal 0.00-0.10 [facility] Comment on above: Performed By: #### Robb STEEN #### [facility] [address] [place] [address] Bee Nikki BASOM % 0.0 % Critically low 0.2-2.0 [facility] Comment on above: Performed By: #### Robb STEEN #### [facility] [address] [place] [address] Bee Nikki BLAST # Normal [facility] Comment on above: Performed By: #### Robb STEEN #### [facility] [address] [place] [address] Bee Nikki BLAST % Normal [facility] Comment on above: Performed By: #### Robb STEEN #### [facility] [address] [place] [address] Bee Nikki CORRECTED WBC Normal 4.0-11.0 [facility] Comment on above: Performed By: #### Robb STEEN #### [facility] [address] [place], [place] [address] Bee Nikki Eosinophils (Bld) [#/Vol] 0.09 103/ul Normal 0.00-0.70 [facility] Comment on above: Performed By: #### C CELSA #### [facility] [address] [id number] Bee Nikki Eosinophils/100 WBC (Bld) 1.0 % Normal 0.9-7.0 [facility] Comment on above: Performed By: #### C CELSA #### [facility] [address] [id number] Bee Nikki Erythrocyte distribution width (RBC) [Ratio] 14.2 % Normal 11.0-15.0 [facility] Comment on above: Performed By: #### C CELSA #### [facility] [address] [place] [address] Bee Nikki Hematocrit (Bld) [Volume fraction] 34.3 % Critically low 36.0-48.0 [facility] Comment on above: Performed By: #### C CELSA #### [facility] [address] [place], [place] [id number] Bee Nikki Hemoglobin (Bld) [Mass/Vol] 11.0 g/dl Critically low 12.0-16.0 [facility] Comment on above: Performed By: #### C CELSA #### [facility] [address] [place], [place] [id number] Bee Nikki LYMPHM # 0.69 103/ul Critically low 1.20-3.80 [facility] Comment on above: Performed By: #### C CELSA #### [facility] [address] [place], [place] [id number] Bee Nikki LYMPHM% 8.0 % Critically low 20.5-60.0 [facility] Comment on above: Performed By: #### C CELSA #### [facility] [address] [place], [place] [id number] Bee Nikki MCH (RBC) [Entitic mass] 32.2 pg Normal 26.7-34.0 [facility] Comment on above: Performed By: #### C CELSA #### [facility] [address] [place] [address] Bee Nikki MCHC (RBC) [Mass/Vol] 32.1 g/dl Normal 29.9-35.2 [facility] Comment on above: Performed By: #### Robb STEEN #### [facility] [address] [place] [address] Bee Nikki MCV (RBC) [Entitic vol] 100.3 fL Critically high 81.0-99.0 [facility] Comment on above: Performed By: #### Robb STEEN #### [facility] [address] [place] [address] Bee Nikki METAMYELOCYTE # Normal [facility] Comment on above: Performed By: #### Robb STEEN #### [facility] [address] [place] [address] Bee Nikki METAMYELOCYTE % Normal [facility] Comment on above: Performed By: #### Robb STEEN #### [facility] [address] [place] [address] Bee Nikki MONOM# 0.34 103/ul Normal 0.30-0.80 [facility] Comment on above: Performed By: #### Robb STEEN #### [facility] [address] [place] [address] Bee Nikki MONOM% 4.0 % Normal 1.7-12.0 [facility] Comment on above: Performed By: #### Robb STEEN #### [facility] [address] [place] [address] Bee Nikki MYELOCYTE # Normal [facility] Comment on above: Performed By: #### Robb STEEN #### [facility] [address] [place] [address] Bee Nikki MYELOCYTE % Normal [facility] Comment on above: Performed By: #### Robb STEEN #### [facility] [address] [place] [address] Bee Nikki NRBC Normal [facility] Comment on above: Performed By: #### Robb STEEN #### [facility] [address] [place], [place] [address] Bee Nikki Platelet mean volume (Bld) [Entitic vol] 10.3 fL Normal 9.5-13.5 [facility] Comment on above: Performed By: #### C CELSA #### [facility] [address] [place], [place] [address] Bee Nikki Platelets (Bld) [#/Vol] 192 103/ul Normal 150-450 [facility] Comment on above: Performed By: #### C CELSA #### [facility] [address] [place], [place] [address] Bee Nikki RBC (Bld) [#/Vol] 3.42 106/ul Critically low 4.20-5.40 [facility] Comment on above: Performed By: #### C CELSA #### [facility] [address] [place], [place] [address] Bee Nikki SEG # 7.48 103/ul Critically high 1.40-6.50 [facility] Comment on above: Performed By: #### C CELSA #### [facility] [address] [place], [place] [address] Bee Nikki Segmented neutrophils/100 WBC (Bld) 87.0 % Critically high 43.0-75.0 [facility] Comment on above: Performed By: #### C CELSA #### [facility] [address] [place], [place] [address] Bee Nikki WBC (Bld) [#/Vol] 8.6 103/ul Normal 4.0-11.0 [facility] Comment on above: Performed By: #### C CELSA #### [facility] [address] [place], [place] [address] HEAD WO CONon 12-07-2018 CT HEAD WO CON Patient: CAIN TAN Exam Date: 12/07/2018 : 1975 Gender:F Ordering : DR SAM ROSS . Admission #: [id number] Family : DR JOSETTE VEGA M.D. Order #: [id number] CLICK HERE TO VIEW EXAM RADIOLOGY REPORT [...] Posadas M.D. on 12/07/2018 at 22:09 Normal [facility] CTA CHEST W CONon 12-07-2018 CTA CHEST W CON Patient: CAIN TAN Exam Date: 12/07/2018 : 1975 Gender:F Ordering : DR SAM ROSS . Admission #: [id number] Family : DR JOSETTE VEGA M.D. Order #: [id number] CLICK HERE TO VIEW EXAM RADIOLOGY REPORT [...] M.D. on 12/07/2018 at 20:22 Normal [facility] CBC AUTO DIFFon 12-06-2018 Basophils (Bld) [#/Vol] 0.0 103/ul Normal 0.0-0.1 [facility] Comment on above: Performed By: #### C BC #### [facility] [address] [place] [address] Bee Nikki Basophils/100 WBC (Bld) 0.4 % Normal 0.2-2.0 [facility] Comment on above: Performed By: #### C BC #### [facility] [address] [place] [address] Bee Nikki Eosinophils (Bld) [#/Vol] 0.1 103/ul Normal 0.0-0.7 [facility] Comment on above: Performed By: #### C BC #### [facility] [address] [place] [address] Bee Nikki Eosinophils/100 WBC (Bld) 1.2 % Normal 0.9-7.0 [facility] Comment on above: Performed By: #### C BC #### [facility] [address] [place] [address] Bee Nikki Erythrocyte distribution width (RBC) [Ratio] 14.6 % Normal 11.0-15.0 [facility] Comment on above: Performed By: #### C BC #### [facility] [address] [place] [address] Bee Nikki Hematocrit (Bld) [Volume fraction] 33.2 % Critically low 36.0-48.0 [facility] Comment on above: Performed By: #### C BC #### [facility] [address] [place], [place] [id number] Bee Nikki Hemoglobin (Bld) [Mass/Vol] 10.5 g/dL Critically low 12.0-16.0 [facility] Comment on above: Performed By: #### C BC #### [facility] [address] [place] [address] Bee Nikki IG # 0.02 10e3/ul Normal 0.00-0.03 [facility] Comment on above: Performed By: #### C BC #### [facility] [address] [place], [place] [id number] Bee Nikki IG % 0.3 % Normal 0.0-0.5 [facility] Comment on above: Performed By: #### C BC #### [facility] [address] [place] [address] Bee Nikki Lymphocytes (Bld) [#/Vol] 2.6 103/ul Normal 1.2-3.8 [facility] Comment on above: Performed By: #### C BC #### [facility] [address] [place] [address] Bee Nikki Lymphocytes/100 WBC (Bld) 37.9 % Normal 20.5-60.0 [facility] Comment on above: Performed By: #### C BC #### [facility] [address] [place] [address] Bee Nikki MANUAL DIFF REQ NO Normal [facility] Comment on above: Performed By: #### C BC #### [facility] [address] [place], [place] [id number] Bee Nikki MCH (RBC) [Entitic mass] 32.1 pg Normal 26.7-34.0 [facility] Comment on above: Performed By: #### C BC #### [facility] [address] [place] [address] Bee Nikki MCHC (RBC) [Mass/Vol] 31.6 g/dL Normal 29.9-35.2 [facility] Comment on above: Performed By: #### C BC #### [facility] [address] [place], [place] [address] Bee Nikki MCV (RBC) [Entitic vol] 101.5 fL Critically high 81.0-99.0 [facility] Comment on above: Performed By: #### C BC #### [facility] [address] [place], [place] [address] Bee Nikki Monocytes (Bld) [#/Vol] 0.4 103/ul Normal 0.3-0.8 [facility] Comment on above: Performed By: #### C BC #### [facility] [address], [place] [address] Bee Nikki Monocytes/100 WBC (Bld) 6.3 % Normal 1.7-12.0 [facility] Comment on above: Performed By: #### C BC #### [facility] [address] [place], [place] [address] Bee Nikki Neutrophils (Bld) [#/Vol] 3.7 103/ul Normal 1.4-6.5 [facility] Comment on above: Performed By: #### C BC #### [facility] [address] [place], [place] [address] Bee Nikki Neutrophils/100 WBC (Bld) 53.9 % Normal 43.0-75.0 [facility] Comment on above: Performed By: #### C BC #### [facility] [address] [place], [place] [address] Bee Nikki Platelet mean volume (Bld) [Entitic vol] 9.7 fL Normal 9.5-13.5 [facility] Comment on above: Performed By: #### C BC #### [facility] [address] [place], [place] [address] Bee Nikki Platelets (Bld) [#/Vol] 201 103/ul Normal 150-450 [facility] Comment on above: Performed By: #### C BC #### [facility] [address] [place], [place] [address] Bee Nikki RBC (Bld) [#/Vol] 3.27 106/ul Critically low 4.20-5.40 [facility] Comment on above: Performed By: #### C BC #### [facility] [address] [place], [place] [id number] Bee Nikki WBC (Bld) [#/Vol] 6.9 103/ul Normal 4.0-11.0 [facility] Comment on above: Performed By: #### C BC #### [facility] [address] [place] [address] Bee Nikki CBC AUTO DIFFon 12-04-2018 Basophils (Bld) [#/Vol] 0.0 103/ul Normal 0.0-0.1 [facility] Comment on above: Performed By: #### C BC #### [facility] [address] [place], [place] [id number] Bee Nikki Basophils/100 WBC (Bld) 0.4 % Normal 0.2-2.0 [facility] Comment on above: Performed By: #### C BC #### [facility] [address] [place] [address] Bee Nikki Eosinophils (Bld) [#/Vol] 0.1 103/ul Normal 0.0-0.7 [facility] Comment on above: Performed By: #### C BC #### [facility] [address] [place] [address] Bee Nikki Eosinophils/100 WBC (Bld) 1.6 % Normal 0.9-7.0 [facility] Comment on above: Performed By: #### C BC #### [facility] [address] [place] [address] Bee Nikki Erythrocyte distribution width (RBC) [Ratio] 13.8 % Normal 11.0-15.0 [facility] Comment on above: Performed By: #### C BC #### [facility] [address] [place] [address] Bee Nikki Hematocrit (Bld) [Volume fraction] 36.6 % Normal 36.0-48.0 [facility] Comment on above: Performed By: #### C BC #### [facility] [address] [place] [address] Bee Nikki Hemoglobin (Bld) [Mass/Vol] 12.0 g/dL Normal 12.0-16.0 [facility] Comment on above: Performed By: #### C BC #### [facility] [address] [place] [address] Bee Nikki IG # 0.01 10e3/ul Normal 0.00-0.03 [facility] Comment on above: Performed By: #### C BC #### [facility] [address], [place] [address] Bee Nikki IG % 0.2 % Normal 0.0-0.5 [facility] Comment on above: Performed By: #### C BC #### [facility] [address] [place], [place] [id number] Bee Nikki Lymphocytes (Bld) [#/Vol] 2.2 103/ul Normal 1.2-3.8 [facility] Comment on above: Performed By: #### C BC #### [facility] [address] [place], [place] [id number] Bee Nikki Lymphocytes/100 WBC (Bld) 42.8 % Normal 20.5-60.0 [facility] Comment on above: Performed By: #### C BC #### [facility] [address] [place], [place] [id number] Bee Nikki MANUAL DIFF REQ NO Normal [facility] Comment on above: Performed By: #### C BC #### [facility] [address] [place], [place] [address] Bee Nikki MCH (RBC) [Entitic mass] 31.9 pg Normal 26.7-34.0 [facility] Comment on above: Performed By: #### C BC #### [facility] [address] [place], [place] [address] Bee Nikki MCHC (RBC) [Mass/Vol] 32.8 g/dL Normal 29.9-35.2 [facility] Comment on above: Performed By: #### C BC #### [facility] [address] [place], [place] [address] Bee Nikki MCV (RBC) [Entitic vol] 97.3 fL Normal 81.0-99.0 [facility] Comment on above: Performed By: #### C BC #### [facility] [address] [place], [place] [id number] Bee Nikki Monocytes (Bld) [#/Vol] 0.3 103/ul Normal 0.3-0.8 [facility] Comment on above: Performed By: #### C BC #### [facility] [address], [place] [address] Bee Nikki Monocytes/100 WBC (Bld) 5.9 % Normal 1.7-12.0 [facility] Comment on above: Performed By: #### C BC #### [facility] [address], [place] [address] Bee Nikki Neutrophils (Bld) [#/Vol] 2.5 103/ul Normal 1.4-6.5 [facility] Comment on above: Performed By: #### C BC #### [facility] [address], [place] [address] Bee Nikki Neutrophils/100 WBC (Bld) 49.1 % Normal 43.0-75.0 [facility] Comment on above: Performed By: #### C BC #### [facility] [address] [place] [address] Bee Nikki Platelet mean volume (Bld) [Entitic vol] 9.5 fL Normal 9.5-13.5 [facility] Comment on above: Performed By: #### C BC #### [facility] [address], [place] [address] Bee Nikki Platelets (Bld) [#/Vol] 226 103/ul Normal 150-450 [facility] Comment on above: Performed By: #### C BC #### [facility] [address] [place] [address] Bee Nikki RBC (Bld) [#/Vol] 3.76 106/ul Critically low 4.20-5.40 [facility] Comment on above: Performed By: #### C BC #### [facility] [address] [place] [address] Bee Nikki WBC (Bld) [#/Vol] 5.1 103/ul Normal 4.0-11.0 [facility] Comment on above: Performed By: #### C BC #### [facility] [address], [place] [address] Bee Nikki PREG HCG QUALon 12-04-2018 , QUAL Negative Normal NEGATIVE [facility] Comment on above: Performed By: #### P REG #### [facility] [address] [id number] Bee Nikki PROF CHEM 8 (BAS METB)on Anion gap [Moles/Vol] 14.7 mmol/L Normal [facility] Comment on above: Performed By: #### B MP #### [facility] [address] [address] Bee Nikki Calcium [Mass/Vol] 8.8 mg/dL Normal 8.4-10.2 [facility] Comment on above: Performed By: #### B MP #### [facility] [address] [address] Bee Nikki Chloride [Moles/Vol] 109 mmol/L Critically high 98-107 [facility] Comment on above: Performed By: #### B MP #### [facility] [address] [place] [address] Bee Nikki CO2 [Moles/Vol] 22.5 mmol/L Normal 22.0-30.0 [facility] Comment on above: Performed By: #### B MP #### [facility] [address] [place] [address] Bee Nikki Creatinine [Mass/Vol] 0.87 mg/dL Normal 0.52-1.04 [facility] Comment on above: Performed By: #### B MP #### [facility] [address] [place] [address] Bee Nikki EGFR-AF NAMIBIAN >60 Normal >=60 [facility] Comment on above: Performed By: #### B MP #### [facility] [address] [place], [place] [id number] Bee Nikki EGFR-NON AF NAMIBIAN >60 Normal >=60 [facility] Comment on above: Performed By: #### B MP #### [facility] [address] [place], [place] [id number] Bee Nikki Glucose [Mass/Vol] 94 mg/dL Normal 74-106 [facility] Comment on above: Performed By: #### B MP #### [facility] [address] [place] [address] Bee Nikki Potassium [Moles/Vol] 3.2 mmol/L Critically low 3.4-5.0 [facility] Comment on above: Performed By: #### B MP #### [facility] [address] [address] Bee Nikki Sodium [Moles/Vol] 143 mmol/L Normal 137-145 [facility] Comment on above: Performed By: #### B MP #### [facility] [address] [address] Bee Nikki Urea nitrogen [Mass/Vol] 20.0 mg/dL Critically high 7.0-17.0 [facility] Comment on above: Performed By: #### B MP #### [facility] [address] [place] [address] Bee Nikki Urea nitrogen/Creatinin e [Mass ratio] 23.0 mg/mg Normal [facility] Comment on above: Performed By: #### B MP #### [facility] [address] [place] [address] Beeronen Marinoen PROTIMEon 12-04-2018 INR Coag (PPP) [Relative time] 1.03 {INR} Normal [facility] Comment on above: Performed By: #### P T, PTT #### [facility] [address] [place], [place] [id number] Bee Nikki PT Coag (PPP) [Time] PLEASE NOTE: NORMAL RANGE CHANGE 2014 DUE TO REAGENT LOT CHANGE Normal [facility] Comment on above: Performed By: #### P T, PTT #### [facility] [address] [place] [address] Bee Nikki PT Coag (PPP) [Time] SEE BELOW Normal [facility] Comment on above: Result Comment: NALINI RED INR: 2.0 - 3.0 CONDITIONS NOT LISTED BELOW 2.5 - 3.5 FOR PROSTHETIC HEART VALVE REPLACEMENT 2.5 - 3.5 RECURRENT THROMBOSIS Performed By: #### P T, PTT #### [facility] [address] [place] [address] Bee Nikki PT Coag (PPP) [Time] 10.7 s Normal 9.0-11.6 [facility] Comment on above: Performed By: #### P T, PTT #### [facility] [address] [address] Bee Jordan PTTon 12-04-2018 aPTT Coag (Bld) [Time] PLEASE NOTE: NORMAL RANGE CHANGE 03-30-2015 DUE TO REAGENT LOT CHANGE Normal [facility] Comment on above: Performed By: #### P T, PTT #### [facility] [address] [address] Bee Jordan aPTT Coag (Bld) [Time] 23.0 s Normal 22.3-36.2 [facility] Comment on above: Performed By: #### P T, PTT #### [facility] [address] [address] Bee Jordan XR ANKLE RT 2Von 12-04-2018 XR ANKLE RT 2V Patient: CAIN TAN Exam Date: 12/04/2018 : 1975 Gender:F Ordering : DR. BEBO MonacoPKaylahMKaylah Admission #: [id number] Family : Order #: [id number] CLICK HERE TO VIEW EXAM RADIOLOGY REPORT [...] the right ankle trimalleolar fractures. Dictated by: Aalyna Posadas M.D. on 12/04/2018 at 11:50 Approved by: Alayna Posadas M.D. on 12/04/2018 at 11:54 Normal [facility] XR ANKLE RT MIN 3 VIEWSon XR ANKLE RT MIN 3 VIEWS Patient: TERRIE TAN Exam Date: 12/04/2018 : 1975 Gender:F Ordering : DR. BEBO MonacoPKaylahMKaylah Admission #: [id number] Family : Order #: [id number] CLICK HERE TO VIEW EXAM RADIOLOGY REPORT [...] Posadas M.D. on 12/04/2018 at 15:02 Normal [facility] XR ANKLE RT MIN 3 VIEWSon XR ANKLE RT MIN 3 VIEWS Patient: TERRIE TAN Exam Date: 12/03/2018 : 1975 Gender:F Ordering : DR. BEBO ENRIQUEZ DKaylahPKaylahMKaylah Admission #: [id number] Family : Order #: [id number] CLICK HERE TO VIEW EXAM RADIOLOGY REPORT [...] Posadas M.D. on 12/03/2018 at 13:13 Normal [facility] CNOVon 07-30-2017 CNOV Office Visit (NEHAMN) TERRIE TAN ([id number]) 1975 [facility] Time Provider Department07/30/17 9:40 AM JOHN GARCIA During your visit today, we recorded the following information about you: Pulse Blood pressure Weight Height 84/minute 113/62 86.6 kg 1.549 Ricardo Garcia MD, MD 08/01/2017 10:22 AM [facility] Vlco[address] [address] [id number]: Josette Vega MDThis is a 42 year old year old year old, Right handed woman from [facility] whois referred in consultation by [...] mouth every 8 hours as needed. Disp: Rfl:irgacfh-kavoxxtn-fhqam bital (FIORINAL) capsule Disp: Rfl: 1No current [...] 1ANDquot;) Wt 86.6 kg (191lb) BMI 36.09 kg/y5Ipgrqso: well appearing, in no acute distress, alert [...] 50 % of time spent in counselingEmad Estemalik, MDI personally have reviewed the history and physical [...] agree with the recommendations as outlined above.??Alfonso CurranReferrtiffanie Provider: SONNY HI [[id number]]Allergies As of Date: 07/30/2017 Noted Allergy ReactionANTIVERT [...] jeyson* FLUTICASONE 50 MCG/ACTUATION * Use 1 [place] in each nostril o* LURASIDONE 40 MG [...] 4 mg by mouth every 8 ho* SBYMCJNIGL-ESBAGOO-XYQJRDZ E 5*Medication notes this encounter DFFVSNUOSD-JPJVNLQ-ZSHGMNP E 50 MG-325 MG-40 MG CAPSULE >> Sabrina Sturghil 07/30/2017 9:57 AM >> STURGHIL, SABRINA Tue Jul 30, 2017 9:57 AM Received from: [email or web address] PharmacyProblem List As Of Date 07/30/2017 Noted Resolved Abdominal pannus [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 Tubular breast [N64.89] INVALID FOR* More... Status:Closed by JOHN GARCIA MD on 08/01/17 Normal [facility] PROGRESSon 07-30-2017 PROGRESS HNO ID: [id number] thor: TONI Blanchardervice: (none)Author Type: PhysicianType: Progress NotesFiled: 08/01/2017 10:22 AMNote Text:Headache CenterWyurological [facility] Xvgc6276 Khari Levine, [address] [address]Ifxtwdkdomm [place], [address] [address]NHX: Josette Vega MDThis is a 42 year old year old year old, Right handed woman from [facility] is referred in consultation by Dr. Vega [...] mouth every 8 hours as needed. Disp: Rfl:fwyjxos-ealwaroo-lgmor bital (FIORINAL) capsule Disp: Rfl: 1No current [...] a living. Trying to get disability. [facility].ROS:REVIEW OF SYSTEMSGENERAL: Planned weight loss [...] ) Wt 86.6 kg (191lb) BMI 36.09 kg/q0Fjpzwty: well appearing, in no acute distress, alert [...] ing/coordinating care with the patient and /or . More than 50 % of time spent in counselingSCOTTIE Curran personally have reviewed the history and physical obtained anddocumented by the resident/fellow and I have examined the patient.Thepertinent lab, radiology and/or other diagnostic test(s) were reviewed. Ihsudha discussed the management options and their respective risks andbenefits with the patient. The necessary revisions in the abovedocumentation were made in italics and the note reflects my input. Idiscussed the case and the plans with the resident and I fully agree withthe recommendations as outlined above.??Alfonso Curran [facility] PROGRESSon 02-20-2017 PROGRESS HNO ID: [id number] thor: Cat BAILEYervice: (none)Author Type: (none)Type: Progress NotesFiled: 02/20/2017 8:02 AMNote Text:[id number] OF PHOTOS: February 18, 2017TAKEN WITH LENS: 7ft / 70mm x5 VCNEXQ0ae / 70mm H x5 ABDOMEN, FROM BELOW BRA LINE TO BELOW PUBIC AREAPOSES:AP/OP/LPDIAGNOSI S: NECK / TRUNK: PANNICULECTOMY and BREAST: BREAST AUGMENTATIONRELEASE: PATIENT SIGNED PHOTO RELEASE FOR CLINICAL USE AND SURGERYCat Montalvo LPN [facility] CNOVon 02-18-2017 CNOV Office Visit (PLASST) QUENTINTERRIE Dane ([id number]) 1975 [facility] Yhfoqvyupb18/16/17 2:00 PM BEVERLY LEWIS During your visit today, we recorded the following information about you: Temperature Pulse Respiration Blood pressure 98.4 degrees 81/minute 18/minute 109/62 Weight Height 86.2 kg 1.549 Ha Montalvo WELFARE MANAGER 02/18/2017 2:21 PM [facility] [id number] HOURS: Lab is open 7:30am to 6:00pm [...] at least one day prior to the scheduledexam.[facility] HOURSHOURS OF OPERATIONS Saturday and Saturday 8:00am to 4:00pm, Saturday through Saturday6:00am to 9:00pm. Express care is for patients 2 years and older.[facility]PER[facility] Saturday and Saturday 8:00am to 4:00pm, Saturday through Saturday6:00am to 9:00pm. The walk in clinic is for patients 6 months and older.[facility] WALK-IN HOURSHOURS OF OPERATIONS Saturday and Saturday 9:00am to 4:00pm, Saturday through Saturday6:00am to 9:00pm. The walk in clinic is for patients 2 years and older.For Express Care LOCATIONS, HOURS OF OPERATION and CURRENT WAIT TIMES, visitthe following [email or web address]?dFR[type s][0]=Express%20Care%20Cli nicsAND-amp; for detailsWe are glad that we were able to get you in for an urgent appointment todaywhen you needed it. Is there anything else I can do for you?For Express Care LOCATIONS, HOURS OF OPERATION and CURRENT WAIT TIMES, visitthe following [email or web address]?dFR[type s][0]=Express%20Care%20Cli nicsAND-amp; for detailsBeverly Lewis MD 02/18/2017 [...] Wt 86.2 kg (190 lb) BMI 35.9 kg/j6WKOWVBAJRZqkcwtvt Reactions- Antivert [Meclizine] Other: See Comments Patient [...] Visit Diagnosis:Tubular breast [N64.89]Order(s):SURGICAL REQUEST - ELECTIVE [0176494] Order #: [id number]: 1 CBC + DIFF [SQCBCDIF] Order #: [id number] FUTURE COMP METABOLIC PANEL [SQCMP] Order #: [id number] FUTURE ECG COMPLETE W INTERPRETATION [ECG01] Order #: [id number] FUTURE CONSULT TO ANESTHESIOLOGY [900] Order #: [id number]: 1 CONSULT TO INT MED-IMPACT [2375746] Order #: [id number]: 1 [facility] [0308303] Order #: [id number] REFER FOR ADMIT INTERVIEW [4004962] Order #: [id number] List As Of Date 02/18/2017 Noted Resolved Abdominal pannus [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 Tubular breast [N64.89] INVALID FOR* More... Other instructions from your clinician: [facility] FACTS [phone] LAB HOURS: Lab is open 7:30am to [...] one day prior to the scheduled exam. [facility] HOURS HOURS OF OPERATIONS Saturday and Saturday 8:00am to 4:00pm, Saturday 6:00am to 9:00pm. Express care is for patients [address] [facility] HOURS OF OPERATIONS Saturday and Saturday 8:00am to 4:00pm, Saturday 6:00am to 9:00pm. The walk in clinic is for patients 6 months and older. [facility] WALK-IN HOURS HOURS OF OPERATIONS Saturday and Saturday 9:00am to 4:00pm, Saturday 6:00am to 9:00pm. The walk in clinic is for patients 2 years and older. For Express Care LOCATIONS, HOURS OF OPERATION and CURRENT WAIT TIMES, visit the following link [email or web address]?dFR[types][0 ]=Express%20Care%20Clin icsAND for details We are glad that we were able to get you in for an urgent appointment today when you needed it. Is there anything else I can do for you? For Express Care LOCATIONS, HOURS OF OPERATION and CURRENT WAIT TIMES, visit the following link [email or web address]?dFR[types][0 ]=Express%20Care%20Clin Becky for detailsEncounter Number: [id number] Status:Closed by BEVERLY LEWIS MD on 02/18/17 [facility] PROGRESSon 02-18-2017 PROGRESS HNO ID: [id number] thor: Beverly Mcgrawrvice: (none)Author Type: PhysicianType: Progress [...] Wt 86.2 kg (190 lb) BMI 35.9 kg/t9XUFAZYWBOVdacjtii Reactions- Antivert [Meclizine] Other: See Comments Patient [...] recommendations.?Beverly Lewis MDOctober 2016 3:34 PM Normal [facility] Vital Signs Date Time Vital Sign Value Performing Clinician Facility 11-13-2023 09:49-0400 Blood Pressure Location Skylar Ferrer [facility] 11-13-2023 09:49-0400 Diastolic blood pressure 85 mm[Hg] Skylar Lue [facility] 11-13-2023 09:49-0400 Heart rate 67 /min Skylar Lue [facility] 11-13-2023 09:49-0400 Respiratory rate 16 /min Skylar Lue [facility] 11-13-2023 09:49-0400 Systolic blood pressure 131 mm[Hg] Skylar Lue [facility] 05-04-2021 14:45-0500 Body height 154.94 cm Davi Martinez Other [facility] Other 05-04-2021 14:45-0500 Body mass index (BMI) [Ratio] 38.73 kg/m2 Davi Martinez Other [facility] Other 05-04-2021 14:45-0500 Body weight 92.99 kg Davi Martinez Other [facility] Other 03-23-2021 10:38-0500 Body height 154.94 cm Referring Provider Unknown XO-Jgreylarptctlk-Onh dman Work Phone: 03-23-2021 10:38-0500 Body mass index (BMI) [Ratio] 40.06 kg/m2 Referring Provider Unknown MZ-Iofeucnjpyxgtx-Kzi dman Work Phone: 03-23-2021 10:38-0500 Body surface area Derived from formula 1.94 m2 Referring Provider Unknown TJ-Pnimjjuzvjufyh-Deq dman Work Phone: 03-23-2021 10:38-0500 Body weight 96.16 kg Referring Provider Unknown ER-Cnqzoezvvuujoh-Gza dman Work Phone: Encounters Encounter Date Encounter Type Care Provider Facility Start: 12-06-2023 ambulatory Skylar Ferrer Facility:[facility] Start: 11-13-2023 End: 11-13-2023 ambulatory RADHA AMRIN Facility:[facility] Start: 11-13-2023 End: 11-13-2023 Patient encounter procedure Skylar Ferrer [facility] Start: 11-08-2023 End: 11-08-2023 ambulatory [facility] Start: 10-24-2023 End: 10-24-2023 ambulatory ALEX BURRIS Not Available Start: 10-01-2023 End: 10-02-2023 Emergency department patient visit BRENNEN MCCRACKEN [facility] Start: 08-09-2023 End: 08-09-2023 ambulatory JOSETTE VEGA Not Available Start: 07-18-2023 End: 07-18-2023 ambulatory ALEX BURRIS Not Available Start: 05-17-2023 ambulatory Skylar Ferrer Facility:[facility] Start: 04-25-2023 End: 04-25-2023 ambulatory ALEX BURRIS Not Available Start: 04-12-2023 ambulatory Skylar Lue Facility:[facility] Start: 04-08-2023 End: 04-08-2023 ambulatory RADHA Romi MARIN Not Available Start: 04-08-2023 End: 04-08-2023 ambulatory JAMES PAPPAS Not Available Start: 04-03-2023 End: 04-03-2023 ambulatory RADHA SONPATRICK Not Available Start: 09-28-2021 End: 09-28-2021 ambulatory Davi Martinez Other [facility] Other Start: 09-28-2021 Telephone encounter Davi Mcallister [facility] Start: 05-04-2021 End: 05-04-2021 ambulatory Davi Martinez Other [facility] Other Start: 05-04-2021 Office outpatient ne w 45 minutes Davi Martinez [facility] Start: 04-06-2021 Patient encounter procedure No PCP None [facility] [address] Work Phone: Start: 03-23-2021 [facility] visit new patient No PCP None JB-Ldvqslpeh-Cyiatan 1150A Work Phone: Start: 03-23-2021 Patient encounter procedure No PCP None YP-Lcowfksolvydlu-Fzflkds Voice Work Phone: Start: 03-23-2021 Office consultation new/estab patient 60 min Referring Provider Unknown QD-Snldroizexipeu-Gstbmkj Work Phone: Start: 11-18-2019 End: 11-19-2019 Patient encounter procedure BEBO ENRIQUEZ Facility:[facility] Start: 10-20-2019 End: 10-21-2019 Patient encounter procedure BEBO ENRIQUEZ Facility:[facility] Start: 04-22-2019 End: 04-23-2019 Patient encounter procedure BEBO ENRIQUEZ Facility:[facility] Start: 04-09-2019 End: 04-10-2019 Patient encounter procedure EDMOND PARKER Facility:[facility] Start: 03-04-2019 End: 03-05-2019 Patient encounter procedure BEBO ENRIQUEZ Facility:[facility] Start: 01-28-2019 End: 01-29-2019 Patient encounter procedure BEBO ENRIQUEZ Facility:[facility] Start: 01-07-2019 End: 01-08-2019 Patient encounter procedure BEBO ENRIQUEZ Facility:[facility] Start: 01-06-2019 Encounter for other preprocedural examination BEBO ENRIQUEZ [facility] Start: 12-23-2018 End: 12-24-2018 Patient encounter procedure KAT CAMERON Facility:[facility] Start: 12-07-2018 End: 12-11-2018 Evaluation and management of inpatient JOSETTE VEGA Facility:[facility] Start: 12-03-2018 End: 12-04-2018 Patient encounter procedure BEBO ENRIQUEZ Facility:[facility] Start: 07-30-2017 End: 08-01-2017 Ambulatory EMAD Crescencio GARCIA [facility] Start: 02-18-2017 Ambulatory BEVERLY LEWIS [facility] Procedures Date Procedure Procedure Detail Performing Clinician Start: 01-09-2023 Laparoscopic appendectomy Skylar Nabil Start: 04-09-2019 ANESTH ABDOMINAL WALL SURG DOUG BLOCK Start: 04-09-2019 EXC SKIN ABD EDMOND PARKER Start: 04-09-2019 EXC SKIN ABD ADD-ON EDMOND PARKER Start: 12-08-2018 End: 12-08-2018 Microscopic examination of blood, culture BEBO ENRIQUEZ Comment on above: Performed By: #### PREG #### [facility] [address] [place] [address] Bee Jordan Start: 12-04-2018 Reposition Right Fibula with Internal Fixation Device, Open Approach BEBO ENRIQUEZ Start: 11-17-2018 Esophagogastroduodenoscopy transoral diagnostic Skylar Ferrer Start: 10-08-2018 Unlis laps px hrnap herniorrhaphy herniotomy Skylar Ferrer Start: 04-05-2015 Tonsillectomy & adenoidectomy Skylar Ferrer Cholecstontrstm garcía -en-y w/gastrontrstm Skylar Ferrer H/O: surgery Davi McCvidal ack Other Laps gstr rstcv px w /byp garcía-en-y limb <150 cm Skylar Ferrer Neuroplasty &/transp os median nrv carpal tunne Skylar Ferrer Oophorectomy Skylar Ferrer Plan of Treatment Date Care Activity Detail Author Start: 04-06-2021 VIRCHRISTINE, Provider : Maddy Echeverria, Status: Pen, Time: 4:00 PM VIRFUCHIN, Provider: Maddy Echeverria, Status: Pen, Time: 4:00 PM FW-Zkcqftmyz-Iwouydg 3300A Work Phone: Immunizations Immunization Date Immunization Notes Care Provider [facility] 03-27-2021 influenza virus vaccine, unspecified formulation Skylar Ferrer [facility] 03-27-2021 SARS-CoV-2 (COVID-19 ) mRNA-2383 vaccine Skylar Ferrer [facility] 09-05-2020 Moderna COVID-19 Vaccine 100 MCG/0.5ML Intramuscular Suspension Referring Provider Unknown [facility] 08-10-2020 Moderna COVID-19 Vaccine 100 MCG/0.5ML Intramuscular Suspension Referring Provider Unknown [facility] 03-11-2019 influenza virus vaccine, unspecified formulation Skylar Lue [facility] 03-11-2019 influenza, injectable, quadrivalent, contains preservative Referring Provider Unknown UD-Jembkqzjqgqumt-Qp idman Work Phone: 03-11-2019 influenza, injectable,quadrivale nt, preservative free, pediatric Davi Juan Other [facility] Other 02-14-2018 influenza, injectable, quadrivalent, preservative free Referring Provider Unknown PU-Fgfczvjqtpqdoy-Yy idman Work Phone: 03-01-2017 influenza, injectable,quadrivale nt, preservative free, pediatric Davi Juan Other [facility] Other 03-01-2017 influenza virus vaccine, unspecified formulation Skylar Lue [facility] 03-01-2017 influenza, injectable, quadrivalent, preservative free Referring Provider Unknown FZ-Ushhixvjsgywkb-Pl idman Work Phone: 02-08-2016 influenza virus vaccine, unspecified formulation Skylar Lue [facility] 02-08-2016 influenza, injectable, quadrivalent, preservative free Referring Provider Unknown WD-Zowhqmzxawyybt-Tg idman Work Phone: 02-04-2015 influenza, high dose seasonal, preservative-free Davi Juan Other [facility] Other 02-04-2015 influenza virus vaccine, whole virus Referring Provider Unknown CV-Uilqmjukumzylk-Ht idman Work Phone: 02-04-2015 influenza, whole Skylar Lue [facility] 10-23-2014 measles, mumps and rubella virus vaccine Davi Martinez Other [facility] Other 10-22-2014 measles, mumps and rubella virus vaccine Referring Provider Unknown [facility] 10-05-2014 tetanus toxoid, reduced diphtheria toxoid, and acellular pertussis vaccine, adsorbed Referring Provider Unknown [facility] 02-24-2014 tetanus toxoid, reduced diphtheria toxoid, and acellular pertussis vaccine, adsorbed Referring Provider Unknown [facility] 02-21-2014 influenza virus vaccine, unspecified formulation Skylar Ferrer [facility] 02-21-2014 influenza, seasonal, injectable Referring Provider Unknown HX-Rjrygkoalvfkzo-Zy coby Work Phone: 1975 measles, mumps and rubella virus vaccine Davi Martinez Other [facility] NEGATED: Highlighted row has not occurred!02-18-2012 TDap Boostrix Davi Martinez Other [facility] Other Payers Date Payer Category Payer Unknown [id number] [id number] 1975 Unknown [id number] 2..840.1.091167.3.579.2.593 1975 Unknown [id number] 2..840.1.557913.3.579.2.593 1975 Unknown [id number] 2.16.840.1.962806.3.579.2.593 1975 Unknown [id number] 2.16.840.1.108898.3.579.2.593 1975 Unknown [id number] 2.16.840.1.032110.3.579.2.593 1975 Unknown [id number] 2.16.840.1.793898.3.579.2.593 1975 Unknown [id number] 2.16.840.1.162897.3.579.2.593 1975 Unknown [id number] 2.16.840.1.000379.3.579.2.59 1975 Unknown [id number] 2.16.840.1.157900.3.579.2.59 1975 Unknown [id number] 2.16.840.1.345723.3.579.2.9 1975 Unknown [id number] 2.16.840.1.114157.3.579.2.1258 1975 Unknown [id number] 2.16.840.1.317640.3.579.2.125 1975 Unknown [id number] 2.16.840.1.449453.3.579.2.1258 1975 Unknown [id number] 2.16.840.1.243523.3.579.2.1258 1975 Unknown [id number] 2.16.840.1.591424.3.579.2.1258 1975 Unknown [id number] 2.16.840.1.332677.3.579.2.1258 1975 Unknown [id number] 2.16.840.1.258813.3.579.2.128 1975 Unknown [id number] 2.16.840.1.577921.3.579.2.1285 1975 Unknown [id number] 2.16.840.1.310647.3.579.2.1285 1975 Unknown [id number] 2.16.840.1.002883.3.579.2.1286 1975 Unknown [id number] 2.16.840.1.222852.3.579.2.727 1975 Unknown [id number] 2.16.840.1.802503.3.579.2.727 1959 Unknown [id number] Unknown [facility] Social History Date Type Detail Facility Non-smoker Non-smoker MG-Otolaryngolo gy-Seidm an Work Phone: Sex Assigned At [facility] Start: 11-13-2023 Tobacco smoking status Never s moked tobacco (finding) [facility] Tobacco smoking status Never [facility] Functional Status Date Assessment Result Facility 11-13-2023 Functional Status N/A [facility] Clinical Notes 05-04-2021 to 11-13-2023 Note Date & Type Note Facility [...] Follow these instructions at home: Medicines Take cxvp-bxl-rkcjbrs and prescription medicines only as told by [...] prevent or treat constipation, such as: ?Take vmwe-krh-zdbhrqj or prescription medicines. ?Eat foods that are [...] provider. Document Revised: 08/29/2022 Document Reviewed: 12/25/2021 [employer] Patient Education 2022 [employer]. 11/13/2023 10:43:58 Laser Therapy for Kidney Stones [...] including vitamins, herbs, eye drops, creams, and goic-iqy-rdffxyh medicines. Any problems you or family members [...] provider tells you to take them. ?Taking smrh-nah-xhihsyh medicines, vitamins, herbs, and supplements. Eating and [...] provider. Document Revised: 08/29/2022 Document Reviewed: 12/25/2021 [employer] Patient Education 2022 [employer]. Follow Up Care 04/12/2023 13:59:05 With:Nabil FU, Skylar Sanchez URL, URO Address: [address] [place] [phone] When: Unknown Comments:miguel WILSON [facility] 11-13-2023 Note Urology Office/Clini c Note Chief Complaint Referral *Kidney Stone HPI Staff 48 year old female new patient referred by Radha Marin, for renal calculi, hydronephrosis of right kidney. Pt is a new pt. Never before seen in our office. CT ap w 01/08/23 CT abdomen and pelvis wo cont done 10/01/23. pt states it was ordered due to Rt flank pain Urine cx from 10/01/23 was negative. LU 11/08/23 *3mm stone in Rt Kidney inferior pole PVR at that time 67 KUB 11/08/23 Denies Hx of Kidney Stones. Current intermittent BL Flank pain. Has not been straining urine. Does not believe she has passed stone. Denies blood in urine. Denies difficulty urinating. (Did call and request CT/KUB & LU images to be transferred from [facility] to our PAC) History of Present Illness Tests reviewed: reviewed UA, external referral records, CT scan, urine culture, KUB, LU I have reviewed the previous health record information and history for this patient from external providers. I have reviewed and verified the staff HPI to be accurate for this encounter. Review of Systems PHQ Score Initial Depression Screen Score: 0 SCORE ROS - Provider Constitutional: denies weight loss, denies hot flashes. Eyes: denies eye problems. Gastrointestinal: denies nausea, denies vomiting. Cardiovascular: denies chest pain or angina. Integumentary: no dryness Musculoskeletal: denies musculoskeletal symptoms. ENMT: denies otolaryngeal symptoms. Respiratory: no shortness of breath. Heme/Lymph: denies easy bleeding tendency, denies easy bruising tendency. Psychiatric: no confusion, no anxiety. Genitourinary: See HPI. Physical Exam Vitals & Measurements HR: 67(Peripheral) RR: 16 BP: 131/85 HT: 69 in HT: 175 cm WT: 82 kg WT: 180.4 lb BMI: 26.78 General Appearance: alert , no acute distress, well nourished, well developed female. Genitourinary: moderate right flank pain. Assessment/Plan 48 yo female new pt referred by Radha Marin NP for renal calculi and hydronephrosis of right kidney. Hx of DM, last A1c 08/09/23 - 4.9 BBS 23. 1. Ureteral stone with hydronephrosis (N13.2: Hydronephrosis with renal and ureteral calculous obstruction) No hx of surgical intervention for stones. Hx of gastric bypass. Educated pt on contribution to stone formation. Renal fxn 10/11/23 - BUN 22. Cr 0.97. eGFR 73. CT AP w con 01/08/23 [facility] - No hydro. Unremarkable kidneys. CT AP wo con 10/01/23 [facility] - Moderate R hydro extending to a R UPJ calculus measuring 4-5 mm. No L hydro. Nonobstructing small RIP calculi. Retroperitoneal US 11/08/23 [facility] - 3 mm echogenic focus in RIP consistent with calculus. Mild R hydro. No L hydro or stones. KUB 11/08/23 [facility] - 1 cm calculus at R UPJ wo change from CT 10/01/23. Pt states she has had right flank pain ongoing since January. Delayed due need for re-scheduling and then pt's work schedule. UA today negative for blood and infection. Reviewed imaging results, inconsistent findings. Advised pt size of stone indicated on recent KUB is likely inaccurate as there is a low likelihood stone has increased in size in short timeframe from prior CT scan. Discussed options including obtaining updated imaging prior to proceeding with procedure to verify size of stone and its location vs just proceeding with procedure, risk of unnecessary surgery. Pt wishes to just proceed with procedural intervention now given pain has been ongoing for a while. Risks/benefits of ureteroscopy were discussed including but not limited to: bleeding, pain, infection, damage to surrounding structures, ureteral perforation, stricture, inability to treat the stone and need for additional procedures. If a stent is placed, pt understands this is not permanent and needs to be removed or exchanged within 3 months to prevent encrustation, infection, permanent renal damage and need for more invasive procedures. -Increase water intake Will schedule a Cystoscopy with Right Retrograde, Right Ureteroscopy, Right Laser Litho, Right Stone Basket, Right possible stent placement. Full informed consent has been obtained. Will order General anesthesia. -Metabolic workup in the future 2. Right flank pain (R10.9: Unspecified abdominal pain) See #1. Follow-up With When Contact Information Nabil FU, Skylar Sanchez, URL, [facility] [address], [place] [address]- [phone] Additional Instructions: sched R URS Patient Education Laser Therapy for Kidney Stones, Care After Laser Therapy for Kidney Stones I, Morelia Whitney, personally scribed for Dr. Ferrer on 11/13/2023 10:44:55. . Documentation recorded by the scribe, Dhara Galvan, accurately reflects the services(s) I performed and decisions made by me. Authenticated by Dr. Ferrer on 11/13/2023 11:11:23. Problem List/Past Medical History Ongoing Abnormal uterine bleeding. Abnormal vaginal bleeding Adjustment disorder wit (more content not included)... [facility] Comment on above: Result Comment: Elec tronically Signed By: Skylar Ferrer MD\.br\Date and Time Signed: 11/13/23 11:12 EDT\.br\Electronically Co-Signed By: Morelia Whitney\.br\Date and Time Co-Signed: 11/13/23 10:45 EDT 11-13-2023 Note Patient Education Nephrology Laser Therapy for Kidney Stones, Care After This sheet gives you information about how to care for yourself after your procedure. Your health care provider may also give you more specific instructions. If you have problems or questions, contact your health care provider. What can I expect after the procedure? After the procedure, it is common to have: ? Pain. ? A burning sensation while urinating. ? Small amounts of blood in your urine. ? A need to urinate frequently. ? Pieces of kidney stone in your urine. ? Mild discomfort when urinating that may be felt in the back. You may experience this if you have a flexible tube (stent) in your ureter. Follow these instructions at home: Medicines ? Take mlvs-kqt-ldsrhwb and prescription medicines only as told by your health care provider. ? If you were prescribed an antibiotic medicine, take it as told by your health care provider. Do not stop taking the antibiotic even if you start to feel better. ? Ask your health care provider if the medicine prescribed to you: ? Requires you to avoid driving or using heavy machinery. ? Can cause constipation. You may need to take actions to prevent or treat constipation, such as: ? Take mthu-crz-fntkyms or prescription medicines. ? Eat foods that are high in fiber, such as beans, whole grains, and fresh fruits and vegetables. ? Limit foods that are high in fat and processed sugars, such as fried or sweet foods. Activity ? Return to your normal activities as told by your health care provider. Ask your health care provider what activities are safe for you. ? Do not drive for 24 hours if you were given a sedative during your procedure. General instructions ? If your health care provider approves, you may take a warm bath to ease discomfort and burning. ? Drink enough fluid to keep your urine pale yellow. Your health care provider may recommend drinking two 8 oz (237 mL) glasses of water per hour for a few hours after your procedure. ? You may be asked to strain your urine to collect any stone fragments that you pass. These fragments may be tested. ? Keep all follow-up visits as told by your health care provider. This is important. If you have a stent, you will need to return to your health care provider to have the stent removed. Contact a health care provider if you: ? Have pain or a burning feeling that lasts more than 2 days. ? Feel nauseous. ? Vomit more and more often. ? Have difficulty urinating. ? Have pain that gets worse or does not get better with medicine. Get help right away if: ? You are unable to urinate, even if your bladder feels full. ? You have: ? Bright red blood or blood clots in your urine. ? More blood in your urine. ? Severe pain or discomfort. ? A fever or shaking chills. ? Abdominal pain. ? Difficulty breathing. ? Swelling in your legs. This information is not intended to replace advice given to you by your health care provider. Make sure you discuss any questions you have with your health care provider. Document Revised: 08/29/2022 Document Reviewed: 12/25/2021 [employer] Patient Education ? 2022 [employer] Laser Therapy for Kidney Stones Laser therapy [...] kidney. Tell a health care provider about: ? Any allergies you have. ? All medicines you are taking, including vitamins, herbs, eye drops, creams, and yzhs-drv-msgyztt medicines. ? Any problems you or family members have had with anesthetic medicines. ? Any blood disorders you have. ? Any surgeries you have had. ? Any medical conditions you have. ? Whether you are or may be . What are the risks? Generally, this is a safe procedure. However, problems may occur, including: ? Infection. ? Bleeding. ? Allergic reactions to medicines. ? Damage to the urethra, bladder, or ureter. ? Urinary tract infection (UTI). ? Narrowing of the urethra (urethral stricture). ? Difficulty passing urine. ? Blockage of the kidney caused by a f (more content not included)... [facility] 09-28-2021 Evaluation note Encounter Date Diagnosis Assessment Notes September, Slow transit constipation (ICD-10 - K59.01) [facility] Other 05-02-2022 NoteHISTORY: Seizures, prior history of shunt PROCEDURE: Mogreet Signa HDXT 1.5. Sagittal coronal and axial T1 [...] and signed by Sammy Savage on 09/04/2021 [facility]* Encounter Date Diagnosis Assessment Notes Treatment Notes Treatment Clinical Notes Apr, Slow transit constipation (ICD-10 - K59.01) PATIENT DOES NOT TAKE ANY MEDICATIONS WILL START THE ABOVE MEDICATION. Apr, Abdominal pain (ICD-10 - R10.9) WILL HAVE THIS WHEN BOWELS DO NO MOVE Apr, Heartburn (ICD-10 - R12) DOES NOT TAKE ANY MEDICATION [facility] Other Evaluation + Plan note No data available for this section [facility] general Narrative - Reported* Type Description Date Medical History pseudotumor cerebral Medical History pcos [...] not wanting to kill self .Hospitalized in [facility] Hospitalization History In [facility] on two occasions. Hospitalization History [facility]- Stomach Problems 1 06/10/18 [facility] Other History of Present illness Narrative* TERRIE TAN, age 46 years, was seen today for an audiologic evaluation in conjunction with Madeline Bustos MD. Ms. TAN reports bilateral hearing loss with the use of hearing aids. She notices the greatest difficulty hearing when in the presence of background noise. She reports she hasdifficulty keeping the hearing aids in place. She did not have the hearing aids with her today. 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 She denies otalgia, otorrhea, tinnitus, dizziness, history of otologic surgery. * Patient's preferred language: Tuvaluan * Preferred language of the parent, legal guardian or surrogate decision-maker of this minor or incapacitated patient: Not Applicable * No overt signs of domestic violence/neglect/abuse. * Pain not interfering with optimal level of function or ability to assess and/or treat. * Pain Scale rank: 0/10 * Pain Scale used: Numeric * No referral made to primary care provider (PCP). * Factors/Barriers influencing patient's ability to complete assessment or learn: none. * Person taught: patient. * Readiness to learn: no barriers. * Results of Teaching/Counseling: verbalize recall / understanding and teaching complete. [facility] [id number] Work Phone: History of Present illness Narrative* Voice assessment: * Patient presents with dysphonia 2/2 a diagnosis of muscle tension dysphonia with poor coordination and intermittent splinting of her vocal cords. She has contributing factors related to deconditioning, depression/anxiety, fatigue/CHICA, and hearing loss. GERD appears reasonably well controlled. Estephania moulton appears to be a candidate for therapy which will target voice rebalancing. * Voice quality based on the GRBAS scale: 0=absent; 1=mild; 2=moderate; 3=severe * Grade: 2 * Roughness: 2 * Breathiness: 2 * Asthenia: 0 * Strain: 2 * Contributing Factors: supraglottic compression , inadequate breath support and habitual behaviors that misuse/abuse the voice * NOMS Score: moderate: level 4 * Treatment recommendations: treatment indicated (see goals below) [facility] Work Phone: Progress note No data available for this section [facility] Summary Purpose Family History No Family History Records FoundNo Family History Records FoundNo Family History Records FoundNo Family History Records FoundNo Family History Records FoundNo Family History Records FoundNo Family History Records FoundNo Family History Records Found No data available for this section No Family History Records Found Advance Directives No [...] section and content) DATE CREATED AUTHOR 10/24/2017 [facility] DATE CREATED AUTHOR AUTHOR'S ORGANIZ ATION 04/17/2019 [facility] DATE CREATED AUTHOR AUTHOR'S ORGANIZ ATION 11/28/2019 [facility] DATE CREATED AUTHOR AUTHOR'S ORGANIZ ATION 07/12/2020 [facility] DATE CREATED AUTHOR AUTHOR'S ORGANIZ ATION 04/08/2021 [facility] DATE CREATED AUTHOR AUTHOR'S ORGANIZ ATION 01/12/2022 [facility] DATE CREATED AUTHOR AUTHOR'S ORGANIZ ATION 10/26/2023 [facility] EPIC DATE CREATED AUTHOR AUTHOR'S ORGANIZ ATION 11/09/2023 [facility] DATE CREATED AUTHOR AUTHOR'S ORGANIZ ATION 11/24/2023 [facility] REASON FOR VISIT (unrecogniz ed section and [...] BE BASED ON THE PRIMARY CLINICAL RECORDS. [employer] provides no warranty or guarantee of the accuracy or completeness of information in this document.
--- NOTE | 2023-11-27 11:54 | XR_ITS ---
The [address] [address] Patient Name: KAREN SAAVEDRA MRN: [id number] date: 1975 Sex: F Assigned Patient Location: ER Current Patient Location: ER Accession/Order Number: [id number] Exam Date: 11/27/2023 12:16 Report Date: 11/27/2023 12:32 At the request of: LAMBERT KAUR Procedure: XR chest 1V EXAMINATION: XR chest 1V HISTORY: pain COMPARISON: 11/15/2023 TECHNIQUE: AP portable erect FINDINGS: LUNGS: No significant pulmonary parenchymal abnormalities. Low lung volumes VASCULATURE: No increased pulmonary vasculature. PLEURA: No pneumothorax, effusion, or pleural thickening. CARDIAC: No cardiomegaly or cardiac silhouette abnormality. MEDIASTINUM: No visible mass or adenopathy. BONES: No fracture or visible bone lesion. OTHER: Negative. XR/XR chest 1V IMPRESSION: Low volume exam, clear lungs Electronically authenticated by: LISSETT LEYVA Date: 11/27/2023 12:32
--- NOTE | 2023-11-27 11:54 | US_ITS ---
[place] [id number] Patient Name: KAREN SAAVEDRA MRN: [id number] date: 1975 Sex: F Assigned Patient Location: ER Current Patient Location: ER Accession/Order Number: [id number] Exam Date: 11/27/2023 12:30 Report Date: 11/27/2023 13:16 At the request of: LAMBERT KAUR Procedure: US venous doppler UE RT EXAM: US venous doppler UE RT HISTORY: arm sweling COMPARISON: None. TECHNIQUE: Grayscale, color and Doppler FINDINGS: Region: Right arm Thrombus: None Flow: Normal Augmentation: Normal Compressibility: Normal US/US venous doppler UE RT IMPRESSION: No deep or superficial vein thrombus identified in right arm Electronically authenticated by: LISSETT LEVYA Date: 11/27/2023 13:16
--- NOTE | 2023-11-27 11:55 | ED_ITS ---
HPI HPI - General Adult General Chief complaint: Extremity Injury, Upper Stated complaint: UPPER RIGHT EXTREMITY PAIN Time Seen by Provider: 11/27/23 11:51 Source: patient Mode of arrival: walk-in Limitations: no limitations History of Present Illness HPI narrative: The patient coming to the ER with a right arm swelling after she recently had a subclavian placed after a procedure done The patient denies any complaint Related Data Home Medications ?Medication ?Instructions ?Recorded ?Confirmed albuterol sulfate 2.5 mg/3 mL 2.5 mg inhalation Q6H PRN 05/01/23 11/20/23 (0.083 %) solution for nebulization shortness of breath or wheezing albuterol sulfate 90 mcg/actuation 2 puff inhalation Q6H PRN 05/01/23 11/20/23 aerosol inhaler shortness of breath or wheezing atogepant 60 mg tablet (Qulipta) 60 mg PO DAILY 05/01/23 11/20/23 biotin 10,000 mcg capsule 10,000 mcg PO DAILY 05/01/23 11/20/23 budesonide-formoterol HFA 160 2 inh inhalation Q12H 05/01/23 11/20/23 mcg-4.5 mcg/actuation aerosol inhaler (Symbicort) calcium carbonate 500 mg-vitamin 1 tab PO BID 05/01/23 11/20/23 D3 5 mcg (200 unit) tablet (Oyster Shell Calcium-Vitamin D3) cholecalciferol (vitamin D3) 50 50 mcg PO BID 05/01/23 11/20/23 mcg (2,000 unit) capsule ibuprofen 600 mg tablet 600 mg PO TID 05/01/23 11/20/23 linaclotide 290 mcg capsule 290 mcg PO DAILY 05/01/23 11/20/23 (Linzess) multivitamin-ferrous 1 tab PO BID 05/01/23 11/20/23 fumarate-folic acid 18 mg-400 mcg tablet (Tab-A-Tracey Multivitamin w-iron) plecanatide 3 mg tablet (Trulance) 3 mg PO DAILY 05/01/23 11/20/23 rimegepant 75 mg disintegrating 75 mg PO .QOD 05/01/23 11/20/23 tablet (Nurtec ODT) cyanocobalamin (vitamin B-12) 1,000 mcg PO DAILY 11/15/23 11/20/23 1,000 mcg tablet omeprazole 20 mg capsule,delayed 20 mg PO DAILY 11/15/23 11/20/23 release Previous Rx's ?Medication ?Instructions ?Recorded ondansetron 4 mg disintegrating 4 mg PO Q8H PRN nausea and 05/14/23 tablet vomiting 5 days #15 tabs oxybutynin chloride 5 mg tablet 5 mg PO TID PRN bladder spasms, 11/20/23 stent pain #60 tabs phenazopyridine 100 mg tablet 100 mg PO TID PRN dysuria #10 tabs 11/20/23 sulfamethoxazole 800 1 tab PO BID Start morning of 11/20/23 mg-trimethoprim 160 mg tablet stent removal 1 day #2 tabs (Bactrim DS) tamsulosin 0.4 mg capsule 0.4 mg PO QD PRN stent pain #30 11/20/23 caps Allergies Allergy/AdvReac Type Severity Reaction Status Date / Time meclizine [From Antivert] AdvReac Mild lethargic Verified 11/15/23 09:26 Opioid HPI Opioid Management Most Recent Opioid Data: Last Pain Scale 4 11/21/23 09:00 Last Pain Assessment 11/21/23 09:00 Review of Systems 2 ROS Status of ROS 10 or more systems reviewed and unremark able except as noted in history and below [facility] Medical History (Updated 11/15/23 @ 10:07 by Gaby Conely NP) Hypothyroidism (acquired) ?E03.9 - Hypothyroidism, unspecified (ICD-10) Hypoglycemia ?E16.2 - Hypoglycemia, unspecified (ICD-10) Hyperlipidemia ?E78.5 - Hyperlipidemia, unspecified (ICD-10) Sleep apnea ?G47.30 - Sleep apnea, unspecified (ICD-10) Hydronephrosis ?N13.30 - Unspecified hydronephrosis (ICD-10) Ureteral stone ?N20.1 - Calculus of ureter (ICD-10) Anemia ?D64.9 - Anemia, unspecified (ICD-10) Hypertension ?I10 - Essential (primary) hypertension (ICD-10) COPD (chronic obstructive pulmonary disease) ?J44.9 - Chronic obstructive pulmonary disease, unspecified (ICD-10) Chronic renal disease ?N18.9 - Chronic kidney disease, unspecified (ICD-10) Diabetes ?E11.9 - Type 2 diabetes mellitus without complications (ICD-10) Strain of right peroneal muscle or tendon ?S86.311A - Strain of muscle(s) and tendon(s) of peroneal muscle group at lower leg level, right leg, initial encounter (ICD-10) Ankle instability ?M25.373 - Other instability, unspecified ankle (ICD-10) Displaced trimalleolar fracture ?S82.853A - Displaced trimalleolar fracture of unspecified lower leg, initial encounter for closed fracture (ICD-10) Painful orthopaedic hardware ?T84.84XA - Pain due to internal orthopedic prosthetic devices, implants and grafts, initial encounter (ICD-10) Other specified joint disorders, right ankle and foot ?M25.871 - Other specified joint disorders, right ankle and foot (ICD-10) Pseudotumor cerebri ?G93.2 - Benign intracranial hypertension (ICD-10) Presence of lumboperitoneal shunt ?Z98.2 - Presence of cerebrospinal fluid drainage device (ICD-10) Deep vein thrombosis ?I82.409 - Acute embolism and thrombosis of unspecified deep veins of unspecified lower extremity (ICD-10) Depression ?F32.A - Depression, unspecified (ICD-10) Anxiety ?F41.9 - Anxiety disorder, unspecified (ICD-10) COVID-19 ?U07.1 - COVID-19 (ICD-10) Seasonal allergies ?J30.2 - Other seasonal allergic rhinitis (ICD-10) Reactive airway disease ?J45.909 - Unspecified asthma, uncomplicated (ICD-10) Migraine ?G43.909 - Migraine, unspecified, not intractable, without status migrainosus (ICD-10) Vertigo ?R42 - Dizziness and giddiness (ICD-10) Seizures ?R56.9 - Unspecified convulsions (ICD-10) Kidney stones ?N20.0 - Calculus of kidney (ICD-10) IBS (irritable bowel syndrome) ?K58.9 - Irritable bowel syndrome without diarrhea (ICD-10) Surgical History (Updated 11/15/23 @ 09:21 by Gaby Conley NP) History of ankle surgery (05/13/23) ?Z98.890 - Other specified postprocedural states (ICD-10) Status post lumboperitoneal shunt placement ?Z98.2 - Presence of cerebrospinal fluid drainage device (ICD-10) History of appendectomy (01/2023) ?Z90.49 - Acquired absence of other specified parts of digestive tract (ICD- 10) History of tonsillectomy ?Z90.89 - Acquired absence of other organs (ICD-10) History of ankle surgery ?Z98.890 - Other specified postprocedural states (ICD-10) Family History (Updated 05/01/23 @ 10:10 by Gaby Conley NP) Other Family history of cervical cancer Family history of hypertension Family history of leukemia Social History (Updated 05/01/23 @ 10:02 by Gaby Conley NP) Within the past year, how often did you have a drink containing alcohol: never Score interpretation: A score less than 3 is consistent with normal alcohol consumption. 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 General: Well-appearing and in no apparent distress. Skin: Warm, dry, no pallor noted. No rash. Head: Normocephalic, atraumatic. Neck: Supple, non-tender. Eye: Pupils are equal, round and EOMI. No scleral icterus. Ears, Nose, Mouth, and Throat: TM are clear, no nasal mucosal hypertrophy. Oral mucosa is moist, no posterior oropharynx erythema, uvula is mid-line Cardiovascular: Regular Rate and Rhythm without murmur, gallop or rub. Respiratory: No accessory muscle use or respiratory distress. Lungs are clear to auscultation, no wheezing, rales or rhonchi Chest Wall: no tenderness Back: No midline thoracic or lumbar vertebral tenderness. No CVA tenderness Musculoskeletal: normal ROM, no calf or popliteal tenderness, no lower extremity edema/swelling There is mild swelling noted in the right arm there is no vascular injury detected GI: Abdomen is soft, non-distended. Normal bowel sounds. No masses appreciated. No tenderness to palpation. No rebound, guarding, or rigidity noted. Neurological: A&O x4. No cranial nerve dysfunction observed. No truncal ataxia. Moves all extremities. Sensation intact. Psychiatric: Cooperative and interactive. Normal mood and affect. Constitutional Vital Signs, click to edit/add: Last Vital Signs Temp 98.0 F 11/27/23 11:32 Pulse 70 11/27/23 11:32 Resp 18 11/27/23 11:32 BP 120/74 11/27/23 11:32 Pulse Ox 100 11/27/23 11:32 O2 Del Method Room Air 11/27/23 11:32 Course Vital Signs Vital signs: Vital Signs Temperature 98.0 F 11/27/23 11:32 Pulse Rate 70 11/27/23 11:32 Respiratory Rate 18 11/27/23 11:32 Blood Pressure 120/74 11/27/23 11:32 Pulse Oximetry 100 11/27/23 11:32 Oxygen Delivery Method Room Air 11/27/23 11:32 Temperature 98.0 F 11/27/23 11:32 Pulse Rate 70 11/27/23 11:32 Respiratory Rate 18 11/27/23 11:32 Blood Pressure 120/74 11/27/23 11:32 Pulse Oximetry 100 11/27/23 11:32 Oxygen Delivery Method Room Air 11/27/23 11:32 Medical Decision Making MDM Narrative Medical decision making narrative: Duplex of the right upper extremity ordered the patient also had an x-ray ordered awaiting the result the patient care will be transferred to Dr. Ramirez Discharge Plan Discharge Patient Disposition: Still a Patient
[2023-11-27 13:43] VITALS: BP 124/80; PULSE 74; O2SAT 99
== END 2023-11-27 13:44 | disposition home or self-care (01) ==
PROVIDERS: Emergency Provider Emergency Medicine; PCP Family Medicine
DX: M79.601 Pain in right arm (principal)
CPT/HCPCS: 71045; 93971; 99284

== ENCOUNTER 2023-12-12 11:01 | Outpatient (OUT) | payer MEDICAID, SELFPAY ==
--- NOTE | 2023-12-12 11:04 | US_ITS ---
The [address] [address] Patient Name: KAREN SAAVEDRA MRN: [id number] date: 1975 Sex: F Assigned Patient Location: Current Patient Location: Accession/Order Number: [id number] Exam Date: 12/12/2023 11:06 Report Date: 12/13/2023 06:43 At the request of: ZOIE DANIEL Procedure: US renal BI EXAMINATION: US renal BI HISTORY: Flank Pain R10.9 COMPARISON: No relevant comparison available. TECHNIQUE: Ultrasound examination was performed of the kidneys and urinary bladder. FINDINGS: RIGHT KIDNEY: Contains a nonobstructing 4 mm stone. No hydronephrosis, mass, or cortical thinning. Normal parenchymal echogenicity. Color Doppler demonstrates blood flow within the kidney. Kidney: 10.1 x 5.0 x 5.7 cm LEFT KIDNEY: Contains a nonobstructing 5 mm stone. No hydronephrosis, mass, or cortical thinning. Normal parenchymal echogenicity. Color Doppler demonstrates blood flow within the kidney. Kidney: 9.9 x 4.8 x 4.5 cm BLADDER: No visible wall thickening, mass, or calculi. US/US renal BI IMPRESSION: 1. Bilateral nonobstructing nephrolithiasis. Electronically authenticated by: ALAYNA POSADAS Date: 12/13/2023 06:43
--- NOTE | 2023-12-12 11:04 | XR_ITS ---
The [address] [address] Patient Name: KAREN SAAVEDRA MRN: [id number] date: 1975 Sex: F Assigned Patient Location: [place] Current Patient Location: [place] Accession/Order Number: [id number] Exam Date: 12/12/2023 11:06 Report Date: 12/16/2023 13:54 At the request of: ZOIE DANIEL Procedure: XR abdomen 1V EXAMINATION: XR abdomen 1V HISTORY: Flank Pain COMPARISON: No relevant comparison available. FINDINGS: KIDNEY/URETER - RIGHT: No visible renal or ureteral calcifications. KIDNEY/URETER - LEFT: No visible renal or ureteral calcifications. PELVIS: No visible ureteral calcifications. Any visible calcifications favor phleboliths. BOWEL: No abnormal dilation or deviation. Moderate stool right colon BONES: No acute abnormality. OTHER: Wire projects of the left mid abdomen extending to the L3 level. No abnormal gaseous collections. XR/XR abdomen 1V IMPRESSION: Nonobstructive bowel gas pattern with moderate stool in the right colon Electronically authenticated by: LISSETT LEYVA Date: 12/16/2023 13:54
--- OUTSIDE RECORDS SUMMARY | 2023-12-12 11:05 | XMS_ITS | CCD ---
Author Organization [facility] Care Team Providers Care Linesperson Name Role Phone BEVERLY LEWIS Unavailable Unavailable JOHN GARCIA Unavailable Unavailable SONNY HI Unavailable Unavailab EDMOND Ferrari Admitting Unavailable EDMOND PARKER Attending Unavailable JOSETTE VEGA Referring Unavailable ANDREW JOSETTE Primary Care Unavailable PA Procedure Practitioner Unavailab EDMOND Ferrari Surgeon Unavailable PA Procedure Practitioner Unavailab DOUG Whitt Surgeon Unavailable BEBO ENRIQUEZ Admitting Unavailable ZOE, BEBO Attending Unavailable ALAYNA POSADAS Consulting Unavailable BEBO ENRIQUEZ Consulting Unavailable ANDREW JOSETTE Primary Care Unavailable DAKSHA MCKEON Admitting Unavailable DAKSHA MCKEON Attending Unavailable DAKSHA MCKEON Consulting Unavailable ALAYNA POSADAS Consulting Unavailable SAM ROSS Consulting Unavailable BEBO ENRIQUEZ Procedure Practitioner Unavail able BEBO ENRIQUEZ Consulting Unavailable REBA PALACIOS Consulting Unavailable FOZIA CH Consulting Unavailable MAISHA CAMERON Admitting Unavailable MAISHA CAMERON Attending Unavailable ALAYNA POSADAS Consulting Unavailable MAISHA CAMERON Consulting Unavailable BEBO ENRIQUEZ Admitting Unavailable ZOE, BEBO Attending Unavailable ALAYNA POSADAS Consulting Unavailable BEBO ENRIQUEZ Consulting Unavailable BEBO ENRIQUEZ Admitting Unavailable ZOE, BEBO Attending Unavailable LISSETT ST V Consulting Unavailable BEBO ENRIQUEZ Consulting Unavailable ZOE, BEBO Admitting Unavailable ZOE, BEBO Attending Unavailable ALAYNA POSADAS Consulting Unavailable BEBO ENRIQUEZ Consulting Unavailable BEBO ENRIQUEZ Admitting Unavailable ZOE, BEBO Attending Unavailable LISSETT ST V Consulting Unavailable BEBO ENRIQUEZ Consulting Unavailable BEBO ENRIQUEZ Admitting Unavailable ZOE, BEBO Attending Unavailable BEBO ENRIQUEZ Consulting Unavailable Linden Rojas Consulting Unavailable BEBO ENRIQUEZ Admitting Unavailable BEBO ENRIQUEZ Attending Unavailable LISSETT ST V Consulting Unavailable HIGHLBEBO TORRES Consulting Unavailable Unknown, Referring Provider Unavailable Unav ailable None, No PCP Unavailable Unavailable Davi Martinez Unavailable [phone] ANDREW, JOSETTE Felton Primary Care Unavailable BRENNEN MCCRACKEN Attending Unavailable BRENNEN MCCRACKEN Attending Unavailable BRENNEN MCCRACKEN Referring Unavailable ANDREW, JOSETTE F Primary Care Unavailable SKYLAR FERRER Referring Unavailable ANDREW, JOSETTE F Primary Care Unavailable SKYLAR FERRER Referring Unavailable ANDREW, JOSETTE F Primary Care Unavailable ANDREW, JOSETTE F Primary Care Physician Skylar Ferrer Attending Unavailable Skylar Ferrer Attending Unavailable Skylar Ferrer Attending Unavailable RADHA MARIN Referring Unavaila ble Skylar Ferrer Attending Unavailable Skylar Ferrer Referring Unavailable Skylar Ferrer Admitting Unavailable Skylar Ferrer Attending Unavailable Skylar Ferrer Referring Unavailable ALEX BURRIS Attending Unavailab JOSETTE Bragg Attending Unavailable RADHA MARIN Attending Unavailab le ALEX BURRIS Attending Unavailab JAMES Hart Attending Unavailable RADHA MARIN Referring Unavailab ALEX Payne Attending Unavailab le JOSETTE VEGA Attending Unavailable ANDREW JOSETTE Ya Referring Unavailable Allergies Allergy Classification Reported Allergen(s) Allergy Type Date of Onset Reaction(s) Facility (9 sources) meclizine; Translations: [MECLIZINE] Drug Allergy 3 Fatigue (finding) [facility] Repository (1 source) Meclizine; Translations: [Unknown] Drug Allergy 9 [facility] Repository (4 sources) Meclizine; Translations: [Antivert [...] Albuterol (Eqv-Ventolin HFA) 90 mcg/inh inhalation aerosol (2 sources) Start: 11-13-2023 Albuterol (Eqv-Ventolin HFA) 90 mcg/inh inhalation aerosol Refill(s) 0 Start Date: 11/13/23 Status: Ordered atogepant 60 MG Oral Tablet [Qulipta] (2 sources) Start: 11-13-2023 take 1 mg by [...] DAY Active famotidine 20 mg oral tablet (2 sources) Histamine-2 Receptor Antagonist Start: take 1 mg [...] Refills: 0 Ordered: 23-Mar-2021 DO Active Ibuprofen (2 sources) Nonsteroidal Anti-inflammatory Drug Start: 11-13-2023 ibuprofen Refills(s) 0 Start Date: 11/13/23 Status: Ordered lactulose 667 mg/ml oral solution (4 sources) Osmotic Laxative Start: 11-13-2023 take 1 g by mouth once daily lactulose 10 g/15 mL Oral Syrup gm mL, Oral, Daily, Refills(s) 0 Start Date: 11/13/23 Status: Ordered Start: 05-04-2021 take 60 mL by mouth once daily Lactulose 10 GM/15ML 60 ml Orally Once a day for 30 days Apr, Active linaclotide 0.29 mg oral capsule (2 sources) Guanylate Cyclase-C Agonist Start: 11-13-2023 take 1 ug by mouth once daily Linzess 290 mcg oral capsule mcg cap(s), Oral, Daily, Refills(s) 0 Start Date: 11/13/23 Status: Ordered methylPREDNISolone 4 mg oral tablet (2 sources) Corticosteroid Start: 11-11-2019 methylPREDNISolone 4 MG as directed Orally for 6 days Nov, Active Multivitamin preparation (2 sources) Start: 11-13-2023 multivitamin Refill(s) 0 Start Date: 11/13/23 Status: Ordered Nebulizer/Tubing/Mouth piece - (2 sources) Start: 09-10-2019 Nebulizer/Tubing/Mout hpiece - as directed *please review for potential _update for e-prescription and drug interaction check* September, Active omeprazole 40 mg delayed release oral capsule (2 sources) Proton Pump Inhibitor Start: 11-13-2023 take 1 mg by mouth once daily omeprazole 40 mg Cap-DR mg cap(s), Oral, Daily, Refills(s) 0 Start Date: 11/13/23 Status: Ordered ondansetron 4 mg oral tablet (2 sources) Serotonin-3 Receptor Antagonist Start: 11-13-2023 ondansetron 4 [...] D 500 mg-200 intl units oral tablet (2 sources) Start: 11-13-2023 take 1 tablet by mouth twice daily Oyster Shell Calcium with Vitamin D 500 mg-200 intl units oral tablet TAKE 1 TABLET BY MOUTH TWICE DAILY Start Date: 11/13/23 Status: Ordered plecanatide 3 mg oral tablet (2 sources) Start: 11-13-2023 Trulance 3 mg oral tablet [...] Active rimegepant 75 mg disintegrating oral tablet (8 sources) Start: 11-13-2023 take 1 mg by [...] Active Symbicort 160/4.5 inhalation aerosol with adapter (2 sources) Start: 11-13-2023 take 2 puff(s) by mouth [...] MG CAPS Quantity: 0 Refills: 0 Ordered: 18-Nov-2021 DO Active escitalopram 5 mg oral tablet [...] Ordered: 23-Mar-2021 DO Active polyethylene glycol 3350 62116 mg powder for oral solution (4 sources) Osmotic Laxative MiraLax 17 GM O ral Packet Quantity: 0 Refills: 0 Ordered: 23-Mar-2021 DO Active Vitamin D TABS (4 sources) Vitamin D TABS Q uantity: 0 Refills: 0 Ordered: 23-Mar-2021 DO Active Problems Active Problems Problem Classification Problem Date Documented Da te Episodic/Chronic Abdominal pain (6 sources) Unspecified abdominal pain; Translations: [Flank pain] Onset: 1 Resolved: 1 Episodic Adjustment disorders (4 sources) Stress; Translations: [Reaction to severe stress, unspecified] Onset: 5 11-06-2023 Chronic Adverse effects of medical drugs (1 source) Adverse effect of antiasthmatics, initial encounter; Translations: [ADVERSE EFF ANTIASTHMATICS INIT ENC] Onset: 9 Allergic reactions (6 sources) Atopic dermatitis; Translations: [Atopic dermatitis, unspecified] Onset: 0 11-06-2023 Chronic Anxiety disorders (11 sources) Generalized anxiety disorder; Translations: [Anxiety] Onset: 9 11-06-2023 Chronic Asthma (9 sources) Mild persistent asthma with (acute) exacerbation; Translations: [Moderate persistent asthma] Onset: 8 11-06-2023 Chronic Calculus of urinary tract (4 sources) Calculus of kidney; Translations: [Kidney stone] Onset: 4 11-06-2023 Episodic Chronic kidney disease (4 sources) Chronic kidney disease stage 3; Translations: [Chronic kidney disease, stage 3 (moderate)] Onset: 3 11-06-2023 Chronic Chronic obstructive pulmonary disease and bronchiectasis (4 sources) Chronic obstructive lung disease; Translations: [Chronic obstructive pulmonary disease, unspecified] Onset: 7 11-06-2023 Chronic Chronic ulcer of skin (2 sources) Ulcer of thigh Onset: 2 11-06-2023 Chronic Conditions associated with dizziness or vertigo (2 sources) Vertigo 07-03-2024 Episodic Deficiency and other anemia (2 sources) Iron deficiency anemia due to blood loss; Translations: [Iron deficiency anemia secondary to blood loss (chronic)] Chronic Deficiency and other anemia (4 sources) Iron deficiency anemia; Translations: [Iron deficiency anemia, unspecified] 11-06-2023 Episodic Diabetes mellitus without complication (9 sources) Type 2 diabetes mellitus without complications; Translations: [Type 2 diabetes mellitus without complication] Onset: 6 11-06-2023 Chronic Disorders of lipid metabolism (10 sources) Hyperlipidemia; Translations: [Hyperlipidemia, unspecified] Onset: 5 11-06-2023 Chronic Esophageal disorders (6 sources) Gastroesophageal reflux disease; Translations: [Gastro-esophageal reflux disease without esophagitis] Onset: 1 11-06-2023 Chronic Essential hypertension (2 sources) Hypertensive disorder Onset: 3 11-06-2023 Chronic External cause codes: Overexertion (1 source) Slipping, tripping and stumbling without falling, unspecified, initial encounter; Translations: [SLIP TRIP STUMBL NO FALL UNS INIT] Onset: 9 Gastritis and duodenitis (4 sources) Chronic gastritis; Translations: [Unspecified chronic gastritis without bleeding] Onset: 3 11-06-2023 Chronic Genitourinary symptoms and ill-defined conditions (1 source) Procedure carried out on subject; Translations: [Encounter for fitting and adjustment of urinary device] Onset: 4 Chronic Headache; including migraine (7 sources) Migraine, unspecified, not intractable, without status migrainosus; Translations: [Refractory migraine without aura] Onset: 9 Chronic Menstrual disorders (14 sources) Break-through bleeding; Translations: [Excessive and frequent menstruation with irregular cycle] Onset: 9 11-06-2023 Chronic Mood disorders (12 sources) Depressive disorder; Translations: [Major depressive disorder, single episode, unspecified] Onset: 5 11-06-2023 Chronic Nutritional deficiencies (5 sources) Mild protein-calorie malnutrition; Translations: [Vitamin D deficiency] Onset: 5 11-06-2023 Chronic Other aftercare (1 source) care home (current) use of oral hypoglycemic drugs; Translations: [CHARGING [employer]ATOR USE ORAL HYPOGLYCEMIC DX] Onset: 9 Other congenital anomalies (2 sources) Tubular breast Onset: 7 11-06-2023 Chronic Comment on above: Outside Source Comme nt: Overview: Added automatically from request for surgery [id number] Other connective tissue disease (1 source) Pain in right foot; Translations: [PAIN IN RIGHT FOOT] Onset: 0 Episodic Other connective tissue disease (2 sources) Spasm of cervical paraspinous muscle; Translations: [Other muscle spasm] Episodic Other diseases of kidney and ureters (1 source) Urinary tract obstruction; Translations: [Hydronephrosis with renal and ureteral calculous obstruction] Onset: 4 Episodic Other ear and sense organ disorders (5 sources) Sensorineural hearing loss, bilateral; Translations: [Sensorineural hearing loss, bilateral] Onset: 3 11-06-2023 Chronic Other ear and sense organ disorders (4 sources) Conductive hearing loss, bilateral; Translations: [Conductive hearing loss, bilateral] 11-06-2023 Chronic Other ear and sense organ disorders (2 sources) Bilateral hearing loss Onset: 8 11-06-2023 Chronic Other endocrine disorders (2 sources) Polycystic ovaries; Translations: [Polycystic ovarian syndrome] Chronic Other endocrine disorders (2 sources) Hypoglycemia Onset: 3 11-06-2023 Chronic Other endocrine disorders (2 sources) Polycystic ovary syndrome Onset: 3 11-06-2023 Chronic Other female genital disorders (2 sources) Dysfunctional uterine bleeding; Translations: [Other specified abnormal uterine and vaginal bleeding] Chronic Other female genital disorders (2 sources) Abnormal uterine bleeding Onset: 3 11-06-2023 Chronic Other female genital disorders (2 sources) Abnormal vaginal bleeding Onset: 8 11-06-2023 Chronic Other gastrointestinal disorders (4 sources) Intestinal malabsorption; Translations: [Intestinal malabsorption, unspecified] Chronic Other gastrointestinal disorders (2 sources) Celiac disease Onset: 0 11-06-2023 Chronic Other gastrointestinal disorders (2 sources) Irritable bowel syndrome Onset: 3 11-06-2023 Chronic Other gastrointestinal disorders (2 sources) History of bypass of stomach; Translations: [Bariatric surgery status] Episodic Other gastrointestinal disorders (4 sources) Slow transit constipation; Translations: [Slow transit constipation] Episodic Other liver diseases (2 sources) Steatosis of liver Onset: 6 11-06-2023 Chronic Other lower respiratory disease (1 source) Acute respiratory distress; Translations: [ACUTE RESPIRATORY DISTRESS] Onset: 9 Other nervous system disorders (1 source) Benign intracranial hypertension; Translations: [BENIGN INTRACRANIAL HYPERTENSION] Onset: 9 Chronic Other nervous system disorders (6 sources) Benign intracranial hypertension; Translations: [Benign intracranial hypertension] Onset: 3 11-06-2023 Chronic Other nervous system disorders (2 sources) Chronic pain; Translations: [Other chronic pain] Chronic Other nervous system disorders (2 sources) Carpal tunnel syndrome Onset: 1 11-06-2023 Chronic Other nervous system disorders (2 sources) Ventricular shunt in situ Onset: 8 11-06-2023 [...] nutritional; endocrine; and metabolic disorders (2 sources) Excess panniculus of abdomen Onset: 7 11-06-2023 Chronic Comment on above: Outside Source Comme nt: Overview: Added automatically from request for surgery [id number] Other upper respiratory disease (2 sources) Allergic rhinitis; Translations: [Other allergic rhinitis] Chronic Other upper respiratory disease (2 sources) Perennial allergic rhinitis; Translations: [Other allergic rhinitis] Chronic Other upper respiratory disease (4 sources) Hoarse; Translations: [Dysphonia] Episodic Regional enteritis and ulcerative colitis (2 sources) Crohn's disease of small intestine Onset: 3 11-06-2023 Chronic Residual codes; unclassified (4 sources) Obstructive sleep apnea syndrome; Translations: [Obstructive sleep apnea (adult) (pediatric)] Onset: 8 11-06-2023 Chronic Septicemia (except in labor) (1 source) Sepsis, unspecified organism; Translations: [SEPSIS UNSPECIFIED ORGANISM] Onset: 9 Spondylosis; intervertebral disc disorders; other back problems (2 sources) Neck pain; Translations: [Cervicalgia] Episodic Sprains and strains (2 sources) Tendon injury - lower limb 11-06-2023 Episodic Thyroid disorders (4 sources) Hypothyroidism; Translations: [Hypothyroidism, unspecified] Onset: 6 11-06-2023 Chronic Unclassified (2 sources) History of ankle surgery 11-06-2023 Unclassified (2 sources) History of bypass of stomach 11-06-2023 Unclassified (2 sources) Obstructive hydronephrosis 11-13-2023 Past or Other Problems Problem Classification Problem Date Documented Da te Episodic/Chronic Fracture of lower limb (4 sources) Displaced trimalleolar fracture of right lower leg, initial encounter for closed fracture; Translations: [Displaced trimalleolar fracture of right lower leg, subsequent encounter for closed fracture with routine healing] Onset: 01-06-2019 11-06-2023 Episodic Headache; including migraine (2 sources) Headache Onset: 11-16-2022 11-06-2023 Episodic Mycoses (1 source) Candidal stomatitis; Translations: [CANDIDAL STOMATITIS] Onset: 01-06-2019 Episodic Other connective tissue disease (2 sources) Fibromyositis Onset: 08-18-2012 11-06-2023 Episodic Other connective tissue disease (2 sources) Myofascial pain syndrome Onset: 10-21-2017 11-06-2023 Episodic Other gastrointestinal disorders (1 source) Bariatric surgery status; Translations: [BARIATRIC SURGERY STATUS] Onset: 01-06-2019 Episodic Other gastrointestinal disorders (6 sources) Constipation; Translations: [Constipation, unspecified] Onset: 04-15-2018 11-06-2023 Episodic Other gastrointestinal disorders (2 sources) Slow transit constipation Onset: 05-04-2021 Resolved: 09-28-2021 Episodic Other gastrointestinal disorders (1 source) Heartburn Onset: 05-04-2021 Resolved: 05-04-2021 Episodic Other gastrointestinal disorders (2 sources) Dysphagia Onset: 11-16-2022 11-06-2023 Episodic Other gastrointestinal disorders (2 sources) Heartburn Onset: 05-04-2021 Resolved: 11-06-2023 11-06-2023 Episodic Other lower respiratory disease (2 sources) Dyspnea Onset: 10-30-2018 11-06-2023 Episodic Other nervous system disorders (4 sources) Paresthesia; Translations: [Paresthesia of skin] Onset: 11-16-2022 11-06-2023 Episodic Ovarian cyst (2 sources) Cyst of ovary Onset: 11-16-2022 11-06-2023 Episodic Phlebitis; thrombophlebitis and thromboembolism (4 sources) H/O: Deep vein thrombosis; Translations: [Personal [...] BILATERAL] Onset: 01-06-2019 Episodic Residual codes; unclassified (6 sources) Insomnia; Translations: [Insomnia, unspecified] Onset: 03-08-2015 11-06-2023 Episodic Residual codes; unclassified (2 sources) Chronic back pain Onset: 11-16-2022 11-06-2023 Episodic Residual codes; unclassified (2 sources) Peripheral edema Onset: 01-18-2016 11-06-2023 Episodic Skin and subcutaneous tissue infections (2 sources) Cellulitis of face Onset: 08-30-2018 11-06-2023 Episodic Urinary tract infections (2 sources) Urinary tract infectious disease Onset: 07-08-2018 11-06-2023 Episodic Comment on above: Outside Source Comme nt: Overview: Recurrent cystitis FebruaryMarch 2018. CT scan negative for pathology. Her symptoms have resolved for her. Currently doing well. No further workup recommended unless she develops recurrent symptoms again Viral infection (6 sources) Plantar wart of right foot; Translations: [Plantar wart] Onset: 10-09-2018 11-06-2023 Episodic Results Test Name Value Interpretation Reference Range Facility XR FOOT 3+ VIEWS RIGHTon XR FOOT 3+ VIEWS RIGHT Exam: XR - RT FOOT COMPLETE MIN 3 V Reason for exam: Right foot injury, pain 2nd toe Prior comparative studies: None Findings: Fixation hardware in the distal fibula is present. Mild degenerative change at the first MTP joint is present. The soft tissues are unremarkable. No fracture, malalignment or subluxation is apparent. Osseous density is normal. Impression: 1. No acute osseous abnormality identified. Electronically Signed Cedric Chirinos M.D. 2023-12-05 11:44:38 Normal Not Available Inpatient Patient Summaryon 12-02-2023 Inpatient Patient Summary Inpatient Patient Summary [place] [id number] Clinical Summary Person Information Name: TERRIE TAN Age: 48 Years : 1975 Sex: Female PCP: JOSETTE VEGA MD Marital Status: Unknown Race: White Ethnicity: Non- or Language: Egyptian Visit Id: Visit Reason: URETRAL STONE WITH HYDRONEPHROSIS Speciality: Acuity: Enc Type: Outpatient Med Service: Surgery Arrival: 12/02/2023 10:24:41 Discharge: Dispo Type: Address: [address] [place] [phone] Provider Notes: Diagnosis: Encounter for removal of ureteral stent Problems Active Ureteral stone with hydronephrosis Right flank pain Steatosis of liver (01/18/2016) Sensorineural hearing loss of bilateral ears (02/06/2023) Posttraumatic stress disorder (07/13/2020) Polycystic ovary syndrome (11/16/2022) Peripheral edema (01/18/2016) Paresthesia (11/16/2022) Obstructive sleep apnea syndrome (2018) Myofascial pain syndrome (10/21/2017) Mild intermittent asthma (08/27/2017) Menometrorrhagia (04/16/2019) Major depression, single episode (02/24/2015) Laryngopharyngeal reflux (12/05/2020) Kidney stone Irritable bowel syndrome (11/16/2022) Irregular periods (07/06/2019) Iron deficiency anemia Insomnia (03/08/2015) Hypoglycemia (11/16/2022) Hypothyroidism (01/18/2016) Hypertensive disorder (11/16/2022) Hyperlipidemia (03/08/2015) Hypercholesterolemia (05/26/2018) History of bypass of stomach. History of ankle surgery Headache (11/16/2022) Gastroesophageal reflux disease Fibromyositis (08/18/2012) Excess panniculus of abdomen (02/18/2017) Dyspnea (10/30/2018) Dysphagia (11/16/2022) Dyslipidemia (12/11/2019) Diabetes mellitus (01/18/2016) Depressive disorder (11/16/2022) Deep venous thrombosis (01/18/2016) Cyst of ovary (11/16/2022) Crohn's disease of small intestine (11/16/2022) Constipation (04/15/2018) Conductive hearing loss, bilateral Chronic obstructive lung disease (03/19/2017) Chronic kidney disease stage 3 (11/16/2022) Chronic gastritis (11/16/2022) Chronic back pain (11/16/2022) Cellulitis of face (08/30/2018) Celiac disease (12/11/2019) Carpal tunnel syndrome (02/16/2021) Bilateral hearing loss (11/18/2017) Benign intracranial hypertension (08/18/2012) 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 (11/16/2022) Injury of tendon of lower limb Trimalleolar fracture (01/06/2019) Type 2 diabetes mellitus without complication (06/13/2016) Tubular breast (11/12/2016) Ulcer of thigh (04/06/2022) Uncomplicated moderate persistent asthma (05/08/2017) Ventricular shunt in situ.. (03/04/2018) Urinary tract infectious disease (07/08/2018) Verruca plantaris (10/09/2018) Vertigo Vitamin D deficiency (03/08/2015) Smoking Status: Functional Status: Sensory Deficits: History of Falls: Mobility Assistance Prior to Admission: ADLs: Current Level of Assistance for Self-Care/Mobility: Cognitive Status: Allergies meclizine (Fatigue) Laboratory or Other Results This Visit (last charted value for your 12/02/2023 visit) No Laboratory or Other Results This Visit Measurements: Height: Weight: Blood Pressure: Not Valued / Not Valued BMI: Procedures No Procedures Documented Immunizations No Immunizations Documented This Visit Final Med List: albuterol (Albuterol (Eqv-Ventolin HFA) 90 mcg/inh inhalation aerosol) atogepant (Qulipta 60 mg oral tablet) By Mouth every day. budesonide-formoterol (Symbicort 160/4.5 inhalation aerosol with adapter) INHALE 2 PUFFS BY MOUTH IN THE MORNING AND BEFORE BEDTIME *RINSE MOUTH WITH WATER TO REDUCE AFTERTASTE AND INCIDENCE OF CANDIDIASIS DO NOT SWALLOW*. calcium-vitamin D (Oyster Shell Calcium with Vitamin D 500 mg-200 intl units oral tablet) TAKE 1 TABLET BY MOUTH TWICE DAILY. famotidine (Pepcid 20 mg Tab) By Mouth 2 times a day. ibuprofen lactulose (lactulose 10 g/15 mL Oral Syrup) By Mouth every day. linaclotide (Linzess 290 mcg oral capsule) By Mouth every day. multivitamin omeprazole (omeprazole 40 mg Cap-DR) By Mouth every day. ondansetron (ondansetron 4 mg Tab) plecanatide (Trulance 3 mg oral tablet) rimegepant (Nurtec ODT 75 mg oral tablet, disintegrating) By Mouth Once. Care Team Members: Attending Physician: Skylar Ferrer MD Consulting Physician: Referring Physician: Skylar Ferrer MD Follow up: With: Address: When: Skylar Ferrer [address], [address], [facility] [address] [place] [address] [phone] Business (1) Comments: Office will call to schedule follow up - 8 wks with metabolic stone wo (more content not included)... Normal [facility] Main OR Intraoperative Recor don 12-02-2023 Main OR Intraoperative Record Main OR Intraoperative Record IntraOp Document Type FTURO Summary Primary Physician: Skylar Ferrer MD Finalized Date/Time: 12/02/23 12:07:55 Pt. Name: TERRIE TAN /Sex: 1975 Female Med Rec #: [id number] Physician: Skylar Ferrer MD Financial #: [id number] Pt. Type: O Room/Bed: / Admit/Disch: 12/02/23 10:24:41 - Institution: Case Times FTURO Entry 1 Patient Times In Room 12/02/23 11:59:00 Out Room 12/02/23 12:06:00 Procedure Times Start 12/02/23 12:00:00 Stop 12/02/23 12:02:00 Anesthesia Times Last Modified By: Bebeto GREGORY, Sandi Avery 12/02/23 12:02:45 Case Attendance FTURO Entry 1 Entry 2 Entry 3 Case Attendee Nabil FU, Skylar Tate RN, Sandi Fernández CST, Maisha Avery Role Performed Surgeon - Primary Fitness And Wellness Director - Primary Scrub - Primary Time In 12/02/23 11:59:00 12/02/23 11:59:00 12/02/23 11:59:00 Time Out 12/02/23 12:06:00 12/02/23 12:06:00 12/02/23 12:06:00 Procedure CYSTOSCOPY LOCAL WITH CYSTOSCOPY LOCAL WITH CYSTOSCOPY LOCAL WITH STENT REMOVAL(Right) STENT REMOVAL(Right) STENT REMOVAL(Right) Comments Last Modified By: Bebeto GREGORY, Sandi Tate RN, Sandi Tate RN, Sandi vAery 12/02/23 Katlyn Avery 12/02/23 Katlyn P 12/02/23 12:03:12 12:03:04 12:03:04 Surgical Procedures FTURO Entry 1 Procedure Description Procedure CYSTOSCOPY LOCAL WITH Modifiers Right STENT REMOVAL Surgeon Description CYSTOSCOPY, RIGHT STENT REMOVAL Primary Procedure Yes Primary Surgeon Skylar Ferrer MD Start 12/02/23 12:00:00 Stop 12/02/23 12:02:00 Anesthesia Type Local Surgical Service Urology Wound Class 2 - Clean-Contaminated Last Modified By: Sandi Tate RN 12/02/23 12:03:03 General Case Data FTURO Pre-Care Text: Classifies surgical wound, implements aseptic technique, initiates traffic control Entry 1 Case Information OR URO 1 FT Case Level None Wound Class 2 - Clean-Contaminated Specialty Urology Preop Diagnosis URETRAL STONE WITH Postop Same As Preop Yes HYDRONEPHROSIS Postop Diagnosis URETRAL STONE WITH Outcomes Met? Yes HYDRONEPHROSIS Last Modified By: Sandi Tate RN 12/02/23 12:00:56 Post-Care Text: The patient is free from signs and symptoms of infection EU IntraOp - FTURO Pre-Care Text: Implements protective measures prior to operative or invasive procedure, confirms identity before the operative or invasive procedure, verifies operative procedure, surgical site, and laterality Entry 1 EU Perioperative Protocols Procedure(s) CYSTOSCOPY LOCAL WITH Patient Identity Birthday, ID Band STENT REMOVAL(Right) Verified (select at Check, Patient least 2): Participation Consents / H and P H&P, Surgery/Procedure Operative Site N/A Verified Consent Marking Verified Surgical Site Yes Laterality Verified Yes Verified Procedure Verified Yes Correct Patient Yes Position Verified Availability Equipment, Medication Time Out Skylar Ferrer MD, Verified (If Participants Sandi Tate RN Applicable) Pradeep Meyers CST, Kimberly A Time Out Complete 12/02/23 11:59:00 Allergies Reviewed? Yes Allergies Reviewed Self/Patient With Body Position Frog Legged Prep Area PERINEAL AREA Prep Agents Betadine Solution Skin. Condition Unable to Visualize Description PARTIALLY CLOTHED AND DRAPED Additional None Specimens Collected Vitals - EU Blood Pressure 119/76 Pulse 72 bpm Respirations 14 br/min SPO2 96 % I&O - EU Outcomes Met? Yes Last Modified By: Sandi Tate RN 12/02/23 12:03:01 Post-Care Text: The patient is free from signs and symptoms of injury caused by extraneous objects Sign Out FTURO Entry 1 Before Patient Leaves OR Nurse verbally Yes Nurse verbally Yes confirms with the confirms with the team the name of team that the procedure(s) instrument, sponge, recorded and needle counts are correct (or N/A) Nurse verbally n/a Nurse verbally Yes confirms with the confirms with the team how the team whether there specimen is labeled are any equipment (including patient problems to be name), if applicable addressed Sign Out Complete 12/02/23 12:02:00 Last Modified By: Sandi Tate RN 12/02/23 12:02:48 Case Comments Finalized By: Sandi Tate RN Document Signatures Signed By: Sandi Tate RN 12/02/23 12:07 Normal [facility] Main OR Preoperative Recordo n 12-02-2023 Main OR Preoperative Record Main OR Preoperative Record Holding Area Document Type FTURO Summary Primary Physician: Skylar Ferrer MD Finalized Date/Time: 12/02/23 11:41:24 Pt. Name: TERRIE TAN Dane Ross./Sex: 1975 Female Med Rec #: [id number] Physician: Skylar Ferrer MD Financial #: [id number] Pt. Type: O Room/Bed: / Admit/Disch: 12/02/23 10:24:41 - Institution: Case Times Holding FTURO Pre-Care Text: Verifies consent for planned procedure, identifies individual values and wishes concerning care, includes family members in perioperative teaching Secures patient's records' belongings, and valuables, maintains patient's dignity and privacy, and maintains patient confidentiality Entry 1 In Holding 12/02/23 11:33:00 Outcomes Met? Yes Last Modified By: Chantelle GREGORY, May WAGNER 12/02/23 11:33:46 Post-Care Text: The patient participates in decisions affecting his or her perioperative plan of care The patient's right to privacy is maintained Surgery Checklist FTURO Entry 1 Patient Birthday, ID Band Procedure History and Physical, Identification: Check, Patient Verification: Surgical Consent, With Participation Patient NPO after Midnight: n/a Personal Items: Dentures Personal Items clothes Limitations: none Comment: Complaints of Pain: No Skin Integrity Unable to Visualize Vitals - EU Blood Pressure 119/76 Pulse 72 bpm Respirations 14 br/min SPO2 96 % Additional None RN Reviewed Yes Specimens Collected Last Modified By: BERNARD Lockhart RN, Ruthann 12/02/23 11:41:23 Finalized By: BERNARD Lockhart RN, Ruthann Document Signatures Signed By: BERNARD Lockhart RN, Ruthann 12/02/23 11:41 Normal [facility] Operative Reporton Operative Report Operative Report Patient: TERRIE TAN Age: 48 years Sex: Female : 1975 Associated Diagnoses: None Author: Skylar Ferrer MD Procedure Operative Information Details: Date/ Time: 12/02/2023 12:05:00. Pre-Op Dx: Encounter for removal of ureteral stent ([id number] Z46.6, Discharge, Medical), Foreign Body in Bladder - T19.1XXA. Post-Op Dx: Same. Anesthesia Type: Local. Procedure: Local Cystoscopy with Stent Removal. Complications: None. Risks/Benefits/Informed Consent: Surgical risks, benefits, details of the procedure have been explained to the patient, Full informed consent has been obtained. Intraoperative Information Prepped: The patient was placed in supine position, The patient was prepped with the Betadine solution. Anesthesia: 2% Xylocaine Jelly per urethra. Procedure: Cystoscopy and Right Stent Removal, The flexible Cystoscope was passed in retrograde fashion into the bladder without difficulty, The bladder was viewed in entirety and found to be without tumors or stones, Mild inflammation was seen surrounding the orifice with the stent seen protruding from it, The stent was then grasped and removed in its entirety. Specimens Removed: None. Devices Implanted: None. Postoperative Information Discharge: The patient tolerated the procedure well and was subsequently discharged home, CaOx stone. Follow up in 6-8 wks with renal US, metabolic stone workup. Risk of silent obstruction and stricture discussed given impacted ureteral stone. [facility] Comment on above: Result Comment: Elec tronically Signed By: Skylar Ferrer MD\.br\Date and Time Signed: 12/02/23 12:06 EDT Outpatient Surgery Discharge Instructionon 12-02-2023 Outpatient Surgery Discharge Instruction Outpatient Surgery Discharge Instruction [address] [address] Patient Discharge Instructions PERSON INFORMATION Name: TERRIE TAN Date of : 1975 Current Date: 12/02/2023 12:04:46 PHYSICIANS Admitting Physician: Nabil FU, Skylar Sanchez Comment: Discharge Diagnosis: Encounter for removal of ureteral stent TERRIE TAN has been given the following list of follow-up instructions, prescriptions, and patient education materials: IF UNABLE TO CONTACT YOUR PHYSICIAN AND YOU FEEL IT IS AN EMERGENCY, GO TO THE NEAREST EMERGENCY ROOM OR CALL 911 Follow up: With: Address: When: Skylar Ferrer [address] [place] [address], [place] [address], [address] [address] [phone] Business (1) Comments: Office will call to schedule follow up - 8 wks with metabolic stone workup, renal US in 6 weeks Comment: PATIENT EDUCATION INFORMATION Instructions: Cystoscopy with Stent Removal ? Voiding after the procedure: there may be some pain, burning, urgency, frequency and blood tinged urine following the procedure. These symptoms usually resolve within 2-5 days. Drink the amount of fluid it takes to keep the urine pink to yellow or clear in color. Drinking enough water and fluids will help to ease any discomfort after your procedure. ? If you are having problems that seem out of the ordinary, please call. ? If unable to contact your physician and you feel it is an emergency, go to the nearest emergency room or call 911 ? Diet ? you may resume your normal diet. ? Activity ? you may resume your normal activities ? Call if you have a fever over 100 degrees. I, TERRIE TAN, have received the attached patient education materials/instructions and have verbalized understanding: May we do a follow up call? Yes No I was present when discharge instructions were given Patient Signature _ Date Clinican/Nurse Signature Date You may receive a survey from [employer] asking you to rate your care experience. Your feedback is important and will help us understand what we do well and how we can improve the quality of care we provide to you, your loved ones and our community. It?s an honor to serve you. Thank you for choosing [facility] US RETROPERITONEAL COMPLETEo n 11-09-2023 US RETROPERITONEAL [...] Espino MD on 11/09/2023 11:28 AM Normal [facility] XR ABDOMEN AP 1 VWon 024 [...] Espino MD on 11/09/2023 11:31 AM Normal [facility] CT ABDOMEN AND PELVIS WO CON [...] Otero MD on 10/01/2023 11:26 PM Normal [facility] HCG ( test) Ql (U)o n 10-01-2023 Beta HCG ( test) Ql (U) Negative Normal NEG [facility] Comment on above: Performed By: #### 2 106-3 #### [facility] ([id number]) [address] [place] [address] URINE CULTUREon 10-01-2023 Bacteria identified Cx Nom (U) CULTURE RESULTS 10-50,000 ORGANISMS/mL NORMAL UROGENITAL JOSSELINE Normal [facility] Comment on above: Performed By: #### 6 30-4 #### [facility] ([id number]) [address] [place] [address] URN MACROSCOPIC NURon 2023 BILIRUBIN RUTH Negative Normal NEG [facility] Comment on above: Performed By: #### N UM #### [facility] ([id number]) [address] [place] [address] BLOOD/HGB RUTH Trace Abnormal NEG [facility] Comment on above: Performed By: #### N UM #### [facility] ([id number]) [address] [place] [address] [place] [address] GLUCOSE RUTH 100 mg/dL Abnormal NEG [facility] Comment on above: Performed By: #### N UM #### [facility] ([id number]) [address] [place] [address] [place] [address] KETONES RUTH Negative Normal NEG [facility] Comment on above: Performed By: #### N UM #### [facility] ([id number]) [address] [place] [address] [place] [address] LEUKOCYTE ESTERASE RUTH Small Abnormal NEG [facility] Comment on above: Performed By: #### N UM #### [facility] ([id number]) [address] [place] [address] NITRITE RUTH Negative Normal NEG [facility] Comment on above: Performed By: #### N UM #### [facility] ([id number]) [address] [place] [address] PH RUTH 5.5 Normal 5.0-8.5 [facility] Comment on above: Performed By: #### N UM #### [facility] ([id number]) [address] [place] [address] [place] [address] PROTEIN RUTH Negative Normal NEG [facility] Comment on above: Performed By: #### N UM #### [facility] ([id number]) [address] [place] [address] [place] [address] SPECIFIC GRAVITY RUTH 1.025 Normal 1.003-1.035 [facility] Comment on above: Performed By: #### N UM #### [facility] ([id number]) [address] [place] [address] [place] [address] UROBILINOGEN RUTH 0.2 eu/dL Normal <1.1 [facility] Comment on above: Performed By: #### N UM #### [facility] ([id number]) [address] [facility], [place] [address] Physician Orderon 04-16-2023 Physician Order [id number] Normal [facility] US RENAL COMPLETEon 04-08-20 23 US [...] mL post void residual. ELECTRONICALLY SIGNED BY: Angle Bowie MD Normal Not Available XR Knee Complete Left*on XR Knee Complete Left* FINDINGS: Mild patellofemoral joint space loss. No significant osteophyte formation. No cortical or subchondral. No suprapatellar effusion. IMPRESSION: 1. Mild patellofemoral arthritis, no significant soft tissue swelling or fracture. Report reported and signed by Sammy Savage on 01/11/2022 1527 Normal [facility] Specialist SCREENING MAMMOGRAM W/GOVIND, BILATERAL*on 11-24-2021 SCREENING MAMMOGRAM [...] VERY IMPORTANT TO YOUR HEALTH. THE CURRENT [place] [employer] GUIDELINES RECOMMENDS ANNUAL MAMMOGRAPHY BEGINNING AT AGE 40. THIS FACILITY USES A REMINDER SYSTEM TO ENSURE ALL PATIENTS RECEIVE REMINDER NOTIFICATIONS AT THE APPROPRIATE TIME BASED ON THE RECOMMENDATIONS OF THIS EXAM. Report reported and signed by Sammy Savage on 11/27/2021 1049 Normal [facility] US Pelvic, Transvaginalon US Pelvic, Transvaginal [...] by Sammy Savage on 09/13/2021 1302 Normal [facility] Therapy Communicationon 12-0 Therapy Communication Message TERRIE TAN no showed today . Signatures Electronically signed by : Maddy Echeverria CCC-FORM [employer]; Apr 07 2021 12:01PM EST (Author) Normal [facility] Initial Visit (Otolaryngolog y)on 03-23-2021 Initial Visit [...] you can call Speech Therapy Scheduling at [phone]. Please follow up pending the outcome of [...] assist you through your ENT care at [facility]. Dr. Bustos is an ENT surgeon who specializes in voice, airway and swallowing issues. This means that she specializes in taking care of patients with complex voice, airway and swallowing problems. Dr. Bustos's office number is [phone]. Please use this number to contact her and her care team regardless of which office you use to access care. This number is the most direct way to communicate with all the members of the care team. Dr. Bustos?s alumni secretary answers the office phone from 9am-4pm Mon-Sat. Call [phone] and push 2. She can help you with scheduling of appointments, general questions and information. You may need to leave a message if she is helping another patient. In this case, someone from the team will call you back the same day if you leave your message before 3pm, or the next business morning. Dr. Bustos?s nurse and can be reached by calling [phone]. We make every effort to return phone calls the same day. If you are in need of urgent assistance after hours, please call [phone] and ask for ENT lubrication technician. Dr. Bustos works closely with speech therapists as they work together to help solve your issues with speech and swallowing. You may see a speech therapist during your appointment if Dr. Bustos feels this is needed. If you need to reach speech therapy to talk with a therapist or to schedule an appointment, please call [phone]. Others who may be included in your care are dieticians, social workers, audiologists, neurologists, and physical therapists. Dr. Bustos will provide these referrals as needed. Please let her know if you would like to request a specific referral. For your convenience, Dr. Bustos sees patients at different [facility] locations including the [facility], and [facility] [place] at the main campus of [facility]. 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 She is having [...] cyst, ch (more content not included)... [facility] Office Visit (Audiology)on 05-23-2020 Follow-up visit Diagnoses/Problems [...] hearing protection when in/around loud noise. Time: 0240-5896 Chief Complaint hearing test hearing loss, has [...] inserted. 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 She denies otalgia, otorrhea, tinnitus, dizziness, history of otologic surgery. Patient's preferred language: Egyptian Preferred language of the parent, legal guardian [...] hair cell function at the frequencies tested 6732-0259 Hz. Audiometric evaluation revealed essentially flat mild sensorineural hearing loss with word recognition ability estimated to be excellent (92%) based on an NU-6 recorded 25-word list. LEFT EAR: -Tympanometry: Type A tympanogram, normal ear canal volume and compliance -Acoustic reflexes: Ipsilateral acoustic reflexes absent at 500-4000 Hz -Distortion product otoacoustic emissions (DPOAEs): Present at 6136-6101 Hz and absent at 6350-2742 Hz. This is consistent with largely normal to near normal outer hair cell function at the frequencies tested 7311-9173 Hz. Audiometric evaluation revealed essentially flat mild sensorineural hearing loss with word recognition ability estimated to be excellent (92%) based on an NU-6 recorded 25-word list. The test results were discussed with the patient. 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 She is having [...] printed material (more content not included)... Normal [employer] (Voice Evaluation) No report was sent Normal [facility] Tobacco Screening.on 021 Fall risk assessment a) No falls within the last year MG-Otolaryngo logy-[employer] Work Phone: Tobacco use status [facility] b) No [employer]-Otolaryngo logKiwilogic-[employer] Work Phone: Basic Metabolic Panelon 06-07 Calcium [Mass/Vol] 8.9 mg/dL Normal 8.2-10.2 [facility] Comment on above: Performed By: #### L IPID, HEPATIC, BMP, TSH3 wRFLX, [id number] #### [facility] [address] Chloride [Moles/Vol] 106 mmol/L Normal 95-114 [facility] Comment on above: Performed By: #### L IPID, HEPATIC, BMP, TSH3 wRFLX, [id number] #### [facility] [address] CO2 [Moles/Vol] 22.0 mmol/L Normal 22.0-30.0 [facility] Comment on above: Performed By: #### L IPID, HEPATIC, BMP, TSH3 wRFLX, [id number] #### [facility] [address] Creatinine [Mass/Vol] 0.67 mg/dL Normal 0.44-1.03 [facility] Comment on above: Performed By: #### L IPID, HEPATIC, BMP, TSH3 wRFLX, [id number] #### [address] Creatinine [Mass/Vol] 104.81 mg/dL Normal [facility] Comment on above: Performed By: #### L IPID, HEPATIC, BMP, TSH3 wRFLX, [id number] #### [address] Estimated GFR ( [place] > 60 [facility] Comment on above: Result Comment: GFR estimated reference range: According to KDOQI guidelines, <60 ml/min/1.73m2 is sufficient to diagnose a patient with chronic kidney disease. Performed By: #### L IPID, HEPATIC, BMP, TSH3 wRFLX, [id number] #### [facility] [address] [place] [address] Estimated GFR (Non- Am > 60 Normal [facility] Comment on above: Performed By: #### L IPID, HEPATIC, BMP, TSH3 wRFLX, [id number] #### [facility] [address] [place] [address] Glucose [Mass/Vol] 94 mg/dL Normal 70-100 [facility] Comment on above: Result Comment: [place] om Glucose Reference Range is dependent on time and content of last meal. Glucose of more than 200 mg/dL in a nonstressed, ambulatory subject supports the diagnosis of Diabetes Mellitus. ADA recommended reference range Performed By: #### L IPID, HEPATIC, BMP, TSH3 wRFLX, [id number] #### [facility] [address] Potassium [Moles/Vol] 3.8 mmol/L Normal 3.5-5.1 [facility] Comment on above: Performed By: #### L IPID, HEPATIC, BMP, TSH3 wRFLX, [id number] #### [facility] [address] [place] [address] Sodium [Moles/Vol] 139 mmol/L Normal 136-146 [facility] Comment on above: Performed By: #### L IPID, HEPATIC, BMP, TSH3 wRFLX, [id number] #### [address] Urea nitrogen [Mass/Vol] 12 mg/dL Normal 9-23 [facility] Comment on above: Performed By: #### L IPID, HEPATIC, BMP, TSH3 wRFLX, [id number] #### [address] Hepatic Panelon 07-03-2020 Albumin [Mass/Vol] 3.8 g/dL Normal 3.2-5.5 [facility] Comment on above: Performed By: #### L IPID, HEPATIC, BMP, TSH3 wRFLX, [id number] #### [address] Albumin/Globulin [Mass ratio] 1.6 {ratio} Normal [facility] Comment on above: Performed By: #### L IPID, HEPATIC, BMP, TSH3 wRFLX, [id number] #### [place] [id number] [facility] ALP [Catalytic activity/Vol] 92 U/L Normal 32-92 [facility] Comment on above: Performed By: #### L IPID, HEPATIC, BMP, TSH3 wRFLX, [id number] #### [place] [id number] [facility] ALT [Catalytic activity/Vol] 18 U/L Normal 10-60 [facility] Comment on above: Performed By: #### L IPID, HEPATIC, BMP, TSH3 wRFLX, [id number] #### [facility] [address] [place] [address] AST [Catalytic activity/Vol] 14 U/L Normal 10-42 [facility] Comment on above: Performed By: #### L IPID, HEPATIC, BMP, TSH3 wRFLX, [id number] #### [address] Bilirubin [Mass/Vol] 0.8 mg/dL Normal 0.3-1.2 [facility] Comment on above: Performed By: #### L IPID, HEPATIC, BMP, TSH3 wRFLX, [id number] #### [address] Bilirubin,Indirect Test not performed Normal [facility] Comment on above: Performed By: #### L IPID, HEPATIC, BMP, TSH3 wRFLX, [id number] #### [address] Bilirubin.direct [Mass/Vol] mg/dL Normal 0.0-0.4 [facility] Comment on above: Performed By: #### L IPID, HEPATIC, BMP, TSH3 wRFLX, [id number] #### [address] Globulin (S) [Mass/Vol] 2.4 g/dL Normal [facility] Comment on above: Performed By: #### L IPID, HEPATIC, BMP, TSH3 wRFLX, [id number] #### [address] Protein [Mass/Vol] 6.2 g/dL Normal 6.1-7.9 [facility] Comment on above: Performed By: #### L IPID, HEPATIC, BMP, TSH3 wRFLX, [id number] #### [address] Lipid Panelon 07-03-2020 Cholesterol [Mass/Vol] 174 mg/dL Normal 140-200 [facility] Comment on above: Result Comment: Chol less than 200 mg/dl low risk Chol 201-239 mg/dl borderline risk Chol 240 mg/dl and greater high risk Performed By: #### L IPID, HEPATIC, BMP, TSH3 wRFLX, [id number] #### [facility] [address] Cholesterol in HDL [Mass/Vol] 46 mg/dL Normal 35-85 [facility] Comment on above: Result Comment: HDL CHOL ATP-III CLASSIFICATION Cardiovascular Risk HDL > or equal to 60 mg/dL LOW HDL < 40 mg/dL HIGH Performed By: #### L IPID, HEPATIC, BMP, TSH3 wRFLX, [id number] #### [facility] [address] Cholesterol.total/ Cholesterol in HDL [Mass ratio] 3.8 {ratio} Normal <5.0 [facility] Comment on above: Performed By: #### L IPID, HEPATIC, BMP, TSH3 wRFLX, [id number] #### [address] LDL Cholesterol,Calcul ated 113 mg/dL High 0-100 [facility] Comment on above: Result Comment: LDL ATP III CLASSIFICATION LDL less than 100 mg/dL Optimal LDL 100-129 mg/dL Near or above optimal LDL 130-159 mg/dL Borderline high LDL 160-189 mg/dL High LDL greater than 189 mg/dL Very high Performed By: #### L IPID, HEPATIC, BMP, TSH3 wRFLX, [id number] #### [facility] [address] [place] [id number] [facility] Triglyceride w/Reflex 74 mg/dL Normal 35-149 [facility] Comment on above: Result Comment: TRIG ATP III CLASSIFICATION TRIG less than 150 mg/dL Normal TRIG 150-199 mg/dL Borderline high TRIG 200-500 mg/dL High TRIG greater than 500 mg/dL Very high Standard traceable to the Center for Disease Conrtrol and Prevention (CDC) test method. Performed By: #### L IPID, HEPATIC, BMP, TSH3 wRFLX, [id number] #### [facility] [address] [place] [address] VLDL CHOLESTEROL 14 mg/dL Normal [facility] Comment on above: Performed By: #### L IPID, HEPATIC, BMP, TSH3 wRFLX, [id number] #### [address] Thyroid Stim Hormone w/Rflxo n 07-03-2020 Thyroid Stim Hormone w/Rflx 3.41 u[iU]/mL Normal 0.45-5.33 [facility] Comment on above: Performed By: #### L IPID, HEPATIC, BMP, TSH3 wRFLX, [id number] #### [facility] [address] [place] [address] Vitamin D 25 Hydroxy Totalon 07-03-2020 Vitamin D 25 Hydroxy Total 67.4 ng/mL Normal 30-100 [facility] Comment on above: Result Comment: MADDISON MIN D STATUS 25(OH)VITAMIN D RANGE (ng/mL) Deficient <20 Insufficient 20 to <30 Sufficient 30 to 100 Reference: Arely MF,Brenton NC, Rashel MARTINEZ, et al. Evaluation,treatment, and prevention of vitamin D deficiency; an Endocrine Society clinical practice guideline. JCEM. 2010; 96(7):1911-30. PERFORMED BY: [place] [address] PATHOLOGIST MAINFRAME ANALYST HORTENSIA VIRAMONTES M.D. Performed By: #### L IPID, HEPATIC, BMP, TSH3 wRFLX, [id number] #### [address] XR FOOT RT MIN 3 VIEWSon [...] by: LISSETT ST Date: 2019-11-18 12:08 Normal [facility] XR ANKLE RT MIN 3 VIEWSon XR [...] by: LINDEN ROJAS Date: 2019-10-20 22:05 Normal [facility] XR ANKLE RT MIN 3 VIEWSon XR ANKLE RT MIN 3 VIEWS Patient: TERRIE TAN Exam Date: 04/22/2019 : 1975 Gender:F Ordering : DR. BEBO MonacoPNabila Admission #: [id number] Family : Order #: [id number] CLICK HERE TO VIEW EXAM RADIOLOGY REPORT [...] St M.D. on 04/22/2019 at 15:35 Normal [facility] Operative Reporton 9 Operative Report MR#: [id number] [facility] Pt. Name: Terrie Tan Room #: 0C Discharge 04/09/2019 Date: Birthdate: 1975 OPERATIVE REPORT DATE OF SURGERY: 04/09/2019 SURGEON: Edmond Parker MD PREOPERATIVE DIAGNOSES: Excessive abdominal pannus, isolated obesity, status post massive weight loss. POSTOPERATIVE DIAGNOSES: Excessive abdominal pannus, isolated obesity, status post massive weight loss. PROCEDURE: Panniculectomy with muscle plication and umbilical transposition. PARKING INSPECTOR: VIRIDIANA Luna and CC-3. INDICATIONS: This patient [...] made to proceed with plication of planned. [id number] plication performed from the xiphoid to the [...] Parker MD Date Trans: 04/13/2019 02:16 P/kathleen [id number] cc: Josette Vega M.D. [address] [place] [address] Normal [facility] POC GLUCOSE LABon 04-09-2019 Glucose [Mass/Vol] 92 mg/dL Normal 70-100 [facility] Comment on above: Performed By: #### 8 [id number] #### [facility] [address] Glucose [Mass/Vol] 86 mg/dL Normal 70-100 [facility] Comment on above: Performed By: #### 8 [id number] #### [facility] [address] Glucose [Mass/Vol] 71 mg/dL Normal 70-100 [facility] Comment on above: Performed By: #### 8 [id number] #### [facility] [address] POC URINE PREGNANCYon 2018 Beta HCG ( test) Ql (U) Negative Normal NEGATIVE [facility] Comment on above: Result Comment: Perf ormed in PACU Performed By: #### 8 [id number] #### [facility] [address] MAEGAN ROMERO. [address] XR ANKLE RT MIN 3 VIEWSon XR ANKLE RT MIN 3 VIEWS Patient: TERRIE TAN Exam Date: 03/04/2019 : 1975 Gender:F Ordering : DR. BEBO ENRIQUEZ D.P.M. Admission #: [id number] Family : Order #: [id number] CLICK HERE TO VIEW EXAM RADIOLOGY REPORT [...] Posadas M.D. on 03/04/2019 at 10:03 Normal [facility] XR ANKLE RT MIN 3 VIEWSon XR ANKLE RT MIN 3 VIEWS Patient: TERRIE TAN Exam Date: 01/28/2019 : 1975 Gender:F Ordering : DR. BEBO ENRIQUEZ D.P.M. Admission #: [id number] Family : Order #: [id number] CLICK HERE TO VIEW EXAM RADIOLOGY REPORT [...] St M.D. on 01/28/2019 at 11:25 Normal [facility] XR ANKLE RT MIN 3 VIEWSon XR ANKLE RT MIN 3 VIEWS Patient: TERRIE TAN Exam Date: 01/07/2019 : 1975 Gender:F Ordering : DR. BEBO ENRIQUEZ D.P.M. Admission #: [id number] Family : Order #: [id number] CLICK HERE TO VIEW EXAM RADIOLOGY REPORT [...] Posadas M.D. on 01/07/2019 at 11:58 Normal [facility] XR ANKLE RT MIN 3 VIEWSon XR ANKLE RT MIN 3 VIEWS Patient: TERRIE TAN Exam Date: 12/23/2018 : 1975 Gender:F Ordering : MAISHA HERNÁNDEZ Admission #: [id number] Family : Order #: [id number] CLICK HERE TO VIEW EXAM RADIOLOGY REPORT [...] M.D. on 12/23/2018 at 16:13 Normal [facility] CBC AUTO DIFFon 12-11-2018 Basophils (Bld) [#/Vol] 0.0 103/ul Normal 0.0-0.1 [facility] Comment on above: Performed By: #### P REG #### [facility] [address] [address] Bee Nikki Basophils/100 WBC (Bld) 0.2 % Normal 0.2-2.0 [facility] Comment on above: Performed By: #### P REG #### [facility] [address] [place] [address] Bee Nikki Eosinophils (Bld) [#/Vol] 0.0 103/ul Normal 0.0-0.7 [facility] Comment on above: Performed By: #### P REG #### [facility] [address] [place] [address] Bee Nikki Eosinophils/100 WBC (Bld) 0.4 % Critically low 0.9-7.0 [facility] Comment on above: Performed By: #### P REG #### [facility] [address] [place] [address] Bee Nikki Erythrocyte distribution width (RBC) [Ratio] 14.2 % Normal 11.0-15.0 [facility] Comment on above: Performed By: #### P REG #### [facility] [address] [place], [place] [id number] Bee Nikki Hematocrit (Bld) [Volume fraction] 33.6 % Critically low 36.0-48.0 [facility] Comment on above: Performed By: #### P REG #### [facility] [address] [place] [address] Bee Nikki Hemoglobin (Bld) [Mass/Vol] 10.9 g/dL Critically low 12.0-16.0 [facility] Comment on above: Performed By: #### P REG #### [facility] [address] [place] [address] Bee Nikki IG # 0.12 10e3/ul Critically high 0.00-0.03 [facility] Comment on above: Performed By: #### P REG #### [facility] [address] [place], [place] [address] Bee Nikki IG % 1.5 % Critically high 0.0-0.5 [facility] Comment on above: Performed By: #### P REG #### [facility] [address] [id number] Bee Nikki Lymphocytes (Bld) [#/Vol] 2.4 103/ul Normal 1.2-3.8 [facility] Comment on above: Performed By: #### P REG #### [facility] [address] [id number] Bee Nikki Lymphocytes/100 WBC (Bld) 29.2 % Normal 20.5-60.0 [facility] Comment on above: Performed By: #### P REG #### [facility] [address] [place], [place] [id number] Bee Nikki MANUAL DIFF REQ NO Normal [facility] Comment on above: Performed By: #### P REG #### [facility] [address] [place], [place] [id number] Bee Nikki MCH (RBC) [Entitic mass] 31.4 pg Normal 26.7-34.0 [facility] Comment on above: Performed By: #### P REG #### [facility] [address] [place], [place] [id number] Bee Nikki MCHC (RBC) [Mass/Vol] 32.4 g/dL Normal 29.9-35.2 [facility] Comment on above: Performed By: #### P REG #### [facility] [address] [place], [place] [address] Bee Nikki MCV (RBC) [Entitic vol] 96.8 fL Normal 81.0-99.0 [facility] Comment on above: Performed By: #### P REG #### [facility] [address] [place], [place] [address] Bee Nikki Monocytes (Bld) [#/Vol] 0.6 103/ul Normal 0.3-0.8 [facility] Comment on above: Performed By: #### P REG #### [facility] [address] [place], [place] [address] Bee Nikki Monocytes/100 WBC (Bld) 7.2 % Normal 1.7-12.0 [facility] Comment on above: Performed By: #### P REG #### [facility] [address] [place], [place] [address] Bee Nikki Neutrophils (Bld) [#/Vol] 5.1 103/ul Normal 1.4-6.5 [facility] Comment on above: Performed By: #### P REG #### [facility] [address] [place], [place] [address] Bee Nikki Neutrophils/100 WBC (Bld) 61.5 % Normal 43.0-75.0 [facility] Comment on above: Performed By: #### P REG #### [facility] [address] [place], [place] [id number] Bee Nikki Platelet mean volume (Bld) [Entitic vol] 10.3 fL Normal 9.5-13.5 [facility] Comment on above: Performed By: #### P REG #### [facility] [address] [place] [address] Bee Nikki Platelets (Bld) [#/Vol] 223 103/ul Normal 150-450 [facility] Comment on above: Performed By: #### P REG #### [facility] [address] [place] [address] Bee Nikki RBC (Bld) [#/Vol] 3.47 106/ul Critically low 4.20-5.40 [facility] Comment on above: Performed By: #### P REG #### [facility] [address] [place], [place] [address] Bee Nikki WBC (Bld) [#/Vol] 8.2 103/ul Normal 4.0-11.0 [facility] Comment on above: Performed By: #### P REG #### [facility] [address] [place], [place] [address] Bee Nikki CBC AUTO DIFFon 12-10-2018 Basophils (Bld) [#/Vol] 0.0 103/ul Normal 0.0-0.1 [facility] Comment on above: Performed By: #### P REG #### [facility] [address] [place] [address] Bee Nikki Basophils/100 WBC (Bld) 0.2 % Normal 0.2-2.0 [facility] Comment on above: Performed By: #### P REG #### [facility] [address] [place] [address] Bee Nikki Eosinophils (Bld) [#/Vol] 0.0 103/ul Normal 0.0-0.7 [facility] Comment on above: Performed By: #### P REG #### [facility] [address] [place] [address] Bee Nikki Eosinophils/100 WBC (Bld) 0.0 % Critically low 0.9-7.0 [facility] Comment on above: Performed By: #### P REG #### [facility] [address] [place] [address] Bee Nikki Erythrocyte distribution width (RBC) [Ratio] 14.2 % Normal 11.0-15.0 [facility] Comment on above: Performed By: #### P REG #### [facility] [address] [place] [address] Bee Nikki Hematocrit (Bld) [Volume fraction] 33.4 % Critically low 36.0-48.0 [facility] Comment on above: Performed By: #### P REG #### [facility] [address] [place] [address] Bee Nikki Hemoglobin (Bld) [Mass/Vol] 10.6 g/dL Critically low 12.0-16.0 [facility] Comment on above: Performed By: #### P REG #### [facility] [address] [place] [address] Bee Nikki IG # 0.05 10e3/ul Critically high 0.00-0.03 [facility] Comment on above: Performed By: #### P REG #### [facility] [address] [place] [address] Bee Nikki IG % 0.8 % Critically high 0.0-0.5 [facility] Comment on above: Performed By: #### P REG #### [facility] [address] [place] [address] Bee Nikki Lymphocytes (Bld) [#/Vol] 1.0 103/ul Critically low 1.2-3.8 [facility] Comment on above: Performed By: #### P REG #### [facility] [address] [place] [address] Bee Nikki Lymphocytes/100 WBC (Bld) 15.4 % Critically low 20.5-60.0 [facility] Comment on above: Performed By: #### P REG #### [facility] [address] [place] [address] Bee Jordan MANUAL DIFF REQ NO Normal [facility] Comment on above: Performed By: #### P REG #### [facility] [address] [place] [address] Beeronen Marinoen MCH (RBC) [Entitic mass] 31.0 pg Normal 26.7-34.0 [facility] Comment on above: Performed By: #### P REG #### [facility] [address] [place] [address] Beeronen Jordan MCHC (RBC) [Mass/Vol] 31.7 g/dL Normal 29.9-35.2 [facility] Comment on above: Performed By: #### P REG #### [facility] [address] [place] [address] Beeronen Marinoen MCV (RBC) [Entitic vol] 97.7 fL Normal 81.0-99.0 [facility] Comment on above: Performed By: #### P REG #### [facility] [address] [place] [address] Bee Nikki Monocytes (Bld) [#/Vol] 0.3 103/ul Normal 0.3-0.8 [facility] Comment on above: Performed By: #### P REG #### [facility] [address] [place] [address] Bee Nikki Monocytes/100 WBC (Bld) 4.9 % Normal 1.7-12.0 [facility] Comment on above: Performed By: #### P REG #### [facility] [address] [place] [address] Bee Nikki Neutrophils (Bld) [#/Vol] 5.2 103/ul Normal 1.4-6.5 [facility] Comment on above: Performed By: #### P REG #### [facility] [address] [place] [address] Bee Nikki Neutrophils/100 WBC (Bld) 78.7 % Critically high 43.0-75.0 [facility] Comment on above: Performed By: #### P REG #### [facility] [address] [place] [address] Beeronen Marinoen Platelet mean volume (Bld) [Entitic vol] 10.8 fL Normal 9.5-13.5 [facility] Comment on above: Performed By: #### P REG #### [facility] [address] [place] [address] Bee Nikki Platelets (Bld) [#/Vol] 240 103/ul Normal 150-450 [facility] Comment on above: Performed By: #### P REG #### [facility] [address] [place] [address] Bee Nikki RBC (Bld) [#/Vol] 3.42 106/ul Critically low 4.20-5.40 [facility] Comment on above: Performed By: #### P REG #### [facility] [address] [place] [address] Bee Nikik WBC (Bld) [#/Vol] 6.6 103/ul Normal 4.0-11.0 [facility] Comment on above: Performed By: #### P REG #### [facility] [address] [place], [place] [address] Bee Nikki CBC W MANUAL DIFFon 12-10-19 19 ATYPICAL LYMPH # Normal [facility] Comment on above: Performed By: #### C BC #### [facility] [address] [place], [place] [address] Bee Nikki ATYPICAL LYMPH % Normal [facility] Comment on above: Performed By: #### C BC #### [facility] [address] [place] [address] Bee Nikki BAND # 0.1 103/ul Normal 0.0-0.3 [facility] Comment on above: Performed By: #### C BC #### [facility] [address] [place] [address] Bee Nikki BAND % 1 % Normal 0-5 [facility] Comment on above: Performed By: #### C BC #### [facility] [address] [place] [address] Bee Nikki BASOM # 0.00 103/ul Normal 0.00-0.10 [facility] Comment on above: Performed By: #### C BC #### [facility] [address] [place] [address] Bee Nikki BASOM % 0.0 % Critically low 0.2-2.0 [facility] Comment on above: Performed By: #### C BC #### [facility] [address] [place] [address] Bee Nikki BLAST # Normal [facility] Comment on above: Performed By: #### C BC #### [facility] [address] [place] [address] Bee Nikki BLAST % Normal [facility] Comment on above: Performed By: #### C BC #### [facility] [address] [place] [address] Bee Nikki CORRECTED WBC Normal 4.0-11.0 [facility] Comment on above: Performed By: #### C BC #### [facility] [address] [place] [address] Bee Nikki Eosinophils (Bld) [#/Vol] 0.00 103/ul Normal 0.00-0.70 [facility] Comment on above: Performed By: #### C BC #### [facility] [address] [place] [address] Bee Nikki Eosinophils/100 WBC (Bld) 0.0 % Critically low 0.9-7.0 [facility] Comment on above: Performed By: #### C BC #### [facility] [address] [id number] Bee Jordan Erythrocyte distribution width (RBC) [Ratio] 13.8 % Normal 11.0-15.0 [facility] Comment on above: Performed By: #### C BC #### [facility] [address] [id number] Bee Jordan Hematocrit (Bld) [Volume fraction] 34.9 % Critically low 36.0-48.0 [facility] Comment on above: Performed By: #### C BC #### [facility] [address] [place] [address] Bee Jordan Hemoglobin (Bld) [Mass/Vol] 11.6 g/dl Critically low 12.0-16.0 [facility] Comment on above: Performed By: #### C BC #### [facility] [address] [place] [address] Bee Jordan LYMPHM # 0.42 103/ul Critically low 1.20-3.80 [facility] Comment on above: Performed By: #### C BC #### [facility] [address] [place] [address] Bee Jordan LYMPHM% 6.0 % Critically low 20.5-60.0 [facility] Comment on above: Performed By: #### C BC #### [facility] [address] [place], [place] [id number] Bee Jordan MCH (RBC) [Entitic mass] 32.0 pg Normal 26.7-34.0 [facility] Comment on above: Performed By: #### C BC #### [facility] [address] [place], [place] [address] Bee Jordan MCHC (RBC) [Mass/Vol] 33.2 g/dl Normal 29.9-35.2 [facility] Comment on above: Performed By: #### C BC #### [facility] [address] [place], [place] [address] Bee Jordan MCV (RBC) [Entitic vol] 96.4 fL Normal 81.0-99.0 [facility] Comment on above: Performed By: #### C BC #### [facility] [address] [place] [address] Bee Nikki METAMYELOCYTE # Normal [facility] Comment on above: Performed By: #### C BC #### [facility] [address] [place], [place] [address] Bee Nikki METAMYELOCYTE % Normal [facility] Comment on above: Performed By: #### C BC #### [facility] [address] [place] [address] Bee Nikki MONOM# 0.14 103/ul Critically low 0.30-0.80 [facility] Comment on above: Performed By: #### C BC #### [facility] [address] [place] [address] Bee Nikki MONOM% 2.0 % Normal 1.7-12.0 [facility] Comment on above: Performed By: #### C BC #### [facility] [address] [place] [address] Bee Nikki MYELOCYTE # Normal [facility] Comment on above: Performed By: #### C BC #### [facility] [address] [place] [address] Bee Nikki MYELOCYTE % Normal [facility] Comment on above: Performed By: #### C BC #### [facility] [address] [place] [address] Bee Nikki NRBC Normal [facility] Comment on above: Performed By: #### C BC #### [facility] [address] [place] [address] Bee Nikki Platelet mean volume (Bld) [Entitic vol] 10.5 fL Normal 9.5-13.5 [facility] Comment on above: Performed By: #### C BC #### [facility] [address] [place] [address] Bee Nikki Platelets (Bld) [#/Vol] 209 103/ul Normal 150-450 [facility] Comment on above: Performed By: #### C BC #### [facility] [address] [place] [address] Bee Nikki RBC (Bld) [#/Vol] 3.62 106/ul Critically low 4.20-5.40 [facility] Comment on above: Performed By: #### C BC #### [facility] [address] [place], [place] [address] Bee Nikki SEG # 6.37 103/ul Normal 1.40-6.50 [facility] Comment on above: Performed By: #### C BC #### [facility] [address] [place], [place] [address] Bee Nikki Segmented neutrophils/100 WBC (Bld) 91.0 % Critically high 43.0-75.0 [facility] Comment on above: Performed By: #### C BC #### [facility] [address] [place], [place] [address] Bee Nikki WBC (Bld) [#/Vol] 7.0 103/ul Normal 4.0-11.0 [facility] Comment on above: Performed By: #### C BC #### [facility] [address] [place], [place] [address] Beeronen Marinoen AMMONIAon 12-08-2018 Ammonia (P) [Mass/Vol] 12 umol/L Normal 10-30 [facility] Comment on above: Performed By: #### C BC #### [facility] [address] [place], [place] [address] Beeronen Marinoen BNPon 12-08-2018 Natriuretic peptide B (Bld) [Mass/Vol] 305.0 pg/mL Normal <=450.0 [facility] Comment on above: Performed By: #### C BC #### [facility] [address] [place], [place] [address] Bee Nikki CBC AUTO DIFFon 12-08-2018 Basophils (Bld) [#/Vol] 0.0 103/ul Normal 0.0-0.1 [facility] Comment on above: Performed By: #### C BC #### [facility] [address] [place], [place] [address] Bee Nikki Basophils/100 WBC (Bld) 0.4 % Normal 0.2-2.0 [facility] Comment on above: Performed By: #### C BC #### [facility] [address] [place] [address] Bee Nikki Eosinophils (Bld) [#/Vol] 0.0 103/ul Normal 0.0-0.7 [facility] Comment on above: Performed By: #### C BC #### [facility] [address] [place] [address] Bee Nikki Eosinophils/100 WBC (Bld) 0.1 % Critically low 0.9-7.0 [facility] Comment on above: Performed By: #### C BC #### [facility] [address] [place] [address] Bee Nikki Erythrocyte distribution width (RBC) [Ratio] 13.9 % Normal 11.0-15.0 [facility] Comment on above: Performed By: #### C BC #### [facility] [address] [place] [address] Bee Nikki Hematocrit (Bld) [Volume fraction] 36.9 % Normal 36.0-48.0 [facility] Comment on above: Performed By: #### C BC #### [facility] [address] [place] [address] Bee Nikki Hemoglobin (Bld) [Mass/Vol] 12.0 g/dL Normal 12.0-16.0 [facility] Comment on above: Performed By: #### C BC #### [facility] [address] [place] [address] Bee Nikki IG # 0.02 10e3/ul Normal 0.00-0.03 [facility] Comment on above: Performed By: #### C BC #### [facility] [address] [place] [address] Bee Nikki IG % 0.2 % Normal 0.0-0.5 [facility] Comment on above: Performed By: #### C BC #### [facility] [address] [place], [place] [address] Bee Nikki Lymphocytes (Bld) [#/Vol] 0.9 103/ul Critically low 1.2-3.8 [facility] Comment on above: Performed By: #### C BC #### [facility] [address] [place], [place] [address] Bee Nikki Lymphocytes/100 WBC (Bld) 9.9 % Critically low 20.5-60.0 [facility] Comment on above: Performed By: #### C BC #### [facility] [address] [place], [place] [address] Bee Nikki MANUAL DIFF REQ NO Normal [facility] Comment on above: Performed By: #### C BC #### [facility] [address] [place], [place] [address] Bee Nikki MCH (RBC) [Entitic mass] 31.9 pg Normal 26.7-34.0 [facility] Comment on above: Performed By: #### C BC #### [facility] [address] [place] [address] Beeronen Marinoen MCHC (RBC) [Mass/Vol] 32.5 g/dL Normal 29.9-35.2 [facility] Comment on above: Performed By: #### C BC #### [facility] [address] [place], [place] [address] Beeronen Marinoen MCV (RBC) [Entitic vol] 98.1 fL Normal 81.0-99.0 [facility] Comment on above: Performed By: #### C BC #### [facility] [address] [place], [place] [address] Bee Nikki Monocytes (Bld) [#/Vol] 0.4 103/ul Normal 0.3-0.8 [facility] Comment on above: Performed By: #### C BC #### [facility] [address] [place], [place] [address] Bee Nikki Monocytes/100 WBC (Bld) 3.9 % Normal 1.7-12.0 [facility] Comment on above: Performed By: #### C BC #### [facility] [address] [place], [place] [address] Bee Nikki Neutrophils (Bld) [#/Vol] 7.6 103/ul Critically high 1.4-6.5 [facility] Comment on above: Performed By: #### C BC #### [facility] [address] [place], [place] [address] Bee Jordan Neutrophils/100 WBC (Bld) 85.5 % Critically high 43.0-75.0 [facility] Comment on above: Performed By: #### C BC #### [facility] [address] [place], [place] [address] Bee Jordan Platelet mean volume (Bld) [Entitic vol] 10.1 fL Normal 9.5-13.5 [facility] Comment on above: Performed By: #### C BC #### [facility] [address] [address] [place], [place] [id number] Bee Jordan Platelets (Bld) [#/Vol] 218 103/ul Normal 150-450 [facility] Comment on above: Performed By: #### C BC #### [facility] [address] [place], [place] [id number] Bee Jordan RBC (Bld) [#/Vol] 3.76 106/ul Critically low 4.20-5.40 [facility] Comment on above: Performed By: #### C BC #### [facility] [address] [place], [place] [address] Bee Jordan WBC (Bld) [#/Vol] 8.9 103/ul Normal 4.0-11.0 [facility] Comment on above: Performed By: #### C BC #### [facility] [address] [place], [place] [address] Bee Jordan LACTATE/LACTIC ACIDon 2018 Lactate [Moles/Vol] 1.8 mmol/L Normal 0.7-2.1 [facility] Comment on above: Performed By: #### C BC #### [facility] [address] [place], [place] [address] Bee Jordan LIVER PROFILEon 12-08-2018 Albumin [Mass/Vol] 2.9 g/dL Critically low 3.5-5.0 [facility] Comment on above: Performed By: #### C BC #### [facility] [address] [place], [place] [address] Bee Nikki Albumin/Globulin [Mass ratio] 0.6 {ratio} Normal [facility] Comment on above: Performed By: #### C BC #### [facility] [address] [place], [place] [address] Bee Nikki ALP [Catalytic activity/Vol] 88 U/L Normal 38-126 [facility] Comment on above: Performed By: #### C BC #### [facility] [address] [place], [place] [address] Bee Nikki ALT [Catalytic activity/Vol] 18 U/L Normal 9-52 [facility] Comment on above: Performed By: #### C BC #### [facility] [address] [place] [address] Bee Nikki AST [Catalytic activity/Vol] 21 U/L Normal 14-36 [facility] Comment on above: Performed By: #### C BC #### [facility] [address] [place], [place] [address] Bee Nikki BILI, CONJUGATED 0.1 mg/dL Normal 0.0-0.3 [facility] Comment on above: Performed By: #### C BC #### [facility] [address] [place], [place] [address] Bee Nikki Bilirubin Ql (U) 0.6 mg/dL Normal 0.2-1.3 [facility] Comment on above: Performed By: #### C BC #### [facility] [address] [place], [place] [address] Bee Nikki Globulin (S) [Mass/Vol] 4.5 g/dL Normal [facility] Comment on above: Performed By: #### C BC #### [facility] [address] [place], [place] [address] Bee Nikki Protein [Mass/Vol] 7.4 g/dL Normal 6.1-8.2 [facility] Comment on above: Performed By: #### C BC #### [facility] [address] [place], [place] [address] Bee Nikki PROF CHEM 8 (BAS METB)on Anion gap [Moles/Vol] 18.4 mmol/L Normal [facility] Comment on above: Performed By: #### C BC #### [facility] [address] [place] [address] Bee Nikki Calcium [Mass/Vol] 9.6 mg/dL Normal 8.4-10.2 [facility] Comment on above: Performed By: #### C BC #### [facility] [address] [place] [address] Bee Nikki Chloride [Moles/Vol] 103 mmol/L Normal 98-107 [facility] Comment on above: Performed By: #### C BC #### [facility] [address] [place] [address] Bee Nikki CO2 [Moles/Vol] 19.9 mmol/L Critically low 22.0-30.0 [facility] Comment on above: Performed By: #### C BC #### [facility] [address] [place] [address] Bee Nikki Creatinine [Mass/Vol] 0.92 mg/dL Normal 0.52-1.04 [facility] Comment on above: Performed By: #### C BC #### [facility] [address] [place] [address] Bee Nikki EGFR-AF [place] CITIZ[place] >60 Normal >=60 [facility] Comment on above: Performed By: #### C BC #### [facility] [address] [place] [address] Bee Nikki EGFR-NON AF [place] CITIZEN >60 Normal >=60 [facility] Comment on above: Performed By: #### C BC #### [facility] [address] [place], [place] [address] Bee Nikki Glucose [Mass/Vol] 115 mg/dL Critically high 74-106 [facility] Comment on above: Performed By: #### C BC #### [facility] [address] [place] [address] Bee Nikki Potassium [Moles/Vol] 3.3 mmol/L Critically low 3.4-5.0 [facility] Comment on above: Performed By: #### C BC #### [facility] [address] [place] [id number] Bee Nikki Sodium [Moles/Vol] 138 mmol/L Normal 137-145 [facility] Comment on above: Performed By: #### C BC #### [facility] [address] [id number] Bee Nikki Urea nitrogen [Mass/Vol] 19.0 mg/dL Critically high 7.0-17.0 [facility] Comment on above: Performed By: #### C BC #### [facility] [address] [place], [place] [address] Bee Nikki Urea nitrogen/Creatinin e [Mass ratio] 20.7 mg/mg Normal [facility] Comment on above: Performed By: #### C BC #### [facility] [address] [place], [place] [address] Bee Nikki BLOOD GASES BTYon 12-07-2018 02 MODE NASAL CANNULA Normal [facility] Comment on above: Performed By: #### C BC #### [facility] [address] [place], [place] [address] Bee Nikki ALLENS TEST Positive Normal [facility] Comment on above: Performed By: #### C BC #### [facility] [address] [place], [place] [address] Bee Nikki Base excess Calc (Bld) [Moles/Vol] -5.0 mmol/L Critically low -2.0-2.0 [facility] Comment on above: Performed By: #### C BC #### [facility] [address] [place], [place] [address] Bee Nikki BIPAP PRESSURE Normal [facility] Comment on above: Performed By: #### C BC #### [facility] [address] [place], [place] [address] Bee Nikki CO2 [Moles/Vol] 19.7 mmol/L Critically low 23.0-28.0 [facility] Comment on above: Performed By: #### C BC #### [facility] [address] [place] [address] Bee Nikki CPAP Normal [facility] Comment on above: Performed By: #### C BC #### [facility] [address] [place] [address] Bee Nikki FIO2 Normal [facility] Comment on above: Performed By: #### C BC #### [facility] [address] [place] [id number] Bee Nikki HCO3 (Bld) [Moles/Vol] 18.7 mmol/L Critically low 22.0-26.0 [facility] Comment on above: Performed By: #### C BC #### [facility] [address] [place] [address] Bee Nikki LPM 4 Normal [facility] Comment on above: Performed By: #### C BC #### [facility] [address] [place] [address] Bee Nikki MINUTE VOLUME Normal [facility] Comment on above: Performed By: #### C BC #### [facility] [address] [place] [address] Bee Nikki Oxygen (Bld) [Partial pressure] 92.4 mm[Hg] Normal 80.0-100.0 [facility] Comment on above: Performed By: #### C BC #### [facility] [address] [place] [address] Bee Nikki Oxygen saturation in Blood 90.8 % Critically low 95.0-100.0 [facility] Comment on above: Performed By: #### C BC #### [facility] [address] [place] [address] Bee Nikki PCO2 30.8 mmHg Critically low 35.0-45.0 [facility] Comment on above: Performed By: #### C BC #### [facility] [address] [place] [address] Bee Nikki PEEP Normal [facility] Comment on above: Performed By: #### C BC #### [facility] [address] [place] [address] Bee Nikki pH (Bld) 7.402 [pH] Normal 7.350-7.450 [facility] Comment on above: Performed By: #### C BC #### [facility] [address] [place] [address] Bee Nikki PIP Normal [facility] Comment on above: Performed By: #### C BC #### [facility] [address] [place] [address] Bee Nikki PS Normal [facility] Comment on above: Performed By: #### C BC #### [facility] [address] [place] [address] Bee Nikki PUNCTURE SITE RR Normal [facility] Comment on above: Performed By: #### C BC #### [facility] [address] [place] [address] Bee Nikki RATE Normal [facility] Comment on above: Performed By: #### C BC #### [facility] [address] [place] [address] Bee Nikki VENT MODE Normal [facility] Comment on above: Performed By: #### C BC #### [facility] [address] [place] [address] Bee Nikki VT Normal [facility] Comment on above: Performed By: #### C BC #### [facility] [address] [place] [address] Bee Nikki CBC W MANUAL DIFFon 12-08-19 19 ATYPICAL LYMPH # Normal [facility] Comment on above: Performed By: #### C BCMAN #### [facility] [address] [place] [address] Bee Nikki ATYPICAL LYMPH % Normal [facility] Comment on above: Performed By: #### C HOSSEINMAN #### [facility] [address] [place] [address] Bee Nikki BAND # Normal 0.0-0.3 [facility] Comment on above: Performed By: #### C BCMAN #### [facility] [address] [place] [address] Bee Nikki BAND % Normal 0-5 [facility] Comment on above: Performed By: #### C BCMAN #### [facility] [address] [place] [address] Bee Nikki BASOM # 0.00 103/ul Normal 0.00-0.10 [facility] Comment on above: Performed By: #### C CELSA #### [facility] [address] [place] [address] Bee Nikki BASOM % 0.0 % Critically low 0.2-2.0 [facility] Comment on above: Performed By: #### C CELSA #### [facility] [address] [place] [address] Bee Nikki BLAST # Normal [facility] Comment on above: Performed By: #### C CELSA #### [facility] [address] [place] [address] Bee Nikki BLAST % Normal [facility] Comment on above: Performed By: #### C CELSA #### [facility] [address] [place] [address] Bee Nikki CORRECTED WBC Normal 4.0-11.0 [facility] Comment on above: Performed By: #### C CELSA #### [facility] [address] [place] [address] Bee Nikki Eosinophils (Bld) [#/Vol] 0.09 103/ul Normal 0.00-0.70 [facility] Comment on above: Performed By: #### C CELSA #### [facility] [address] [place] [address] Bee Nikki Eosinophils/100 WBC (Bld) 1.0 % Normal 0.9-7.0 [facility] Comment on above: Performed By: #### C CELSA #### [facility] [address] [place] [address] Bee Nikki Erythrocyte distribution width (RBC) [Ratio] 14.2 % Normal 11.0-15.0 [facility] Comment on above: Performed By: #### C CELSA #### [facility] [address] [place] [address] Bee Nikki Hematocrit (Bld) [Volume fraction] 34.3 % Critically low 36.0-48.0 [facility] Comment on above: Performed By: #### C CELSA #### [facility] [address] [place] [address] Bee Jordan Hemoglobin (Bld) [Mass/Vol] 11.0 g/dl Critically low 12.0-16.0 [facility] Comment on above: Performed By: #### C CELSA #### [facility] [address] [place] [address] Bee Nikki LYMPHM # 0.69 103/ul Critically low 1.20-3.80 [facility] Comment on above: Performed By: #### C CELSA #### [facility] [address] [place] [address] Bee Nikki LYMPHM% 8.0 % Critically low 20.5-60.0 [facility] Comment on above: Performed By: #### C CELSA #### [facility] [address] [place] [address] Beeronen Mrainoen MCH (RBC) [Entitic mass] 32.2 pg Normal 26.7-34.0 [facility] Comment on above: Performed By: #### C CELSA #### [facility] [address] [place] [address] Bee Jordan MCHC (RBC) [Mass/Vol] 32.1 g/dl Normal 29.9-35.2 [facility] Comment on above: Performed By: #### C CELSA #### [facility] [address] [place] [address] Beeronen Jordan MCV (RBC) [Entitic vol] 100.3 fL Critically high 81.0-99.0 [facility] Comment on above: Performed By: #### Robb STEEN #### [facility] [address] [place] [address] Bee Nikki METAMYELOCYTE # Normal [facility] Comment on above: Performed By: #### C CELSA #### [facility] [address] [place], [place] [address] Bee Nikki METAMYELOCYTE % Normal [facility] Comment on above: Performed By: #### Robb STEEN #### [facility] [address] [place] [address] Bee Nikki MONOM# 0.34 103/ul Normal 0.30-0.80 [facility] Comment on above: Performed By: #### Robb STEEN #### [facility] [address] [place] [address] Bee Nikki MONOM% 4.0 % Normal 1.7-12.0 [facility] Comment on above: Performed By: #### Robb STEEN #### [facility] [address] [place] [address] Bee Nikki MYELOCYTE # Normal [facility] Comment on above: Performed By: #### Robb STEEN #### [facility] [address] [place] [address] Bee Nikki MYELOCYTE % Normal [facility] Comment on above: Performed By: #### Robb STEEN #### [facility] [address] [place] [address] Bee Nikki NRBC Normal [facility] Comment on above: Performed By: #### Robb STEEN #### [facility] [address] [place] [address] Bee Nikki Platelet mean volume (Bld) [Entitic vol] 10.3 fL Normal 9.5-13.5 [facility] Comment on above: Performed By: #### Robb STEEN #### [facility] [address] [place] [address] Bee Nikki Platelets (Bld) [#/Vol] 192 103/ul Normal 150-450 [facility] Comment on above: Performed By: #### Robb STEEN #### [facility] [address] [place], [place] [address] Bee Nikki RBC (Bld) [#/Vol] 3.42 106/ul Critically low 4.20-5.40 [facility] Comment on above: Performed By: #### Robb STEEN #### [facility] [address] [place] [address] Bee Nikki SEG # 7.48 103/ul Critically high 1.40-6.50 [facility] Comment on above: Performed By: #### C BCMAN #### [facility] [address] [place], [place] [address] Bee Jordan Segmented neutrophils/100 WBC (Bld) 87.0 % Critically high 43.0-75.0 [facility] Comment on above: Performed By: #### C BCMAN #### [facility] [address] [place], [place] [address] Bee Jordan WBC (Bld) [#/Vol] 8.6 103/ul Normal 4.0-11.0 [facility] Comment on above: Performed By: #### C BCMAN #### [facility] [address] [place], [place] [address] HEAD WO CONon 12-07-2018 CT HEAD WO CON Patient: CAIN TAN Exam Date: 12/07/2018 : 1975 Gender:F Ordering : DR SAM ROSS . Admission #: [id number] Family : DR JOSETTE VEGA M.D. Order #: [id number] CLICK HERE TO VIEW EXAM RADIOLOGY REPORT [...] Posadas M.D. on 12/07/2018 at 22:09 Normal [facility] CTA CHEST W CONon 12-07-2018 CTA CHEST W CON Patient: CAIN TAN. Exam Date: 12/07/2018 : 1975 Gender:F Ordering : DR SAM ROSS . Admission #: [id number] Family : DR JOSETTE VEGA M.D. Order #: [id number] CLICK HERE TO VIEW EXAM RADIOLOGY REPORT [...] M.D. on 12/07/2018 at 20:22 Normal [facility] CBC AUTO DIFFon 12-06-2018 Basophils (Bld) [#/Vol] 0.0 103/ul Normal 0.0-0.1 [facility] Comment on above: Performed By: #### C BC #### [facility] [address] [place], [place] [address] Bee Nikki Basophils/100 WBC (Bld) 0.4 % Normal 0.2-2.0 [facility] Comment on above: Performed By: #### C BC #### [facility] [address] [place], [place] [address] Bee Nikki Eosinophils (Bld) [#/Vol] 0.1 103/ul Normal 0.0-0.7 [facility] Comment on above: Performed By: #### C BC #### [facility] [address] [place], [place] [address] Bee Nikki Eosinophils/100 WBC (Bld) 1.2 % Normal 0.9-7.0 [facility] Comment on above: Performed By: #### C BC #### [facility] [address] [place], [place] [address] Bee Nikki Erythrocyte distribution width (RBC) [Ratio] 14.6 % Normal 11.0-15.0 [facility] Comment on above: Performed By: #### C BC #### [facility] [address] [place], [place] [address] Bee Nikki Hematocrit (Bld) [Volume fraction] 33.2 % Critically low 36.0-48.0 [facility] Comment on above: Performed By: #### C BC #### [facility] [address] [place] [address] Bee Nikki Hemoglobin (Bld) [Mass/Vol] 10.5 g/dL Critically low 12.0-16.0 [facility] Comment on above: Performed By: #### C BC #### [facility] [address] [place], [place] [address] Bee Nikki IG # 0.02 10e3/ul Normal 0.00-0.03 [facility] Comment on above: Performed By: #### C BC #### [facility] [address] [place] [address] Bee Nikki IG % 0.3 % Normal 0.0-0.5 [facility] Comment on above: Performed By: #### C BC #### [facility] [address] [place] [address] Bee Nikki Lymphocytes (Bld) [#/Vol] 2.6 103/ul Normal 1.2-3.8 [facility] Comment on above: Performed By: #### C BC #### [facility] [address] [place] [address] Bee Nikki Lymphocytes/100 WBC (Bld) 37.9 % Normal 20.5-60.0 [facility] Comment on above: Performed By: #### C BC #### [facility] [address] [place], [place] [address] Bee Nikki MANUAL DIFF REQ NO Normal [facility] Comment on above: Performed By: #### C BC #### [facility] [address] [place], [place] [address] Bee Nikki MCH (RBC) [Entitic mass] 32.1 pg Normal 26.7-34.0 [facility] Comment on above: Performed By: #### C BC #### [facility] [address] [place], [place] [address] Bee Nikki MCHC (RBC) [Mass/Vol] 31.6 g/dL Normal 29.9-35.2 [facility] Comment on above: Performed By: #### C BC #### [facility] [address] [place] [address] Bee Nikki MCV (RBC) [Entitic vol] 101.5 fL Critically high 81.0-99.0 [facility] Comment on above: Performed By: #### C BC #### [facility] [address] [place] [address] Bee Nikki Monocytes (Bld) [#/Vol] 0.4 103/ul Normal 0.3-0.8 [facility] Comment on above: Performed By: #### C BC #### [facility] [address] [place] [address] Bee Nikki Monocytes/100 WBC (Bld) 6.3 % Normal 1.7-12.0 [facility] Comment on above: Performed By: #### C BC #### [facility] [address] [place], [place] [address] Bee Nikki Neutrophils (Bld) [#/Vol] 3.7 103/ul Normal 1.4-6.5 [facility] Comment on above: Performed By: #### C BC #### [facility] [address] [place], [place] [address] Bee Nikki Neutrophils/100 WBC (Bld) 53.9 % Normal 43.0-75.0 [facility] Comment on above: Performed By: #### C BC #### [facility] [address] [place] [address] Bee Nikki Platelet mean volume (Bld) [Entitic vol] 9.7 fL Normal 9.5-13.5 [facility] Comment on above: Performed By: #### C BC #### [facility] [address] [place] [address] Bee Nikki Platelets (Bld) [#/Vol] 201 103/ul Normal 150-450 [facility] Comment on above: Performed By: #### C BC #### [facility] [address] [place], [place] [address] Bee Nikki RBC (Bld) [#/Vol] 3.27 106/ul Critically low 4.20-5.40 [facility] Comment on above: Performed By: #### C BC #### [facility] [address] [place], [place] [address] Bee Nikki WBC (Bld) [#/Vol] 6.9 103/ul Normal 4.0-11.0 [facility] Comment on above: Performed By: #### C BC #### [facility] [address] [place], [place] [address] Bee Nikki CBC AUTO DIFFon 12-04-2018 Basophils (Bld) [#/Vol] 0.0 103/ul Normal 0.0-0.1 [facility] Comment on above: Performed By: #### C BC #### [facility] [address] [place], [place] [address] Bee Nikki Basophils/100 WBC (Bld) 0.4 % Normal 0.2-2.0 [facility] Comment on above: Performed By: #### C BC #### [facility] [address] [place], [place] [address] Bee Nikki Eosinophils (Bld) [#/Vol] 0.1 103/ul Normal 0.0-0.7 [facility] Comment on above: Performed By: #### C BC #### [facility] [address] [place], [place] [address] Bee Nikki Eosinophils/100 WBC (Bld) 1.6 % Normal 0.9-7.0 [facility] Comment on above: Performed By: #### C BC #### [facility] [address] [place] [address] Bee Nikki Erythrocyte distribution width (RBC) [Ratio] 13.8 % Normal 11.0-15.0 [facility] Comment on above: Performed By: #### C BC #### [facility] [address] [place] [address] Bee Nikki Hematocrit (Bld) [Volume fraction] 36.6 % Normal 36.0-48.0 [facility] Comment on above: Performed By: #### C BC #### [facility] [address] [place] [address] Bee Nikki Hemoglobin (Bld) [Mass/Vol] 12.0 g/dL Normal 12.0-16.0 [facility] Comment on above: Performed By: #### C BC #### [facility] [address] [place] [address] Bee Nikki IG # 0.01 10e3/ul Normal 0.00-0.03 [facility] Comment on above: Performed By: #### C BC #### [facility] [address] [place] [address] Bee Nikki IG % 0.2 % Normal 0.0-0.5 [facility] Comment on above: Performed By: #### C BC #### [facility] [address] [place] [address] Bee Nikki Lymphocytes (Bld) [#/Vol] 2.2 103/ul Normal 1.2-3.8 [facility] Comment on above: Performed By: #### C BC #### [facility] [address] [place] [address] Bee Nikki Lymphocytes/100 WBC (Bld) 42.8 % Normal 20.5-60.0 [facility] Comment on above: Performed By: #### C BC #### [facility] [address] [place] [address] Bee Nikki MANUAL DIFF REQ NO Normal [facility] Comment on above: Performed By: #### C BC #### [facility] [address] [id number] Bee Jordan MCH (RBC) [Entitic mass] 31.9 pg Normal 26.7-34.0 [facility] Comment on above: Performed By: #### C BC #### [facility] [address] [place], [place] [address] Bee Jordan MCHC (RBC) [Mass/Vol] 32.8 g/dL Normal 29.9-35.2 [facility] Comment on above: Performed By: #### C BC #### [facility] [address] [place], [place] [address] Bee Jordan MCV (RBC) [Entitic vol] 97.3 fL Normal 81.0-99.0 [facility] Comment on above: Performed By: #### C BC #### [facility] [address] [place] [address] Bee Nikki Monocytes (Bld) [#/Vol] 0.3 103/ul Normal 0.3-0.8 [facility] Comment on above: Performed By: #### C BC #### [facility] [address] [place], [place] [address] Bee Jordan Monocytes/100 WBC (Bld) 5.9 % Normal 1.7-12.0 [facility] Comment on above: Performed By: #### C BC #### [facility] [address] [place], [place] [address] Bee Nikki Neutrophils (Bld) [#/Vol] 2.5 103/ul Normal 1.4-6.5 [facility] Comment on above: Performed By: #### C BC #### [facility] [address] [place], [place] [address] Bee Nikki Neutrophils/100 WBC (Bld) 49.1 % Normal 43.0-75.0 [facility] Comment on above: Performed By: #### C BC #### [facility] [address] [place], [place] [id number] Bee Nikki Platelet mean volume (Bld) [Entitic vol] 9.5 fL Normal 9.5-13.5 [facility] Comment on above: Performed By: #### C BC #### [facility] [address] [place], [place] [id number] Bee Jordan Platelets (Bld) [#/Vol] 226 103/ul Normal 150-450 [facility] Comment on above: Performed By: #### C BC #### [facility] [address] [place], [place] [id number] Bee Nikki RBC (Bld) [#/Vol] 3.76 106/ul Critically low 4.20-5.40 [facility] Comment on above: Performed By: #### C BC #### [facility] [address] [place], [place] [address] Beeronen Marinoen WBC (Bld) [#/Vol] 5.1 103/ul Normal 4.0-11.0 [facility] Comment on above: Performed By: #### C BC #### [facility] [address] [place], [place] [address] Beeronen Jordan PREG HCG QUALon 12-04-2018 , QUAL Negative Normal NEGATIVE [facility] Comment on above: Performed By: #### P REG #### [facility] [address] [place], [place] [id number] Bee Jordan PROF CHEM 8 (BAS METB)on Anion gap [Moles/Vol] 14.7 mmol/L Normal [facility] Comment on above: Performed By: #### B MP #### [facility] [address] [place], [place] [address] Bee Nikki Calcium [Mass/Vol] 8.8 mg/dL Normal 8.4-10.2 [facility] Comment on above: Performed By: #### B MP #### [facility] [address] [place], [place] [address] Bee Nikik Chloride [Moles/Vol] 109 mmol/L Critically high 98-107 [facility] Comment on above: Performed By: #### B MP #### [facility] [address] [place], [place] [address] Bee Nikki CO2 [Moles/Vol] 22.5 mmol/L Normal 22.0-30.0 [facility] Comment on above: Performed By: #### B MP #### [facility] [address] [id number] Bee Nikki Creatinine [Mass/Vol] 0.87 mg/dL Normal 0.52-1.04 [facility] Comment on above: Performed By: #### B MP #### [facility] [address] [id number] Bee Nikki EGFR-AF [place] CITIZEN >60 Normal >=60 [facility] Comment on above: Performed By: #### B MP #### [facility] [address] [address] Bee Nikki EGFR-NON AF [place] CITIZEN >60 Normal >=60 [facility] Comment on above: Performed By: #### B MP #### [facility] [address] [place] [address] Bee Nikki Glucose [Mass/Vol] 94 mg/dL Normal 74-106 [facility] Comment on above: Performed By: #### B MP #### [facility] [address] [id number] Bee Nikki Potassium [Moles/Vol] 3.2 mmol/L Critically low 3.4-5.0 [facility] Comment on above: Performed By: #### B MP #### [facility] [address] [place] [address] Bee Nikki Sodium [Moles/Vol] 143 mmol/L Normal 137-145 [facility] Comment on above: Performed By: #### B MP #### [facility] [address] [id number] Bee Nikki Urea nitrogen [Mass/Vol] 20.0 mg/dL Critically high 7.0-17.0 [facility] Comment on above: Performed By: #### B MP #### [facility] [address] [address] Bee Nikki Urea nitrogen/Creatinin e [Mass ratio] 23.0 mg/mg Normal [facility] Comment on above: Performed By: #### B MP #### [facility] [address] [place], [place] [address] Bee Nikki PROTIMEon 12-04-2018 INR Coag (PPP) [Relative time] 1.03 {INR} Normal [facility] Comment on above: Performed By: #### P T, PTT #### [facility] [address] [id number] Bee Nikki PT Coag (PPP) [Time] PLEASE NOTE: NORMAL RANGE CHANGE 2014 DUE TO REAGENT LOT CHANGE Normal [facility] Comment on above: Performed By: #### P T, PTT #### [facility] [address] [place] [address] Bee Nikki PT Coag (PPP) [Time] SEE BELOW Normal [facility] Comment on above: Result Comment: NALINI RED INR: 2.0 - 3.0 CONDITIONS NOT LISTED BELOW 2.5 - 3.5 FOR PROSTHETIC HEART VALVE REPLACEMENT 2.5 - 3.5 RECURRENT THROMBOSIS Performed By: #### P T, PTT #### [facility] [address] [place] [address] Bee Nikki PT Coag (PPP) [Time] 10.7 s Normal 9.0-11.6 [facility] Comment on above: Performed By: #### P T, PTT #### [facility] [address] [place], [place] [address] Bee Nikki PTTon 12-04-2018 aPTT Coag (Bld) [Time] PLEASE NOTE: NORMAL RANGE CHANGE 03-30-2015 DUE TO REAGENT LOT CHANGE Normal [facility] Comment on above: Performed By: #### P T, PTT #### [facility] [address] [place], [place] [phone] Bee Nikki aPTT Coag (Bld) [Time] 23.0 s Normal 22.3-36.2 [facility] Comment on above: Performed By: #### P T, PTT #### [facility] [address] [place], [place] [phone] Bee Nikki XR ANKLE RT 2Von 12-04-2018 XR ANKLE RT 2V Patient: CAIN TAN Exam Date: 12/04/2018 : 1975 Gender:F Ordering : DR. BEBO ENRIQUEZ D.P.M. Admission #: [id number] Family : Order #: [id number] CLICK HERE TO VIEW EXAM RADIOLOGY REPORT [...] Posadas M.D. on 12/04/2018 at 11:54 Normal [facility] XR ANKLE RT MIN 3 VIEWSon XR ANKLE RT MIN 3 VIEWS Patient: TERRIE TANKaylah Exam Date: 12/04/2018 : 1975 Gender:F Ordering : DR. BEBO ENRIQUEZ D.P.M. Admission #: [id number] Family : Order #: [id number] CLICK HERE TO VIEW EXAM RADIOLOGY REPORT [...] Posadas M.D. on 12/04/2018 at 15:02 Normal [facility] XR ANKLE RT MIN 3 VIEWSon XR ANKLE RT MIN 3 VIEWS Patient: TERRIE TANKaylah Exam Date: 12/03/2018 : 1975 Gender:F Ordering : DR. BEBO MonacoPNabila Admission #: [id number] Family : Order #: [id number] CLICK HERE TO VIEW EXAM RADIOLOGY REPORT [...] Posadas M.D. on 12/03/2018 at 13:13 Normal [facility] 07-30-2017 [facility] Office Visit (CALI) TERRIE TAN ([id number]) 1975 FDate Time Provider Department07/30/17 9:40 AM JOHN GARCIA During your visit today, we recorded the following information about you: Pulse Blood pressure Weight Height 84/minute 113/62 86.6 kg 1.549 Ricardo Garcia MD, 08/01/2017 10:22 AM [facility] [address], [address] [address], [address] [facility] [address]RZZ: Josette Vega MDThis is a 42 year old year old year old, Right handed woman from [facility] whois referred in consultation by Dr. Vega for an opinion regarding headaches andmy final recommendations will be communicated back to the requesting physicianby way of shared Medical record or letter via US mail.CC: MigraineHPI:Past medical history significant for: Pseudotumor cerebri s/p LP shunt (2009),chronic daily migraines, Chiari malformation (per outside CT [...] mouth every 8 hours as needed. Disp: Rfl:hvpvhgd-bksgzfey-qwtla bital (FIORINAL) capsule Disp: Rfl: 1No current [...] 1ANDquot;) Wt 86.6 kg (191lb) BMI 36.09 kg/w1Ihelgfw: well appearing, in no acute distress, alert [...] as outlined above.??Cyndy CurranffReferring Provider: SONNY HI [[id number]]Allergies As of Date: 07/30/2017 Noted Allergy ReactionANTIVERT (MECLIZINE) 02/18/2017 14 - Other: See Comments Comments: Patient stated that she was in a coma state for daysDate Reviewed: 07/30/2017Reviewed by: Sabrina Azevedo - Fully AssessedReason for Visit: New Patient [...] jeyson* FLUTICASONE 50 MCG/ACTUATION * Use 1 [place] in each nostril o* LURASIDONE 40 MG [...] 4 mg by mouth every 8 ho* RIKMZNCOWZ-ESSLGBG-FBQLRMB E 5*Medication notes this encounter XRKMCRORXW-JZDCEUW-DVEDMRN E 50 MG-325 MG-40 MG CAPSULE >> Sabrina Azevedo 07/30/2017 9:57 AM >> SABRINA AZEVEDO milton Jul 30, 2017 9:57 AM Received from: External PharmacyProblem List As Of Date 07/30/2017 Noted Resolved Abdominal pannus [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 Tubular breast [N64.89] INVALID FOR* More... Status:Closed by JONH GARCIA MD on 08/01/17 Normal [facility] PROGRESSon 07-30-2017 PROGRESS HNO ID: [id number] thor: TONI Blanchardervice: (none)Author Type: PhysicianType: Progress NotesFiled: 08/01/2017 10:22 AMNote Text:Headache CenterPaurological [facility] [address], [address], [place] [address]cx[place]xs[address] [place], [place] [address] [address]RKI: Josette Vega MDOriana is a 42 year old year old year old, Right handed woman from [facility] is referred in consultation [...] body: NoneLP shunt [facility] for pseudotumor cerebri withoutany improvement [...] mouth every 8 hours as needed. Disp: Rfl:kpgqnrj-jmghxhed-kpgit bital (FIORINAL) capsule Disp: Rfl: 1No current [...] for a living. Trying to get disability. Darshanain [place].ROS:REVIEW OF SYSTEMSGENERAL: Planned weight loss (gastric bypass). [...] ) Wt 86.6 kg (191lb) BMI 36.09 kg/l0Rfgxofl: well appearing, in no acute distress, alert [...] agree withthe recommendations as outlined above.??Alfonso Curran [facility] PROGRESSon 02-20-2017 PROGRESS HNO ID: [id number] thor: Cat Montalvo LPNService: (none)Author Type: (none)Type: Progress NotesFiled: 02/20/2017 8:02 AMNote Text:[id number] OF PHOTOS: February 18, 2017TAKEN WITH LENS: 7ft / 70mm x5 IBLCTT4zg / 70mm H x5 ABDOMEN, FROM BELOW BRA LINE TO BELOW PUBIC AREAPOSES:AP/OP/LPDIAGNOSI S: NECK / TRUNK: PANNICULECTOMY and BREAST: BREAST AUGMENTATIONRELEASE: PATIENT SIGNED PHOTO RELEASE FOR CLINICAL USE AND SURGERYCat Montalvo LPN [facility] CNOVon 02-18-2017 CNOV Office Visit (PLASST) TERRIE TAN ([id number]) 1975 FDate Time Provider Enchjgalfc44/16/17 2:00 PM BEVERLY LEWIS PLASST During your visit today, we recorded the following information about you: Temperature Pulse Respiration Blood pressure 98.4 degrees 81/minute 18/minute 109/62 Weight Height 86.2 kg 1.549 Siobhanshimon Selvin HALE 02/18/2017 2:21 PM [facility] [id number] HOURS: Lab is open 7:30am to 6:00pm [...] at least one day prior to the scheduledexam.[facility] HOURSHOURS OF OPERATIONS Saturday and Saturday 8:00am to 4:00pm, Saturday through Saturday6:00am to 9:00pm. Express care is for patients 2 years and older.[facility] IN CLINICHOURS OF OPERATIONS Saturday and Saturday 8:00am to 4:00pm, Saturday through Saturday6:00am to 9:00pm. The walk in clinic is for patients 6 months and older.[facility] WALK-IN HOURSHOURS OF OPERATIONS Saturday and Saturday 9:00am to 4:00pm, Saturday through Saturday6:00am to 9:00pm. The walk in clinic is for patients 2 years and older.For Express Care LOCATIONS, HOURS OF OPERATION and CURRENT WAIT TIMES, visitthe following [email or web address]?dFR[type s][0]=Express%20Care%20Cli nicsAND-amp; for detailsWe are glad that we were able to get you in for an urgent appointment todaywhen you needed it. Is there anything else I can do for you?For Express Care LOCATIONS, HOURS OF OPERATION and CURRENT WAIT TIMES, visitthe following [email or web address]?dFR[type s][0]=Express%20Care%20Cli nicsAND-amp; for detailsBeverly Lewis MD 02/18/2017 [...] Wt 86.2 kg (190 lb) BMI 35.9 kg/n1ESXLJXIWZAbdseyuc Reactions- Antivert [Meclizine] Other: See Comments Patient [...] Visit Diagnosis:Tubular breast [N64.89]Order(s):SURGICAL REQUEST - ELECTIVE [8395038] Order #: [id number]: 1 CBC + DIFF [SQCBCDIF] Order #: [id number] FUTURE COMP METABOLIC PANEL [SQCMP] Order #: [id number] FUTURE ECG COMPLETE W INTERPRETATION [ECG01] Order #: [id number] FUTURE CONSULT TO ANESTHESIOLOGY [9002] Order #: [id number]: 1 CONSULT TO INT MED-IMPACT [9491041] Order #: [id number]: 1 [facility] [0783556] Order #: [id number] REFER FOR ADMIT INTERVIEW [8960029] Order #: [id number] List As Of Date 02/18/2017 Noted Resolved Abdominal pannus [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 Tubular breast [N64.89] INVALID FOR* More... Other instructions from your clinician: [facility] FACTS [phone] LAB HOURS: Lab is open 7:30am to [...] one day prior to the scheduled exam. [facility] HOURS HOURS OF OPERATIONS Saturday and Saturday 8:00am to 4:00pm, Saturday 6:00am to 9:00pm. Express care is for patients 2 years and older. [facility] HOURS OF OPERATIONS Saturday and Saturday 8:00am to 4:00pm, Saturday 6:00am to 9:00pm. The walk in clinic is for patients 6 months and older. [facility] HOURS HOURS OF OPERATIONS Saturday and Saturday 9:00am to 4:00pm, Saturday 6:00am to 9:00pm. The walk in clinic is for patients 2 years and older. For Express Care LOCATIONS, HOURS OF OPERATION and CURRENT WAIT TIMES, visit the following link [email or web address]?dFR[types][0 ]=Express%20Care%20Clin icsAND for details We are glad that we were able to get you in for an urgent appointment today when you needed it. Is there anything else I can do for you? For Express Care LOCATIONS, HOURS OF OPERATION and CURRENT WAIT TIMES, visit the following link [email or web address]?dFR[types][0 ]=Express%20Care%20Clin icsAND for detailsEncounter Number: [id number] Status:Closed by BEVERLY LEWIS MD on 02/18/17 Normal [facility] PROGRESSon 02-18-2017 PROGRESS HNO ID: [id number] thor: Beverly De SouzauService: (none)Author Type: PhysicianType: Progress NotesFiled: 02/18/2017 3:35 [...] Wt 86.2 kg (190 lb) BMI 35.9 kg/y0JVHBJVMDJQmwkoxnh Reactions- Antivert [Meclizine] Other: See Comments Patient [...] visit spent face to face with patient. Sumit 50% of the time was spent counseling and coordination of care,discussing treatment options and recommendations.?Beverly Lewis MDOctober 2016 3:34 PM Normal [facility] Vital Signs Date Time Vital Sign Value Performing Clinician Facility 11-13-2023 09:49-0400 Blood Pressure Location Skylar Lue [facility] 11-13-2023 09:49-0400 Diastolic blood pressure 85 mm[Hg] Skylar Lue [facility] 11-13-2023 09:49-0400 Heart rate 67 /min Skylar Lue [facility] 11-13-2023 09:49-0400 Respiratory rate 16 /min Skylar Lue [facility] 11-13-2023 09:49-0400 Systolic blood pressure 131 mm[Hg] Skylar Lue [facility] 05-04-2021 14:45-0500 Body height 154.94 cm Davi Martinez Other [facility] [employer] Other 05-04-2021 14:45-0500 Body mass index (BMI) [Ratio] 38.73 kg/m2 Davi Martinez Other [facility] [employer] Other 05-04-2021 14:45-0500 Body weight 92.99 kg Davi Martinez Other [facility] [employer] Other 03-23-2021 10:38-0500 Body height 154.94 cm Referring Provider Unknown WE-Hhecyoadyyaeih-Scy christiano Work Phone: 03-23-2021 10:38-0500 Body mass index (BMI) [Ratio] 40.06 kg/m2 Referring Provider Unknown SB-Xshxewhflpxmzj-Hla dman Work Phone: 03-23-2021 10:38-0500 Body surface area Derived from formula 1.94 m2 Referring Provider Unknown ES-Tkijuswzqtkqyc-Mfc dman Work Phone: 03-23-2021 [phone] Body weight 96.16 kg Referring Provider Unknown EX-Ksnhwmbicqpkdn-Ebw dman Work Phone: Encounters Encounter Date Encounter Type Care Provider Facility Start: 01-08-2024 ambulatory Skylar Ferrer [facility] Start: 12-06-2023 ambulatory Skylar Ferrer Facility:[facility] Start: 12-05-2023 End: 12-05-2023 ambulatory JOSETTE VEGA Not Available Start: 12-03-2023 End: 12-03-2023 ambulatory JOSETTE VEGA Not Available Start: 12-02-2023 End: 12-02-2023 ambulatory Skylar Ferrer Facility:[facility] Start: 12-02-2023 End: 12-02-2023 Patient encounter procedure Skylar Ferrer [facility] Start: 11-27-2023 End: 11-27-2023 ambulatory ALEX BURRIS Not Available Start: 11-20-2023 End: 11-20-2023 ambulatory Skylar Ferrer Facility:CD:[id number] Start: 11-13-2023 End: 11-13-2023 ambulatory Skylar Ferrer Facility:[facility] Start: 11-13-2023 End: 11-13-2023 Patient encounter [facility] Start: 11-08-2023 End: 11-08-2023 ambulatory SKYLAR FERRER [facility] Start: 10-24-2023 End: 10-24-2023 ambulatory ALEX BURRIS Not Available Start: 10-01-2023 End: 10-02-2023 Emergency department patient visit BRENNEN Sunita NAWAF [facility] Start: 08-09-2023 End: 08-09-2023 ambulatory JOSETTE VEGA Not Available Start: 07-18-2023 End: 07-18-2023 ambulatory ALEX BURRIS Not Available Start: 05-17-2023 ambulatory Skylar Lue Facility:[facility] Start: 04-25-2023 End: 04-25-2023 ambulatory ALEX BURRIS Not Available Start: 04-12-2023 ambulatory Skylar Lue Facility:[facility] Start: 04-08-2023 End: 04-08-2023 ambulatory RADHA PAK Not Available Start: 04-08-2023 End: 04-08-2023 ambulatory JAMES PAPPAS Not Available Start: 04-03-2023 End: 04-03-2023 ambulatory RADHA RODRIGUEZTRICK Not Available Start: 09-28-2021 End: 09-28-2021 ambulatory Davi Martinez Other [employer] Other Start: 09-28-2021 Telephone encounter Davi Mcallister [facility] Start: 05-04-2021 End: 05-04-2021 ambulatory Davi Martinez Other [employer] Other Start: 05-04-2021 Office outpatient ne w 45 minutes Davi Martinez [facility] Start: 04-06-2021 Patient encounter procedure No PCP None [facility] [address] [place] Work Phone: Start: 03-23-2021 [facility] visit new patient No PCP None GR-Fwamxrrry-Rdntbdg 3300A Work Phone: Start: 03-23-2021 Patient encounter procedure No PCP None JG-Hhbptlntoerhng-Opmdlyn Voice Work Phone: Start: 03-23-2021 Office consultation new/estab patient 60 min Referring Provider Unknown BC-Tfqdhuboolgwzb-Rqwapor Work Phone: Start: 11-18-2019 End: 11-19-2019 Patient [...] Encounter for other preprocedural examination BEBO ENRIQUEZ [facility] Start: 12-23-2018 End: 12-24-2018 Patient encounter procedure MAISHA CAMERON Facility:[facility] Start: 12-07-2018 End: 12-11-2018 Evaluation and management of inpatient JOSETTE VEGA Facility:[facility] Start: 12-03-2018 End: 12-04-2018 Patient encounter procedure BEBO ENRIQUEZ Facility:[facility] Start: 07-30-2017 End: 08-01-2017 Ambulatory EMAD N JESUS [facility] Start: 02-18-2017 Ambulatory BEVERLY LEWIS [facility] Procedures Date Procedure Procedure Detail Performing Clinician Start: 01-09-2023 Laparoscopic appendectomy Skylar Ferrer Start: 04-09-2019 ANESTH ABDOMINAL WALL SURG DOUG BLOCK Start: 04-09-2019 EXC SKIN ABD EDMOND PARKER Start: 04-09-2019 EXC SKIN ABD ADD-ON EDMOND PARKER Start: 12-08-2018 End: 12-08-2018 Microscopic examination of blood, culture BEBO ENRIQUEZ Comment on above: Performed By: #### PREG #### [facility] [address] [place] [address] Bee Jordan Start: 12-04-2018 Reposition Right Fibula with Internal Fixation Device, Open Approach BEBO ENRIQUEZ Start: 11-17-2018 Esophagogastroduodenoscopy transoral diagnostic Skylar Ferrer Start: 10-08-2018 Unlis laps px hrnap herniorrhaphy herniotomy Skylar Ferrer Start: 04-05-2015 Tonsillectomy & adenoidectomy Skylar Ferrer Cholecstontrstm garcía -en-y w/gastrontrstm Skylar Ferrer H/O: surgery Davi Hamlin ack Other Laps gstr rstcv px w /byp garcía-en-y limb <150 cm Skylar Ferrer Neuroplasty &/transp os median nrv carpal tunne Skylar Ferrer Oophorectomy Skylar Ferrer Plan of Treatment Date Care Activity Detail Author Start: 04-06-2021 JAMES, Provider : Maddy Echeverria, Status: Pen, Time: 4:00 PM JAMES, Provider: Maddy Echeverria, Status: Pen, Time: 4:00 PM ED-Eyhamvlao-Mdpatau 8300A Work Phone: Immunizations Immunization Date Immunization Notes Care Provider [facility] 03-27-2021 influenza virus vaccine, unspecified formulation Skylar Ferrer [facility] 03-27-2021 SARS-CoV-2 (COVID-19 ) mRNA-9333 vaccine Skylar Lumilton [facility] 09-05-2020 Moderna COVID-19 Vaccine 100 MCG/0.5ML Intramuscular Suspension Referring Provider Unknown [facility] 08-10-2020 Moderna COVID-19 Vaccine 100 MCG/0.5ML Intramuscular Suspension Referring Provider Unknown [facility] 03-11-2019 influenza virus vaccine, unspecified formulation Skylar Lue [facility] 03-11-2019 influenza, injectable, quadrivalent, contains preservative Referring Provider Unknown RN-Ochfkytgwgotvl-Nh idman Work Phone: 03-11-2019 influenza, injectable,quadrivale nt, preservative free, pediatric Davi Juan Other [employer] Other 02-14-2018 influenza, injectable, quadrivalent, preservative free Referring Provider Unknown SJ-Yejldiiklqrxwr-Ex idman Work Phone: 03-01-2017 influenza, injectable,quadrivale nt, preservative free, pediatric Davi Juan Other [employer] Other 03-01-2017 influenza virus vaccine, unspecified formulation Skylar Lue [facility] 03-01-2017 influenza, injectable, quadrivalent, preservative free Referring Provider Unknown TX-Eaubytlodpddcd-Mg idman Work Phone: 02-08-2016 influenza virus vaccine, unspecified formulation Skylar Lue [facility] 02-08-2016 influenza, injectable, quadrivalent, preservative free Referring Provider Unknown DJ-Txxukjrrxkktar-Ox idman Work Phone: 02-04-2015 influenza, high dose seasonal, preservative-free Davi Juan Other [employer] Other 02-04-2015 influenza virus vaccine, whole virus Referring Provider Unknown HR-Ohegziglfztdxy-Rp idman Work Phone: 02-04-2015 influenza, whole Skylar Lue [facility] 10-23-2014 measles, mumps and rubella virus vaccine Davi Martinez Other [employer] Other 10-22-2014 measles, mumps and rubella virus vaccine Referring Provider Unknown [facility] 10-05-2014 tetanus toxoid, reduced diphtheria toxoid, and acellular pertussis vaccine, adsorbed Referring Provider Unknown [facility] 02-24-2014 tetanus toxoid, reduced diphtheria toxoid, and acellular pertussis vaccine, adsorbed Referring Provider Unknown [facility] 02-21-2014 influenza virus vaccine, unspecified formulation Skylar Caitlinmilton [facility] 02-21-2014 influenza, seasonal, injectable Referring Provider Unknown FA-Qnclttlzkjznjn-Ep coby Work Phone: 1975 measles, mumps and rubella virus vaccine Davi Martinez Other [facility] NEGATED: Highlighted row has not occurred!02-18-2012 TDap [employer] Davi Martinez Other [employer] Other Payers Date Payer Category Payer Unknown [id number] 1975 Unknown [id number] 2..840.1.577130.3.579.2.593 1975 Unknown [id number] 2.840.1.424771.3.579.2.593 1975 Unknown [id number] 2.16.840.1.577935.3.579.2.593 1975 Unknown [id number] 2.840.1.392934.3.579.2.593 1975 Unknown [id number] 2.16.840.1.748728.3.579.2.593 1975 Unknown [id number] 2.16.840.1.143378.3.579.2.593 1975 Unknown [id number] 2.16.840.1.783307.3.579.2.593 1975 Unknown [id number] 2.16.840.1.483013.3.579.2.593 1975 Unknown [id number] 2.16.840.1.938353.3.579.2.593 1975 Unknown [id number] 2.16.840.1.305075.3.579.2.6 1975 Unknown [id number] 2.16.840.1.034696.3.579.2.128 1975 Unknown [id number] 2.16.840.1.694806.3.579.2.128 1975 Unknown [id number] 2.16.840.1.904262.3.579.2.1286 1975 Unknown [id number] 2.16.840.1.466193.3.579.2.72 1975 Unknown [id number] 2.16.840.1.767677.3.579.2.72 1975 Unknown [id number] 2.16.840.1.865318.3.579.2.72 1975 Unknown [id number] 2.16.840.1.525153.3.579.2.72 1975 Unknown [id number] 2.16.840.1.551958.3.579.2.72 1975 Unknown [id number]59 1975 Unknown [id number] 2.16.840.1.611090.3.579.2.1259 1977 Unknown [id number] 2.16.840.1.253352.3.579.2.1258 1977 Unknown [id number] 2.16.840.1.061728.3.579.2.1258 1977 Unknown [id number] 2.16.840.1.123550.3.579.2.1258 1977 Unknown [id number] 2.16.840.1.086082.3.579.2.1258 1977 Unknown [id number] 2.16.840.1.088381.3.579.2.1258 1977 Unknown [id number] 2.16.840.1.847748.3.579.2.1258 1977 Unknown [id number] 2.16.840.1.782770.3.579.2.1258 1977 Unknown [id number] 2.16.840.1.404305.3.579.2.9 1959 Unknown [id number] Unknown [facility] Social History Date Type Detail Facility Non-smoker Non-smoker MG-Otolaryngolo gy-Seidm an Work Phone: Sex Assigned At [facility] Start: 11-13-2023 Tobacco smoking status Never s moked tobacco (finding) [facility] Tobacco smoking status Never [facility] Functional Status Date Assessment Result Facility 11-13-2023 Functional Status N/A [facility] Clinical Notes 05-04-2021 to 12-02-2023 Note Date & Type Note Facility 12-02-2023 Hospital Discharg e instructions Patient Education 12/02/2023 12:04:44 [facility] - Cystoscopy with Stent Removal Discharge Instructions (CUSTOM) Cystoscopy with Stent Removal Voiding after the procedure: there may be some pain, burning, urgency, frequency and blood tinged urine following the procedure. These symptoms usually resolve within 2-5 days. Drink the amount of fluid it takes to keep the urine pink to yellow or clear in color. Drinking enough water and fluids will help to ease any discomfort after your procedure. If you are having problems that seem out of the ordinary, please call. If unable to contact your physician and you feel it is an emergency, go to the nearest emergency room or call 911 Diet you may resume your normal diet. Activity you may resume your normal activities Call if you have a fever over 100 degrees. Follow Up Care 11/21/2023 12:03:21 With:Skylar Ferrer Address: [facility] [address], [address] [address] [phone] Business (1) When: Unknown Comments:Office will call to schedule follow up - 8 wks with metabolic stone workup, renal US in 6 weeks [facility] 12-02-2023 Note Patient Education Cystoscopy with Stent Removal ? Voiding after the procedure: there may be some pain, burning, urgency, frequency and blood tinged urine following the procedure. These symptoms usually resolve within 2-5 days. Drink the amount of fluid it takes to keep the urine pink to yellow or clear in color. Drinking enough water and fluids will help to ease any discomfort after your procedure. ? If you are having problems that seem out of the ordinary, please call. ? If unable to contact your physician and you feel it is an emergency, go to the nearest emergency room or call 911 ? Diet ? you may resume your normal diet. ? Activity ? you may resume your normal activities ? Call if you have a fever over 100 degrees. [facility] 11-13-2023 Hospital Discharg e instructions Patient Education [...] Follow these instructions at home: Medicines Take jeeu-dub-fzqmhwc and prescription medicines only as told by [...] prevent or treat constipation, such as: ?Take oxji-ihq-khznezw or prescription medicines. ?Eat foods that are [...] provider. Document Revised: 08/29/2022 Document Reviewed: 12/25/2021 Elsevier Patient Education 2022 [employer]. 11/13/2023 10:43:58 Laser Therapy for Kidney Stones [...] including vitamins, herbs, eye drops, creams, and uqcx-nfo-jijvvbn medicines. Any problems you or family members [...] provider tells you to take them. ?Taking xnne-ehx-fevorkn medicines, vitamins, herbs, and supplements. Eating and [...] provider. Document Revised: 08/29/2022 Document Reviewed: 12/25/2021 [employer] Patient Education 2022 [employer]. Follow Up Care 04/12/2023 13:59:05 With:Nabil FU, ALLISON RandallL, [facility] Address: [address], [facility] [place] [address] [phone] When: Unknown Comments:miguel WILSON [facility] 11-13-2023 Note Urology Office/Clini c Note Chief [...] eGFR 73. CT AP w con 01/08/23 [facility] - No hydro. Unremarkable kidneys. CT AP [...] Information Nabil FU, Skylar Sanchez, URL, [facility] [address] [place] [address]- [phone] Additional Instructions: sched R URS Patient Education Laser Therapy for Kidney Stones, Care After Laser Therapy for Kidney Stones IMorelia, personally scribed for Dr. Ferrer on 11/13/2023 10:44:55. . Documentation recorded by the scribe, Dhara Galvan, accurately reflects the services(s) I performed and decisions made by me. Authenticated by Dr. Ferrer on 11/13/2023 11:11:23. Problem List/Past Medical History Ongoing Abnormal uterine bleeding. Abnormal vaginal bleeding Adjustment disorder wit (more content not included)... [facility] Comment on above: Result Comment: Elec [...] these instructions at home: Medicines ? Take hpqr-lkx-kxkilbg and prescription medicines only as told by [...] or treat constipation, such as: ? Take bvyk-wbj-rhksxxd or prescription medicines. ? Eat foods that [...] provider. Document Revised: 08/29/2022 Document Reviewed: 12/25/2021 [employer] Patient Education ? 2022 [employer]. Laser Therapy for Kidney Stones Laser therapy [...] including vitamins, herbs, eye drops, creams, and gwye-jje-cllxicm medicines. ? Any problems you or family [...] by a f (more content not included)... [facility] 09-28-2021 Evaluation note Encounter Date Diagnosis Assessment Notes September, Slow transit constipation (ICD-10 - K59.01) [facility] Other 05-02-2022 NoteHISTORY: Seizures, prior history of shunt PROCEDURE: [employer] Sign[employer] HDXT 1.5. Sagittal coronal and axial [...] and signed by Sammy Savage on 09/04/2021 [facility]12-30-2021 Evaluation note* Encounter Date Diagnosis Assessment Notes Treatment Notes Treatment Clinical Notes Apr, Slow transit constipation (ICD-10 - K59.01) PATIENT DOES NOT TAKE ANY MEDICATIONS WILL START THE ABOVE MEDICATION. Apr, Abdominal pain (ICD-10 - R10.9) WILL HAVE THIS WHEN BOWELS DO NO MOVE Apr, Heartburn (ICD-10 - R12) DOES NOT TAKE ANY MEDICATION [facility] Other Evaluation + Plan note No data available for this section [facility] evaluation + Plan note Future Appointments Appointment Date:01/08/2024 10:45:00 AM Scheduled Provider:Skylar Ferrer MD Location:[facility] Appointment Type:URO Office Visit Future Scheduled Tests Radiology* US Renal 01/13/24 [facility] History general Narrative - Reported* Type Description [...] not wanting to kill self .Hospitalized in [facility] Hospitalization History In [facility] Psychiatric unit on two occasions. Hospitalization History [facility]- Stomach Problems 1 06/10/18 [facility] Other History of Present illness Narrative* TERRIE [...] are inserted. 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 She denies otalgia, otorrhea, tinnitus, dizziness, history of otologic surgery. * Patient's preferred language: Egyptian * Preferred language of the parent, legal [...] verbalize recall / understanding and teaching complete. XU-Rnqqfizmv-Nxkuots [id number] Work Phone: History of Present illness Narrative* [...] Treatment recommendations: treatment indicated (see goals below) MX-Cjyamwisrunnwu-Cxnzinr Voice Work Phone: Progress note No data available for this section [facility] Summary Purpose Family History No Family History Records FoundNo Family History Records FoundNo Family History Records FoundNo Family History Records FoundNo Family History Records FoundNo Family History Records FoundNo Family History Records Found No data available for this section No data available for this section No Family History Records FoundNo Family History [...] section and content) DATE CREATED AUTHOR 10/24/2017 [facility] DATE CREATED AUTHOR AUTHOR'S ORGANIZ ATION 04/17/2019 [facility] DATE CREATED AUTHOR AUTHOR'S ORGANIZ ATION 11/28/2019 [facility] DATE CREATED AUTHOR AUTHOR'S ORGANIZ ATION 07/12/2020 [facility] DATE CREATED AUTHOR AUTHOR'S ORGANIZ ATION 04/08/2021 [employer] DATE CREATED AUTHOR AUTHOR'S ORGANIZ ATION 01/12/2022 [facility] DATE CREATED AUTHOR AUTHOR'S ORGANIZ ATION 11/09/2023 [facility] DATE CREATED AUTHOR AUTHOR'S ORGANIZ ATION 12/07/[address] [facility] DATE CREATED AUTHOR AUTHOR'S ORGANIZ ATION 12/10/2023 [facility] REASON FOR VISIT (unrecogniz ed section and content) REFERRED BY DR. VEGA FOR SL OW TRANSIT CONSTIPATION, ABD PAIN. PATIENT WAS TO START DICYCLOMINE, CONTINUE MIRALAX AND FLEETS ENEMA PER PCP., PATIENT STATES NOT ON ANY MEDICATIONS AT THIS TIME. PATIENT STATES CAN GO BETWEEN 3-4 DAYS OF BOWEL MOVEMENTS.medication Patient Care team informatio n (unrecognized section and content) Personnel Name: JOSETTE VEGA MD Address: Address: [address] [place] [id number] FOR RECORDS PERTAINING TO PATIENTS WHO ARE [...] BE BASED ON THE PRIMARY CLINICAL RECORDS. [facility], [facility]. provides no warranty or guarantee of the accuracy or completeness of information in this document.
[2023-12-12 12:28] LABS: Calcium 9.1 mg/dL (8.5-10.1); Carbon Dioxide 24.4 mmol/L (21.0-32.0); Chloride 104 mmol/L (98-107); Estimated GFR (African America >60 (>=60); Estimated GFR (Non-African Ame 58 (>=60); Potassium 3.9 mmol/L (3.5-5.1); Sodium 136 mmol/L (136-145); Uric Acid 5.5 mg/dL (2.6-6.0)
[2023-12-13 10:09] LABS: PTH, Intact 16 pg/mL (15-65)
== END 2023-12-12 11:02 | disposition home or self-care (01) ==
LOC: US 11:02
PROVIDERS: PCP Family Medicine; Visit Provider Urology
DX: R10.9 Unspecified abdominal pain (principal); N20.1 Calculus of ureter
CPT/HCPCS: 36415; 74018; 76775; 82310; 82374; 82435; 82565; 83970; 84100; 84132; 84295; 84520; 84550